=== PATIENT | male | born 1960 ===

== ENCOUNTER → 2020-11-06 09:49 | Outpatient (BNVA) | payer OTHER, SELFPAY | PROVIDERS: PCP Internal Medicine; Visit Provider Hospitalist | DX: J44.9 Chronic obstructive pulmonary disease, unspecified (principal); G47.33 Obstructive sleep apnea (adult) (pediatric); R91.8 Other nonspecific abnormal finding of lung field; Z99.89 Dependence on other enabling machines and devices | CPT/HCPCS: 99212 ==

== ENCOUNTER 2020-11-06 13:00 | Outpatient (RCR) | payer OTHER, SELFPAY | END 2020-11-06 14:55 | disposition other institution (70) | LOC: HO.PT 13:00 | PROVIDERS: Visit Provider Orthopaedic Surgery | DX: M54.42 Lumbago with sciatica, left side (principal) | CPT/HCPCS: 97110; 97112; 97140; 97163; 97535 ==

== ENCOUNTER 2020-11-07 11:55 | Outpatient (REF) | payer SELFPAY ==
[2020-11-07 12:29] LABS: Cholesterol 345 mg/dL
[2020-11-07 12:49] LABS: SARS COV2 IgG Negative (Negative)
== END 2020-11-07 11:56 | disposition home or self-care (01) ==
LOC: HO.LNC 11:55
PROVIDERS: Visit Provider Pathology Anatomic Pathology & Clinical Pathology
DX: Z13.89 Encounter for screening for other disorder (principal)
CPT/HCPCS: 36415; 82465; 86769

== ENCOUNTER 2020-11-11 14:23 | Outpatient (REF) | payer OTHER, SELFPAY ==
[2020-11-11 15:44] LABS: Rheumatoid Factor < 15.0 IU/mL (<15.0)
[2020-11-11 16:21] LABS: Erythrocyte Sedimentation Rate 22 MM/HR (0-15)
[2020-11-12 08:42] LABS: Syphilis Screen Nonreactive (Nonreactive)
[2020-11-12 09:07] LABS: Lyme Abs Screen <0.90 index
[2020-11-12 13:28] LABS: Anti Nuclear Antibody Screen NEGATIVE (NEGATIVE)
[2020-11-12 18:11] LABS: IgA 291 mg/dL (47-310); IgG 1045 mg/dL (600-1640); IgM 28 mg/dL (50-300)
== END 2020-11-11 14:24 | disposition home or self-care (01) ==
LOC: HO.LAB 14:23
PROVIDERS: PCP Internal Medicine; Visit Provider Psychiatry & Neurology Neurology
DX: G62.9 Polyneuropathy, unspecified (principal); R91.8 Other nonspecific abnormal finding of lung field; J44.9 Chronic obstructive pulmonary disease, unspecified; G47.33 Obstructive sleep apnea (adult) (pediatric)
CPT/HCPCS: 36415; 82784; 85652; 86038; 86039; 86334; 86431; 86618; 86780

== ENCOUNTER 2020-11-26 10:10 | Outpatient (REF) | payer OTHER, SELFPAY | END 2020-11-26 10:11 | disposition home or self-care (01) | LOC: HO.LAB 10:10 | PROVIDERS: Visit Provider Internal Medicine | DX: Z20.822 Contact with and (suspected) exposure to COVID-19 (principal) | CPT/HCPCS: 36415; C9803; U0003; U0005 ==

== ENCOUNTER 2021-01-01 09:32 | Outpatient (REF) | payer OTHER, SELFPAY ==
[2021-01-01 10:03] LABS: MANUAL DIFF FLAG NO
[2021-01-01 10:06] LABS: Basophils Percent Auto 0.2 % (0-2); Eosinophils Absolute Auto 0.1 X10*3/uL (0.0-0.4); Hematocrit 40.6 % (42-52); Hemoglobin 13.5 g/dl (14.0-18.0); Imm Gran Abs Auto 0.05 X10*3/uL (0.00-0.03); Imm Gran Pct Auto 0.6 % (0.0-0.4); Lymphocytes Absolute Auto 2.1 X10*3/uL (1.2-4.9); Lymphocytes Percent Auto 25.7 % (20-40); Mean Corpuscular HGB Conc 33.3 g/dl (31.0-36.0); Mean Corpuscular Hemoglobin 29.7 pg (27.0-33.0); Mean Corpuscular Volume 89.2 fL (80-98); Mean Platelet Volume 9.4 fL (9.4-12.4); Monocytes Absolute Auto 0.5 X10*3/uL (0.1-1.2); Monocytes Percent Auto 6.4 % (2-11); Neutrophils Absolute Auto 5.4 X10*3/uL (2.0-8.3); Neutrophils Percent Auto 66.1 % (45-73); Platelet Count 306 X10*3/uL (160-400); Red Blood Count 4.55 X10*6/uL (4.60-5.80); Red Cell Distribution Width 13.2 % (11.0-16.0); White Blood Count 8.1 X10*3/uL (4.8-10.8)
[2021-01-01 10:25] LABS: Alanine Aminotransferase 21 U/L (0-40); Albumin Level 4.4 g/dL (3.5-5.0); Alkaline Phosphatase 85 U/L (39-117); Anion Gap 14 (12-20); Aspartate Amino Transferase 17 U/L (5-37); Bilirubin Total 0.5 mg/dL (0.0-1.0); Blood Urea Nitrogen 16 mg/dL (9-16); Carbon Dioxide 30 mmol/L (22-29); Chloride 103 mmol/L (96-108); Estimated Glomerular Filt Rate > 60; Glucose Random 103 mg/dL (60-115); Potassium 4.5 mmol/L (3.3-5.1); Sodium 142 mmol/L (135-145); Total Protein 7.2 g/dL (6.5-8.0)
[2021-01-03 11:10] LABS: Folate 14.6 ng/mL (> or = 4.0); Vitamin B12 430 pg/mL (200-900)
== END 2021-01-01 09:33 | disposition home or self-care (01) ==
LOC: HO.LAB 09:32
PROVIDERS: PCP Internal Medicine; Visit Provider Internal Medicine
DX: Z00.01 Encounter for general adult medical examination with abnormal findings (principal); G47.33 Obstructive sleep apnea (adult) (pediatric); G60.8 Other hereditary and idiopathic neuropathies; I10 Essential (primary) hypertension; R21 Rash and other nonspecific skin eruption
CPT/HCPCS: 36415; 80053; 82607; 82746; 84443; 85025

== ENCOUNTER 2021-01-12 12:52 | Outpatient (REF) | payer OTHER, SELFPAY ==
--- NOTE | ~2021-01-12 | CT_ITS ---
EXAMINATION: CT CHEST SCREENING CLINICAL INFORMATION: Lung cancer screening COMPARISON: Previous chest CT most recent November 2019 TECHNIQUE: Multidetector volumetric CT imaging of the chest is performed without contrast using low dose technique. Additional 2D coronal and sagittal reformatted images and axial 3D maximum intensity projection (MIP) images are generated on the CT workstation. This CT examination was performed using dose optimization techniques as appropriate, variously including the following: *Automated exposure control *Adjustment of mA and/or kV according to patient size (this includes techniques or standardized protocols for targeted exams where dose is matched to indication/reason for exam; i.e. extremities or head) *Use of iterative reconstruction technique DLP: 66 mGy-cm FINDINGS: LUNGS: There is a 2 mm left upper lobe nodule axial image 92 series 5 that is stable. There is a 4 mm calcified left upper lobe nodule axial image 103 series 5 that is stable. There is a 2 mm peripheral or subpleural left lower lobe nodule adjacent to the diaphragmatic pleural surface axial image 383 series 5 that is stable. No new pulmonary nodule is seen. No endobronchial or endotracheal lesion is seen. MEDIASTINUM: The ascending thoracic aorta is upper normal in size measuring 4 cm. This is similar to previous exam. There are no enlarged hilar or mediastinal lymph nodes. The heart does not appear enlarged. There is no pericardial effusion. PLEURA: There is no pleural effusion. No pleural mass or thickening. AXILLA: No lymphadenopathy. UPPER ABDOMEN: Unremarkable OSSEOUS STRUCTURES: There are degenerative changes of the spine. CT/CT lung screening IMPRESSION: Stable small pulmonary nodules. No new pulmonary nodule seen. ASSESSMENT: Lung-RADS category 2: Benign RECOMMENDATION: Annual low-dose chest CT follow-up recommended.
== END 2021-01-12 12:53 | disposition home or self-care (01) ==
LOC: HO.CT 12:52
PROVIDERS: PCP Internal Medicine; Visit Provider Surgery
DX: Z12.2 Encounter for screening for malignant neoplasm of respiratory organs (principal); Z87.891 Personal history of nicotine dependence
CPT/HCPCS: 71271; 99212

== ENCOUNTER 2021-01-26 09:42 | Outpatient (REF) | payer OTHER, SELFPAY ==
[2021-01-26 14:32] LABS: PSA,Total (Free>4and<10) 0.89 ng/mL (0.00-4.00)
== END 2021-01-26 09:43 | disposition home or self-care (01) ==
LOC: HO.10HDL 09:42
PROVIDERS: Visit Provider Urology
DX: N40.1 Benign prostatic hyperplasia with lower urinary tract symptoms (principal); N13.8 Other obstructive and reflux uropathy
CPT/HCPCS: 36415; 84153

== ENCOUNTER 2021-02-12 07:47 | Outpatient (REF) | payer OTHER, SELFPAY | END 2021-02-12 07:48 | disposition home or self-care (01) | LOC: HO.LAB 07:47 | PROVIDERS: Visit Provider Internal Medicine | DX: Z20.822 Contact with and (suspected) exposure to COVID-19 (principal) | CPT/HCPCS: C9803; U0003; U0005 ==

== ENCOUNTER 2021-04-08 11:30 | Outpatient (REF) | payer OTHER, SELFPAY ==
[2021-04-08 14:35] LABS: PSA,Total (Free>4and<10) 0.85 ng/mL (0.00-4.00)
== END 2021-04-08 11:31 | disposition home or self-care (01) ==
LOC: HO.LAB 11:30
PROVIDERS: PCP Internal Medicine; Visit Provider Urology
DX: Z12.5 Encounter for screening for malignant neoplasm of prostate (principal); N40.1 Benign prostatic hyperplasia with lower urinary tract symptoms; N13.8 Other obstructive and reflux uropathy
CPT/HCPCS: 36415; 84153

== ENCOUNTER 2021-04-13 09:12 | Outpatient (REF) | payer OTHER, SELFPAY ==
[2021-04-13 10:36] LABS: Alanine Aminotransferase 15 U/L (0-40); Albumin Level 4.4 g/dL (3.5-5.0); Alkaline Phosphatase 76 U/L (39-117); Anion Gap 12 (12-20); Aspartate Amino Transferase 19 U/L (5-37); Bilirubin Total 0.4 mg/dL (0.0-1.0); Blood Urea Nitrogen 19 mg/dL (9-16); Calcium 9.4 mg/dL (8.4-10.2); Carbon Dioxide 29 mmol/L (22-29); Chloride 104 mmol/L (96-108); Cholesterol 283 mg/dL; Estimated Glomerular Filt Rate > 60; Glucose Random 97 mg/dL (60-115); HDL Cholesterol 58 mg/dL; LDL Cholesterol Calculated 182 mg/dl; Potassium 4.2 mmol/L (3.3-5.1); Sodium 141 mmol/L (135-145); Total Protein 7.1 g/dL (6.5-8.0); Triglycerides 219 mg/dL
== END 2021-04-13 09:13 | disposition home or self-care (01) ==
LOC: HO.LAB 09:12
PROVIDERS: PCP Internal Medicine; Visit Provider Internal Medicine
DX: E78.00 Pure hypercholesterolemia, unspecified (principal); G47.33 Obstructive sleep apnea (adult) (pediatric); I10 Essential (primary) hypertension
CPT/HCPCS: 36415; 80053; 80061

== ENCOUNTER → 2021-04-16 14:26 | Outpatient (BNVA) | payer OTHER, SELFPAY | PROVIDERS: PCP Internal Medicine; Visit Provider Urology | DX: Z13.89 Encounter for screening for other disorder (principal) | CPT/HCPCS: 99212 ==

== ENCOUNTER 2021-06-16 10:41 | Outpatient (REF) | payer OTHER, SELFPAY ==
[2021-06-19 13:06] LABS: TS Negative Control Passed; TS Panel A 7; TS Panel B 4; TS Positive Control Passed; TSpotTB BORDERLINE (SeeBelow)
== END 2021-06-16 10:42 | disposition home or self-care (01) ==
LOC: HO.LAB 10:41
PROVIDERS: PCP Internal Medicine; Visit Provider Internal Medicine
DX: Z11.1 Encounter for screening for respiratory tuberculosis (principal); E78.2 Mixed hyperlipidemia; G47.33 Obstructive sleep apnea (adult) (pediatric); I10 Essential (primary) hypertension; J44.9 Chronic obstructive pulmonary disease, unspecified
CPT/HCPCS: 36415; 86481

== ENCOUNTER → 2021-07-27 13:36 | Outpatient (BNVA) | payer OTHER, SELFPAY | PROVIDERS: PCP Internal Medicine; Visit Provider Internal Medicine Cardiovascular Disease | DX: R06.00 Dyspnea, unspecified (principal) | CPT/HCPCS: 93005; 99202 ==

== ENCOUNTER 2021-07-29 08:30 | Outpatient (REF) | payer OTHER, SELFPAY ==
[2021-07-29 08:52] LABS: MANUAL DIFF FLAG NO
[2021-07-29 09:26] LABS: Basophils Percent Auto 0.5 % (0-2); Eosinophils Absolute Auto 0.2 X10*3/uL (0.0-0.4); Eosinophils Percent Auto 2.3 % (0-4); Hematocrit 40.6 % (42-52); Hemoglobin 13.6 g/dl (14.0-18.0); Imm Gran Abs Auto 0.02 X10*3/uL (0.00-0.03); Imm Gran Pct Auto 0.3 % (0.0-0.4); Lymphocytes Absolute Auto 2.1 X10*3/uL (1.2-4.9); Lymphocytes Percent Auto 27.5 % (20-40); Mean Corpuscular HGB Conc 33.5 g/dl (31.0-36.0); Mean Corpuscular Volume 86.6 fL (80-98); Mean Platelet Volume 9.7 fL (9.4-12.4); Monocytes Absolute Auto 0.6 X10*3/uL (0.1-1.2); Monocytes Percent Auto 7.7 % (2-11); Neutrophils Absolute Auto 4.6 X10*3/uL (2.0-8.3); Neutrophils Percent Auto 61.7 % (45-73); Platelet Count 346 X10*3/uL (160-400); Red Blood Count 4.69 X10*6/uL (4.60-5.80); Red Cell Distribution Width 13.2 % (11.0-16.0); White Blood Count 7.5 X10*3/uL (4.8-10.8)
[2021-07-29 09:54] LABS: Alanine Aminotransferase 17 U/L (0-40); Albumin Level 4.5 g/dL (3.5-5.0); Alkaline Phosphatase 87 U/L (39-117); Anion Gap 15 (12-20); Aspartate Amino Transferase 16 U/L (5-37); Bilirubin Total 0.4 mg/dL (0.0-1.0); Blood Urea Nitrogen 18 mg/dL (9-16); Calcium 9.4 mg/dL (8.4-10.2); Carbon Dioxide 27 mmol/L (22-29); Chloride 101 mmol/L (96-108); Cholesterol 359 mg/dL; Estimated Glomerular Filt Rate > 60; Glucose Random 104 mg/dL (60-115); HDL Cholesterol 53 mg/dL; Potassium 4.3 mmol/L (3.3-5.1); Sodium 139 mmol/L (135-145); Total Protein 7.5 g/dL (6.5-8.0); Triglycerides 411 mg/dL
[2021-07-29 10:08] LABS: PSA,Total (Free>4and<10) 0.73 ng/mL (0.00-4.00)
== END 2021-07-29 08:31 | disposition home or self-care (01) ==
LOC: HO.LAB 08:30
PROVIDERS: Urology; PCP Internal Medicine; Visit Provider Internal Medicine
DX: E78.2 Mixed hyperlipidemia (principal); G47.33 Obstructive sleep apnea (adult) (pediatric); I10 Essential (primary) hypertension; J44.9 Chronic obstructive pulmonary disease, unspecified; N40.1 Benign prostatic hyperplasia with lower urinary tract symptoms; N13.8 Other obstructive and reflux uropathy; Z12.5 Encounter for screening for malignant neoplasm of prostate
CPT/HCPCS: 36415; 80053; 80061; 84153; 85025

== ENCOUNTER → 2021-07-30 13:56 | Outpatient (BNVA) | payer OTHER, SELFPAY | PROVIDERS: PCP Internal Medicine; Visit Provider Nurse Practitioner | DX: K21.9 Gastro-esophageal reflux disease without esophagitis (principal); R14.0 Abdominal distension (gaseous); R19.7 Diarrhea, unspecified; R10.33 Periumbilical pain | CPT/HCPCS: 99212 ==

== ENCOUNTER 2021-09-03 13:30 | Outpatient (RCR) | payer OTHER, SELFPAY | END 2021-09-04 12:00 | disposition home or self-care (01) | LOC: HO.OT 13:30 | PROVIDERS: Visit Provider Orthopaedic Surgery | DX: Z98.890 Other specified postprocedural states (principal) | CPT/HCPCS: 97033; 97035; 97110; 97140; 97165; 97760 ==

== ENCOUNTER 2021-09-22 11:36 | Emergency (ER) | payer OTHER, SELFPAY ==
--- NOTE | ~2021-09-22 | XR_ITS ---
EXAMINATION: XR KNEE, RIGHT CLINICAL INFORMATION: Pain COMPARISON: Previous x-ray most recent May 2019 TECHNIQUE: Two views of the right knee. FINDINGS: Bone alignment is normal. No fracture or dislocation is seen. There is mild arthritis at the medial femoral and patellofemoral joints. There is a small osteophyte at the quadriceps tendon insertion to the patella. There is no joint effusion. XR/XR knee RT 2V IMPRESSION: Degenerative changes.
[2021-09-22 12:04] VITALS: BP 161/95; PULSE 85; RESP 18; TEMP 37; O2SAT 97; BMI 37.2
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
[2021-09-22] MEDS: Ibuprofen 600 MG TABLET PO (12:55)
== END 2021-09-22 14:04 | disposition home or self-care (01) ==
PROVIDERS: Emergency Provider Emergency Medicine Emergency Medical Services; PCP Internal Medicine
DX: S83.91XA Sprain of unspecified site of right knee, initial encounter (principal); S16.1XXA Strain of muscle, fascia and tendon at neck level, initial encounter; W01.0XXA Fall on same level from slipping, tripping and stumbling without subsequent striking against object, initial encounter; Y93.89 Activity, other specified; Y92.031 Bathroom in apartment as the place of occurrence of the external cause; Y99.9 Unspecified external cause status
CPT/HCPCS: 73560; 99283; 99284

== ENCOUNTER → 2021-11-02 10:40 | Outpatient (BNVA) | payer OTHER, SELFPAY | PROVIDERS: PCP Internal Medicine; Visit Provider Hospitalist | DX: G47.33 Obstructive sleep apnea (adult) (pediatric) (principal); J44.9 Chronic obstructive pulmonary disease, unspecified; R91.8 Other nonspecific abnormal finding of lung field; Z99.89 Dependence on other enabling machines and devices | CPT/HCPCS: 99212 ==

== ENCOUNTER 2021-11-11 07:20 | Outpatient (REF) | payer OTHER, SELFPAY ==
[2021-11-11 09:01] LABS: Alanine Aminotransferase 23 U/L (0-40); Albumin Level 4.4 g/dL (3.5-5.0); Alkaline Phosphatase 77 U/L (39-117); Anion Gap 14 (12-20); Aspartate Amino Transferase 21 U/L (5-37); Bilirubin Total 0.6 mg/dL (0.0-1.0); Blood Urea Nitrogen 17 mg/dL (9-16); Calcium 9.6 mg/dL (8.4-10.2); Carbon Dioxide 31 mmol/L (22-29); Chloride 100 mmol/L (96-108); Cholesterol 254 mg/dL; Estimated Glomerular Filt Rate > 60; Glucose Random 101 mg/dL (60-115); HDL Cholesterol 48 mg/dL; LDL Cholesterol Calculated 144 mg/dl; Potassium 4.5 mmol/L (3.3-5.1); Sodium 140 mmol/L (135-145); Total Protein 7.6 g/dL (6.5-8.0); Triglycerides 314 mg/dL
[2021-11-11 09:14] LABS: Thyroid Stimulating Hormone 0.81 uIU/mL (0.32-4.0)
== END 2021-11-11 07:21 | disposition home or self-care (01) ==
LOC: HO.LAB 07:20
PROVIDERS: PCP Internal Medicine; Visit Provider Internal Medicine
DX: E78.2 Mixed hyperlipidemia (principal); F32.9 Major depressive disorder, single episode, unspecified; G47.33 Obstructive sleep apnea (adult) (pediatric); I10 Essential (primary) hypertension
CPT/HCPCS: 36415; 80053; 80061; 84443

== ENCOUNTER → 2021-11-17 07:56 | Outpatient (REF) | payer OTHER, SELFPAY ==
--- NOTE | 2021-11-17 08:02 | CA_ITS ---
Transthoracic Echocardiogram Patient (Last, First, Middle): Morteza Benitez, Gender: Male Date of : 1960 Age: 61 Procedure Date: 11/17/2021 Procedure Type: Transthoracic Echocardiogram Location: OP Height: 180.34 cm Weight: 125.19 kg BSA: 2.42 m2 Heart Rate: bpm BP: 142 / 84 mmHg Unindentured Apprentice: AJ Referring MD: Enmanuel Forrester MD Symptoms: R06.00 - Dyspnea, unspecified Study Quality: Fair ECG Rhythm: Sinus Conclusions: - Normal left ventricular size, thickness, systolic function, and wall motion. - Diastolic function is normal for age. - Normal right ventricular cavity size and systolic function. Findings Procedure Information Contrast agent, definity, is being given per protocol without apparent complications. Left Ventricle Normal left ventricular size, thickness, systolic function, and wall motion. The visually estimated ejection fraction is between 60-65%. Diastolic function is normal for age. Right Ventricle Normal right ventricular cavity size and systolic function. Atria Both atria are normal in size. Aortic Valve Normal aortic valve structure and function. There is no aortic valve stenosis. There is no aortic valve regurgitation. Mitral Valve Normal mitral valve structure and function. There is no mitral valve regurgitation. There is no mitral valve stenosis. Pulmonic Valve Normal pulmonic valve structure and function. There is trace pulmonic valve regurgitation. Tricuspid Valve Normal tricuspid valve structure and function. There is trace tricuspid valve regurgitation. Normal right atrial pressure. There is no evidence of pulmonary hypertension. Great Vessels All visible segments of the aorta are normal in size. The visualized portions of the pulmonary artery and branches are normal. Venous The inferior vena cava is normal in size and collapses greater than 50% with inspiration. Pericardium/Pleural There is no evidence of pericardial effusion. Prior Study Comparison No prior study available for comparison. Measurements 2D Linear Measurements IVSd: 1.05 0.6-0.9/0.6-1.0 cm LVIDd: 4.70 3.9-5.3/4.2-5.9 cm LVIDd Index: 1.94 2.4-3.2/2.2-3.1 cm/m2 LVIDs: 3.07 2.0-3.6 cm LVPWd: 1.15 0.7-1.1 cm Ao Root: 3.70 2.1-3.5 cm LA Diam: 3.00 2.7-3.8/3.0-4.0 cm LAIDs Index: 1.24 1.5-2.3 cm/m2 LV Mass: 233.67 67-162/88-224 g LV Mass Index: 96.56 43-95/49-115 g/m2 LVOT Diam: 2.20 3.0+(-)1.3 cm 2D Systolic Function EF 4C: 60.40 >55% EF 2C: 69.20 >55% EF BiP: 63.10 >55% Mitral Valve MV Pk E: 0.52 MV PK A: 0.77 MV Decel Time: 293.00 E/A: 0.70 E'Lateral: 9.46 E'Medial: 8.27 E/E' Med: 6.30 E/E' Lat: 5.50 PHT: 86.00 MVA PHT: 2.56 Decel [place]: 1.77 Aortic Valve AoV Pk Pedro: 1.45 AoV Mn Pedro: 0.96 AoV VTI: 0.24 AoV Pk Grad: 8.00 Aov Mn Grad: 4.00 GUILLAUME Cont.VTI: 3.20 LVOT LVOT Pk Pedro: 1.07 LVOT Mn Pedro: 0.78 LVOT VTI: 0.20 LVOT Pk Grad: 5.00 LVOT Mn Grad: 3.00 LVOT Diam: 2.20 LVOT Area: 3.80 Diastolic Function MV Pk E: 0.52 MV Pk A: 0.77 E/A: 0.70 E'Medial: 8.27 E/E' Med: 6.30 E' Laterial: 9.46 E/E' Lat: 5.50 Right Ventricle TAPSE (mm): 19.00 TVS' Pedro: 18.00 Tricuspid Valve TR Pk Pedro: 1.56 TR Pk Grad: 10.00 RA Press: 3.00 RVSP: 13.00 Great Vessels Aorta Ao Root-2D: 3.70 2.0-3.7 cm Ao Asc: 3.40 2.1-3.4 cm Ao Arch: 3.50 Updated in Other Vendor System with Status of Final Enmanuel Forrester MD electronically signed on 11/18/2021 8:22:54 PM with status of Final
== END ==
LOC: HO.CARD 07:56
PROVIDERS: PCP Internal Medicine; Visit Provider Internal Medicine Cardiovascular Disease
DX: R06.00 Dyspnea, unspecified (principal)
CPT/HCPCS: 93306; Q9957

== ENCOUNTER → 2021-11-23 08:44 | Outpatient (BNVA) | payer OTHER, SELFPAY | PROVIDERS: PCP Internal Medicine; Visit Provider Internal Medicine Cardiovascular Disease | DX: R06.00 Dyspnea, unspecified (principal); G47.33 Obstructive sleep apnea (adult) (pediatric); J44.9 Chronic obstructive pulmonary disease, unspecified; Z91.19 Patient's noncompliance with other medical treatment and regimen; Z99.89 Dependence on other enabling machines and devices | CPT/HCPCS: 99212 ==

== ENCOUNTER 2021-11-25 08:22 | Outpatient (REF) | payer OTHER, SELFPAY ==
--- NOTE | ~2021-11-25 | XR_ITS ---
EXAMINATION: XR LUMBOSACRAL SPINE WITH OBLIQUES CLINICAL INFORMATION: Low back pain. COMPARISON: None TECHNIQUE: AP, both oblique, and lateral views of the lumbar spine. Lateral view of the lumbosacral junction. FINDINGS: There is normal lumbar lordosis. There is loss of L5-S1, L4-L5 and L1-2 disc heights with moderate ventral spondylosis upper lumbar and mild spondylosis lower lumbar spine. No visible acute fracture, dislocation or lytic process seen. There is no pars defect or listhesis on oblique views. XR/XR lumbar spine 4V min IMPRESSION: Mild degenerative changes L5-S1, L4-L5 and L1-L2 disc levels. No pars defect or listhesis. There is moderate ventral spondylosis.
== END 2021-11-25 08:23 | disposition home or self-care (01) ==
LOC: HO.XRAY 08:22
PROVIDERS: PCP Internal Medicine; Visit Provider Student in an Organized Health Care Education/Training Program
DX: M51.16 Intervertebral disc disorders with radiculopathy, lumbar region (principal)
CPT/HCPCS: 72110

== ENCOUNTER → 2021-11-26 07:49 | Outpatient (REF) | payer OTHER, SELFPAY ==
--- NOTE | 2021-11-26 07:52 | CA_ITS ---
Acquisition Time: 2021-11-26 08:08:18 Total Exercise Time: 00:06:13 Test Indications: Dyspnea Medications: AMLODIPINE ALBUTEROL LOSARTAN/HCTZ LORATIDINE ROSUVASTATIN INHALERS SERTRALINE SINGULAIR Protocol: SHWETHA Max HR: 148 BPM 92% of Pred: 160 BPM Max BP: 138/072 mmHG Max Work Load: 7.3 METS Exercise stress test with exercise 6 min 13 sec of Shwetha protocol, with mild sob, no chest discomfort, without arrythmia, with normotensive response to exercise, without EKG changes meeting criteria for ischemia. Test reviewed with Dr Jackson. Referred By: Enmanuel Forrester Overread By: NENA LOREDO
== END ==
LOC: HO.CARD 07:49
PROVIDERS: Visit Provider Internal Medicine Cardiovascular Disease
DX: R06.00 Dyspnea, unspecified (principal)
CPT/HCPCS: 93017

== ENCOUNTER 2022-01-15 08:13 | Outpatient (REF) | payer OTHER, SELFPAY ==
--- NOTE | ~2022-01-15 | XR_ITS ---
EXAMINATION: XR CHEST CLINICAL INFORMATION: Positive TB test COMPARISON: None TECHNIQUE: 2 views of the chest were obtained. FINDINGS: No significant abnormality is noted involving the heart, lungs, mediastinum, bony thorax or soft tissues. XR/XR chest 2V IMPRESSION: Unremarkable chest examination.
== END 2022-01-15 08:14 | disposition home or self-care (01) ==
LOC: HO.XRAY 08:13
PROVIDERS: PCP Internal Medicine; Visit Provider Internal Medicine
DX: R76.11 Nonspecific reaction to tuberculin skin test without active tuberculosis (principal)
CPT/HCPCS: 71046

== ENCOUNTER 2022-02-13 07:03 | Outpatient (REF) | payer OTHER, SELFPAY ==
[2022-02-13 07:55] LABS: Alanine Aminotransferase 46 U/L (0-40); Albumin Level 4.4 g/dL (3.5-5.0); Alkaline Phosphatase 85 U/L (39-117); Anion Gap 13 (12-20); Aspartate Amino Transferase 28 U/L (5-37); Bilirubin Total 0.5 mg/dL (0.0-1.0); Blood Urea Nitrogen 25 mg/dL (9-16); Calcium 9.7 mg/dL (8.4-10.2); Carbon Dioxide 32 mmol/L (22-29); Chloride 100 mmol/L (96-108); Cholesterol 155 mg/dL; Estimated Glomerular Filt Rate > 60; Glucose Random 112 mg/dL (60-115); HDL Cholesterol 54 mg/dL; LDL Cholesterol Calculated 65 mg/dl; Potassium 4.6 mmol/L (3.3-5.1); Sodium 140 mmol/L (135-145); Total Protein 7.3 g/dL (6.5-8.0); Triglycerides 184 mg/dL
[2022-02-13 08:19] LABS: PSA,Total (Free>4and<10) 0.66 ng/mL (0.00-4.00)
== END 2022-02-13 07:04 | disposition home or self-care (01) ==
LOC: HO.LAB 07:03
PROVIDERS: Urology; PCP Internal Medicine; Visit Provider Internal Medicine
DX: Z12.5 Encounter for screening for malignant neoplasm of prostate (principal); E78.2 Mixed hyperlipidemia; N13.8 Other obstructive and reflux uropathy; N40.1 Benign prostatic hyperplasia with lower urinary tract symptoms; G47.33 Obstructive sleep apnea (adult) (pediatric); I10 Essential (primary) hypertension
CPT/HCPCS: 36415; 80053; 80061; 84153

== ENCOUNTER → 2022-03-24 12:31 | Outpatient (BNVA) | payer OTHER, SELFPAY | PROVIDERS: PCP Internal Medicine; Referring Provider Internal Medicine; Visit Provider Internal Medicine Cardiovascular Disease | DX: R06.00 Dyspnea, unspecified (principal) | CPT/HCPCS: 93005; 99212 ==

== ENCOUNTER → 2022-03-30 07:16 | Outpatient (BNVA) | payer OTHER, SELFPAY | PROVIDERS: PCP Internal Medicine; Referring Provider Internal Medicine; Visit Provider Nurse Practitioner | DX: K21.9 Gastro-esophageal reflux disease without esophagitis (principal); R14.0 Abdominal distension (gaseous); R19.7 Diarrhea, unspecified | CPT/HCPCS: 99212 ==

== ENCOUNTER → 2022-04-01 12:41 | Outpatient (BNVA) | payer OTHER, SELFPAY | PROVIDERS: PCP Internal Medicine; Visit Provider Hospitalist | DX: J44.9 Chronic obstructive pulmonary disease, unspecified (principal); G47.33 Obstructive sleep apnea (adult) (pediatric); R06.00 Dyspnea, unspecified; R91.8 Other nonspecific abnormal finding of lung field; Z99.89 Dependence on other enabling machines and devices | CPT/HCPCS: 94618; 99212 ==

== ENCOUNTER 2022-04-28 07:26 | Outpatient (REF) | payer OTHER, SELFPAY ==
[2022-04-28 09:58] LABS: Anion Gap 14 (12-20); Blood Urea Nitrogen 25 mg/dL (9-16); Calcium 9.2 mg/dL (8.4-10.2); Carbon Dioxide 26 mmol/L (22-29); Chloride 104 mmol/L (96-108); Estimated Glomerular Filt Rate > 60; Glucose Random 103 mg/dL (60-115); Potassium 4.3 mmol/L (3.3-5.1); Sodium 140 mmol/L (135-145)
== END 2022-04-28 07:27 | disposition home or self-care (01) ==
LOC: HO.LAB 07:26
PROVIDERS: PCP Internal Medicine; Visit Provider Internal Medicine Cardiovascular Disease
DX: R06.00 Dyspnea, unspecified (principal)
CPT/HCPCS: 36415; 80048

== ENCOUNTER 2022-05-10 07:05 | Outpatient (REF) | payer OTHER, SELFPAY ==
[2022-05-10 07:42] LABS: Estimated Average Glucose 114 mg/dL; Hemoglobin A1c % 5.6 %
[2022-05-10 07:56] LABS: Alanine Aminotransferase 21 U/L (0-40); Albumin Level 4.4 g/dL (3.5-5.0); Alkaline Phosphatase 84 U/L (39-117); Anion Gap 14 (12-20); Aspartate Amino Transferase 20 U/L (5-37); Bilirubin Total 0.2 mg/dL (0.0-1.0); Blood Urea Nitrogen 20 mg/dL (9-16); Calcium 8.8 mg/dL (8.4-10.2); Carbon Dioxide 25 mmol/L (22-29); Chloride 103 mmol/L (96-108); Estimated Glomerular Filt Rate > 60; Glucose Random 119 mg/dL (60-115); Sodium 138 mmol/L (135-145); Total Protein 7.3 g/dL (6.5-8.0)
== END 2022-05-10 07:06 | disposition home or self-care (01) ==
LOC: HO.LAB 07:05
PROVIDERS: PCP Internal Medicine; Visit Provider Internal Medicine
DX: Z00.01 Encounter for general adult medical examination with abnormal findings (principal); R73.01 Impaired fasting glucose; I10 Essential (primary) hypertension; F51.5 Nightmare disorder; F32.9 Major depressive disorder, single episode, unspecified; F17.211 Nicotine dependence, cigarettes, in remission
CPT/HCPCS: 36415; 80053; 83036

== ENCOUNTER → 2022-07-06 15:26 | Outpatient (BNVA) | payer OTHER, SELFPAY | PROVIDERS: PCP Internal Medicine; Visit Provider Urology | DX: N40.1 Benign prostatic hyperplasia with lower urinary tract symptoms (principal); N13.8 Other obstructive and reflux uropathy; N52.9 Male erectile dysfunction, unspecified; Z79.899 Other long term (current) drug therapy | CPT/HCPCS: 51798; 99212 ==

== ENCOUNTER → 2022-07-07 13:02 | Outpatient (BNVA) | payer OTHER, SELFPAY | PROVIDERS: PCP Internal Medicine; Referring Provider Internal Medicine; Visit Provider Internal Medicine Cardiovascular Disease | DX: R06.00 Dyspnea, unspecified (principal) | CPT/HCPCS: 99212 ==

== ENCOUNTER 2022-09-02 08:46 | Outpatient (REF) | payer OTHER, SELFPAY ==
--- NOTE | 2022-09-02 10:30 | MHC.AU.MED ---
Medical Clearance for Hearing Instrumentation Date: 09/02/22 Patient Name: Morteza Rogers Date of : 1960 Referring Provider: Delia Davila MD We have seen your patient on 09/02/22 and have determined that they are a candidate for amplification (See accompanying report). Specifically, they would benefit from: Hearing aid use in both ears There is a statute that addresses Medical Evaluation Requirements prior to fitting a patient with a hearing aid. According to [place] statute 265 CMR:6.03(1), (a) General. Except as provided in 265 CMR 6.03(1)(b), a secretary book keeper shall not sell a hearing aid unless the prospective user has presented to the secretary book keeper a written statement signed by a licensed physician that states that the patient's hearing loss has been medically evaluated and the patient may be considered a candidate for a hearing aid. The medical evaluation must have taken place within the preceding six months. Please note: Due to the [place] Statute referenced above, we cannot accept a signature other than that of a licensed physician. [employer] and [place] signatures cannot be accepted. I am in agreement with the above recommendation. There is no medical contraindication for hearing instrumentation. Physician Signature Date Physician Name (Printed)
--- NOTE | 2022-09-02 10:40 | MHC.AU.HAS ---
Hearing Aid Evaluation Date of Visit: 09/02/22 Vineyard Supervisor Used: Tamazight- In Person Historical Information: Description of Hearing: Right: Normal sloping to moderately-severe sensorineural hearing loss, Left: Severe to profound mixed hearing loss (mostly sensorineural) Summary: Patient was seen for audiological re-evaluation (see separate report for details). He has had a substantial decrease in his left ear, that has been accompanied by dizziness and an increase in tinnitus. He reports that he has not been wearing his hearing aids lately, as they interfere with use of his glasses. He has a A right-sided Oticon OPN S 2 mini RITE (obtained at our clinic on 06/06/2019) and a left-sided Oticon Nera2 Pro BTE (obtained in 2015 at [facility]). I am recommending a new pair of hearing aids due to the large change in hearing, as well as the interference from his glasses. He would benefit from an in-the-ear set of hearing aids. Hearing Aid Prescription: Based on the individual?s shared listening needs, communication environments, dexterity, desire for connectivity, and personal preferences, the following prescription for amplification has been made: Right ear: Yard Worker: Alianza Model: Evolv AI 1600 ITC-R Battery Size: Rechargeable Left ear: Yard Worker: Alianza Model: Evolv AI 1600 ITC-R Battery Size: Rechargeable Action Taken/Action Needed: Earmold Impressions Taken Prior authorization to be requested Medical Clearance to be requested from PCP/ENT Primary Diagnosis: H90.3 Bilateral Sensorineural Hearing Loss Signature: Provider: Chely Taylor, [place]
== END 2022-09-02 08:47 | disposition home or self-care (01) ==
LOC: HO.SH 08:46
PROVIDERS: Visit Provider Internal Medicine
DX: Z01.118 Encounter for examination of ears and hearing with other abnormal findings (principal); Z46.1 Encounter for fitting and adjustment of hearing aid; H90.3 Sensorineural hearing loss, bilateral
CPT/HCPCS: 92557; 92567; 92591; V5275

== ENCOUNTER 2022-11-04 12:33 | Outpatient (REF) | payer OTHER, SELFPAY ==
--- NOTE | 2022-11-05 08:45 | MHC.AU.HA2 ---
Hearing Instrument Fitting- Adult- Binaural Date of Visit: 11/04/22 Hearing Instruments Dispensed: Right Ear: Nate, Model, Color, Serial Number: Toi PARHAM 1600 [facility] R [id number] Commercial Construction Superintendent Repair Warranty: 10/18/2025 Commercial Construction Superintendent Loss and Damage Warranty: 10/18/2025 [facility] Service Plan: 11/04/2023 Battery Size: Rechargeable Type of Wax Guard: HearClear wax guards and Stephane covers Left Ear: Nate, Model, Color, Serial Number: Toi PARHAM 1600 [facility] R [id number] Commercial Construction Superintendent Repair Warranty: 10/18/2025 Commercial Construction Superintendent Loss and Damage Warranty: 10/18/2025 [facility] Service Plan: 11/04/2023 Battery Size: Rechargeable Type of Wax Guard: HearClear Blue wax guard and custom stephane covers (Lg) Accessories/Assistive Technology: Custom Ship Scaler [id number] sima thru 10/18/25 Summary of Fitting: Feedback city maintenance manager run. Verifit performed and levels adjusted to better reach targets. Patient felt that full target was too loud- lowered overall gain by 3 steps. Patient was pleased with the sound of the instruments. Volume button was deactivated, as patient wanted the hearing aids to be as hands-off as possible. The long press for power is still activated. Hearing aid care and use were discussed and practiced. He did not want them paired to his phone at this time, as he is planning on getting a new phone in the near future. Recommendations: Patient is an experienced hearing aid user. He will call if follow-up is needed or if he needs assistance pairing them to his new phone. Diagnosis Code(s): Primary Diagnosis: H90.3 Bilateral Sensorineural Hearing Loss Signature: Provider: Chely Taylor, [facility]
== END 2022-11-04 12:34 | disposition home or self-care (01) ==
LOC: HO.HAP 12:33
PROVIDERS: Visit Provider Internal Medicine
DX: Z46.1 Encounter for fitting and adjustment of hearing aid (principal); H90.3 Sensorineural hearing loss, bilateral
CPT/HCPCS: V5011; V5020; V5160; V5260

== ENCOUNTER → 2022-11-16 10:36 | Outpatient (BNVA) | payer OTHER, SELFPAY | PROVIDERS: PCP Internal Medicine; Visit Provider Hospitalist | DX: G47.33 Obstructive sleep apnea (adult) (pediatric) (principal); J44.9 Chronic obstructive pulmonary disease, unspecified; R91.8 Other nonspecific abnormal finding of lung field; R06.00 Dyspnea, unspecified; Z99.89 Dependence on other enabling machines and devices | CPT/HCPCS: 99212 ==

== ENCOUNTER → 2022-11-17 10:37 | Outpatient (BNVA) | payer OTHER, SELFPAY | PROVIDERS: PCP Internal Medicine; Referring Provider Internal Medicine; Visit Provider Nurse Practitioner | DX: K21.9 Gastro-esophageal reflux disease without esophagitis (principal); R10.33 Periumbilical pain; R14.0 Abdominal distension (gaseous); R19.7 Diarrhea, unspecified | CPT/HCPCS: 99212 ==

== ENCOUNTER → 2022-11-26 07:54 | Outpatient (BNVA) | payer OTHER, SELFPAY | PROVIDERS: PCP Internal Medicine; Referring Provider Internal Medicine; Visit Provider Physician Assistant | DX: E66.9 Obesity, unspecified (principal); Z68.36 Body mass index [BMI] 36.0-36.9, adult; G47.33 Obstructive sleep apnea (adult) (pediatric); K21.9 Gastro-esophageal reflux disease without esophagitis; J44.9 Chronic obstructive pulmonary disease, unspecified; I10 Essential (primary) hypertension; Z99.89 Dependence on other enabling machines and devices | CPT/HCPCS: 99202 ==

== ENCOUNTER 2022-12-15 08:08 | Outpatient (REF) | payer OTHER, SELFPAY ==
[2022-12-15 08:30] LABS: MANUAL DIFF FLAG NO
[2022-12-15 09:03] LABS: Basophils Percent Auto 0.4 % (0-2); Eosinophils Absolute Auto 0.2 X10*3/uL (0.0-0.4); Eosinophils Percent Auto 2.1 % (0-4); Hematocrit 43.2 % (42.0-52.0); Hemoglobin 14.3 g/dl (14.0-18.0); Imm Gran Abs Auto 0.02 X10*3/uL (0.00-0.03); Imm Gran Pct Auto 0.3 % (0.0-0.4); Lymphocytes Absolute Auto 2.4 X10*3/uL (1.2-4.9); Lymphocytes Percent Auto 33.5 % (20-40); Mean Corpuscular HGB Conc 33.1 g/dl (31.0-36.0); Mean Corpuscular Hemoglobin 29.2 pg (27.0-33.0); Mean Corpuscular Volume 88.3 fL (80.0-98.0); Mean Platelet Volume 10.2 fL (9.4-12.4); Monocytes Absolute Auto 0.6 X10*3/uL (0.1-1.2); Monocytes Percent Auto 7.8 % (2-11); Neutrophils Absolute Auto 3.9 x10*3/uL (2.0-8.3); Neutrophils Percent Auto 55.9 % (45-73); Platelet Count 259 X10*3/uL (160-400); Red Blood Count 4.89 X10*6/uL (4.60-5.80); White Blood Count 7.1 X10*3/uL (4.8-10.8)
[2022-12-15 10:38] LABS: Vitamin B12 375 pg/mL (200-900)
[2022-12-17 13:19] LABS: Calcium (PTHI) 9.3 mg/dL (8.6-10.3); PTHI 41 pg/mL (16-77)
[2022-12-20 22:19] LABS: Vitamin A 106 mcg/dL (38-98)
[2022-12-21 14:29] LABS: Vitamin B1 13 nmol/L (8-30)
== END 2022-12-15 08:09 | disposition home or self-care (01) ==
LOC: HO.LAB 08:08
PROVIDERS: PCP Internal Medicine; Visit Provider Physician Assistant
DX: E66.9 Obesity, unspecified (principal); I10 Essential (primary) hypertension
CPT/HCPCS: 36415; 82306; 82607; 82746; 83970; 84425; 84590; 85025

== ENCOUNTER → 2022-12-23 08:17 | Outpatient (BNVA) | payer OTHER, SELFPAY | PROVIDERS: PCP Internal Medicine; Visit Provider Dietitian, Registered | DX: E66.9 Obesity, unspecified (principal); Z68.36 Body mass index [BMI] 36.0-36.9, adult | CPT/HCPCS: 97802 ==

== ENCOUNTER → 2022-12-27 10:48 | Outpatient (BNVA) | payer OTHER, SELFPAY | PROVIDERS: PCP Internal Medicine; Referring Provider Internal Medicine; Visit Provider Internal Medicine Cardiovascular Disease | DX: I25.10 Atherosclerotic heart disease of native coronary artery without angina pectoris (principal); R06.00 Dyspnea, unspecified | CPT/HCPCS: 93005; 99212 ==

== ENCOUNTER → 2023-01-28 09:43 | Outpatient (BNVA) | payer OTHER, SELFPAY | PROVIDERS: PCP Internal Medicine; Visit Provider Physician Assistant | DX: E66.9 Obesity, unspecified (principal); Z68.35 Body mass index [BMI] 35.0-35.9, adult | CPT/HCPCS: 99212 ==

== ENCOUNTER 2023-02-09 07:34 | Outpatient (REF) | payer OTHER, SELFPAY ==
[2023-02-09 07:45] LABS: MANUAL DIFF FLAG NO
[2023-02-09 08:08] LABS: Basophils Percent Auto 0.5 % (0-2); Eosinophils Absolute Auto 0.3 X10*3/uL (0.0-0.4); Eosinophils Percent Auto 4.1 % (0-4); Hematocrit 45.2 % (42.0-52.0); Hemoglobin 14.8 g/dl (14.0-18.0); Imm Gran Abs Auto 0.03 X10*3/uL (0.00-0.03); Imm Gran Pct Auto 0.4 % (0.0-0.4); Lymphocytes Absolute Auto 2.7 X10*3/uL (1.2-4.9); Lymphocytes Percent Auto 36.4 % (20-40); Mean Corpuscular HGB Conc 32.7 g/dl (31.0-36.0); Mean Corpuscular Volume 88.6 fL (80.0-98.0); Mean Platelet Volume 10.2 fL (9.4-12.4); Monocytes Absolute Auto 0.8 X10*3/uL (0.1-1.2); Monocytes Percent Auto 10.4 % (2-11); Neutrophils Absolute Auto 3.5 x10*3/uL (2.0-8.3); Neutrophils Percent Auto 48.2 % (45-73); Platelet Count 260 X10*3/uL (160-400); Red Cell Distribution Width 13.2 % (11.0-16.0); White Blood Count 7.3 X10*3/uL (4.8-10.8)
[2023-02-09 08:41] LABS: Alanine Aminotransferase 27 U/L (0-40); Albumin Level 4.4 g/dL (3.5-5.0); Alkaline Phosphatase 83 U/L (39-117); Anion Gap 13 (12-20); Aspartate Amino Transferase 24 U/L (5-37); Bilirubin Total 0.5 mg/dL (0.0-1.0); Blood Urea Nitrogen 24 mg/dL (9-16); Calcium 9.5 mg/dL (8.4-10.2); Carbon Dioxide 31 mmol/L (22-29); Chloride 101 mmol/L (96-108); Cholesterol 185 mg/dL; Estimated Glomerular Filt Rate > 60; Glucose Random 103 mg/dL (60-115); HDL Cholesterol 44 mg/dL; LDL Cholesterol Calculated 112 mg/dl; Potassium 4.4 mmol/L (3.3-5.1); Sodium 141 mmol/L (135-145); Total Protein 7.1 g/dL (6.5-8.0); Triglycerides 147 mg/dL
[2023-02-09 08:50] LABS: Estimated Average Glucose 117 mg/dL; Hemoglobin A1C 152.5203 umol/L; Hemoglobin A1c % 5.7 %
== END 2023-02-09 07:35 | disposition home or self-care (01) ==
LOC: HO.LAB 07:34
PROVIDERS: PCP Internal Medicine; Visit Provider Internal Medicine
DX: Z12.5 Encounter for screening for malignant neoplasm of prostate (principal); E78.00 Pure hypercholesterolemia, unspecified; G47.33 Obstructive sleep apnea (adult) (pediatric); I10 Essential (primary) hypertension; N40.0 Benign prostatic hyperplasia without lower urinary tract symptoms; R73.01 Impaired fasting glucose
CPT/HCPCS: 36415; 80053; 80061; 83036; 84153; 85025

== ENCOUNTER → 2023-04-11 10:08 | Outpatient (BNVA) | payer OTHER, SELFPAY | PROVIDERS: PCP Internal Medicine; Referring Provider Internal Medicine; Visit Provider Internal Medicine Cardiovascular Disease | DX: I25.10 Atherosclerotic heart disease of native coronary artery without angina pectoris (principal); I10 Essential (primary) hypertension | CPT/HCPCS: 99212 ==

== ENCOUNTER → 2023-04-15 12:56 | Outpatient (BNVA) | payer OTHER, SELFPAY | PROVIDERS: PCP Internal Medicine; Visit Provider Physician Assistant | DX: E66.9 Obesity, unspecified (principal); Z68.35 Body mass index [BMI] 35.0-35.9, adult | CPT/HCPCS: 99212 ==

== ENCOUNTER → 2023-04-27 08:54 | Outpatient (BNVA) | payer OTHER, SELFPAY | PROVIDERS: PCP Internal Medicine; Visit Provider Hospitalist | DX: G47.33 Obstructive sleep apnea (adult) (pediatric) (principal); J44.9 Chronic obstructive pulmonary disease, unspecified; R91.8 Other nonspecific abnormal finding of lung field; R06.00 Dyspnea, unspecified; Z99.89 Dependence on other enabling machines and devices | CPT/HCPCS: 99212 ==

== ENCOUNTER 2023-05-12 07:47 | Outpatient (REF) | payer OTHER, SELFPAY ==
[2023-05-12 09:57] LABS: Alanine Aminotransferase 28 U/L (0-40); Albumin Level 4.3 g/dL (3.5-5.0); Alkaline Phosphatase 67 U/L (39-117); Anion Gap 13 (12-20); Aspartate Amino Transferase 21 U/L (5-37); Bilirubin Total 0.5 mg/dL (0.0-1.0); Blood Urea Nitrogen 22 mg/dL (9-16); Calcium 9.4 mg/dL (8.4-10.2); Carbon Dioxide 31 mmol/L (22-29); Chloride 101 mmol/L (96-108); Cholesterol 125 mg/dL; Estimated Glomerular Filt Rate > 60; Glucose Random 93 mg/dL (60-115); HDL Cholesterol 54 mg/dL; LDL Cholesterol Calculated 41 mg/dl; Sodium 141 mmol/L (135-145); Total Protein 7.4 g/dL (6.5-8.0); Triglycerides 151 mg/dL
== END 2023-05-12 07:48 | disposition home or self-care (01) ==
LOC: HO.LAB 07:47
PROVIDERS: PCP Internal Medicine; Visit Provider Internal Medicine
DX: Z00.00 Encounter for general adult medical examination without abnormal findings (principal); E78.00 Pure hypercholesterolemia, unspecified; F32.5 Major depressive disorder, single episode, in full remission; G47.33 Obstructive sleep apnea (adult) (pediatric)
CPT/HCPCS: 36415; 80053; 80061

== ENCOUNTER 2023-05-18 10:59 | Outpatient (AMB) | payer OTHER, SELFPAY ==
--- NOTE | 2023-05-18 11:05 | A.OFFVIS_ITS ---
Intake Vital Signs 05/18/23 11:39 Height 5 ft 11 in Weight 254 lb BMI 35.4 BP 133/73 Blood Pressure Location Lt brachial Position Sitting Pulse 69 Intake Visit Reasons: 6 month follow up Intake Note: Patient 6 month follow up for bloating. Patient cc: abdominal bloating on and off. 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 He denies abdominal pain or diarrhea he is having more upset stomach bloating and excessive past of gas.? He is going through a lot of problems lately, and he has had several surgeries on his hand and? he is told that he can not exercise of do a pool table - so this is frustrating to him. He is discouraged because even if I eat well, I do not lose weight. I have him speak to wt mgmt for possible wt loss classes. I give him the phone number. He has a new dx of CAD and my arteries are blocked. He is no longer taking the creon or the bentyl, just the famotidine now. He feels this is sufficient. He still have a lot of bloating (likely because he stopped the Creon). I recommend OTC Gas X since I know the Creon dosing schedule is difficult to take. Return office visit in 6 months (2) Periumbilical abdominal pain: ?Code(s): R10.33 - Periumbilical pain (3) Abdominal bloating: ?Code(s): R14.0 - Abdominal distension (gaseous) (4) Diarrhea: ?Code(s): R19.7 - Diarrhea, unspecified ? ? ? Medications: Refilled famotidine 40 mg? PO BEDTIME 90 tabs 2RF K21.9 - Gastro-eso phageal reflux dis ease without esoph agitis ? Discontinued rsappw-pwjbujvy-jf ylase 24,000-76,00 0 -120,000 unit (C reon) ?? administe r with meals and/o r snacks ?? Discon tinued Reason:? Blayne margojenni no longer ta alina 1 cap? PO QID 30 d ays 120 caps 6RF K58.9 - Irritable bowel syndrome wit hout diarrhea ? TODAY'S VISIT.. [place] #Carmen. Live They are treating his CAD medically, no cath. He has not been taking the medication, says it did not provide sustained relief...BUT his sx are much worse. He complains of inability to lose weight and is seeing wt mgmt - he is very bothered by his central adiposity. He also is having a lot of troubles with his dentition, his upper dentures soliz not fit well and he can't seem to get the dentist to fix it. However, he has lost some weight but not as much as he wants the BMI is still too high. In the past he did lose weight, but he was exercising a great deal. I talk him into a trial of higher dose creon 2 tab bid to simplify dosing along with simethicone 180mg bid. He will have random episodes of whole body pain and the urge to go to the [place] w/o actual BM and sweats and dizziness (? vasovagal?) but his BM's are normal and daily. ROV 3 weeks. [facility] Medical History Asthma-COPD overlap syndrome POLLO on CPAP Pulmonary nodules Surgical History History of back surgery (~2019) History of carpal tunnel surgery (~2020) History of carpal tunnel surgery History of esophagogastroduodenoscopy (EGD) History of hand surgery Hx of cataract surgery Hx of colonoscopy Hx of knee surgery Hx of shoulder surgery Family History Father Throat cancer HTN (hypertension) Paternal Grandfather Heart attack Family/Other Colon cancer Social History (Reviewed 06/08/23 @ 11:39 by RAFA [place] Alcohol intake: former Year quit: 2006 Patient Tobacco Use Status: Former Tobacco user Quit Date: 2006 Years Smoked: 25 +/- Review of Systems Const Denies fatigue, Denies fever(s), Denies night sweats, Denies poor appetite and Denies weight loss Eyes Details: glasses Reports requires corrective lenses ENT Reports Normal hearing present, Denies dental pain, Denies dysphagia, Reports dizziness, Denies hearing loss, Denies mouth pain, Denies odynophagia, Denies throat swelling, Denies tongue swelling and Reports other (Dentition adequate) Card Reports lightheadedness Resp Reports no additional complaints GI Reports abdominal pain, Denies melena, Reports bloating, Denies hematochezia, Denies constipation, Denies GI cramping, Denies dysphagia, Denies excessive flatus, Denies early satiety, Denies heartburn, Denies diarrhea, Denies nausea, Denies odynophagia, Denies vomiting and Denies hematemesis Musc Reports myalgias Skin/Breast Denies pruritus, Denies lesions, Denies rash and Denies jaundice Neuro Reports Normal hearing present, Denies Abnormal speech present and Reports dizziness Endo Denies fatigue Aller/Immun Denies throat swelling and Denies tongue swelling Physical Exam Vital Signs: Last Vital Signs Pulse 69 05/18/23 11:39 BP 133/73 05/18/23 11:39 BMI result Body Mass Index 35.4 Const General: cooperative, no acute distress, well developed and well groomed Nutritional Appearance: well nourished and obese Orientation/consciousness: oriented to person, oriented to place and oriented to time Limitations: language barrier HEENT Head: Yes normocephalic and Yes atraumatic Eyes General: appearance normal, both eyes and all related structures Pupils: Equal, round and reactive pupils present Neck Neck: Yes normal visual inspection and Yes no lymphadenopathy Thyroid: Thyroid normal Resp Effort & Inspection: normal respiratory effort and able to speak in complete sentences Auscultation: clear to auscultation bilaterally Cardio Rate: regular rate Rhythm: regular rhythm Heart sounds: Normal, physiologic split S2 sound present Peripheral pulses: radial pulses present and posterior tibial pulses present GI Inspection: No distended, No Abdominal panniculus present and Yes obesity Palpation (GI): Soft to palpation, nontender, no guarding, not rigid and No hepatosplenomegaly present Percussion: Yes normal to percussion Auscultation: normal bowel sounds Rectal Exam - Male: Yes deferred Skin General skin exam: no rashes or lesions noted, turgor normal, skin not dry, no jaundice, No spider nevi and no striae Rashes: no rashes Nails: normal Neuro General: oriented to person, oriented to place and oriented to time Cranial nerves: Yes Equal, round and reactive pupils present and Yes Normal hearing present Speech: No Abnormal speech present Extrem General: Yes normal to inspection, No clubbing, No cyanosis and No edema Psych Appearance: grossly normal and well kempt Mental Status: mental status grossly normal Speech and movement: Normal speech and movement present Affect: normal affect Attitude: cooperative Thought process: Normal thought process present and not confabulating Thought content: Normal thought content present Insight: Limited insight present (Psych) Judgement: Limited judgement present (Psych) Assessment & Plan Assessment & Plan (1) Abdominal bloating: Code(s): R14.0 - Abdominal distension (gaseous) Plan: [place] #Carmen. Live They are treating his CAD medically, no cath. He has not been taking the medication, says it did not provide sustained relief...BUT his sx are much worse. He complains of inability to lose weight and is seeing wt mgmt - he is very bothered by his central adiposity. He also is having a lot of troubles with his dentition, his upper dentures soliz not fit well and he can't seem to get the dentist to fix it. However, he has lost some weight but not as much as he wants the BMI is still too high. In the past he did lose weight, but he was exercising a great deal. I talk him into a trial of higher dose creon 2 tab bid to simplify dosing along with simethicone 180mg bid. He will have random episodes of whole body pain and the urge to go to the BR w/o actual BM and sweats and dizziness (? vasovagal?) but his BM's are normal and daily. ROV 3 weeks. (2) Periumbilical abdominal pain: Code(s): R10.33 - Periumbilical pain (3) GERD (gastroesophageal reflux disease): Code(s): K21.9 - Gastro-esophageal reflux disease without esophagitis (4) Diarrhea: Code(s): R19.7 - Diarrhea, unspecified (5) IBS (irritable bowel syndrome): Code(s): K58.9 - Irritable bowel syndrome without diarrhea Medications: New anltzi-itpgifjw-fidvbkw 36,000-114,000- 180,000 unit (Creon) 2 caps in am and 2 qpm orally 2 times a day; administer with meals and/or snacks 120 caps 3RF R14.0 - Abdominal distension (gaseous), K58.9 - Irritable bowel syndrome without diarrhea simethicone after meals 180 mg PO BID 60 caps 3RF 30 days Coding Level of Care Code Est Pt Level 3 (66096) Diagnoses Abdominal bloating R14.0 Periumbilical abdominal pain R10.33 GERD (gastroesophageal reflux disease) K21.9 Diarrhea R19.7 IBS (irritable bowel syndrome) K58.9
[2023-05-18 11:39] VITALS: BP 133/73; PULSE 69; BMI 35.4
== END 2023-05-18 12:01 | disposition home or self-care (01) ==
PROVIDERS: Visit Provider Nurse Practitioner
DX: R14.0 Abdominal distension (gaseous) (principal); R10.33 Periumbilical pain; K21.9 Gastro-esophageal reflux disease without esophagitis; R19.7 Diarrhea, unspecified; K58.9 Irritable bowel syndrome, unspecified
CPT/HCPCS: 99213

== ENCOUNTER → 2023-05-18 10:59 | Outpatient (BNVA) | payer OTHER, SELFPAY | PROVIDERS: Visit Provider Nurse Practitioner | DX: K21.9 Gastro-esophageal reflux disease without esophagitis (principal); K58.9 Irritable bowel syndrome, unspecified; R14.0 Abdominal distension (gaseous); R10.33 Periumbilical pain; R19.7 Diarrhea, unspecified | CPT/HCPCS: 99212 ==

== ENCOUNTER 2023-05-23 14:48 | Outpatient (AMB) | payer OTHER, SELFPAY ==
--- NOTE | 2023-05-23 14:52 | MHC.OFFVISWM ---
Intake VS Expanded 05/23/23 14:54 Height 5 ft 11 in Weight 247 lb 9.6 oz BMI 34.5 BP 184/83 H Blood Pressure Location Rt brachial Blood Pressure Position Sitting Pulse 76 Pulse Source Pulse Oximeter Temp 97.6 F Temperature Source Temporal Artery Scan Pulse Oximetry 98 Oxygen Delivery Method Room Air Body Fat 87.8 Body Fat Percentage 35.4 Free Fat Mass 159.8 Muscle Mass 151.8 Visceral Mass 20.0 Water Mass 108.0 BMR 2,176 Intake Visit Reasons: (OV) F/U MWL Allergies latex Adverse Reaction (Intermediate, Verified 05/23/23 14:53) Itching HPI HPI Comments History of Present Illness Details Pt started our MWL program again in November 2022 at 263.8 lbs, he had minimal weight loss until this month and now has TBWL of 16.2 lbs or 6.1%. States he has the same meal plan as before Treadmill - 3d/week less than 300 calories. Walking or biking other days. PFSH Medical History Asthma-COPD overlap syndrome POLLO on CPAP Pulmonary nodules Surgical History History of back surgery (~2019) History of carpal tunnel surgery (~2019) History of carpal tunnel surgery History of esophagogastroduodenoscopy (EGD) History of hand surgery Hx of cataract surgery Hx of colonoscopy Hx of knee surgery Hx of shoulder surgery Family History Father Throat cancer HTN (hypertension) Paternal Grandfather Heart attack Family/Other Colon cancer Social History Alcohol intake: former Year quit: 2006 Patient Tobacco Use Status: Former Tobacco user Quit Date: 2006 Years Smoked: 25 +/- Physical Exam Vital Signs: Last Vital Signs Temp 97.6 F 05/23/23 14:54 Pulse 76 05/23/23 14:54 BP 184/83 H 05/23/23 14:54 Pulse Ox 98 05/23/23 14:54 Oxygen Delivery Method Room Air 05/23/23 14:54 BMI result Body Mass Index 34.5 Assessment & Plan Assessment & Plan (1) Obesity: Code(s): E66.9 - Obesity, unspecified Plan: 63 yo man with multiple medical conditions has now lost 16.1 lbs over 5 months in our MWL program. He states he feels much better, his cholesterol has decreased and now understands what he needs to do to continue with weight loss. He declined an appt with Elizabeth at this time. He will continue his present meal plan and exercisign every day for at least 30 minutes - he understands the intensity of his exercise now has made the difference. I gave him a recipe book and he will work on losing at least 2 lbs per week for a goal of 208 lbs and BMI <30. Will have a follow up in 3 months. Patient is obese and is not considered stable at this time. I spent 20 minutes in total with patient reviewing/updating records, examining the patient and counseling the patient on weight management as detailed above. Coding Level of Care Code Est Pt Level 3 (24766) Diagnoses Obesity E66.9
[2023-05-23 14:54] VITALS: BP 184/83; PULSE 76; TEMP 36.4; O2SAT 98; BMI 34.5
== END 2023-05-23 15:20 | disposition home or self-care (01) ==
PROVIDERS: PCP Internal Medicine; Visit Provider Physician Assistant
DX: E66.9 Obesity, unspecified (principal); Z68.34 Body mass index [BMI] 34.0-34.9, adult
CPT/HCPCS: 99213

== ENCOUNTER → 2023-05-23 14:48 | Outpatient (BNVA) | payer OTHER, SELFPAY | PROVIDERS: PCP Internal Medicine; Visit Provider Physician Assistant | DX: E66.9 Obesity, unspecified (principal); Z68.34 Body mass index [BMI] 34.0-34.9, adult | CPT/HCPCS: 99212 ==

== ENCOUNTER 2023-06-08 11:23 | Outpatient (AMB) | payer OTHER, SELFPAY ==
[2023-06-08 11:32] VITALS: BP 144/69; BMI 34.6
--- NOTE | 2023-06-08 11:32 | MHC.OFFVIS ---
Intake Vital Signs 06/08/23 11:32 Height 5 ft 11 in Weight 248 lb 3.848 oz BMI 34.6 BP 144/69 H Blood Pressure Location Rt brachial Position Sitting Intake Visit Reasons: 6 week fu Intake Note: Patient presents to in office visit today in 6 weeks follow up. CC: abdominal bloating on and off. 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 Accompanied by: Self / Same As Patient Allergies latex Adverse Reaction (Intermediate, Verified 06/08/23 11:35) Itching PFSH Medical History Asthma-COPD overlap syndrome POLLO on CPAP Pulmonary nodules Surgical History History of back surgery (~2019) History of carpal tunnel surgery (~2020) History of carpal tunnel surgery History of esophagogastroduodenoscopy (EGD) History of hand surgery Hx of cataract surgery Hx of colonoscopy Hx of knee surgery Hx of shoulder surgery Family History Father Throat cancer HTN (hypertension) Paternal Grandfather Heart attack Family/Other Colon cancer Social History Alcohol intake: former Year quit: 2006 Patient Tobacco Use Status: Former Tobacco user Quit Date: 2006 Years Smoked: 25 +/- Physical Exam Vital Signs: BMI result Body Mass Index 34.6 Coding Diagnoses
--- NOTE | 2023-06-08 11:36 | A.OFFVIS_ITS ---
Intake Vital Signs 06/08/23 11:32 Height 5 ft 11 in Weight 248 lb 3.848 oz BMI 34.6 BP 144/69 H Blood Pressure Location Rt brachial Position Sitting Intake Visit Reasons: 6 week fu Intake Note: Patient presents to in office visit today in 6 weeks follow up. CC: Patient reports doing well today. Denies other GI symptoms. 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 Live They are treating his CAD medically, no cath. He has not been taking the medication, says it did not provide sustained relief...BUT his sx are much worse. He complains of inability to lose weight adn is seeing wt mgmt - he is very bothered by his central adiposity. He also is having a lot of troubles with his dentition, his upper dentures soliz not fit well and he can't seem to get the dentist to fix it. However, he has lost some weight but not as much as he wants the BMI is still too high. In the past he did lose weight, but he was exercising a great deal. I talk him into a trial of higher dose creon 2 tab bid to simplify dosing along with simethicone 180mg bid. He will have random episodes of whole body pain and the urge to go to the [place] w/o actual BM and sweats and dizziness (? vasovagal?) but his BM's are normal and daily. ROV 3 weeks.? ? Assessment & Plan (1) GERD (gastroesophageal reflux disease): ?Code(s): K21.9 - Gastro-esophageal reflux disease without esophagitis (2) Periumbilical abdominal pain: ?Code(s): R10.33 - Periumbilical pain (3) Abdominal bloating: ?Code(s): R14.0 - Abdominal distension (gaseous) (4) Diarrhea: ?Code(s): R19.7 - Diarrhea, unspecified (5) IBS (irritable bowel syndrome): ?Code(s): K58.9 - Irritable bowel syndrome without diarrhea ? ? ? Medications: New zexehq-bqdbrlkh-bb ylase 36,000-114,0 00- 180,000 unit ( Creon) ?2 caps in am and 2 qpm orally 2 ti mes a day; adminis ter with meals and /or snacks 120 cap s 3RF K58.9 - Irritable bowel syndrome wit hout diarrhea, R14 .0 - Abdominal dis tension (gaseous) ? simethicone ?? aft er meals 180 mg? PO BID 30 days 60 caps 3RF ? TODAY'S VISIT.. [place] #Itzel Live He received the higher dose of creon, and this has resolved all of his bloating and stooling problems. He continues on his famotidine with good GERD control. At this time he is completely satisfied with his GI regimen. He has lost weight with intentional diet and exercise. About 32 lbs. He still has his cardiac work up upcoming. ROV 6 mos. PFSH Medical History Asthma-COPD overlap syndrome POLLO on CPAP Pulmonary nodules Surgical History History of back surgery (~2019) History of carpal tunnel surgery (~2020) History of carpal tunnel surgery History of esophagogastroduodenoscopy (EGD) History of hand surgery Hx of cataract surgery Hx of colonoscopy Hx of knee surgery Hx of shoulder surgery Family History Father Throat cancer HTN (hypertension) Paternal Grandfather Heart attack Family/Other Colon cancer Social History Alcohol intake: former Year quit: 2006 Patient Tobacco Use Status: Former Tobacco user Quit Date: 2006 Years Smoked: 25 +/- Review of Systems Const Denies fatigue, Denies fever(s), Denies night sweats, Denies poor appetite and Reports weight loss Eyes Details: glasses Reports requires corrective lenses ENT Reports Normal hearing present, Denies dental pain, Denies dysphagia, Denies hearing loss, Denies mouth pain, Denies odynophagia, Denies throat swelling, Denies tongue swelling and Reports other (Dentition adequate) Card Reports no additional complaints Resp Reports no additional complaints GI Denies abdominal pain, Denies melena, Reports bloating, Denies hematochezia, Denies constipation, Denies GI cramping, Denies dysphagia, Denies excessive flatus, Denies early satiety, Reports heartburn, Reports diarrhea, Denies nausea, Denies odynophagia, Denies vomiting and Denies hematemesis Skin/Breast Denies pruritus, Denies lesions, Denies rash and Denies jaundice Neuro Reports Normal hearing present and Denies Abnormal speech present Endo Denies fatigue Aller/Immun Denies throat swelling and Denies tongue swelling Physical Exam Vital Signs: Last Vital Signs BP 144/69 H 06/08/23 11:32 BMI result Body Mass Index 34.6 Const General: cooperative, no acute distress, well developed and well groomed Nutritional Appearance: well nourished and obese Orientation/consciousness: oriented to person, oriented to place and oriented to time Limitations: language barrier HEENT Head: Yes normocephalic and Yes atraumatic Eyes General: appearance normal, both eyes and all related structures Pupils: Equal, round and reactive pupils present Neck Neck: Yes normal visual inspection and Yes no lymphadenopathy Thyroid: Thyroid normal Resp Effort & Inspection: normal respiratory effort and able to speak in complete sentences Auscultation: clear to auscultation bilaterally Cardio Rate: regular rate Rhythm: regular rhythm Heart sounds: Normal, physiologic split S2 sound present Peripheral pulses: radial pulses present and posterior tibial pulses present GI Inspection: No distended, No Abdominal panniculus present and Yes obesity Palpation (GI): Soft to palpation, nontender, no guarding, not rigid and No hepatosplenomegaly present Percussion: Yes normal to percussion Auscultation: normal bowel sounds Rectal Exam - Male: Yes deferred Skin General skin exam: no rashes or lesions noted, turgor normal, skin not dry, no jaundice, No spider nevi and no striae Rashes: no rashes Nails: normal Neuro General: oriented to person, oriented to place and oriented to time Cranial nerves: Yes Equal, round and reactive pupils present and Yes Normal hearing present Speech: No Abnormal speech present Extrem General: Yes normal to inspection, No clubbing, No cyanosis and No edema Psych Appearance: grossly normal and well kempt Mental Status: mental status grossly normal Speech and movement: Normal speech and movement present Affect: normal affect Attitude: cooperative Thought process: Normal thought process present and not confabulating Thought content: Normal thought content present Insight: Limited insight present (Psych) Judgement: Limited judgement present (Psych) Assessment & Plan Assessment & Plan (1) GERD (gastroesophageal reflux disease): Code(s): K21.9 - Gastro-esophageal reflux disease without esophagitis Plan: [place] #Itzel Live He received the higher dose of creon, and this has resolved all of his bloating and stooling problems. He continues on his famotidine with good GERD control. At this time he is completely satisfied with his GI regimen. He has lost weight with intentional diet and exercise. About 32 lbs. He still has his cardiac work up upcoming. ROV 6 mos. (2) Periumbilical abdominal pain: Code(s): R10.33 - Periumbilical pain (3) Diarrhea: Code(s): R19.7 - Diarrhea, unspecified (4) IBS (irritable bowel syndrome): Code(s): K58.9 - Irritable bowel syndrome without diarrhea Coding Level of Care Code Est Pt Level 3 (89209) Diagnoses GERD (gastroesophageal reflux disease) K21.9 Periumbilical abdominal pain R10.33 Diarrhea R19.7 IBS (irritable bowel syndrome) K58.9
== END 2023-06-08 12:04 | disposition home or self-care (01) ==
PROVIDERS: PCP Internal Medicine; Visit Provider Nurse Practitioner
DX: K21.9 Gastro-esophageal reflux disease without esophagitis (principal); R10.33 Periumbilical pain; R19.7 Diarrhea, unspecified; K58.9 Irritable bowel syndrome, unspecified
CPT/HCPCS: 99213

== ENCOUNTER → 2023-06-08 11:23 | Outpatient (BNVA) | payer OTHER, SELFPAY | PROVIDERS: PCP Internal Medicine; Visit Provider Nurse Practitioner | DX: K21.9 Gastro-esophageal reflux disease without esophagitis (principal); K58.9 Irritable bowel syndrome, unspecified; R10.33 Periumbilical pain; R19.7 Diarrhea, unspecified | CPT/HCPCS: 99212 ==

== ENCOUNTER 2023-06-20 07:04 | Outpatient (REF) | payer OTHER, SELFPAY ==
--- NOTE | ~2023-06-20 | XR_ITS ---
EXAMINATION: XR KNEE, RIGHT CLINICAL INFORMATION: Pain in right knee COMPARISON: None available. TECHNIQUE: Four views of the right knee. FINDINGS: No fracture. There is a small joint effusion. There is moderate narrowing of the medial joint compartment with large marginal osteophytes. Small marginal osteophytes involve the patellofemoral joint. Quadriceps enthesopathy is noted. There are vascular calcifications. There is a small calcific density along the posterolateral aspect of the joint which could represent a loose body within the joint. XR/XR knee RT 4V IMPRESSION: 1. Moderate osteoarthritis involving the medial joint compartment. 2. Possible loose body within the joint.
== END 2023-06-20 07:05 | disposition home or self-care (01) ==
LOC: HO.XRAY 07:04
PROVIDERS: PCP Internal Medicine; Visit Provider Student in an Organized Health Care Education/Training Program
DX: M25.561 Pain in right knee (principal)
CPT/HCPCS: 73564

== ENCOUNTER 2023-06-30 07:06 | Outpatient (REF) | payer OTHER, SELFPAY | END 2023-06-30 07:07 | disposition home or self-care (01) | LOC: HO.LAB 07:06 | PROVIDERS: PCP Internal Medicine; Visit Provider Urology | DX: Z12.5 Encounter for screening for malignant neoplasm of prostate (principal); N40.1 Benign prostatic hyperplasia with lower urinary tract symptoms; N13.8 Other obstructive and reflux uropathy | CPT/HCPCS: 36415; 84153 ==

== ENCOUNTER 2023-07-08 14:27 | Outpatient (AMB) | payer OTHER, SELFPAY ==
--- NOTE | 2023-07-08 14:30 | A.OFFVIS_ITS ---
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 Accompanied by: Self / Same As Patient Allergies latex Adverse Reaction (Intermediate, Verified 07/08/23 14:35) Itching Medication List - Last Reconciled 07/08/23 by Adam Esteban MD amlodipine 10 mg PO DAILY aspirin (Adult Aspirin Regimen) 81 mg PO DAILY cholecalciferol (vitamin D3) 25 mcg PO DAILY CPAP (CPAP Machine/Device) As directed ezetimibe 10 mg PO DAILY famotidine 40 mg PO BEDTIME fluticasone propionate 50 mcg/actuation sprays intranasal fluticasone propionate 110 mcg/actuation 110 mcg inhalation BID gabapentin 300 mg PO DAILY [id number] 36,000-114,000- 180,000 unit (Creon) 2 caps in am and 2 qpm orally 2 times a day; administer with meals and/or snacks lorazepam 0.5 mg PO DAILY PRN losartan-hydrochlorothiazide 100-25 mg 1 tab PO DAILY melatonin 10 mg sublingual BEDTIME melatonin 5 mg PO BEDTIME PRN 30 days metoprolol succinate ER 100 mg PO DAILY montelukast 10 mg PO DAILY prazosin 5 mg PO BEDTIME rosuvastatin 40 mg PO DAILY sertraline 100 mg PO DAILY PRN sildenafil 100 mg PO DAILY simethicone 180 mg PO BID 30 days sodium hyaluronate (viscosup) (Euflexxa) mg intra-articular Symbicort 160-4.5 mcg/actuation (budesonide-formoterol) 2 puffs PO BID NS triamcinolone acetonide 0.5% topical HPI HPI Comments History of Present Illness Details Morteza is a very pleasant male. He is a patient of . He is seen for the following urologic conditions - urinary tract symptoms - erectile dysfunction [place] translation provided by qualified medical and health services manager Good urinary parameters Maintaining stability following procedure Would like to use 5 mg tadalafil with on demand sildenafil Prescriptions provided Three month follow-up Lower urinary tract symptoms Prior treatment medication Prior procedure with laser 2018 Currently reports adequate bladder storage and emptying PSA 04/13 0.9, 02/12 0.7, 07/16 0.9 Erectile dysfunction Progressive Able to obtain but cannot maintain erection Sufficient for penetration Good response to maximum dose sildenafil on demand PFSH Medical History (Updated 07/08/23 @ 15:01 by Adam Esteban MD) Erectile dysfunction Pulmonary nodules POLLO on CPAP Asthma-COPD overlap syndrome Surgical History Hx of knee surgery Hx of shoulder surgery Hx of cataract surgery History of hand surgery History of carpal tunnel surgery History of esophagogastroduodenoscopy (EGD) Hx of colonoscopy History of carpal tunnel surgery (~2019) History of back surgery (~2019) Family History Father Throat cancer HTN (hypertension) Paternal Grandfather Heart attack Family/Other Colon cancer Social History Alcohol intake: former Year quit: 2006 Patient Tobacco Use Status: Former Tobacco user Quit Date: 2006 Years Smoked: 25 +/- Review of Systems Const Denies chills and Denies fever(s) Card Reports no additional complaints and Denies syncope Resp Denies cough GI Denies abdominal pain and Denies heartburn Reports as per HPI and Denies change in libido Neuro Denies syncope Psych Denies change in libido Endo Denies change in libido Physical Exam Const General: cooperative, healthy appearing, comfortable and no acute distress Orientation/consciousness: patient oriented x3 HEENT Face and sinus: Yes normal facial exam Mouth: moist mucous membranes Neck Neck: Yes normal visual inspection, Yes full ROM and Yes trachea midline Chest Chest palpation & inspection: normal inspection of the chest Resp Effort & Inspection: normal respiratory effort, able to speak in complete sentences and no respiratory distress GI Inspection: Yes normal to inspection Back/Spine/Pelvis Cervical Spine: normal cervical lordosis Thoracic/Lumbar Spine: thoracic and lumbar spine normal to inspection Skin General skin exam: no rashes or lesions noted Neuro General: patient oriented x3, gait normal, tone normal and moves all extremities Extrem General: Yes normal to inspection and Yes capillary refill normal Assessment & Plan Assessment & Plan (1) Erectile dysfunction: Code(s): N52.9 - Male erectile dysfunction, unspecified (2) BPH w urinary obs/LUTS: Code(s): N40.1 - Benign prostatic hyperplasia with lower urinary tract symptoms; N13.8 - Other obstructive and reflux uropathy Plan Adjust prescriptions Patient Instructions: Imaging studies, laboratory and physical exam results were discussed and reviewed in detail. No major barriers to patient understanding were identified. An opportunity to ask questions regarding the treatment plan was provided. All questions were answered. The patient expressed understanding and agreement with the above treatment plan. The patient is aware they should contact our office by phone for worsening of their current condition or the appearance of new urologic symptoms. Compliance is encouraged with any medications and followup testing that is ordered. It is a privilege to participate in the urologic care of your patient. If you have any questions or concerns regarding treatment for the above conditions, or other urologic issues, please do not hesitate to contact me. The office telephone contact is [phone]. This note is constructed using voice recognition software. While every effort has been made to ensure accuracy factory superintendent errors may have been included. Yours sincerely, Dr Adam Esteban MD, [facility] - Urology Providers of Expert, Compassionate Care for the Genitourinary System Coding Level of Care Code Est Pt Level 4 (67677) Diagnoses Erectile dysfunction N52.9 BPH w urinary obs/LUTS N40.1; N13.8
== END 2023-07-08 14:58 | disposition home or self-care (01) ==
LOC: HO.HUSH 14:27
PROVIDERS: PCP Internal Medicine; Visit Provider Urology
DX: N52.9 Male erectile dysfunction, unspecified (principal); N40.1 Benign prostatic hyperplasia with lower urinary tract symptoms; N13.8 Other obstructive and reflux uropathy
CPT/HCPCS: 99214

== ENCOUNTER → 2023-07-08 14:27 | Outpatient (BNVA) | payer OTHER, SELFPAY | PROVIDERS: PCP Internal Medicine; Visit Provider Urology | DX: N40.1 Benign prostatic hyperplasia with lower urinary tract symptoms (principal); N13.8 Other obstructive and reflux uropathy; N52.9 Male erectile dysfunction, unspecified | CPT/HCPCS: 99212 ==

== ENCOUNTER 2023-08-02 09:01 | Outpatient (AMB) | payer OTHER, SELFPAY ==
[2023-08-02 09:04] VITALS: PULSE 77; O2SAT 98; BMI 35.7
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
== END 2023-08-02 09:19 | disposition home or self-care (01) ==
PROVIDERS: PCP Internal Medicine; Visit Provider Hospitalist
DX: J44.9 Chronic obstructive pulmonary disease, unspecified (principal); G47.33 Obstructive sleep apnea (adult) (pediatric); Z99.89 Dependence on other enabling machines and devices; R91.8 Other nonspecific abnormal finding of lung field; R06.00 Dyspnea, unspecified
CPT/HCPCS: 99214

== ENCOUNTER → 2023-08-02 09:01 | Outpatient (BNVA) | payer OTHER, SELFPAY | PROVIDERS: PCP Internal Medicine; Visit Provider Hospitalist | DX: J44.9 Chronic obstructive pulmonary disease, unspecified (principal); G47.33 Obstructive sleep apnea (adult) (pediatric); R91.8 Other nonspecific abnormal finding of lung field; R06.00 Dyspnea, unspecified; Z79.899 Other long term (current) drug therapy; Z99.89 Dependence on other enabling machines and devices | CPT/HCPCS: 99212 ==

== ENCOUNTER 2023-08-15 10:01 | Outpatient (AMB) | payer OTHER, SELFPAY ==
--- NOTE | 2023-08-15 10:21 | MHC.OFFVIS ---
Intake Vital Signs 08/15/23 10:22 Height 5 ft 11 in Weight 246 lb 14.684 oz BMI 34.4 BP 120/60 Blood Pressure Location Rt brachial Position Sitting Pulse 72 Intake Visit Reasons: 4 month follow up Intake Note: 4 month follow up Pediatric Neurologist Required: Yes Pediatric Neurologist Language: Disciplinary Hearing Officer Name: Sarah Whitmore [id number] Accompanied by: Self / Same As Patient Allergies latex Adverse Reaction (Intermediate, Verified 08/15/23 10:24) Itching Medication List - Last Reconciled 08/15/23 by Enmanuel Forrester MD amlodipine 10 mg PO DAILY aspirin (Adult Aspirin Regimen) 81 mg PO DAILY CPAP (CPAP Machine/Device) As directed ezetimibe 10 mg PO DAILY fluticasone propionate 50 mcg/actuation sprays intranasal fluticasone propionate 110 mcg/actuation 110 mcg inhalation BID gabapentin 300 mg PO BEDTIME 90 days [id number]-zbmuuedr-fehlnfo 36,000-114,000- 180,000 unit (Creon) 2 caps in am and 2 qpm orally 2 times a day; administer with meals and/or snacks lorazepam 0.5 mg PO DAILY PRN losartan-hydrochlorothiazide 100-25 mg 1 tab PO DAILY melatonin 10 mg sublingual BEDTIME melatonin 5 mg PO BEDTIME PRN 90 days metoprolol succinate ER 100 mg PO DAILY prazosin 5 mg PO BEDTIME rosuvastatin 40 mg PO DAILY sertraline 100 mg PO DAILY PRN sildenafil 100 mg PO ONCE PRN 30 days simethicone 180 mg PO BID 30 days sodium hyaluronate (viscosup) (Euflexxa) mg intra-articular Symbicort 160-4.5 mcg/actuation (budesonide-formoterol) 2 puffs PO BID NS tadalafil 5 mg PO DAILY 90 days triamcinolone acetonide 0.5% topical HPI HPI Comments History of Present Illness Details 63-year-old gentleman who is here for assessment of shortness of breath. He has background history of gastroesophageal reflux disease, pulmonary nodules, obstructive sleep apnea, asthma COPD overlap syndrome and erectile dysfunction. He has been experiencing shortness of breath with exertion. He denies any chest discomfort or heaviness. He is saying he has gained weight. He also gets some orthopnea like episodes when he is not wearing CPAP. He is not very compliant with CPAP. He was referred for echocardiography which showed normal biventricular function with no diastolic dysfunction or valvular disease. He underwent stress testing where he was able to do average exercise for his age and did not develop any ischemic EKG changes. He did have shortness of breath which was the reason he stopped exercising. Given ongoing dyspnea and was referred for coronary CTA. CTA showed 50% stenosis in the diagonal artery and 50% stenosis of the mid LAD. He is endorsing a lot of shortness of breath with exertion here he has no chest pain. He is seeing Dr. Arenas from pulmonology. Last visit: Today he returns for follow-up. He is trying to exercise and lose weight. He is saying that with some weight loss and exercise his dyspnea has improved somewhat. Continues to be symptomatic though. We discussed about his coronary CTA and moderate LAD diagonal disease. Was decided that he will continue to exercise and lose weight and will follow-up with us. He is here for follow-up today. He is saying that he still gets some shortness of breath but is not limited. Overall he is feeling better than before. No chest discomfort. Taking medications regularly. He needs some injections in the knees for arthritis and is asking whether aspirin can be held for few days. I have advised him that he can hold aspirin if required. 08/15/23: He returns for follow-up. He has been doing well. He is saying he has stopped losing weight because of knee issues and arthritis. He is still exercising and does not feel limited by any significant symptoms. He still has some shortness of breath. No chest discomfort. Taking medications regularly. He is asking whether he can take today Elavil. He also has sildenafil on his medication list and it appears he has been using that as needed to. I have advised him not to use both and discuss with his urologist. Currently is not taking any medications which will interact directly with sildenafil or tadalafil. I have educated him about the risk of using nitroglycerin with sildenafil. He does not have any active scripts for nitroglycerin. [facility] Medical History (Updated 07/08/23 @ 15:01 by Adam Esteban MD) Erectile dysfunction Pulmonary nodules POLLO on CPAP Asthma-COPD overlap syndrome Surgical History Hx of knee surgery Hx of shoulder surgery Hx of cataract surgery History of hand surgery History of carpal tunnel surgery History of esophagogastroduodenoscopy (EGD) Hx of colonoscopy History of carpal tunnel surgery (~2020) History of back surgery (~2019) Family History Father Throat cancer HTN (hypertension) Paternal Grandfather Heart attack Family/Other Colon cancer Social History Alcohol intake: former Year quit: 2006 Patient Tobacco Use Status: Former Tobacco user Quit Date: 2006 Years Smoked: 25 +/- Physical Exam Vital Signs: Last Vital Signs Pulse 72 08/15/23 10:22 BP 120/60 08/15/23 10:22 BMI result Body Mass Index 34.4 GENERAL APPEARANCE: in no acute distress, pleasant. NECK: no carotid bruit, no jugular venous distention. SKIN: no suspicious lesions, warm and dry. HEART: no murmurs, regular rate and rhythm. LUNGS: clear to auscultation bilaterally. ABDOMEN: soft, nontender. EXTREMITIES: no edema. PERIPHERAL PULSES: equal. NEUROLOGIC: No gross deficits, AAO X 3 Assessment & Plan Assessment & Plan (1) HTN (hypertension), benign: Code(s): I10 - Essential (primary) hypertension (2) Coronary artery disease: Code(s): I25.10 - Atherosclerotic heart disease of nome coronary artery without angina pectoris Plan [age] year gentleman here for follow-up. Clinically stable. Blood pressure control is good. He will continue same medications currently. His coronary CTA has shown 50% lad disease as well as diagonal stenosis. We have discussed previously and have decided to medically treat him for now. He has been trying to lose weight but due to arthritis he feels quite limited in his exercise. He is saying that he gets short of breath with activities but there is no progressive dyspnea and no chest discomfort. He is not limited significantly by dyspnea currently. After discussion we have decided to continue to monitor him for now. If he developed any chest discomfort or if his breathing change then he will reach out to us. In that case we will consider diagnostic angiogram. Thank you for allowing me to participate in the care of your patient. Please feel free to contact me if you have any questions. Coding Level of Care Code Est Pt Level 4 (55707) Diagnoses HTN (hypertension), benign I10 Coronary artery disease I25.10
[2023-08-15 10:22] VITALS: BP 120/60; PULSE 72; BMI 34.4
== END 2023-08-15 10:41 | disposition home or self-care (01) ==
PROVIDERS: PCP Internal Medicine; Visit Provider Internal Medicine Cardiovascular Disease
DX: I10 Essential (primary) hypertension (principal); I25.10 Atherosclerotic heart disease of native coronary artery without angina pectoris
CPT/HCPCS: 99214

== ENCOUNTER → 2023-08-15 10:01 | Outpatient (BNVA) | payer OTHER, SELFPAY | PROVIDERS: PCP Internal Medicine; Visit Provider Internal Medicine Cardiovascular Disease | DX: I25.10 Atherosclerotic heart disease of native coronary artery without angina pectoris (principal); I10 Essential (primary) hypertension | CPT/HCPCS: 99212 ==

== ENCOUNTER 2023-08-24 09:31 | Outpatient (AMB) | payer OTHER, SELFPAY ==
--- NOTE | 2023-08-24 09:36 | MHC.OFFVISWM ---
Intake VS Expanded 08/24/23 09:52 BP 126/62 Blood Pressure Location Rt brachial Blood Pressure Position Sitting Pulse 67 Pulse Source Pulse Oximeter Temp 97.1 F Temperature Source Temporal Artery Scan Pulse Oximetry 97 Oxygen Delivery Method Room Air Height 5 ft 11 in Weight 243 lb 12.8 oz BMI 34.0 Body Fat % 33.8 Body Fat Mass 82.2 Fat Free Mass 161.4 Visceral Fat Rating 19.0 Body Water % 45.2 Body Water Mass 110.2 Muscle Mass/Score 153.4 Basal Metabolic Rate/Score 2,188 Intake Visit Reasons: (OV) F/U MWL Allergies latex Adverse Reaction (Intermediate, Verified 08/24/23 09:47) Itching HPI HPI Comments History of Present Illness Details 63 yo man restarted our MWL program in Nov 2022 at 263.8 lbs, last seen in April at 247.9 lbs when we discussed the necessity for regular fat buring exercises for successful weight loss. He has lsot 4 lbs since then for a total of 20 lbs or 7.5%. Recently seen by cardiology with stable CAD and BP and will continue to monitor him. He returns for follow up MWL today stating that he is very disprganized in his day and has not figured out how to exercise on a regular basis, states that when he goes to [place] goes to the gym daily. Has treadmill, elliptical and bicycle at home. meal plan - 1pm - yogurt or shake or nuts 3pm - lean - not fried protien and vegetables, root vegetables, 1-2 tiems per week rice. smoothie 7pm - shake or cereal or cheese PFSH Medical History (Updated 07/08/23 @ 15:01 by Adam Esteban MD) Erectile dysfunction Pulmonary nodules POLLO on CPAP Asthma-COPD overlap syndrome Surgical History Hx of knee surgery Hx of shoulder surgery Hx of cataract surgery History of hand surgery History of carpal tunnel surgery History of esophagogastroduodenoscopy (EGD) Hx of colonoscopy History of carpal tunnel surgery (~2019) History of back surgery (~2018) Family History Father Throat cancer HTN (hypertension) Paternal Grandfather Heart attack Family/Other Colon cancer Social History Alcohol intake: former Year quit: 2006 Patient Tobacco Use Status: Former Tobacco user Quit Date: 2006 Years Smoked: 25 +/- Assessment & Plan Assessment & Plan (1) Obesity: Code(s): E66.9 - Obesity, unspecified Plan: TBWL 20 lbs or 7.5% over last 8 months. I believe the answer to his exercise issues is disorganization. We discussed that if he wakes at 7am, has coffe and then exericses daily at 8am for 45 minutes to burn at lest 350 calories daily he will not have trouble losing weight and maintaining it. Meal plan - minor changes only 1pm - shake or yogurt 3:30 m lean protein and vegetable with either rice or root vegetable 7pm - another serving of vegetables and protien Next appt 4 months with me. Patient is obese and is not considered stable at this time. I spent 20 minutes in total with patient reviewing/updating records, examining the patient and counseling the patient on weight management as detailed above. Coding Level of Care Code Est Pt Level 4 (05780) Diagnoses Obesity E66.9
[2023-08-24 09:52] VITALS: BP 126/62; PULSE 67; TEMP 36.2; O2SAT 97; BMI 34.0
== END 2023-08-24 10:19 | disposition home or self-care (01) ==
PROVIDERS: PCP Internal Medicine; Visit Provider Physician Assistant
DX: E66.9 Obesity, unspecified (principal); Z68.34 Body mass index [BMI] 34.0-34.9, adult
CPT/HCPCS: 99213

== ENCOUNTER → 2023-08-24 09:31 | Outpatient (BNVA) | payer OTHER, SELFPAY | PROVIDERS: PCP Internal Medicine; Visit Provider Physician Assistant | DX: E66.9 Obesity, unspecified (principal); Z68.34 Body mass index [BMI] 34.0-34.9, adult | CPT/HCPCS: 99212 ==

== ENCOUNTER 2023-10-06 11:00 | Outpatient (AMB) | payer OTHER, SELFPAY ==
--- NOTE | 2023-10-06 11:02 | A.OFFVIS_ITS ---
Intake Intake Visit Reasons: 3m follow up Intake Note: Patient is Present for Telephone Follow Up Urology Med: Sildenafil, Tadalafil Antibiotic Allergy: None Blood Thinner: Aspirin Allergies latex Adverse Reaction (Intermediate, Verified 10/06/23 11:04) Itching HPI HPI Comments History of Present Illness Details Morteza is a very pleasant male. He is a patient of . He is seen for the following urologic conditions - urinary tract symptoms - erectile dysfunction Telemedicine Evaluation 15 min Consultation [employer] [place] Video attempted Azeri translation provided by qualified medical billing service Follow-up for from tadalafil therapy with on demand sildenafil Difficulty obtaining prescriptions Represcribed 6 month follow-up Lower urinary tract symptoms Prior treatment medication Prior procedure with laser 2018 Currently reports adequate bladder storage and emptying PSA 04/13 0.9, 02/12 0.7, 07/16 0.9 Erectile dysfunction Progressive Able to obtain but cannot maintain erection Sufficient for penetration Good response to maximum dose sildenafil on demand PFSH Medical History Erectile dysfunction Pulmonary nodules POLLO on CPAP Asthma-COPD overlap syndrome Surgical History Hx of knee surgery Hx of shoulder surgery Hx of cataract surgery History of hand surgery History of carpal tunnel surgery History of esophagogastroduodenoscopy (EGD) Hx of colonoscopy History of carpal tunnel surgery (~2019) History of back surgery (~2018) Family History Father Throat cancer HTN (hypertension) Paternal Grandfather Heart attack Family/Other Colon cancer Social History Alcohol intake: former Year quit: 2006 Patient Tobacco Use Status: Former Tobacco user Quit Date: 2006 Years Smoked: 25 +/- Review of Systems Const All systems reviewed & are unremarkable except as noted in HPI and below Reports no additional complaints Resp Reports no additional complaints GI Reports no additional complaints Reports as per HPI Musc Reports no additional complaints Physical Exam Telemedicine evaluation Appropriate responses Regular breathing rate and rhythm HEENT Head: Yes normal to inspection Ears: hearing grossly normal bilaterally Eyes General: appearance normal, both eyes and all related structures Neck Neck: Yes normal visual inspection Chest Chest palpation & inspection: normal inspection of the chest Resp Effort & Inspection: normal respiratory effort and able to speak in complete sentences Assessment & Plan Assessment & Plan (1) BPH w urinary obs/LUTS: Code(s): N40.1 - Benign prostatic hyperplasia with lower urinary tract symptoms; N13.8 - Other obstructive and reflux uropathy (2) Erectile dysfunction: Code(s): N52.9 - Male erectile dysfunction, unspecified Plan Six month follow-up Medications: Refilled tadalafil 5 mg PO DAILY 90 days 90 tabs 0RF sexual activity N52.9 - Male erectile dysfunction, unspecified Patient Instructions: Imaging studies, laboratory and physical exam results were discussed and reviewed in detail. No major barriers to patient understanding were identified. An opportunity to ask questions regarding the treatment plan was provided. All questions were answered. The patient expressed understanding and agreement with the above treatment plan. The patient is aware they should contact our office by phone for worsening of their current condition or the appearance of new urologic symptoms. Compliance is encouraged with any medications and followup testing that is ordered. It is a privilege to participate in the urologic care of your patient. If you have any questions or concerns regarding treatment for the above conditions, or other urologic issues, please do not hesitate to contact me. The office telephone contact is [phone]. This note is constructed using voice recognition software. While every effort has been made to ensure accuracy business services director errors may have been included. Yours sincerely, Dr Adam Esteban MD, [facility] - Urology Providers of Expert, Compassionate Care for the Genitourinary System Telehealth Telehealth Location of provider rendering services: practice address Location of patient: address on file Patient Identification confirmed using: Name, : Yes Telehealth method: video Patient verbally consented to treatment: Yes Patient verbally consented to billing insurance company: Yes Patient informed of any privacy concerns related to visit: Yes Coding Level of Care Code Tele Est Pt Level 3 (13441) Diagnoses BPH w urinary obs/LUTS N40.1; N13.8 Erectile dysfunction N52.9
--- OUTSIDE RECORDS SUMMARY | 2023-10-06 11:02 | XMS_ITS | Continuity of Care Document ---
Author Name Unknown Organization [facility] Nahid evangelist Address [address] [place] [address] [address] [place] [address]- Care Team Providers Care Director Of Bands Name Role Phone Delia Davila MD Primary Care Physician [phone] [place] [facility] [place]23 - 06/02/23 [facility] [address] [place], [place] [address] Allergies, Adverse Reactions, Alerts No Known Allergies Medications albuterol CFC free 90 mcg/inh inhalation aerosol 2, puffs, Inhalation, Every 6 hours, PRN, # 9 Gm, Refills 0, Maintenance, 05/05/22 15:45:00 EDT, Aerosol Start Date: 05/05/22 Status: Ordered Amlodipine See Instructions, 10mg, 0 Refills, Maintenance, 08/25/16 11:08:59 Start Date: 08/25/16 Status: Ordered dicyclomine 20 mg oral tablet TOME TALA TABLETA CUATRO VECES AL D A X30 DAYS Start Date: 05/05/22 Status: Ordered famotidine 40 mg oral tablet TOME TALA TABLETA TODOS LOS D AL ACOSTARSE Start Date: 05/05/22 Status: Ordered hydrochlorothiazide-losartan 25 mg-100 mg oral tablet TOME TALA TABLETA POR V A ORAL TODOS LOS D Start Date: 05/05/22 Status: Ordered montelukast 10 mg oral tablet TOME TALA TABLETA POR V A ORAL TODOS LOS D Start Date: 05/05/22 Status: Ordered rosuvastatin 40 mg oral tablet TOME TALA TABLETA TODOS LOS D Start Date: 05/05/22 Status: Ordered sertraline 100 mg oral tablet TOME TALA TABLETA TODOS LOS D Start Date: 05/05/22 Status: Ordered Symbicort 160mcg/4.5mcg Inhaler INHALE 2 PUFFS POR V A ORAL DOS VECES AL D A Start Date: 05/05/22 Status: Ordered Patient Care team information Care Team Personnel Name: Delia Davila MD Position: [facility] Outreach Member Role: PCP Address: Address: [address] [place] [address]- Name: Nataliia Nicole RN Position: [facility] RN Member Role: Primary Care Nurse Care Team Related Persons Name: KALEB BARRON Address: home [address] [place] [address]
--- OUTSIDE RECORDS SUMMARY | 2023-10-06 11:02 | XMS_ITS | Continuity of Care Document ---
Author Name Unknown Organization [facility] ter Address [address] [place] [address]- Care Team Providers Care Director Quality Systems Name Role Phone Delia Davila MD Primary Care Physician [phone] Encounter [facility] [place] Date(s): 05/20/22 - 06/20/[address] [address] Attending Physician: Enmanuel Forrester MD Admitting Physician: Enmanuel Forrester MD Referring Physician: Enmanuel Forrester MD Allergies, Adverse Reactions, Alerts No Known Allergies [...] 100 mg oral tablet TOME TALA TABLETA TORENETTA LOS D Start Date: 05/05/22 Status: Ordered Symbicort 160mcg/4.5mcg Inhaler INHALE 2 PUFFS POR V A ORAL DOS VECES AL D A Start Date: 05/05/22 Status: Ordered Care Team Personnel Name: Delia Davila MD Address: [address] [place] [address] [address] Delia Davila [place], [place] [address]
--- OUTSIDE RECORDS SUMMARY | 2023-10-06 11:02 | XMS_ITS | Continuity of Care Document ---
Author Name Unknown Organization [facility] ter Address [address] [place] [address]- Care Team Providers Care Food Consultant Name Role Phone Lola CLAUDIO, Delia Ovalle Primary Care Physician [phone] Encounter [facility] [place] Date(s): 05/05/22 - 05/06/[address] [address] Discharge Disposition: A-D/C Home Attending Physician: Martin Falcon MD Admitting Physician: Dayna Vernon MD Referring Physician: Not on Staff, Referring MD Allergies, Adverse Reactions, Alerts No Known [...] D A Start Date: 05/05/22 Status: Ordered Results Radiology Reports * Exam Date Time Procedure Performing Provider Status 05/05/22 10:45 AM Chest 2 Views Frontal and Lat Kelly Becerra; Rocio (Verified) Notes: (Chest 2 Views Frontal and Lat) Reason For Exam: Chest Pain;Other: RESULT: Chest 2 Views Frontal and Lat Chest 2 Views Frontal and Lat Reason: Other:; Chest Pain; Clinical Question(s): Other: COMPARISON: 02/15/2017 FINDINGS: No acute cardiopulmonary process IMPRESSION: No acute cardiopulmonary process WSN: [id number] Ordering Physician: Natan Ruiz Dictated By: Antonio Pagan MD Dictated Date/Time: 05/05/22 10:47 a Reviewed By: Antonio Pagan MD Signed By: Antonio Pagan MD Signed Date/Time: 05/05/22 10:47 am Transcribed By: MILO Transcribed Date/Time: 05/05/22 10:46 am Vital Signs Most recent to oldest [Reference Range]: 1 2 3 Oxygen Saturation [94-100 %] 100 % (05/06/22 10:10 AM) 98 % (05/06/22 8:00 AM) 98 % (05/06/22 4:40 AM) Pulse Rate [55-90 bpm] 88 bpm (05/06/22 10:10 AM) 78 bpm (05/06/22 8:00 AM) 74 bpm (05/06/22 4:40 AM) Blood Pressure [90-138/55-84 mm Hg] 150/87mm Hg *H* (05/06/22 10:10 AM) 123/69mm Hg (05/06/22 8:00 AM) 143/79mm Hg *H* (05/06/22 4:40 AM) Respiratory Rate [16-30 br/min] 18 br/min (05/06/22 10:10 AM) 18 br/min (05/06/22 8:00 AM) 21 br/min (05/06/22 4:40 AM) Temperature [96.8-100.4 DegF] 98.5 DegF (05/06/22 10:10 AM) 97.5 DegF (05/06/22 8:00 AM) 97.8 DegF (05/06/22 4:40 AM) Liters per Minute 0 L/min (05/05/22 8:56 AM) Mode of Delivery (Oxygen) Room air (05/06/22 10:10 AM) Room air (05/06/22 8:00 AM) Room air (05/06/22 4:40 AM) Blood pressure sites Arm, right (05/06/22 10:10 AM) Arm, right (05/06/22 4:40 AM) Arm, right (05/05/22 11:16 PM) Temperature Route Oral (05/06/22 10:10 AM) Oral (05/06/22 8:00 AM) Oral (05/06/22 4:40 AM)
== END 2023-10-06 11:47 | disposition home or self-care (01) ==
LOC: HO.HUSH 11:00
PROVIDERS: PCP Internal Medicine; Visit Provider Urology
DX: N40.1 Benign prostatic hyperplasia with lower urinary tract symptoms (principal); N13.8 Other obstructive and reflux uropathy; N52.9 Male erectile dysfunction, unspecified
CPT/HCPCS: 99213

== ENCOUNTER → 2023-10-06 11:00 | Outpatient (BNVA) | payer OTHER, SELFPAY | PROVIDERS: PCP Internal Medicine; Visit Provider Urology ==

== ENCOUNTER 2023-11-28 12:49 | Outpatient (AMB) | payer OTHER, SELFPAY ==
--- NOTE | 2023-11-28 12:53 | MHC.OFFVISWM ---
Intake VS Expanded 11/28/23 13:01 BP 163/79 H Blood Pressure Location Rt brachial Blood Pressure Position Sitting Pulse 75 Pulse Source Pulse Oximeter Temp 97.9 F Temperature Source Temporal Artery Scan Pulse Oximetry 95 Oxygen Delivery Method Room Air Height 5 ft 11 in Weight 241 lb 12.8 oz BMI 33.7 Body Fat % 33.5 Body Fat Mass 81.0 Fat Free Mass 160.8 Visceral Fat Rating 19.0 Body Water % 45.3 Body Water Mass 109.4 Muscle Mass/Score 152.8 Basal Metabolic Rate/Score 2,176 Intake Visit Reasons: (OV) F/U [facility] Allergies latex Adverse Reaction (Intermediate, Verified 11/28/23 13:03) Itching Medication List - Last Reconciled 11/28/23 by Jennifer Castellanos PA-C amlodipine 10 mg PO DAILY aspirin (Adult Aspirin Regimen) 81 mg PO DAILY CPAP (CPAP Machine/Device) As directed ezetimibe 10 mg PO DAILY famotidine 40 mg PO BEDTIME fluticasone propionate 50 mcg/actuation sprays intranasal fluticasone propionate 110 mcg/actuation 110 mcg inhalation BID gabapentin 300 mg PO BEDTIME 90 days dwaida-surokudi-jrpnsqy 36,000-114,000- 180,000 unit (Creon) 2 caps in am and 2 qpm orally 2 times a day; administer with meals and/or snacks lorazepam 0.5 mg PO DAILY PRN losartan-hydrochlorothiazide 100-25 mg 1 tab PO DAILY melatonin 5 mg PO BEDTIME PRN 90 days metoprolol succinate ER 100 mg PO DAILY prazosin 5 mg PO BEDTIME rosuvastatin 40 mg PO DAILY sertraline 100 mg PO DAILY PRN sildenafil 100 mg PO ONCE PRN 30 days simethicone 180 mg PO BID 30 days sodium hyaluronate (viscosup) (Euflexxa) mg intra-articular Symbicort 160-4.5 mcg/actuation (budesonide-formoterol) 2 puffs PO BID NS tadalafil 5 mg PO DAILY 90 days triamcinolone acetonide 0.5% topical HPI HPI Comments History of Present Illness Details 63 yo man has been in our [facility] on and off for a few years. Restarted Nov 2022 at 263 lbs (after having gained 15 lbs) and at his last appt he weighed 243 lbs. He has lost an additional 1.2 lbs in 4 months. Has multiple physical pain points. Meal plan breakfast - 3 eggs with cheese, Cranberry lunch - vegetables and meat dinner - root vegetables,protein no snacks Exercise now - treadmill 3d - doesn't look at calories burned, alternates with bicycle. PFSH Medical History Erectile dysfunction Pulmonary nodules POLLO on CPAP Asthma-COPD overlap syndrome Surgical History Hx of knee surgery Hx of shoulder surgery Hx of cataract surgery History of hand surgery History of carpal tunnel surgery History of esophagogastroduodenoscopy (EGD) Hx of colonoscopy History of carpal tunnel surgery (~2019) History of back surgery (~2019) Family History Father Throat cancer HTN (hypertension) Paternal Grandfather Heart attack Family/Other Colon cancer Social History Alcohol intake: former Year quit: 2006 Patient Tobacco Use Status: Former Tobacco user Quit Date: 2006 Years Smoked: 25 +/- Assessment & Plan Assessment & Plan (1) Obesity: Code(s): E66.9 - Obesity, unspecified Plan: 63 yo man with multiple medical porblems and obesity, normally BP well controlled, but he was rushing to get here and had bad news. He has BP monitor at home, will check again later today and if SBP>140 will call his PCP. Has a good meal plan and does not need changes. At every appt we talk about him creating a regular exercise routine but he never does. We discussed this again - and that he needs to alternate between bike and treadmill at home for 300 calories burned daily or any other combination fof 2,000 tian burned per week. Once again, he says he will start. RTO 6 months with me. Patient is obese and is not considered stable at this time. I spent 20 minutes in total with patient reviewing/updating records, examining the patient and counseling the patient on weight management as detailed above. Coding Level of Care Code Est Pt Level 3 (68888) Diagnoses Obesity E66.9
[2023-11-28 13:01] VITALS: BP 163/79; PULSE 75; TEMP 36.6; O2SAT 95; BMI 33.7
== END 2023-11-28 13:22 | disposition home or self-care (01) ==
PROVIDERS: PCP Internal Medicine; Visit Provider Physician Assistant
DX: E66.9 Obesity, unspecified (principal); Z68.33 Body mass index [BMI] 33.0-33.9, adult
CPT/HCPCS: 99213

== ENCOUNTER → 2023-11-28 12:49 | Outpatient (BNVA) | payer OTHER, SELFPAY | PROVIDERS: PCP Internal Medicine; Visit Provider Physician Assistant | DX: E66.9 Obesity, unspecified (principal); Z68.33 Body mass index [BMI] 33.0-33.9, adult | CPT/HCPCS: 99212 ==

== ENCOUNTER 2023-12-09 10:48 | Outpatient (AMB) | payer OTHER, SELFPAY ==
--- NOTE | 2023-12-09 10:56 | A.OFFVIS_ITS ---
Intake Vital Signs 12/09/23 11:12 Height 5 ft 11 in Weight 241 lb BMI 33.6 BP 118/75 Blood Pressure Location Lt brachial Position Sitting Pulse 94 Intake Visit Reasons: 6 month fu Intake Note: Patient presents to in office visit today in 6 months follow up of GERD. CC: Patient states that he has had a few episodes of excrutiating abdominal pain with nausea, sweating, and dizziness. Per patient he would like to have a study done to make sure everything is fine. Patient reports occasional abdominal bloating and heartburn. [employer] Server Required: Yes Accompanied by: Self / Same As Patient Allergies No Known Drug Allergies Allergy (Unknown, Verified 12/11/23 06:17) none latex Adverse Reaction (Intermediate, Verified 12/11/23 06:17) Itching HPI 6 month fu HPI Details Assessment & Plan (1) GERD (gastroesophageal reflux diseas e): Code(s): K21.9 - Gastro-esophageal reflux disease without esophagitis Plan: Georgian #Itzel Live He received the higher dose of creon, and this has resolved all of his bloating and stooling problems. He continues on his famotidine with good GERD control. At this time he is completely satisfied with his GI regimen. He has lost weight with intentional diet and exercise. About 32 lbs. He still has his cardiac work up upcoming. ROV 6 mos. (2) Periumbilical abdominal pain: Code(s): R10.33 - Periumbilical pain (3) Diarrhea: Code(s): R19.7 - Diarrhea, unspecified (4) IBS (irritable bowel syndrome): Code(s): K58.9 - Irritable bowel syndrome without diarrhea TODAY'S VISIT.. Georgian #Omid Live[ Initially he says that everything is going well with his medications. Then he says he has been having intermittent, although infrequent, episodes of severe whole abdominal pain that causes him sweating and dizziness and is relieved with defecation. This despite the fact that he moves his bowels every day without trouble. He can not really tie this to any kind of food eaten or even time of day. He says the timing is random and not related to whether he skipped bowel movements etc.. This really sounds like a vasovagal reaction possibly from gas trapping. For now we are going to get a colonoscopy since she would be due next year anyway and a small-bowel follow-through study to make sure there is nothing severely abnormal. He continues on his Creon and famotidine. Return office visit after the studies and in 6 months. [facility] Medical History Diarrhea Erectile dysfunction Pulmonary nodules POLLO on CPAP Asthma-COPD overlap syndrome Surgical History Hx of knee surgery Hx of shoulder surgery Hx of cataract surgery History of hand surgery History of carpal tunnel surgery History of esophagogastroduodenoscopy (EGD) Hx of colonoscopy History of carpal tunnel surgery (~2019) History of back surgery (~2019) Family History Father Throat cancer HTN (hypertension) Paternal Grandfather Heart attack Family/Other Colon cancer Social History Alcohol intake: former Year quit: 2006 Patient Tobacco Use Status: Former Tobacco user Quit Date: 2006 Years Smoked: 25 +/- Review of Systems Const Denies fatigue, Denies fever(s), Denies night sweats, Denies poor appetite and Denies weight loss Eyes Details: glasses Reports requires corrective lenses ENT Reports Normal hearing present, Denies dental pain, Denies dysphagia, Denies hearing loss, Denies mouth pain, Denies odynophagia, Denies throat swelling, Denies tongue swelling and Reports other (Dentition adequate) Card Reports lightheadedness Resp Reports no additional complaints GI Details: Reports abdominal pain, Denies melena, Denies bloating, Denies hematochezia, Denies constipation, Reports GI cramping, Denies dysphagia, Denies excessive flatus, Denies early satiety, Reports heartburn, Denies diarrhea, Denies nausea, Denies odynophagia, Denies vomiting and Denies hematemesis Skin/Breast Denies pruritus, Denies lesions, Denies rash and Denies jaundice Neuro Reports Normal hearing present and Denies Abnormal speech present Endo Denies fatigue Aller/Immun Denies throat swelling and Denies tongue swelling Physical Exam Vital Signs: Last Vital Signs Pulse 94 12/09/23 11:12 BP 118/75 12/09/23 11:12 BMI result Body Mass Index 33.6 Const General: cooperative, no acute distress, well developed and well groomed Nutritional Appearance: well nourished and obese Orientation/consciousness: oriented to person, oriented to place and oriented to time Limitations: language barrier HEENT Head: Yes normocephalic and Yes atraumatic Eyes General: appearance normal, both eyes and all related structures Pupils: Equal, round and reactive pupils present Neck Neck: Yes normal visual inspection and Yes no lymphadenopathy Thyroid: Thyroid normal Resp Effort & Inspection: normal respiratory effort and able to speak in complete sentences Auscultation: clear to auscultation bilaterally Cardio Rate: regular rate Rhythm: regular rhythm Heart sounds: Normal, physiologic split S2 sound present Peripheral pulses: radial pulses present and posterior tibial pulses present GI Inspection: No distended, No Abdominal panniculus present and Yes obesity Palpation (GI): Soft to palpation, nontender, no guarding, not rigid and No hepatosplenomegaly present Percussion: Yes normal to percussion Auscultation: normal bowel sounds Rectal Exam - Male: Yes deferred Skin General skin exam: no rashes or lesions noted, turgor normal, skin not dry, no jaundice, No spider nevi and no striae Rashes: no rashes Nails: normal Neuro General: oriented to person, oriented to place and oriented to time Cranial nerves: Yes Equal, round and reactive pupils present and Yes Normal hearing present Speech: No Abnormal speech present Extrem General: Yes normal to inspection, No clubbing, No cyanosis and No edema Psych Appearance: grossly normal and well kempt Mental Status: mental status grossly normal Speech and movement: Normal speech and movement present Affect: normal affect Attitude: cooperative Thought process: Normal thought process present and not confabulating Thought content: Normal thought content present Insight: Limited insight present (Psych) Judgement: Limited judgement present (Psych) Results Reviewed Results Reviewed: Laboratory Tests 12/14/23 12/14/23 08:55 12:03 WBC 7.9 Hgb 14.5 Hct 41.4 L Plt Count 289 Estimated GFR > 60 Total Bilirubin 0.6 AST 20 ALT 16 Alkaline Phosphatase 57 Assessment & Plan Assessment & Plan (1) Periumbilical abdominal pain: Code(s): R10.33 - Periumbilical pain (2) GERD (gastroesophageal reflux disease): Code(s): K21.9 - Gastro-esophageal reflux disease without esophagitis (3) Pre-op examination: Code(s): Z01.818 - Encounter for other preprocedural examination (4) IBS (irritable bowel syndrome): Code(s): K58.9 - Irritable bowel syndrome without diarrhea (5) Abdominal bloating: Code(s): R14.0 - Abdominal distension (gaseous) Plan Georgian #Omid Live[ Initially he says that everything is going well with his medications. Then he says he has been having intermittent, although infrequent, episodes of severe whole abdominal pain that causes him sweating and dizziness and is relieved with defecation. This despite the fact that he moves his bowels every day without trouble. He can not really tie this to any kind of food eaten or even time of day. He says the timing is random and not related to whether he skipped bowel movements etc.. This really sounds like a vasovagal reaction possibly from gas trapping. For now we are going to get a colonoscopy since she would be due next year anyway and a small-bowel follow-through study to make sure there is nothing severely abnormal. He continues on his Creon and famotidine. Return office visit after the studies and in 6 months. Orders: Orders Comprehensive Met. Panel 12/14/23 Z01.818 - Encounter for other preprocedural examination Complete Blood Count Auto Diff 12/14/23 Z01.818 - Encounter for other preprocedural examination Colonoscopy - GI Use Only 12/09/23 R10.33 - Periumbilical pain FL barium swallow modified 01/04/24 R10.33 - Periumbilical pain Medications: New sodium,potassium,mag sulfates 17.5-3.13-1.6 gram (Suprep Bowel Prep Kit) 480 mL orally; 354 mL 0RF Changed From qohwts-cswegahg-xivpkwi 36,000-114,000- 180,000 unit 2 caps in am and 2 qpm orally 2 times a day; administer with meals and/or snacks 120 caps 3RF R14.0 - Abdominal distension (gaseous), K58.9 - Irritable bowel syndrome without diarrhea To ewdvxa-rwjtrnuc-yfrzlnm 36,000-114,000- 180,000 unit (Creon) 2 caps in am and 2 qpm orally 2 times a day; administer with meals and/or snacks 120 caps 6RF R14.0 - Abdominal distension (gaseous), K58.9 - Irritable bowel syndrome without diarrhea Refilled simethicone after meals 180 mg PO BID 60 caps 6RF 30 days famotidine 40 mg PO BEDTIME 90 tabs 2RF K21.9 - Gastro-esophageal reflux disease without esophagitis Coding Level of Care Code Est Pt Level 4 (61883) Diagnoses Periumbilical abdominal pain R10.33 GERD (gastroesophageal reflux disease) K21.9 Pre-op examination Z01.818 IBS (irritable bowel syndrome) K58.9 Abdominal bloating R14.0
[2023-12-09 11:12] VITALS: BP 118/75; PULSE 94; BMI 33.6
== END 2023-12-09 11:32 | disposition home or self-care (01) ==
PROVIDERS: PCP Internal Medicine; Visit Provider Nurse Practitioner
DX: R10.33 Periumbilical pain (principal); K21.9 Gastro-esophageal reflux disease without esophagitis; Z01.818 Encounter for other preprocedural examination; K58.9 Irritable bowel syndrome, unspecified; R14.0 Abdominal distension (gaseous)
CPT/HCPCS: 99214

== ENCOUNTER → 2023-12-09 10:48 | Outpatient (BNVA) | payer OTHER, SELFPAY | PROVIDERS: PCP Internal Medicine; Visit Provider Nurse Practitioner | DX: Z01.818 Encounter for other preprocedural examination (principal); K21.9 Gastro-esophageal reflux disease without esophagitis; K58.9 Irritable bowel syndrome, unspecified; R10.33 Periumbilical pain; R14.0 Abdominal distension (gaseous) | CPT/HCPCS: 99212 ==

== ENCOUNTER 2023-12-11 05:59 | Observation (INO) | payer OTHER, SELFPAY ==
[2023-12-11] VITALS (12 sets, daily range): BP systolic 130–164; BP diastolic 62–88; PULSE 56–143; RESP 13–20; TEMP 36.3–37.1; O2SAT 95–99; BMI 34.1
--- NOTE | 2023-12-11 | ECG_ITS ---
Test Reason : SEIZURE Blood Pressure : / mmHG Vent. Rate : 095 BPM Atrial Rate : 095 BPM P-R Int : 146 ms QRS Dur : 082 ms QT Int : 366 ms P-R-T Axes : 057 019 026 degrees QTc Int : 459 ms Normal sinus rhythm Normal ECG When compared with ECG of 11-MAY-2015 16:23, No significant changes seen Referred By: Generic ED Physician Electronically Signed By:Enmanuel Forrester
--- NOTE | ~2023-12-11 | CT_ITS ---
CT HEAD WITHOUT IV CONTRAST CT CERVICAL SPINE WITHOUT IV CONTRAST INDICATION: Pain. Status post seizure. COMPARISON: None available. TECHNIQUE: Multidetector CT acquisitions of the head and cervical spine were obtained without IV contrast. Multiplanar reformats were acquired and utilized for image interpretation. This CT examination was performed using dose optimization techniques as appropriate, variously including the following: *Automated exposure control *Adjustment of mA and/or kV according to patient size (this includes techniques or standardized protocols for targeted exams where dose is matched to indication/reason for exam; i.e. extremities or head) *Use of iterative reconstruction technique FINDINGS: HEAD: There is no intracranial hemorrhage, hydrocephalus, extra-axial surface collection, midline shift, or other herniation pattern. Shah to white matter differentiation is diffusely maintained without evidence of an evolved acute territorial infarct. The basilar cisterns are preserved. No significant soft tissue abnormality. No acute osseous abnormality. The paranasal sinuses and the mastoid air cells are well aerated. Degenerative changes involving the TMJs bilaterally. CERVICAL SPINE: Postoperative changes following ACDF at C4-C5. There are no acute fractures and there are no acute subluxations. There is multilevel hypertrophic facet arthropathy and there is multilevel degenerative disc disease. Mild degenerative anterior subluxation of C6 on C7. Chronic well-corticated ossific fragment along the anterior margin of the inferior C6 endplate. There is no prevertebral soft tissue swelling. CT/CT cervical spine wo IV con IMPRESSION: - No acute intracranial abnormality. - No acute osseous abnormality within the cervical spine. Cervical spondylosis.
--- NOTE | ~2023-12-11 | XR_ITS ---
EXAMINATION: CR LUMBAR SPINE. CR RIGHT SHOULDER. CR THORACIC SPINE. CLINICAL INFORMATION: Back pain status post fall. Right shoulder pain. Lower back pain. Seizure. COMPARISON: Lumbar spine films dated 11/25/2021. T-spine films dated 09/24/2016. Contralateral left shoulder films dated 05/03/2016. CT scan of the chest dated 01/12/2021. TECHNIQUE: 3 views of the lumbar spine. 3 views of the thoracic spine. 3 views of the right shoulder. FINDINGS: Lumbar spine: There is a convex right lumbar scoliosis. In the sagittal plane, there is minimal grade 1 retrolisthesis of L4 on L5, similar to the previous exam. No acute fracture or abnormal paraspinal soft tissues changes are seen. There is multilevel mild degenerative disc disease with mild disc space narrowing and vertebral endplate spurring seen, similar to the previous exam. Moderate facet arthropathy at the lumbosacral junction is noted. Sacroiliac joints and included portions of the sacrum appear intact. Atherosclerotic calcifications of the abdominal aorta are seen. Right shoulder: No acute fracture or dislocation. Glenohumeral joint and acromioclavicular joints are intact. There is minimal spurring in the glenohumeral joint and nonpersonal surface spurring at the acromioclavicular joint. No soft tissue calcifications are seen. Included right ribs and right clavicle are intact. Lower cervical spine fusion hardware is partially included. Thoracic spine: There is a mild convex left thoracic curvature. No acute fracture or abnormal paraspinal soft tissue changes are noted. There is mild multilevel vertebral spurring in the mid and lower thoracic spine with prominent hypertrophic changes at the right lateral margins of the T8-T9 and T9-T10 vertebral bodies. XR/XR shoulder RT min 2V IMPRESSION: * No acute fracture of the lumbar spine, right shoulder, or thoracic spine. * Thoracolumbar scoliosis and mild multilevel degenerative disc disease and moderate facet arthropathy in the lower lumbar spine. * Minimal degenerative changes in the right glenohumeral joint and right acromioclavicular joint. * Atherosclerotic vascular calcifications of the abdominal aorta. * Lower cervical spine fusion hardware partially included.
--- NOTE | ~2023-12-11 | CT_ITS ---
CT HEAD WITHOUT IV CONTRAST CT CERVICAL SPINE WITHOUT IV CONTRAST INDICATION: Pain. Status post seizure. COMPARISON: None available. TECHNIQUE: Multidetector CT acquisitions of the head and cervical spine were obtained without IV contrast. Multiplanar reformats were acquired and utilized for image interpretation. This CT examination was performed using dose optimization techniques as appropriate, variously including the following: *Automated exposure control *Adjustment of mA and/or kV according to patient size (this includes techniques or standardized protocols for targeted exams where dose is matched to indication/reason for exam; i.e. extremities or head) *Use of iterative reconstruction technique FINDINGS: HEAD: There is no intracranial hemorrhage, hydrocephalus, extra-axial surface collection, midline shift, or other herniation pattern. Shah to white matter differentiation is diffusely maintained without evidence of an evolved acute territorial infarct. The basilar cisterns are preserved. No significant soft tissue abnormality. No acute osseous abnormality. The paranasal sinuses and the mastoid air cells are well aerated. Degenerative changes involving the TMJs bilaterally. CERVICAL SPINE: Postoperative changes following ACDF at C4-C5. There are no acute fractures and there are no acute subluxations. There is multilevel hypertrophic facet arthropathy and there is multilevel degenerative disc disease. Mild degenerative anterior subluxation of C6 on C7. Chronic well-corticated ossific fragment along the anterior margin of the inferior C6 endplate. There is no prevertebral soft tissue swelling. CT/CT head/brain wo IV con IMPRESSION: - No acute intracranial abnormality. - No acute osseous abnormality within the cervical spine. Cervical spondylosis.
--- NOTE | 2023-12-11 06:41 | ED_ITS ---
HPI - Seizure General Chief Complaint: Seizure Stated Complaint: Had a seizure in the shower Time Seen by Provider: 12/11/23 06:41 Source: patient Mode of arrival: ambulatory Limitations: no limitations History of Present Illness HPI Narrative: This is a 63-year-old male history of erectile dysfunction, IBS, hypertension, coronary artery disease, obesity, BPH, GERD, asthma and COPD overlap syndrome presenting status post fall last night around 21:00, he reports he was in the shower he felt dizzy and he fell he thinks he lost consciousness because a friend of his told him he did. According to patient His friend also claims he was shaking afterwards but at that time he was awake. He denies any loss of bladder or bowel control or tongue trauma status post fall. He is currently reporting right-sided shoulder pain, neck pain and headache. He tells me he is having some substernal chest pressure. Denies shortness of breath, fevers, chills, nausea, vomiting, vision changes, dizziness or weakness at this time. Reports eating and drinking per usual. He reports he has had seizures in the past that were related to trauma however no history of epilepsy. NIH stroke scale 0. GCS of 15. Related Data Home Medications Medication Instructions Recorded Confirmed rosuvastatin 40 mg tablet 40 mg PO DAILY 11/06/20 11/28/23 sertraline 100 mg tablet 100 mg PO DAILY PRN 07/27/21 11/28/23 ezetimibe 10 mg tablet 10 mg PO DAILY 11/02/21 11/28/23 CPAP (CPAP Machine/Device) 11/16/22 11/28/23 metoprolol succinate 100 mg 100 mg PO DAILY 11/16/22 11/28/23 tablet,extended release 24 hr lorazepam 0.5 mg tablet 0.5 mg PO DAILY PRN 11/17/22 11/28/23 amlodipine 10 mg tablet 10 mg PO DAILY 12/27/22 11/28/23 losartan 100 1 tab PO DAILY 04/11/23 11/28/23 mg-hydrochlorothiazide 25 mg tablet fluticasone propionate 110 110 mcg inhalation BID 06/08/23 11/28/23 mcg/actuation HFA aerosol inhaler prazosin 5 mg capsule 5 mg PO BEDTIME 06/08/23 11/28/23 triamcinolone acetonide 0.5 % topical 06/08/23 11/28/23 topical ointment montelukast 10 mg tablet 10 mg PO DAILY 12/09/23 Previous Rx's Medication Instructions Recorded aspirin 81 mg tablet,delayed 81 mg PO DAILY #90 tabs 12/27/22 release (Adult Aspirin Regimen) sildenafil 100 mg tablet 100 mg PO ONCE PRN sexual activity 07/12/23 30 days #30 tabs melatonin 5 mg tablet 5 mg PO BEDTIME PRN sleep 90 days 08/02/23 #90 tabs Symbicort 160 mcg-4.5 2 puff PO BID #10.2 ea 10/03/23 mcg/actuation HFA aerosol inhaler (budesonide-formoterol) tadalafil 5 mg tablet 5 mg PO DAILY sexual activity 90 10/06/23 days #90 tabs famotidine 40 mg tablet 40 mg PO BEDTIME #90 tabs 12/09/23 [id number] See Rx Instructions PO BID #120 12/09/23 36,000-114,000-180,000 unit caps capsule,delay rel (Creon) simethicone 180 mg capsule 180 mg PO BID 30 days #60 caps 12/09/23 sodium,potassium,mag sulfates 17.5 480 ml PO .COMPLEX #354 mL 12/09/23 gram-3.13 gram-1.6 gram oral soln (Suprep Bowel Prep Kit) Allergies Allergy/AdvReac Type Severity Reaction Status Date / Time No Known Drug Allergies Allergy Unknown none Verified 12/11/23 06:17 latex AdvReac Intermediate Itching Verified 12/11/23 06:17 Review of Systems 2 Review of Systems: Yes all other systems are reviewed and are negative [facility] Past Medical History Attestation statement: The following information was validated with the patient. Source: old records reviewed and nursing notes reviewed Medical History (Updated 12/11/23 @ 12:04 by [place] Marie) Diarrhea Erectile dysfunction Pulmonary nodules POLLO on CPAP Asthma-COPD overlap syndrome Surgical History Hx of knee surgery Hx of shoulder surgery Hx of cataract surgery History of hand surgery History of carpal tunnel surgery History of esophagogastroduodenoscopy (EGD) Hx of colonoscopy History of carpal tunnel surgery (~2019) History of back surgery (~2018) Family History Family History Father Throat cancer HTN (hypertension) Paternal Grandfather Heart attack Family/Other Colon cancer Social History Social History Alcohol intake: former Year quit: 2006 Patient Tobacco Use Status: Former Tobacco user Quit Date: 2006 Years Smoked: 25 +/- Smoked in Last 30 Days: No Use of substances other than those prescribed or required for medical reasons: No Advance Directives: No Advance Directives Information Provided: No Physical Exam 2 Vital Signs: Vital Signs: Last Vital Signs Temp 98.7 F 12/11/23 08:31 Pulse 92 12/11/23 14:34 Resp 13 12/11/23 08:31 BP 159/80 H 12/11/23 14:34 Pulse Ox 97 12/11/23 08:31 O2 Del Method Room Air 12/11/23 08:31 BMI result Body Mass Index 34.1 Patient noted to be tachy and hypertensive Appearance: Alert.? Oriented X3.? No acute distress.? Head: Normocephalic, atraumatic, no step-offs or deformities Eyes: Pupils equal, round and reactive to light.? ENT: Pharynx normal.? Neck: Normal inspection.? Neck supple.? CVS: Normal heart rate and rhythm.? Pulses normal.? Respiratory: No respiratory distress.? Breath sounds normal.? Abdomen: Soft and nontender.? Skin: Skin warm and dry.? Normal skin color.? Normal skin turgor.? Extremities: No lower extremity edema.? No calf ttp. 5/5 strength to bilateral upper and lower extremities Neuro: Oriented X 3.? No motor deficit.? No sensory deficit. CN 2-12 intact . Normal oboqre-sj-xjlz, eomv-ct-qjxy steady tandem gait normal coordination. Course Reevaluation(s) Reevaluation #1: CBC with no acute findings requiring intervention. Chemistry unremarkable. There is noted to be a chronically elevated BUN appears to be around patient's baseline. D-dimer 288, age adjusted D-dimer 310 making venous thromboembolism unlikely. Orthostatic vitals, UA, imaging, Troponin and EKG pending. .Age-Adjusted D-dimer for Venous Thromboembolism (VTE) from [employer] on 12/11/2023 All calculations should be rechecked by clinician prior to use RESULT SUMMARY: 310 ?g/L Age-adjusted D-dimer cutoff, DDU VTE unlikely Reported D-dimer is less than or equal to cutoff; consider alternative diagnosis INPUTS: Age ?> 63 years D-dimer level reported by lab ?> 288 ?g/L D-dimer unit type ?> 1 = DDU (unadjusted cutoff typically 230-250 or 0.23-0.25) Time: 07:24 Reevaluation #2: Orthostatic vital signs were positive and fluid resuscitation was initiated. Patient's UA likely contaminated I do not suspect acute infection. Troponin negative x2 EKG nonischemic. CT head no acute intracranial abnormality. No acute osseous abnormality within the cervical spine. X-ray of spine no acute fractures of the lumbar spine right shoulder thoracic spine. Thoracolumbar scoliosis and mild multi-level degenerative disc disease. And moderate facet arthropathy in the lower lumbar spine. Degenerative changes noted in the right shoulder. Abdominal aortic calcifications noted. Will repeat orthostatic vital signs at this time and then admit patient for syncope and orthostatic dizziness. Time: 13:24 Reevaluation #3: Repeat orthostatic vitals improved. Patient will likely require hospital admission for syncope. Time: 14:58 Medications Administered Discontinued Medications Generic Name Dose Route Start Last Admin Trade Name Freq PRN Reason Stop Dose Admin Sodium Chloride 1,000 mls @ 999 mls/hr 12/11/23 11:00 12/11/23 13:27 Ns IV 12/11/23 12:00 Infused .Q1H1M CIRA Infusion Sodium Chloride 1,000 mls @ 999 mls/hr 12/11/23 12:15 12/11/23 14:45 Ns IV 12/11/23 13:15 Infused .Q1H1M CIRA Infusion Morphine Sulfate 15 mg 12/11/23 07:25 12/11/23 08:33 Morphine Sulfate Immed Release 15 Mg Tablet PO 12/11/23 07:26 15 mg ONCE ONE Administration Medical Decision Making Medical Decision Making [facility] Narrative: 0645 63-year-old male presents with fall in shower/suspected seizure that occurred prior to arrival. Physical exam benign. NIH stroke scale 0. History and physical exam concerning for possible syncope versus orthostatic hypotension versus electrolyte abnormalities versus possible seizure. Less likely PE, ACS, dissection. No signs of acute respiratory distress at this time. Will rule out traumatic injury to head and neck. No signs of traumatic injury to chest, abdomen or pelvis. Unlikely stroke, posterior stroke or intracranial hemorrhage. Plan at this time labs, imaging, urine. Differential Diagnosis Differential Diagnoses: The differential diagnosis associated with the presentation includes History and physical exam concerning for possible syncope versus orthostatic hypotension versus electrolyte abnormalities versus possible seizure. Less likely PE, ACS, dissection. No signs of acute respiratory distress at this time. Will rule out traumatic injury to head and neck. No signs of traumatic injury to chest, abdomen or pelvis. Unlikely stroke, posterior stroke or intracranial hemorrhage. Admission/Observation Consideration of admission/observation: Escalation of care including admission/observation considered Possible Consult Healthcare Provider Management of the patient was discussed with: Hospitalist Lab Data MDM Lab Attestation statement: I reviewed the patient's lab results. 12/11/23 06:44 12/11/23 06:44 Labs: Lab Results 12/11/23 12/11/23 12/11/23 Range/Units 06:44 07:00 10:49 WBC 8.8 (4.8-10.8) X10*3/uL RBC 4.24 L (4.60-5.80) X10*6/uL Hgb 12.8 L (14.0-18.0) g/dl Hct 37.3 L (42.0-52.0) % MCV 88.0 (80.0-98.0) fL MCH 30.2 (27.0-33.0) pg MCHC 34.3 (31.0-36.0) g/dl RDW 13.3 (11.0-16.0) % Plt Count 230 (160-400) X10*3/uL MPV 9.5 (9.4-12.4) fL Immature Gran % (Auto) 0.5 H (0.0-0.4) % Neut % (Auto) 80.0 H (45-73) % Lymph % (Auto) 11.9 L (20-40) % [place] % (Auto) 7.3 (2-11) % Eos % (Auto) 0.2 (0-4) % Baso % (Auto) 0.1 (0-2) % Lymph # (Auto) 1.0 L (1.2-4.9) X10*3/uL [place] # (Auto) 0.6 (0.1-1.2) X10*3/uL Eos # (Auto) 0.0 (0.0-0.4) X10*3/uL Baso # (Auto) 0.0 (0.0-0.2) X10*3/uL Abs Immat Gran (auto) 0.04 H (0.00-0.03) X10*3/uL Absolute Neuts (auto) 7.0 (2.0-8.3) x10*3/uL Absolute Nucleated RBC 0.000 (0.0-0.012) X10*3/uL Nucleated RBC % (auto) 0.0 (0.0-0.2) /100WBC D-Dimer High Sensitivty 288 NG/ML Sodium 137 (135-145) mmol/L Potassium 3.7 (3.3-5.1) mmol/L Chloride 101 (96-108) mmol/L Carbon Dioxide 26 (22-29) mmol/L Anion Gap 14 (12-20) BUN 26 H (9-16) mg/dL Creatinine 1.15 (0.5-1.4) mg/dL Estim Creat Clear Calc 84.3 Estimated GFR > 60 Random Glucose 122 H (60-115) mg/dL Calcium 9.0 (8.4-10.2) mg/dL Total Bilirubin 0.5 (0.0-1.0) mg/dL AST 26 (5-37) U/L ALT 16 (0-40) U/L Alkaline Phosphatase 60 (39-117) U/L Troponin I High Sens 13.5 12.7 (<3.5-35.0) ng/L Total Protein 6.9 (6.5-8.0) g/dL Albumin 3.9 (3.5-5.0) g/dL Urine Color Urine Appearance Urine pH (5.0-9.0) Ur Specific [place] (1.005-1.025) Urine Protein (Neg-Trace) mg/dL Urine Glucose (UA) (Negative) mg/dL Urine Ketones (Negative) mg/dL Urine Blood (Negative) Urine Nitrite (Negative) Ur Leukocyte Esterase (Negative) Urine RBC (0-2) /HPF Urine WBC (0-5) /HPF Ur Squamous Epith Cells (0-2) /HPF Urine Bacteria (None Seen) Hyaline Casts (0-2) /LPF Influenza Type A (PCR) NEGATIVE (Negative) Influenza Type B (PCR) NEGATIVE (Negative) RSV RNA Qual (PCR) NEGATIVE (Negative) SARS-CoV-2 RNA (RT-PCR) NEGATIVE (Negative) 12/11/23 Range/Units 11:48 WBC (4.8-10.8) X10*3/uL RBC (4.60-5.80) X10*6/uL Hgb (14.0-18.0) g/dl Hct (42.0-52.0) % MCV (80.0-98.0) fL MCH (27.0-33.0) pg MCHC (31.0-36.0) g/dl RDW (11.0-16.0) % Plt Count (160-400) X10*3/uL MPV (9.4-12.4) fL Immature Gran % (Auto) (0.0-0.4) % Neut % (Auto) (45-73) % Lymph % (Auto) (20-40) % [place] % (Auto) (2-11) % Eos % (Auto) (0-4) % Baso % (Auto) (0-2) % Lymph # (Auto) (1.2-4.9) X10*3/uL [place] # (Auto) (0.1-1.2) X10*3/uL Eos # (Auto) (0.0-0.4) X10*3/uL Baso # (Auto) (0.0-0.2) X10*3/uL Abs Immat Gran (auto) (0.00-0.03) X10*3/uL Absolute Neuts (auto) (2.0-8.3) x10*3/uL Absolute Nucleated RBC (0.0-0.012) X10*3/uL Nucleated RBC % (auto) (0.0-0.2) /100WBC D-Dimer High Sensitivty NG/ML Sodium (135-145) mmol/L Potassium (3.3-5.1) mmol/L Chloride (96-108) mmol/L Carbon Dioxide (22-29) mmol/L Anion Gap (12-20) BUN (9-16) mg/dL Creatinine (0.5-1.4) mg/dL Estim Creat Clear Calc Estimated GFR Random Glucose (60-115) mg/dL Calcium (8.4-10.2) mg/dL Total Bilirubin (0.0-1.0) mg/dL AST (5-37) U/L ALT (0-40) U/L Alkaline Phosphatase (39-117) U/L Troponin I High Sens (<3.5-35.0) ng/L Total Protein (6.5-8.0) g/dL Albumin (3.5-5.0) g/dL Urine Color Yellow Urine Appearance Clear Urine pH 5.5 (5.0-9.0) Ur Specific [place] 1.015 (1.005-1.025) Urine Protein Negative (Neg-Trace) mg/dL Urine Glucose (UA) Negative (Negative) mg/dL Urine Ketones Trace (Negative) mg/dL Urine Blood Trace H (Negative) Urine Nitrite Negative (Negative) Ur Leukocyte Esterase Small (1+) H (Negative) Urine RBC 0-2 (0-2) /HPF Urine WBC 11-20 H (0-5) /HPF Ur Squamous Epith Cells 3-5 (0-2) /HPF Urine Bacteria Trace (None Seen) Hyaline Casts 3-5 (0-2) /LPF Influenza Type A (PCR) (Negative) Influenza Type B (PCR) (Negative) RSV RNA Qual (PCR) (Negative) SARS-CoV-2 RNA (RT-PCR) (Negative) Independent Interpretation I performed an independent interpretation of an: EKG (Ventricular rate of 95, ID normal, qt normal, qtc normal. No st elevations or inversions. No signs of acute ischemia ), Plain X-Ray (XR/XR thoracic spine 3V IMPRESSION: * No acute fracture of the lumbar spine, right shoulder, or thoracic spine. * Thoracolumbar scoliosis and mild multilevel degenerative disc disease and moderate facet arthropathy in the lower lumbar spine. * Minimal degenerative changes in the right glenohumera) and CT Scan (CT/CT head/brain wo IV con IMPRESSION: - No acute intracranial abnormality. - No acute osseous abnormality within the cervical spine. Cervical spondylosis.) Radiology Impression Discussion of test interpretation with radiology: I have reviewed the radiologist's reading. Critical Care Time Critical Care Time Critical Care Time: Yes Total Critical Care Time: 35 Attestation: I attest to this time spent taking care of the patient, obtaining history, physical, reviewing labs, imaging Discharge Plan Discharge Clinical Impression: Syncope, Orthostatic hypotension Patient Disposition: Admitted As Inpatient Prescriptions: No Action sildenafil 100 mg tablet 100 mg PO ONCE PRN (Reason: sexual activity) 30 Days Qty: 30 0RF Rx Instructions: as needed 60 min before activity budesonide-formoterol [Symbicort] 160-4.5 mcg/actuation HFA aerosol inhaler 2 puff PO BID Qty: 10.2 1RF rosuvastatin 40 mg tablet 40 mg PO DAILY sertraline 100 mg tablet 100 mg PO DAILY PRN fluticasone propionate 110 mcg/actuation HFA aerosol inhaler 110 mcg inhalation BID lorazepam 0.5 mg tablet 0.5 mg PO DAILY PRN amlodipine 10 mg tablet 10 mg PO DAILY aspirin [Adult Aspirin Regimen] 81 mg tablet,delayed release (DR/EC) 81 mg PO DAILY Qty: 90 4RF metoprolol succinate 100 mg tablet extended release 24 hr 100 mg PO DAILY (DME) CPAP Machine/Device Device See Rx Instructions .Route Rx Instructions: As directed ezetimibe 10 mg tablet 10 mg PO DAILY losartan-hydrochlorothiazide 100-25 mg tablet 1 tab PO DAILY melatonin 5 mg tablet 5 mg PO BEDTIME PRN (Reason: sleep) 90 Days Qty: 90 3RF tadalafil 5 mg tablet 5 mg PO DAILY 90 Days Qty: 90 0RF prazosin 5 mg capsule 5 mg PO BEDTIME triamcinolone acetonide 0.5 % ointment topical montelukast 10 mg tablet 10 mg PO DAILY famotidine 40 mg tablet 40 mg PO BEDTIME Qty: 90 2RF Creon 36,000-114,000- 180,000 unit capsule,delayed release(DR/EC) See Rx Instructions PO BID Qty: 120 6RF Rx Instructions: 2 caps in am and 2 qpm orally 2 times a day; administer with meals and/or snacks simethicone 180 mg capsule 180 mg PO BID 30 Days Qty: 60 6RF Rx Instructions: after meals sodium,potassium,mag sulfates [Suprep Bowel Prep Kit] 17.5-3.13-1.6 gram recon soln 480 ml PO .COMPLEX Qty: 354 0RF Rx Instructions: 480 mL orally;
[2023-12-11 06:48] LABS: Basophils Percent Auto 0.1 % (0-2); Eosinophils Percent Auto 0.2 % (0-4); Hematocrit 37.3 % (42.0-52.0); Hemoglobin 12.8 g/dl (14.0-18.0); Imm Gran Abs Auto 0.04 X10*3/uL (0.00-0.03); Imm Gran Pct Auto 0.5 % (0.0-0.4); Lymphocytes Percent Auto 11.9 % (20-40); MANUAL DIFF FLAG NO; Mean Corpuscular HGB Conc 34.3 g/dl (31.0-36.0); Mean Corpuscular Hemoglobin 30.2 pg (27.0-33.0); Mean Platelet Volume 9.5 fL (9.4-12.4); Monocytes Absolute Auto 0.6 X10*3/uL (0.1-1.2); Monocytes Percent Auto 7.3 % (2-11); Platelet Count 230 X10*3/uL (160-400); Red Blood Count 4.24 X10*6/uL (4.60-5.80); Red Cell Distribution Width 13.3 % (11.0-16.0); White Blood Count 8.8 X10*3/uL (4.8-10.8)
[2023-12-11 07:03] LABS: Alanine Aminotransferase 16 U/L (0-40); Albumin Level 3.9 g/dL (3.5-5.0); Alkaline Phosphatase 60 U/L (39-117); Anion Gap 14 (12-20); Aspartate Amino Transferase 26 U/L (5-37); Bilirubin Total 0.5 mg/dL (0.0-1.0); Blood Urea Nitrogen 26 mg/dL (9-16); Carbon Dioxide 26 mmol/L (22-29); Chloride 101 mmol/L (96-108); Creatinine Clr Calc Pharmacy 84.3; Estimated Glomerular Filt Rate > 60; Glucose Random 122 mg/dL (60-115); Potassium 3.7 mmol/L (3.3-5.1); Sodium 137 mmol/L (135-145); Total Protein 6.9 g/dL (6.5-8.0)
[2023-12-11 07:18] LABS: D Dimer High Sensitivity 288 NG/ML
[2023-12-11 07:29] LABS: Troponin-I High Sensitivity 13.5 ng/L (<3.5-35.0)
[2023-12-11] MEDS: Morphine Sulfate Immed Release 15 MG TABLET PO (08:33)
[2023-12-11 11:16] LABS: Troponin-I High Sensitivity 12.7 ng/L (<3.5-35.0)
[2023-12-11 11:36] LABS: Influenza A PCR NEGATIVE (Negative); Influenza B PCR NEGATIVE (Negative); Resp Syncy Virus RNA Qual PCR NEGATIVE (Negative); SARS COV2 PCR INHOUSE NEGATIVE (Negative)
[2023-12-11] MEDS: 0.9 % Sodium Chloride 1,000 ML 999 ML IV ×2 (11:46→13:27)
[2023-12-11 11:54] LABS: Appearance Urine Clear; Color Urine Yellow; Glucose Urine UA Negative (Negative); Leukocyte Esterase Urine Small (1+) (Negative); Nitrite Urine Negative (Negative); PH 5.5 (5.0-9.0); Specific Gravity - Urine 1.015 (1.005-1.025); UMIC TRIGGER UACC YES; Urine Blood Trace (Negative); Urine Ketones Trace mg/dL (Negative); Urine Protein Negative (Neg-Trace)
[2023-12-11 11:59] LABS: Bacteria Urine Trace (None Seen); RBC Urine 0-2 /HPF (0-2); UACC Culture Trigger YES
--- NOTE | 2023-12-11 15:24 | P.HPHOSP_ITS ---
History of Present Illness Date of Service: 12/11/23 Chief Complaint: LOC 63M PMH non obstructive CAD, gerd, obesity, asthma/copd, mood disorder, htn, presented with loss of consciousness. patient states he was taking warm shower, got light headed, dizzy, diaphoretic and nauseous. then does not remember passing out. was found by friend, unresponsive in bathtub, covered in vomit, did not lose control of urine or stool, no tongue biting. after about 2 minutes patient came to and was alert, had large BM. reports similar episodes about once per year. in ED sbp dropped from 160 to 140 on standing and felt dizzy. ekg unremarkable. Review of Systems 2 Review of Systems: Yes all other systems are reviewed and are negative [facility] Medical History Diarrhea Erectile dysfunction Pulmonary nodules POLLO on CPAP Asthma-COPD overlap syndrome Family History Father Throat cancer HTN (hypertension) Paternal Grandfather Heart attack Family/Other Colon cancer Surgical History Hx of knee surgery Hx of shoulder surgery Hx of cataract surgery History of hand surgery History of carpal tunnel surgery History of esophagogastroduodenoscopy (EGD) Hx of colonoscopy History of carpal tunnel surgery (~2019) History of back surgery (~2019) Social History Alcohol intake: former Year quit: 2006 Patient Tobacco Use Status: Former Tobacco user Quit Date: 2006 Years Smoked: 25 +/- Smoked in Last 30 Days: No Use of substances other than those prescribed or required for medical reasons: No Advance Directives: No Advance Directives Information Provided: No Meds Allergies Allergy/AdvReac Type Severity Reaction Status Date / Time No Known Drug Allergies Allergy Unknown none Verified 12/11/23 06:17 latex AdvReac Intermediate Itching Verified 12/11/23 06:17 Active Medications: Current Medications Enoxaparin Sodium (Enoxaparin Sodium 40 Mg/0.4 Ml Syringe) 40 mg SUBCUT Q24H CIRA Sodium Chloride (0.9 % Sodium Chloride Flush 3 Ml Syringe) 3 ml IVFLUSH QSHIFT [facility] Home Medications Medication Instructions Recorded Confirmed Last Taken Type rosuvastatin 40 mg tablet 40 mg PO DAILY 11/06/20 12/11/23 Unknown History sertraline 100 mg tablet 50 - 100 mg PO DAILY PRN Anxiety 07/27/21 12/11/23 Unknown History ezetimibe 10 mg tablet 10 mg PO DAILY 11/02/21 12/11/23 Unknown History CPAP (CPAP Machine/Device) 11/16/22 11/28/23 Unknown History metoprolol succinate 100 mg 100 mg PO DAILY 11/16/22 12/11/23 Unknown History tablet,extended release 24 hr amlodipine 10 mg tablet 10 mg PO DAILY 12/27/22 12/11/23 Unknown History losartan 100 1 tab PO DAILY 04/11/23 12/11/23 Unknown History mg-hydrochlorothiazide 25 mg tablet prazosin 5 mg capsule 5 mg PO BEDTIME 06/08/23 12/11/23 Unknown History aspirin 81 mg chewable tablet 1 tab PO DAILY 12/11/23 12/11/23 Unknown History melatonin 5 mg tablet 5 mg PO BEDTIME sleep 12/11/23 12/11/23 Unknown History Physical Exam 2 Vital Signs and Narrative: Vital Signs: Last Vital Signs Temp 98.7 F 12/11/23 08:31 Pulse 92 12/11/23 14:34 Resp 13 12/11/23 08:31 BP 159/80 H 12/11/23 14:34 Pulse Ox 97 12/11/23 08:31 O2 Del Method Room Air 12/11/23 08:31 BMI result Body Mass Index 34.1 General: AO X 3, no acute distress Resp: CTA bilateral, no accessory muscles used CVS: S1,S2,RRR GI: soft, non tender, non distended Neuro: motor grossly intact, alert Psych: appropriate affect, appropriate insight Results Labs 12/11/23 06:44 12/11/23 06:44 Labs: Laboratory Results - last 24 hr 12/11/23 12/11/23 12/11/23 06:44 07:00 10:49 MCV 88.0 MCH 30.2 MCHC 34.3 RDW 13.3 Plt Count 230 MPV 9.5 Immature Gran % (Auto) 0.5 H Neut % (Auto) 80.0 H Lymph % (Auto) 11.9 L [place] % (Auto) 7.3 Eos % (Auto) 0.2 Baso % (Auto) 0.1 Lymph # (Auto) 1.0 L [place] # (Auto) 0.6 Eos # (Auto) 0.0 Baso # (Auto) 0.0 Abs Immat Gran (auto) 0.04 H Absolute Neuts (auto) 7.0 Absolute Nucleated RBC 0.000 Nucleated RBC % (auto) 0.0 D-Dimer High Sensitivty 288 Anion Gap 14 Estim Creat Clear Calc 84.3 Estimated GFR > 60 Random Glucose 122 H Calcium 9.0 Total Bilirubin 0.5 AST 26 ALT 16 Alkaline Phosphatase 60 Troponin I High Sens 13.5 12.7 Total Protein 6.9 Albumin 3.9 Urine Color Urine Appearance Urine pH Ur Specific [place] Urine Protein Urine Glucose (UA) Urine Ketones Urine Blood Urine Nitrite Ur Leukocyte Esterase Urine RBC Urine WBC Ur Squamous Epith Cells Urine Bacteria Hyaline Casts Influenza Type A (PCR) NEGATIVE Influenza Type B (PCR) NEGATIVE RSV RNA Qual (PCR) NEGATIVE SARS-CoV-2 RNA (RT-PCR) NEGATIVE 12/11/23 11:48 MCV MCH MCHC RDW Plt Count MPV Immature Gran % (Auto) Neut % (Auto) Lymph % (Auto) [place] % (Auto) Eos % (Auto) Baso % (Auto) Lymph # (Auto) [place] # (Auto) Eos # (Auto) Baso # (Auto) Abs Immat Gran (auto) Absolute Neuts (auto) Absolute Nucleated RBC Nucleated RBC % (auto) D-Dimer High Sensitivty Anion Gap Estim Creat Clear Calc Estimated GFR Random Glucose Calcium Total Bilirubin AST ALT Alkaline Phosphatase Troponin I High Sens Total Protein Albumin Urine Color Yellow Urine Appearance Clear Urine pH 5.5 Ur Specific [place] 1.015 Urine Protein Negative Urine Glucose (UA) Negative Urine Ketones Trace Urine Blood Trace H Urine Nitrite Negative Ur Leukocyte Esterase Small (1+) H Urine RBC 0-2 Urine WBC 11-20 H Ur Squamous Epith Cells 3-5 Urine Bacteria Trace Hyaline Casts 3-5 Influenza Type A (PCR) Influenza Type B (PCR) RSV RNA Qual (PCR) SARS-CoV-2 RNA (RT-PCR) Imaging Radiologist's Impressions: Impressions Lumbar Spine X-Ray 12/11/23 07:12 IMPRESSION: * No acute fracture of the lumbar spine, right shoulder, or thoracic spine. * Thoracolumbar scoliosis and mild multilevel degenerative disc disease and moderate facet arthropathy in the lower lumbar spine. * Minimal degenerative changes in the right glenohumeral joint and right acromioclavicular joint. * Atherosclerotic vascular calcifications of the abdominal aorta. * Lower cervical spine fusion hardware partially included. Shoulder X-Ray 12/11/23 07:12 IMPRESSION: * No acute fracture of the lumbar spine, right shoulder, or thoracic spine. * Thoracolumbar scoliosis and mild multilevel degenerative disc disease and moderate facet arthropathy in the lower lumbar spine. * Minimal degenerative changes in the right glenohumeral joint and right acromioclavicular joint. * Atherosclerotic vascular calcifications of the abdominal aorta. * Lower cervical spine fusion hardware partially included. Thoracic Spine X-Ray 12/11/23 07:12 IMPRESSION: * No acute fracture of the lumbar spine, right shoulder, or thoracic spine. * Thoracolumbar scoliosis and mild multilevel degenerative disc disease and moderate facet arthropathy in the lower lumbar spine. * Minimal degenerative changes in the right glenohumeral joint and right acromioclavicular joint. * Atherosclerotic vascular calcifications of the abdominal aorta. * Lower cervical spine fusion hardware partially included. Cervical Spine CT 12/11/23 07:18 IMPRESSION: - No acute intracranial abnormality. - No acute osseous abnormality within the cervical spine. Cervical spondylosis. Head CT 12/11/23 07:18 IMPRESSION: - No acute intracranial abnormality. - No acute osseous abnormality within the cervical spine. Cervical spondylosis. Assessment and Plan (1) Syncope: Status: Acute Plan 63M PMH non obstructive CAD, gerd, obesity, asthma/copd, mood disorder, htn, presented with loss of consciousness LOC differential includes orthostatic hypotension - given fluids, monitor vasovagal syncope seizure - neuro eval cardiac arrythmia less likely - monitor on tele gerd ppi non obstructive cad asa, statin obesity wegiht loss moderate persistent asthma/copd stable htn lisinpril/hctz dvt prophylaxis - lovenox full code Quality Stroke Does the patient have a stroke diagnosis?: No VTE Prior VTE?: No VTE Risk Level:: Medical - moderate - high VTE Device Contraindication: Treatment Not Indicated VTE Drug Contraindication: N/A - Med Ordered
--- NOTE | 2023-12-11 16:47 | PHA.MEDREC ---
Pharmacy Consult ? Medication Reconciliation Pharmacy has completed the medication reconciliation. spoke with patient through an [employer] printing machinist to confirm medications. He reports the only thing that he uses for his stomach is the famotidine. He reports that he is not taking montelukast.
[2023-12-11] MEDS: 0.9 % Sodium Chloride Flush 3 ML SYRINGE IVFLUSH (17:38)
--- NOTE | 2023-12-11 17:41 | PC.NURSE ---
pt resting in bed, NAD, pt requesting dinner - informed that diiner will arrive later at approx 1830. pts requesting to get the pt food. water pitcher given, pt with no complaints. awaiting to get room assignment. pt and family aware of plan
[2023-12-11] MEDS: Prazosin HCL 5 MG CAPSULE PO (21:02)
[2023-12-11] MEDS: Famotidine 20 MG TABLET 40 MG PO (21:02)
[2023-12-11] MEDS: Melatonin 3 MG TABLET 6 MG PO (21:02)
[2023-12-12] VITALS: BP 132/67; PULSE 85; RESP 20; TEMP 36.4; O2SAT 96
[2023-12-12 04:57] VITALS: BP 160/72; PULSE 87; RESP 20; TEMP 36.4
[2023-12-12] MEDS: 0.9 % Sodium Chloride Flush 3 ML SYRINGE IVFLUSH ×2 (05:50→09:01)
[2023-12-12 06:55] LABS: Hematocrit 38.1 % (42.0-52.0); Hemoglobin 12.7 g/dl (14.0-18.0); Mean Corpuscular HGB Conc 33.3 g/dl (31.0-36.0); Mean Corpuscular Hemoglobin 29.6 pg (27.0-33.0); Mean Corpuscular Volume 88.8 fL (80.0-98.0); Mean Platelet Volume 9.8 fL (9.4-12.4); Platelet Count 237 X10*3/uL (160-400); Red Blood Count 4.29 X10*6/uL (4.60-5.80); Red Cell Distribution Width 13.3 % (11.0-16.0); White Blood Count 6.3 X10*3/uL (4.8-10.8)
[2023-12-12 07:08] LABS: Anion Gap 15 (12-20); Blood Urea Nitrogen 17 mg/dL (9-16); Calcium 8.7 mg/dL (8.4-10.2); Carbon Dioxide 26 mmol/L (22-29); Chloride 101 mmol/L (96-108); Creatinine Clr Calc Pharmacy 104.3; Estimated Glomerular Filt Rate > 60; Glucose Fasting 100 mg/dL (60-99); Magnesium 1.8 mg/dL (1.6-2.6); Potassium 3.8 mmol/L (3.3-5.1); Sodium 138 mmol/L (135-145)
[2023-12-12 07:50] VITALS: BP 140/77; BP 154/82; PULSE 80; PULSE 82; RESP 20; TEMP 36.6; O2SAT 97
[2023-12-12 07:55] VITALS: BP 156/88; PULSE 81
[2023-12-12 08:00] VITALS: BP 145/82; PULSE 104
[2023-12-12] MEDS: hydroCHLOROthiazide 25 MG TABLET PO (08:59)
[2023-12-12] MEDS: Ezetimibe 10 MG TABLET PO (08:59)
[2023-12-12] MEDS: Atorvastatin Calcium 80 MG TABLET PO (08:59)
[2023-12-12] MEDS: Aspirin 81 MG TAB.CHEW PO (09:00)
[2023-12-12] MEDS: Enoxaparin Sodium 40 MG/0.4 ML SYRINGE SUBCUT (09:00)
[2023-12-12] MEDS: Losartan Potassium 50 MG TABLET 100 MG PO (09:01)
[2023-12-12] MEDS: Metoprolol Succinate ER 100 MG TAB.ER.24H PO (09:02)
[2023-12-12 11:31] VITALS: BP 134/77; PULSE 67; RESP 20; TEMP 36.8; O2SAT 97
--- NOTE | 2023-12-12 11:45 | PM.DS ---
DS: Providers Provider Date of Service: 12/12/23 Date of admission: 12/11/23 15:20 Primary care physician: Delia Davila MD Consults: 12/11/23 15:20 Consult to Neurology Routine Consulting Provider: [facility] Reason for consultation: LOC, ?seizure DS: Diagnosis Discharge Diagnosis (1) Syncope: Status: Acute DS: Summary Hospital Course Hospital Course: from initial hpi: 63M PMH non obstructive CAD, gerd, obesity, asthma/copd, mood disorder, htn, presented with loss of consciousness. patient states he was taking warm shower, got light headed, dizzy, diaphoretic and nauseous. then does not remember passing out. was found by friend, unresponsive in bathtub, covered in vomit, did not lose control of urine or stool, no tongue biting. after about 2 minutes patient came to and was alert, had large BM. reports similar episodes about once per year. in ED sbp dropped from 160 to 140 on standing and felt dizzy. ekg unremarkable. hospital course: patient was observed for loss of conciousness, no events on tele, mildly orthostatic positive, though not particularly hypotensive. differential includes vasovagal, orthostatic hypotension, less likely seizure. can follow up outpatinet with neuro. for gerd continued on ppi. for non obstructive cad on asa, statin. for obesity weight loss recommended. for moderate persistent asthma/copd has remained stable. for htn continued on lisinopril and hctz. patient stable, will be discharged home. Time Attestation Discharge coordination time: Greater than 30 minutes Quality: Safe Use of Opioids Does Pt have an Active Cancer Diagnosis on the Problem List?: No Quality: Stroke Does the patient have a stroke diagnosis?: No Physical Exam Vital Signs: Vital Signs: Last Vital Signs Temp 98.2 F 12/12/23 11:31 Pulse 67 12/12/23 11:31 Resp 20 12/12/23 11:31 BP 134/77 12/12/23 11:31 Pulse Ox 97 12/12/23 11:31 O2 Del Method Room Air 12/12/23 11:31 BMI result Body Mass Index 34.1 General: AO X 3, no acute distress Resp: CTA bilateral, no accessory muscles used CVS: S1,S2,RRR GI: soft, non tender, non distended Neuro: motor grossly intact, alert Psych: appropriate affect, appropriate insight DS: Data Data Completed and Pending Labs on day of discharge: Laboratory Results - last 24 hr 12/11/23 12/12/23 11:48 06:05 WBC 6.3 RBC 4.29 L Hgb 12.7 L Hct 38.1 L MCV 88.8 MCH 29.6 MCHC 33.3 RDW 13.3 Plt Count 237 MPV 9.8 Absolute Nucleated RBC 0.000 Nucleated RBC % (auto) 0.0 Sodium 138 Potassium 3.8 Chloride 101 Carbon Dioxide 26 Anion Gap 15 BUN 17 H Creatinine 0.93 Estim Creat Clear Calc 104.3 Estimated GFR > 60 Fasting Glucose 100 H Calcium 8.7 Magnesium 1.8 Urine Color Yellow Urine Appearance Clear Urine pH 5.5 Ur Specific [place] 1.015 Urine Protein Negative Urine Glucose (UA) Negative Urine Ketones Trace Urine Blood Trace H Urine Nitrite Negative Ur Leukocyte Esterase Small (1+) H Urine RBC 0-2 Urine WBC 11-20 H Ur Squamous Epith Cells 3-5 Urine Bacteria Trace Hyaline Casts 3-5 Discharge Plan Discharge Anticipated Discharge Date/Time: 12/12/23 11:41 Patient Disposition: Home, Self-Care Discharge Diagnosis: syncope Referrals: Delia Davila MD [Primary Care Provider] - 1 Week Maricel Dunn MD [Physician] - 1 Week Discharge Medications: Continued budesonide-formoterol [Symbicort] 160-4.5 mcg/actuation HFA aerosol inhaler 2 puff PO BID Qty: 10.2 1RF melatonin 5 mg tablet 5 mg PO BEDTIME aspirin 81 mg tablet,chewable 1 tab PO DAILY rosuvastatin 40 mg tablet 40 mg PO DAILY sertraline 100 mg tablet 50 - 100 mg PO DAILY PRN (Reason: Anxiety) amlodipine 10 mg tablet 10 mg PO DAILY metoprolol succinate 100 mg tablet extended release 24 hr 100 mg PO DAILY (DME) CPAP Machine/Device Device See Rx Instructions .Route Rx Instructions: As directed ezetimibe 10 mg tablet 10 mg PO DAILY losartan-hydrochlorothiazide 100-25 mg tablet 1 tab PO DAILY prazosin 5 mg capsule 5 mg PO BEDTIME famotidine 40 mg tablet 40 mg PO BEDTIME Qty: 90 2RF Discharge Orders: Discharge Order (Routine); Ordered 12/12/23 Ordered By: Ray Guzman Diet: Advance to usual diet Activity on Discharge: As tolerated Stand Alone Forms: Patient Portal Discharge page Care Plan Goals: recovery Health Concerns: syncope Plan of Treatment: orthostatic precautions, follow up with neuro Assessment: see above
== END 2023-12-12 13:01 | disposition home or self-care (01) ==
LOC: HO.ED 15:01 → HO.EDOVER 15:26 → HO.IMC 20:29
PROVIDERS: Physician Assistant; Admitting Provider Internal Medicine; Emergency Provider Emergency Medicine; PCP Internal Medicine; Visit Provider Internal Medicine
DX: R42 Dizziness and giddiness (principal); I95.1 Orthostatic hypotension; R56.9 Unspecified convulsions; W18.30XA Fall on same level, unspecified, initial encounter; Y93.E1 Activity, personal bathing and showering; Y92.002 Bathroom of unspecified non-institutional (private) residence as the place of occurrence of the external cause; Y99.9 Unspecified external cause status; R61 Generalized hyperhidrosis; R11.2 Nausea with vomiting, unspecified; I25.10 Atherosclerotic heart disease of native coronary artery without angina pectoris; I10 Essential (primary) hypertension; J44.9 Chronic obstructive pulmonary disease, unspecified; M54.9 Dorsalgia, unspecified; M25.511 Pain in right shoulder; M54.50 Low back pain, unspecified; Z11.52 Encounter for screening for COVID-19; Z20.828 Contact with and (suspected) exposure to other viral communicable diseases; Z79.899 Other long term (current) drug therapy
CPT/HCPCS: 0241U; 36415; 70450; 72072; 72100; 72125; 73030; 80048; 80053; 81001; 83735; 84484; 85025; 85027; 85379; 87086; 93005; 96360; 96361; 96372; 99222; 99285; J1650

== ENCOUNTER → 2023-12-11 08:19 | Outpatient (BNV) | payer OTHER, SELFPAY | PROVIDERS: Admitting Provider Internal Medicine; Emergency Provider Emergency Medicine; PCP Internal Medicine; Visit Provider Internal Medicine Cardiovascular Disease | DX: G40.89 Other seizures (principal) | CPT/HCPCS: 93010 ==

== ENCOUNTER → 2023-12-11 15:20 | Outpatient (BNV) | payer OTHER, SELFPAY | PROVIDERS: Admitting Provider Internal Medicine; Emergency Provider Emergency Medicine; PCP Internal Medicine; Visit Provider Internal Medicine | DX: R55 Syncope and collapse (principal) | CPT/HCPCS: 99223; 99238 ==

== ENCOUNTER 2023-12-14 08:28 | Outpatient (REF) | payer OTHER, SELFPAY ==
[2023-12-14 08:56] LABS: MANUAL DIFF FLAG NO
[2023-12-14 09:16] LABS: Basophils Percent Auto 0.4 % (0-2); Eosinophils Absolute Auto 0.1 X10*3/uL (0.0-0.4); Eosinophils Percent Auto 1.3 % (0-4); Hematocrit 44.5 % (42.0-52.0); Hemoglobin 15.1 g/dl (14.0-18.0); Imm Gran Abs Auto 0.03 X10*3/uL (0.00-0.03); Imm Gran Pct Auto 0.4 % (0.0-0.4); Lymphocytes Absolute Auto 1.9 X10*3/uL (1.2-4.9); Lymphocytes Percent Auto 27.5 % (20-40); Mean Corpuscular HGB Conc 33.9 g/dl (31.0-36.0); Mean Corpuscular Volume 88.3 fL (80.0-98.0); Mean Platelet Volume 9.5 fL (9.4-12.4); Monocytes Absolute Auto 0.5 X10*3/uL (0.1-1.2); Monocytes Percent Auto 7.3 % (2-11); Neutrophils Absolute Auto 4.2 x10*3/uL (2.0-8.3); Neutrophils Percent Auto 63.1 % (45-73); Platelet Count 286 X10*3/uL (160-400); Red Blood Count 5.04 X10*6/uL (4.60-5.80); White Blood Count 6.7 X10*3/uL (4.8-10.8)
[2023-12-14 09:41] LABS: Alanine Aminotransferase 16 U/L (0-40); Albumin Level 4.3 g/dL (3.5-5.0); Alkaline Phosphatase 57 U/L (39-117); Anion Gap 13 (12-20); Aspartate Amino Transferase 20 U/L (5-37); Bilirubin Total 0.6 mg/dL (0.0-1.0); Blood Urea Nitrogen 19 mg/dL (9-16); Calcium 9.8 mg/dL (8.4-10.2); Carbon Dioxide 32 mmol/L (22-29); Chloride 100 mmol/L (96-108); Estimated Glomerular Filt Rate > 60; Glucose Random 115 mg/dL (60-115); Potassium 4.1 mmol/L (3.3-5.1); Sodium 141 mmol/L (135-145); Total Protein 7.5 g/dL (6.5-8.0)
[2023-12-14 09:46] LABS: Cholesterol 171 mg/dL (<200); HDL Cholesterol 62 mg/dL (>40); LDL Cholesterol Calculated 89 mg/dL (<100); Triglycerides 103 mg/dL (<150)
[2023-12-14 10:03] LABS: HBS Num1 0.16 mIU/mL (0-7.99); HBc Num1 0.06 S/CO (0.00-0.79); HBsAGNum1 0.27 S/CO (0.00-0.99); HIV AB/AG Nonreactive (Nonreactive); HIV Num 1 0.06 S/CO (0.00-0.99); Hepatitis B Core Antibody Nonreactive (Nonreactive); Hepatitis B Surface Antigen Negative (Negative); Syphilis Screen Nonreactive (Nonreactive); ~HepC Num1 0.05 S/CO (0.00-0.79); ~Hepatitis B Surface Antibody NONREACTIVE (Nonreactive); ~Hepatitis C Antibody Nonreactive (Nonreactive)
[2023-12-14 10:05] LABS: Ferritin 156 ng/mL (20-250)
[2023-12-14 10:15] LABS: Folate 11.8 ng/mL (> or = 4.0); Prostate Specific Antigen Scr 1.08 ng/mL (<0.05-4.0); Vitamin B12 449 pg/mL (200-900)
[2023-12-14 11:20] LABS: CT PCR NOT DETECTED (Not Detect.); NG PCR NOT DETECTED (Not Detect.)
[2023-12-17 08:19] LABS: HCV RNA PCR Qn <1.18 NOT DETECTED Log IU/mL (NOT DETECTED); HCV RNA PCR Qn <15 NOT DETECTED IU/mL (NOT DETECTED)
[2023-12-17 08:28] LABS: TS Negative Control Passed; TS Panel A 5; TS Panel B 1; TS Positive Control Passed; TSpotTB Borderline (Negative)
== END 2023-12-14 08:29 | disposition home or self-care (01) ==
LOC: HO.LAB 08:28
PROVIDERS: Absent Provider Nurse Practitioner; PCP Internal Medicine; Visit Provider Internal Medicine
DX: Z01.818 Encounter for other preprocedural examination (principal); E78.00 Pure hypercholesterolemia, unspecified; G25.81 Restless legs syndrome; I10 Essential (primary) hypertension; N40.0 Benign prostatic hyperplasia without lower urinary tract symptoms; R74.01 Elevation of levels of liver transaminase levels; Z11.3 Encounter for screening for infections with a predominantly sexual mode of transmission; Z11.1 Encounter for screening for respiratory tuberculosis
CPT/HCPCS: 0353U; 36415; 80053; 80061; 82607; 82728; 82746; 84153; 85025; 86481; 86704; 86706; 86780; 86803; 87340; 87389; 87522

== ENCOUNTER 2023-12-14 11:25 | Emergency (ER) | payer OTHER, SELFPAY ==
[2023-12-14] VITALS (8 sets, daily range): BP systolic 102–150; BP diastolic 71–88; PULSE 78–156; RESP 14–18; TEMP 37.1; O2SAT 95–100; BMI 33.2
--- NOTE | 2023-12-14 | ECG_ITS ---
Test Reason : TACHYCARDIA Blood Pressure : / mmHG Vent. Rate : 148 BPM Atrial Rate : 148 BPM P-R Int : 112 ms QRS Dur : 080 ms QT Int : 308 ms P-R-T Axes : 000 014 031 degrees QTc Int : 483 ms Sinus tachycardia Otherwise normal ECG When compared with ECG of 11-DEC-2023 08:19, Vent. rate has increased BY 53 BPM Nonspecific T wave abnormality no longer evident in Anterior leads Nonspecific T wave abnormality now evident in Lateral leads Referred By: Generic ED Physician Electronically Signed By:ELIANE GRAHAM MD
--- NOTE | ~2023-12-14 | XR_ITS ---
EXAMINATION: XR CHEST 2 VIEWS CLINICAL INFORMATION: Cough. COMPARISON: Chest radiographs dated 01/15/2022. TECHNIQUE: Frontal and lateral views of the chest were obtained. FINDINGS: The heart, great vessels, pulmonary vasculature and mediastinum are normal. The lungs show no focal infiltrate, effusion or pneumothorax. There is no acute osseous abnormality. Lower cervical orthopedic hardware is noted. XR/XR chest 2V IMPRESSION: No active cardiopulmonary disease.
--- NOTE | ~2023-12-14 | CT_ITS ---
EXAMINATION: CT ANGIOGRAM OF THE CHEST WITH AND WITHOUT CONTRAST (CT PULMONARY ANGIOGRAM FOR PE) CLINICAL INFORMATION: Reason for Exam elevated d- dimer. PE? COMPARISON: Previous chest CT December 2020 and chest x-ray from earlier the same day TECHNIQUE: Prior to contrast administration, noncontrast localization images were obtained. Subsequently, multidetector volumetric imaging was performed from the thoracic inlet to below the diaphragms following the administration of 65 mL Omnipaque 350 intravenous contrast. No contrast reaction reported Sagittal, coronal, and MIP oblique sagittal reformatted images were obtained on the CT workstation, uploaded to PACS, and reviewed. This CT examination was performed using dose optimization techniques as appropriate, variously including the following: *Automated exposure control *Adjustment of mA and/or kV according to patient size (this includes techniques or standardized protocols for targeted exams where dose is matched to indication/reason for exam; i.e. extremities or head) *Use of iterative reconstruction technique Total exam dose-length product 439 mGy-cm FINDINGS: QUALITY OF STUDY/CONTRAST BOLUS: Satisfactory. PULMONARY ARTERIES: No pulmonary emboli. THORACIC AORTA: No aneurysm. LUNG: No focal consolidation, nodules or masses. PLEURA: No pleural effusion or pneumothorax. MEDIASTINUM: Normal heart size. No pericardial effusion. No hilar or mediastinal lymphadenopathy. No evidence of septal bowing or right heart strain. CORONARY ARTERY CALCIFICATION: None visualized on this study. CHEST WALL/AXILLA: No axillary or internal mammary lymphadenopathy. OSSEOUS STRUCTURES: No acute or suspicious osseous abnormality. UPPER ABDOMEN: Unremarkable. No reflux of contrast into the hepatic veins to suggest elevated right heart pressures. CT/CT angio chest PE protocol IMPRESSION: No evidence of pulmonary embolism VTE: negative
--- NOTE | 2023-12-14 11:51 | PC.NURSE ---
pt presents to ED via EMS from [facility]. pt is Welsh speaking only, art history professor utilized. pt is alert and oriented, breathing even and unlabored, skin WNL. pt reports substernal chest pressure, 5/10, non-radiating since this past weekend . pt also reports periods of dizziness, said he had a fall this past weekend when he got dizzy and fell in the shower. pt was admitted here at [facility] and left Tuesday. pt denies SOB, cough, fevers, N/V/D. pt report normal PO intake. pt does report a fullness feeling in his stomach for multiple days.
--- NOTE | 2023-12-14 12:07 | PC.NURSE ---
pt noted to have decrease in HR from 150s to 80s NSR. pt denies any new complaints. pt remains on bedside radiation monitor. IV established in the right AC 18G.
[2023-12-14 12:08] LABS: MANUAL DIFF FLAG NO
[2023-12-14 12:10] LABS: Basophils Percent Auto 0.3 % (0-2); Eosinophils Percent Auto 0.3 % (0-4); Hematocrit 41.4 % (42.0-52.0); Hemoglobin 14.5 g/dl (14.0-18.0); Imm Gran Abs Auto 0.02 X10*3/uL (0.00-0.03); Imm Gran Pct Auto 0.3 % (0.0-0.4); Lymphocytes Absolute Auto 1.2 X10*3/uL (1.2-4.9); Mean Corpuscular Hemoglobin 30.3 pg (27.0-33.0); Mean Corpuscular Volume 86.6 fL (80.0-98.0); Mean Platelet Volume 9.6 fL (9.4-12.4); Monocytes Absolute Auto 0.6 X10*3/uL (0.1-1.2); Monocytes Percent Auto 7.6 % (2-11); Neutrophils Absolute Auto 6.1 x10*3/uL (2.0-8.3); Neutrophils Percent Auto 76.5 % (45-73); Platelet Count 289 X10*3/uL (160-400); Red Blood Count 4.78 X10*6/uL (4.60-5.80); Red Cell Distribution Width 12.8 % (11.0-16.0); White Blood Count 7.9 X10*3/uL (4.8-10.8)
[2023-12-14 12:32] LABS: Anion Gap 14 (12-20); Blood Urea Nitrogen 20 mg/dL (9-16); Calcium 9.4 mg/dL (8.4-10.2); Carbon Dioxide 29 mmol/L (22-29); Chloride 100 mmol/L (96-108); Creatinine Clr Calc Pharmacy 100.7; Estimated Glomerular Filt Rate > 60; Glucose Random 102 mg/dL (60-115); Potassium 3.9 mmol/L (3.3-5.1); Sodium 139 mmol/L (135-145)
[2023-12-14 12:39] LABS: Troponin-I High Sensitivity 8.1 ng/L (<3.5-35.0)
--- NOTE | 2023-12-14 13:25 | ED.CHESTPAIN ---
HPI - Chest Pain General Chief Complaint: Chest Pain Stated Complaint: CHEST PRESSURE,HR 155 FROM [facility] Time Seen by Provider: 12/14/23 13:25 Source: patient, family, EMS and loop tacker Mode of arrival: EMS Limitations: no limitations History of Present Illness HPI narrative: 63 year old male with pmhx significant for IBS, CAD, HTN, GERD, POLLO on CPAP, asthma, COPD, orthostatic hypotension presents to the ED via EMS from adult daycare for evaluation of chest pressure x2 days after being discharged from [facility]. Denies chest pain. Endorses pressure located substernally. This does not radiate. This has been constant since onset. Denies any exacerbating or relieving factors. Did not take any [id number] pain medication for this prior to arrival. Denies recent travel or long car rides. Denies fever, chills, palpitations, dyspnea, shortness of breath, wheezing, hemoptysis, cough, calf pain/tenderness. Additionally endorses chronic abdominal bloating that his GI doctor has been working up for a few years now. He will be getting an endoscopy within the next couple of weeks. Denies diarrhea or constipation. Is passing flatus. Denies abdominal pain or N/V. Patient was discharged from our facility 2 days ago after admission for orthostatic hypotension. nurse practitioner hospitalist utilized during visit to communicate with the patient. Related Data Home Medications Medication Instructions Recorded Confirmed rosuvastatin 40 mg tablet 40 mg PO DAILY 11/06/20 12/19/23 sertraline 100 mg tablet 50 - 100 mg PO DAILY PRN Anxiety 07/27/21 12/19/23 ezetimibe 10 mg tablet 10 mg PO DAILY 11/02/21 12/19/23 CPAP (CPAP Machine/Device) 11/16/22 11/28/23 metoprolol succinate 100 mg 100 mg PO DAILY 11/16/22 12/19/23 tablet,extended release 24 hr losartan 100 1 tab PO DAILY 04/11/23 12/19/23 mg-hydrochlorothiazide 25 mg tablet prazosin 5 mg capsule 5 mg PO BEDTIME 06/08/23 12/19/23 aspirin 81 mg chewable tablet 1 tab PO DAILY 12/11/23 12/19/23 melatonin 5 mg tablet 5 mg PO BEDTIME sleep 12/11/23 12/19/23 Previous Rx's Medication Instructions Recorded Symbicort 160 mcg-4.5 2 puff PO BID #10.2 ea 10/03/23 mcg/actuation HFA aerosol inhaler (budesonide-formoterol) famotidine 40 mg tablet 40 mg PO BEDTIME #90 tabs 12/09/23 Allergies Allergy/AdvReac Type Severity Reaction Status Date / Time No Known Drug Allergies Allergy Unknown none Verified 12/11/23 06:17 latex AdvReac Intermediate Itching Verified 12/11/23 06:17 Review of Systems Review of Systems: Constitutional: No fever, chills, fatigue, night sweats, weight changes ENT/Mouth: No ear pain, hearing loss, nasal congestion, sinus pain, rhinorrhea, sore throat Eyes: No eye pain, swelling, redness, vision changes, discharge Cardio: No chest pain, palpitations, URBINA, orthopnea, peripheral edema, + chest pressure Pulm: No SOB, cough, sputum, wheezing, dyspnea, hemoptysis GI: No nausea, vomiting, hematemesis, abdominal pain, diarrhea, constipation, hematochezia, melena : No irregular bleeding, dysuria, frequency, urgency, hesitancy, hematuria, flank pain, urinary flow changes, urinary incontinence or retention MSK: No back pain, neck pain, joint pain, myalgias Skin: No lesions, rashes Neuro: No weakness, numbness, paresthesias, LOC, dizziness, headache Psych: No anxiety/panic, depression, SI/HI, AH/VH All other systems reviewed and are negative. [facility] Past Medical History Attestation statement: The following information was validated with the patient. Source: old records reviewed and nursing notes reviewed Medical History Diarrhea Erectile dysfunction Pulmonary nodules POLLO on CPAP Asthma-COPD overlap syndrome Surgical History Hx of knee surgery Hx of shoulder surgery Hx of cataract surgery History of hand surgery History of carpal tunnel surgery History of esophagogastroduodenoscopy (EGD) Hx of colonoscopy History of carpal tunnel surgery (~2019) History of back surgery (~2019) Family History Family History Father Throat cancer HTN (hypertension) Paternal Grandfather Heart attack Family/Other Colon cancer Social History Social History Alcohol intake: former Year quit: 2006 Patient Tobacco Use Status: Former Tobacco user Quit Date: 2006 Years Smoked: 25 +/- Physical Exam Vital Signs: Vital Signs: Last Vital Signs Temp 98.7 F 12/14/23 11:49 Pulse 81 12/14/23 19:36 Resp 14 12/14/23 19:36 BP 144/82 H 12/14/23 19:36 Pulse Ox 97 12/14/23 19:36 O2 Del Method Room Air 12/14/23 19:36 BMI result Body Mass Index 33.2 hypertensive Const: General: cooperative, comfortable and no acute distress Orientation/consciousness: patient oriented x3 Limitations: no limitations Eyes: General: appearance normal, both eyes and all related structures Conjunctivae: conjunctivae normal Sclerae: sclerae normal Pupils: Equal, round and reactive pupils present Neck: Neck: Yes normal visual inspection, Yes full ROM, Yes no lymphadenopathy and Yes no JVD Chest: Chest palpation & inspection: normal inspection of the chest, normal palpation of entire chest wall and no tenderness Resp: Effort & Inspection: normal respiratory effort and able to speak in complete sentences Auscultation: clear to auscultation bilaterally Cardio: Jugular venous distension: no JVD Rate: regular rate Rhythm: regular rhythm GI: Inspection: Yes normal to inspection Palpation (GI): Soft to palpation and nontender Skin: General skin exam: no rashes or lesions noted Neuro: General: patient oriented x3 Cranial nerves: Yes Equal, round and reactive pupils present Extrem: General: Yes no calf tenderness Course Course Course Narrative: 1339-- CBC without leukocytosis. No left shift. No anemia. H&H stable. Chemistry without acute electrolyte abnormality requiring intervention. Initial troponin 8.1. Will obtain repeat for delta. EKG showing sinus tachycardia, otherwise WNL. No acute ischemic changes or ST elevations. No concern for ACS or arrhythmia. 1630--CXR unremarkable. No signs of pneumonia, effusion or pneumothorax. > Patient is stable at the end of my shift. Sign out given to my colleague, Abner OVALLE pending repeat troponin and disposition. Reevaluation(s) Reevaluation #1: Patient's 2nd troponin negative. Chest CTA negative PE for pneumonia. D-dimer was positive so patient was sent for a chest CTA. Patient presently asymptomatic. Patient and informed to follow-up with primary care provider. They were explained worrisome signs and informed to return to the ED they have them. Time: 20:40 Medications Administered Discontinued Medications Generic Name Dose Route Start Last Admin Trade Name Juvenalq PRN Reason Stop Dose Admin Sodium Chloride 1,000 mls @ 999 mls/hr 12/14/23 13:45 12/14/23 15:55 Ns IV 12/14/23 14:45 Infused .Q1H1M CIRA Infusion Iohexol 65 ml 12/14/23 18:34 12/14/23 18:35 Iohexol 350 Mg/Ml 100 Ml Infus..Btl IV 12/14/23 18:35 65 ml ONCE ONE Administration Medical Decision Making Medical Decision Making [facility] Narrative: 63 year old male with pmhx significant for IBS, CAD, HTN, GERD, POLLO on CPAP, asthma, COPD, orthostatic hypotension presents to the ED via EMS from adult daycare for evaluation of chest pressure x2 days after being discharged from [facility]. Vital signs initially notable for tachycardia, now resolved. Hypertensive to 150/76. Patient is nontoxic-appearing and in no acute distress. On exam there is no reproducible chest wall tenderness or palpable deformities. RRR. Lungs are CTA bilaterally. No signs of acute respiratory distress. No calf tenderness bilaterally. Clinical concern for arrhythmia, ACS, MSK sprain/strain, costochondritis, rib contusion, rib fracture, pleurisy, pleuritis. Lower suspicion for pneumonia, viral syndrome, PE. Plan for labs, EKG, chest x-ray and re-evaluation. Differential Diagnosis Differential Diagnoses: The differential diagnosis associated with the presentation includes as above. Admission/Observation Not indicated. Lab Data [facility] Lab Attestation statement: I reviewed the patient's lab results. as above. 12/14/23 12:03 12/14/23 12:03 Labs: Lab Results 12/14/23 12/14/23 12/14/23 Range/Units 12:03 16:30 16:49 WBC 7.9 (4.8-10.8) X10*3/uL RBC 4.78 (4.60-5.80) X10*6/uL Hgb 14.5 (14.0-18.0) g/dl Hct 41.4 L (42.0-52.0) % MCV 86.6 (80.0-98.0) fL MCH 30.3 (27.0-33.0) pg MCHC 35.0 (31.0-36.0) g/dl RDW 12.8 (11.0-16.0) % Plt Count 289 (160-400) X10*3/uL MPV 9.6 (9.4-12.4) fL Immature Gran % (Auto) 0.3 (0.0-0.4) % Neut % (Auto) 76.5 H (45-73) % Lymph % (Auto) 15.0 L (20-40) % Schuyler % (Auto) 7.6 (2-11) % Eos % (Auto) 0.3 (0-4) % Baso % (Auto) 0.3 (0-2) % Lymph # (Auto) 1.2 (1.2-4.9) X10*3/uL Schuyler # (Auto) 0.6 (0.1-1.2) X10*3/uL Eos # (Auto) 0.0 (0.0-0.4) X10*3/uL Baso # (Auto) 0.0 (0.0-0.2) X10*3/uL Abs Immat Gran (auto) 0.02 (0.00-0.03) X10*3/uL Absolute Neuts (auto) 6.1 (2.0-8.3) x10*3/uL Absolute Nucleated RBC 0.000 (0.0-0.012) X10*3/uL Nucleated RBC % (auto) 0.0 (0.0-0.2) /100WBC PT 11.1 (11.1-13.3) SEC INR 0.9 (0.9-1.1) APTT 19.4 L (26.0-36.8) SEC D-Dimer High Sensitivty 499 NG/ML Sodium 139 (135-145) mmol/L Potassium 3.9 (3.3-5.1) mmol/L Chloride 100 (96-108) mmol/L Carbon Dioxide 29 (22-29) mmol/L Anion Gap 14 (12-20) BUN 20 H (9-16) mg/dL Creatinine 0.95 (0.5-1.4) mg/dL Estim Creat Clear Calc 100.7 Estimated GFR > 60 Random Glucose 102 (60-115) mg/dL Calcium 9.4 (8.4-10.2) mg/dL Troponin I High Sens 8.1 11.4 (<3.5-35.0) ng/L Independent Interpretation I performed an independent interpretation of an: EKG and Plain X-Ray Interpretation: EKG shows sinus tachycardia at a rate of 148 beats per minute, no acute ischemic changes or ST elevations. I have personally reviewed patient's chest x-ray and agree with radiologist's interpretation. Radiology Impression Discussion of test interpretation with radiology: I have reviewed the radiologist's reading. Radiologist Impression: XR chest 2V IMPRESSION: No active cardiopulmonary disease Independent Historian Clinical information obtained from an independent historian. History obtained from or confirmed by: Spouse External Record Review External record reviewed: Inpatient record, Office record, Outpatient record, Prior outpatient labs, Prior outpatient radiology, Primary care record and Outside ED record Prescription Management I considered prescription management with: Pain Medication Chronic Conditions Patient?s care impacted by: Hypertension and Other (copd-asthma) Social Determinants Patient?s care significantly limited by Social Determinants of Health including: Other Social Determinant of Health Discharge Plan Discharge Clinical Impression: Chest pain, HTN (hypertension), benign Patient Disposition: Home, Self-Care Instructions: Chest Pain (ED) Additional Instructions: Davis an?lisis de cortez EKG y ATC de t?rax resultaron negativos para detectar signos de ataque card?aco, agrandamiento del coraz?n, neumon?a o embolia pulmonar. Recomiende un seguimiento con davis proveedor de atenci?n primaria para daniella reevaluaci?n. Regrese al servicio de urgencias de inmediato si experimenta dolor en el pecho, dificultad para respirar, debilidad, mareos, hinchaz?n de las piernas, dolor en la pantorrilla, tos con cortez, dolor en el pecho al inspirar o cualquier otro s?ntoma preocupante. Prescriptions: No Action budesonide-formoterol [Symbicort] 160-4.5 mcg/actuation HFA aerosol inhaler 2 puff PO BID Qty: 10.2 1RF melatonin 5 mg tablet 5 mg PO BEDTIME aspirin 81 mg tablet,chewable 1 tab PO DAILY rosuvastatin 40 mg tablet 40 mg PO DAILY sertraline 100 mg tablet 50 - 100 mg PO DAILY PRN (Reason: Anxiety) metoprolol succinate 100 mg tablet extended release 24 hr 100 mg PO DAILY (DME) CPAP Machine/Device Device See Rx Instructions .Route Rx Instructions: As directed ezetimibe 10 mg tablet 10 mg PO DAILY losartan-hydrochlorothiazide 100-25 mg tablet 1 tab PO DAILY prazosin 5 mg capsule 5 mg PO BEDTIME famotidine 40 mg tablet 40 mg PO BEDTIME Qty: 90 2RF Interventions: ED Discharge Assessment Last Done: 12/14/23 21:32 Discharge Date/Time: 12/14/23 21:33 Print Language: Gabonese
[2023-12-14] MEDS: 0.9 % Sodium Chloride 1,000 ML 999 ML IV (14:02)
[2023-12-14 17:00] LABS: Troponin-I High Sensitivity 11.4 ng/L (<3.5-35.0)
[2023-12-14 17:03] LABS: INTERNATIONAL NORM RATIO 0.9 (0.9-1.1); Prothrombin Time 11.1 SEC (11.1-13.3)
[2023-12-14 17:05] LABS: D Dimer High Sensitivity 499 NG/ML
[2023-12-14 17:16] LABS: Partial Thromboplastin Time 19.4 SEC (26.0-36.8)
--- NOTE | 2023-12-14 17:44 | PC.NURSE ---
pt resting in bed, at bedside, vss. pt denies any new compliants.
[2023-12-14] MEDS: iohexoL 350 MG/ML 100 ML INFUS..BTL 65 ML IV (18:35)
== END 2023-12-14 21:33 | disposition home or self-care (01) ==
PROVIDERS: Physician Assistant; Physician Assistant Medical; Emergency Provider Emergency Medicine Emergency Medical Services; PCP Internal Medicine
DX: R07.9 Chest pain, unspecified (principal); I10 Essential (primary) hypertension; R00.0 Tachycardia, unspecified; Z79.02 Long term (current) use of antithrombotics/antiplatelets; Z79.899 Other long term (current) drug therapy; Z79.82 Long term (current) use of aspirin
CPT/HCPCS: 36415; 71046; 71275; 80048; 84484; 85025; 85379; 85610; 85730; 93005; 96360; 96361; 99284; 99285; Q9967

== ENCOUNTER → 2023-12-14 11:43 | Outpatient (BNV) | payer OTHER, SELFPAY | PROVIDERS: Emergency Provider Emergency Medicine Emergency Medical Services; PCP Internal Medicine; Visit Provider Internal Medicine Cardiovascular Disease | DX: R00.0 Tachycardia, unspecified (principal) | CPT/HCPCS: 93010 ==

== ENCOUNTER 2023-12-19 10:46 | Outpatient (AMB) | payer OTHER, SELFPAY ==
[2023-12-19 10:49] VITALS: BP 150/58; PULSE 93; BMI 33.3
--- NOTE | 2023-12-19 10:49 | A.OFFVIS_ITS ---
Intake Vital Signs 12/19/23 10:49 Height 5 ft 11 in Weight 238 lb 8.642 oz BMI 33.3 BP 150/58 H Blood Pressure Location Lt brachial Position Sitting Pulse 93 Pulse Source Pulse Oximeter Intake Visit Reasons: 4 Months Intake Note: pt its here for his 4 mnht f/up pt was also in the ED 12/14/23, pt states that he its doing much better. Hand Grinder Required: Yes Accompanied by: Self / Same As Patient Allergies No Known Drug Allergies Allergy (Unknown, Verified 12/11/23 06:17) none latex Adverse Reaction (Intermediate, Verified 12/11/23 06:17) Itching Medication List - Last Reconciled 12/19/23 by Enmanuel Forrester MD amlodipine 10 mg PO DAILY aspirin 1 tab PO DAILY CPAP (CPAP Machine/Device) As directed ezetimibe 10 mg PO DAILY famotidine 40 mg PO BEDTIME losartan-hydrochlorothiazide 100-25 mg 1 tab PO DAILY melatonin 5 mg PO BEDTIME metoprolol succinate ER 100 mg PO DAILY prazosin 5 mg PO BEDTIME rosuvastatin 40 mg PO DAILY sertraline 50 - 100 mg PO DAILY PRN Symbicort 160-4.5 mcg/actuation (budesonide-formoterol) 2 puffs PO BID NS HPI HPI Comments History of Present Illness Details 63-year-old gentleman who is he re for assessment of shortness of breath. He has background history of gastroesophageal reflux disease, pulmonary nodules, obstructive sleep apnea, asthma COPD overlap syndrome and erectile dysfunction. He has been experiencing shortness of breath with exertion. He denies any chest discomfort or heaviness. He is saying he has gained weight. He also gets some orthopnea like episodes when he is not wearing CPAP. He is not very compliant with CPAP. He was referred for echocardiography which showed normal biventricular function with no diastolic dysfunction or valvular disease. He underwent stress testing where he was able to do average exercise for his age and did not develop any ischemic EKG changes. He did have shortness of breath which was the reason he stopped exercising. Given ongoing dyspnea and was referred for coronary CTA. CTA showed 50% stenosis in the diagonal artery and 50% stenosis of the mid LAD. He is endorsing a lot of shortness of breath with exertion here he has no chest pain. He is seeing Dr. Arenas from pulmonology. Last visit: Today he returns for follow-up. He is trying to exercise and lose weight. He is saying that with some weight loss and exercise his dyspnea has improved somewhat. Continues to be symptomatic though. We discussed about his coronary CTA and moderate LAD diagonal disease. Was decided that he will continue to exercise and lose weight and will follow-up with us. He is here for follow-up today. He is saying that he still gets some shortness of breath but is not limited. Overall he is feeling better than before. No chest discomfort. Taking medications regularly. He needs some injections in the knees for arthritis and is asking whether aspirin can be held for few days. I have advised him that he can hold aspirin if required. 08/15/23: He returns for follow-up. He has been doing well. He is saying he has stopped losing weight because of knee issues and arthritis. He is still exercising and does not feel limited by any significant symptoms. He still has some shortness of breath. No chest discomfort. Taking medications regularly. He is asking whether he can take today Elavil. He also has sildenafil on his medication list and it appears he has been using that as needed to. I have advised him not to use both and discuss with his urologist. Currently is not taking any medications which will interact directly with sildenafil or tadalafil. I have educated him about the risk of using nitroglycerin with sildenafil. He does not have any active scripts for nitroglycerin. 12/19/23: Returns for follow-up. Blood pressure was elevated and recheck was 140/70. He is saying that he passed out recently. He got his family member on the phone who gave the details that he was in his shower when he called for help. The family member found him in the shower and he was sitting down and afterward had vomiting and passed out. He is saying that he had similar episode before. He is saying that the water was just too hard and it was just too hot inside the bathroom in general. He had syncope previously to and from his description it appears it was vasovagal syncope. In any case he went to the emergency department where he had workup done including negative troponins as well as CT pulmonary angiogram which was normal. Blood pressure is elevated. He is saying that he takes only losartan hydrochlorothiazide combination regularly along with prazosin. He does not take amlodipine daily and takes it on some days. He does not use metoprolol succinate at all. Discussed with him in detail about compliance with medication. [facility] Medical History Diarrhea Erectile dysfunction Pulmonary nodules POLLO on CPAP Asthma-COPD overlap syndrome Surgical History Hx of knee surgery Hx of shoulder surgery Hx of cataract surgery History of hand surgery History of carpal tunnel surgery History of esophagogastroduodenoscopy (EGD) Hx of colonoscopy History of carpal tunnel surgery (~2020) History of back surgery (~2019) Family History Father Throat cancer HTN (hypertension) Paternal Grandfather Heart attack Family/Other Colon cancer Social History Alcohol intake: former Year quit: 2006 Patient Tobacco Use Status: Former Tobacco user Quit Date: 2006 Years Smoked: 25 +/- Physical Exam Vital Signs: Last Vital Signs Pulse 93 12/19/23 10:49 BP 150/58 H 12/19/23 10:49 BMI result Body Mass Index 33.3 GENERAL APPEARANCE: in no acute distress, pleasant. Anxious appearing. NECK: no carotid bruit, no jugular venous distention. SKIN: no suspicious lesions, warm and dry. HEART: no murmurs, regular rate and rhythm. LUNGS: clear to auscultation bilaterally. ABDOMEN: soft, nontender. EXTREMITIES: no edema. PERIPHERAL PULSES: equal. NEUROLOGIC: No gross deficits, AAO X 3 Assessment & Plan Assessment & Plan (1) Syncope: Code(s): R55 - Syncope and collapse (2) HTN (hypertension), benign: Code(s): I10 - Essential (primary) hypertension (3) Palpitations: Code(s): R00.2 - Palpitations Plan [age] year gentleman presenting for follow-up. He had episode of syncope and was in the emergency department. He had CT pulmonary angiogram which was negative. His biomarkers including troponins were normal 2. From his description he was in a hot shower and started feeling dizzy and saw bright lights in front of his eyes. This is how he has had previous episodes and appea rs to be vasovagal syncope. In any case I have advised him to keep himself well hydrated. He is complaining of palpitations. He is not taking his medications as prescribed. He is supposed to be on losartan hydrochlorothiazide combination, Toprol-XL, prazosin and amlodipine. He is only taking losartan hydrochlorothiazide combination and prazosin regularly. Given the fact that he has palpitations I have advised him to take Toprol-XL regularly and hold amlodipine for now. I think this where his heart rate will be well controlled as well as his blood pressure too. If blood pressure does not improve with this strategy then I will consider adding amlodipine at a lower dose. Compliance of medication discussed with the patient in detail. If palpitations continue despite regular intake of Toprol-XL then I will consider doing Holter monitor on him. Detailed discussion done with the patient using operations trainer. Thank you for allowing me to participate in the care of your patient. Please feel free to contact me if you have any questions. Coding Level of Care Code Est Pt Level 5 (71680) Diagnoses Syncope R55 HTN (hypertension), benign I10 Palpitations R00.2
== END 2023-12-19 11:33 | disposition home or self-care (01) ==
PROVIDERS: PCP Internal Medicine; Visit Provider Internal Medicine Cardiovascular Disease
DX: R55 Syncope and collapse (principal); I10 Essential (primary) hypertension; R00.2 Palpitations
CPT/HCPCS: 99214

== ENCOUNTER → 2023-12-19 10:46 | Outpatient (BNVA) | payer OTHER, SELFPAY | PROVIDERS: PCP Internal Medicine; Visit Provider Internal Medicine Cardiovascular Disease | DX: R55 Syncope and collapse (principal); R00.2 Palpitations; I10 Essential (primary) hypertension | CPT/HCPCS: 99212 ==

== ENCOUNTER 2024-01-04 10:00 | Outpatient (REF) | payer OTHER, SELFPAY ==
--- NOTE | ~2024-01-04 | FL_ITS ---
EXAMINATION: Modified Barium Swallow CLINICAL INFORMATION: Dysphagia COMPARISON: None TECHNIQUE: Modified barium swallow was performed under lateral fluoroscopy with patient in standing position. Barium mixed with solids and liquids of varying consistencies was administered by the speech pathologist. The exam was recorded in the fluoroscopy suite. FINDINGS: There is trace laryngeal penetration with thin barium. No aspiration is seen during this evaluation. Patient is status post ACDF of C4-C5 with ventral plate and interbody screws. There is bony fusion through the C4-C5 disc space. Multilevel facet degeneration is evident. FLUOROSCOPY TIME: 0.9 minutes Number of Spot Images: 1 image hold. DOSE AREA PRODUCT: 413 uGy-m2 (microgray-meter squared) FL/FL barium swallow modified IMPRESSION: 1. Trace laryngeal penetration with thin barium. No aspiration is demonstrated during this evaluation. 2. Status post ACDF of C4-C5. Refer to the full speech therapy report for further clarification This procedure was performed by Jason Horta PA-C, and supervised by Dr. Ahmadi
--- NOTE | 2024-01-04 11:41 | MHC.SL.IMP ---
Date of Plan of Treatment: 01/04/24 Onset of Symptoms/Illness: 01/04/24 Date Treatment Started: 01/04/24 Admitting Diagnosis: Dysphagia, unspecified Primary Speech & Language Diagnosis: R13.10 Dysphagia Reason for Today's Visit: 80668 Modified Barium Swallow Study Pre-evaluation Dietary Consistencies: Regular Pre-evaluation Liquid Consistency: Thin Pre-evaluation Medication Administration: Whole with Liquid Medical History: Diarrhea Erectile dysfunction Pulmonary nodules POLLO on CPAP Asthma-COPD overlap syndrome Surgical History: Hx of knee surgery Hx of shoulder surgery Hx of cataract surgery History of hand surgery History of carpal tunnel surgery History of esophagogastroduodenoscopy (EGD) Hx of colonoscopy History of carpal tunnel surgery (~2019) History of back surgery (~2019) Oral Motor Exam Facial Symmetry: Normal for Patient Symmetrical Facial Movement: Mouth Occlusion: Normal Oral-Facial Lip Pucker Description: Normal Oral-Facial Smile (Lips) Description: Normal Oral-Facial Puff Cheeks Description: Normal Oral Expression Ability: No Impairment Is patient able to manage secretions?: Yes Is patient able to produce volitional cough?: Yes Food and Liquid Trials: Oral Impairment: Lip Closure: 0=No labial escape Oral Impairment: Tongue Control During Bolus Hold: 0=Cohesive bolus between tongue to palatal seal Oral Impairment: Bolus Preparation/Mastication: 1=Slow prolonged chewing/mashing with complete re-collection Oral Impairment: Bolus Transport/Lingual Motion: 0=Brisk tongue motion Oral Impairment: Oral Residue: 1=Trace residue lining oral structures Oral Impairment:Initiation of Pharyngeal Swallow: 1=Bolus head in valleculae Pharyngeal Impairment: Soft Palate Elevation: 0=No bolus between soft palate (SP)/pharyngeal wall (PW) Pharyngeal Impairment: Laryngeal Elevation: 0=Complete superior movement of thyroid cartilage (see description) Pharyngeal Impairment: Anterior Hyoid Excursion: 0=Complete anterior movement Pharyngeal Impairment: Epiglottic Movement: 0=Complete inversion Pharyngeal Impairment: Laryngeal Vestibular Closure:: 1=Incomplete: narrow column air/contrast in laryngeal vestibule Pharyngeal Impairment: Pharyngeal Stripping Wave: 0=Present: complete Pharyngeal Impairment: Pharyngeal Contraction: Did not test Pharyngeal Impairment: Pharyngoesophageal Segment Openin=Partial distention/partial duration: partial obstruction of flow Pharyngeal Impairment: Tongue Base (TB) Retraction: 1=Trace column of contrast/air between TB and posterior PW Pharyngeal Impairment: Pharyngeal Residue: 1=Trace residue within or on pharyngeal structures Pharyngeal Impairment: Esophageal Clearance Upright Position: Did not test Impressions and Recommendations [facility] Results: Lip closure for intraoral bolus containment resulted in no labial escape. Tongue control during bolus hold maintained a cohesive bolus held between tongue to palate seal. Bolus preparation and mastication resulted in slow, prolonged chewing/mashing but with complete re-collection. Bolus transport/lingual motion was with brisk tongue motion. Oral residue was a trace, lining oral structures. Initiation of the pharyngeal swallow occurred when the bolus head was in the valleculae. Soft palate elevation resulted in no bolus between the soft palate and the pharyngeal wall. Laryngeal elevation demonstrated complete superior movement of the thyroid cartilage with complete approximation of the arytenoids to the epiglottic petiole. Anterior hyoid excursion demonstrated complete anterior movement. Epiglottic movement resulted in complete inversion. Laryngeal vestibular closure was incomplete, with a narrow column of air/contrast noted within the laryngeal vestibule at the height of the swallow. Pharyngeal stripping wave was present and complete. Pharyngeal contraction could not be determined due to logistical reasons not related to physiologic impairment. Pharyngoesophageal segment opening was completely distended for complete duration with no obstruction of bolus flow. Tongue base retraction allowed a trace column of contrast or air between the retracted tongue base and the posterior pharyngeal wall. Pharyngeal residue was a trace within or on pharyngeal structures. Esophageal clearance in the upright position could not be assessed due to logistical reasons not related to physiologic impairment. Oral Impairment Score: 2 Pharyngeal Impairment Score: 1 (absence of score, component 13) Esophageal Impairment Score: --- (absence of score, component 17) Laryngeal Penetration and Aspiration: No aspiration was observed in today's study with Cookie, Pudding-thick, Thin. SUMMARY: Pt was provided barium contrast in Thin Liquid, Puree and Regular Solid mediums. Mild flash penetration was noted with Thin Liquids, however this is within functional limits. Pt denied any feeling of dryness in his throat after the study. Cervical hardware is noted at the level of the UES, however he denies any globus sensation related to swallowing. Liquid Intake Recommendation: Thin Liquid Intake Strategies: Small Sips Unrestricted Dietary Recommendations: Regular Medication Administration: Whole with Liquid Please contact the pharmacy regarding appropriate crushable or liquid drug formulations that are available whenever modified delivery is recommended. Supervision during eating and or drinking: None Needed Recommendation for Speech Therapy: NA:Typical Evaluation Text Comment: No diet texture changes or swallowing recommendations at this time. Consider medication changes to address dryness of the throat, however aside from mild discomfort he reports no changes to his eating habits as a result. Timeline to reassess: PRN Instructor Decorating Clinician/Clinical Fellow: No Supervisory Statement: N/A Speech Language Pathologist: Yo Wadsworth M.A., CCC-ASSOCIATE PROFESSOR OF ANTHROPOLOGY
== END 2024-01-04 10:01 | disposition home or self-care (01) ==
LOC: HO.XRAY 10:00
PROVIDERS: Visit Provider Nurse Practitioner
DX: R10.33 Periumbilical pain (principal); R13.10 Dysphagia, unspecified
CPT/HCPCS: 74230; 92611

== ENCOUNTER → 2024-01-04 10:30 | Outpatient (BNV) | payer OTHER, SELFPAY | PROVIDERS: Visit Provider Physician Assistant Surgical | DX: R13.10 Dysphagia, unspecified (principal) | CPT/HCPCS: 74230 ==

== ENCOUNTER 2024-01-06 09:34 | Outpatient (AMB) | payer OTHER, SELFPAY ==
--- NOTE | 2024-01-06 09:41 | MHC.OFFVIS ---
Intake Intake Visit Reasons: Med Review(Sildenafil Side Effects) Intake Note: Patient is Present for Telephone Follow Up Urology Med: Sildenafil (Patient has concerns on medication)( Antibiotic Allergy: None Blood Thinner: Aspirin Allergies No Known Drug Allergies Allergy (Unknown, Verified 12/11/23 06:17) none latex Adverse Reaction (Intermediate, Verified 12/11/23 06:17) Itching HPI HPI Comments History of Present Illness Details Morteza is a very pleasant male. He is a patient of . He is seen for the following urologic conditions - urinary tract symptoms - erectile dysfunction Telemedicine Evaluation 15 min Consultation [place] [place] Video attempted Six-month follow-up [place] translation provided by qualified medical records manager Recent hospital admission Follow-up for from tadalafil therapy with on demand sildenafil Did not receive tadalafil Prescriptions resent Lower urinary tract symptoms Prior treatment medication Prior procedure with laser 2018 Currently reports adequate bladder storage and emptying PSA 04/13 0.9, 02/12 0.7, 07/16 0.9 Erectile dysfunction Progressive Able to obtain but cannot maintain erection Sufficient for penetration Good response to maximum dose sildenafil on demand [facility] Medical History (Updated 12/26/23 @ 11:12 by Chao Arenas MD) Lower extremity edema Diarrhea Erectile dysfunction Pulmonary nodules POLLO on CPAP Asthma-COPD overlap syndrome Surgical History Hx of knee surgery Hx of shoulder surgery Hx of cataract surgery History of hand surgery History of carpal tunnel surgery History of esophagogastroduodenoscopy (EGD) Hx of colonoscopy History of carpal tunnel surgery (~2019) History of back surgery (~2018) Family History Father Throat cancer HTN (hypertension) Paternal Grandfather Heart attack Family/Other Colon cancer Social History Alcohol intake: former Year quit: 2006 Patient Tobacco Use Status: Former Tobacco user Quit Date: 2006 Years Smoked: 25 +/- Review of Systems Const All systems reviewed & are unremarkable except as noted in HPI and below Reports no additional complaints Resp Reports no additional complaints GI Reports no additional complaints Reports as per HPI Musc Reports no additional complaints Physical Exam Telemedicine evaluation Appropriate responses Regular breathing rate and rhythm HEENT Head: Yes normal to inspection Ears: hearing grossly normal bilaterally Eyes General: appearance normal, both eyes and all related structures Neck Neck: Yes normal visual inspection Chest Chest palpation & inspection: normal inspection of the chest Resp Effort & Inspection: normal respiratory effort and able to speak in complete sentences Assessment & Plan Assessment & Plan (1) Erectile dysfunction: Code(s): N52.9 - Male erectile dysfunction, unspecified Plan Six-month follow-up Medications: New tadalafil 5 mg PO DAILY 90 days 90 tabs 1RF sexual activity N52.01 - Erectile dysfunction due to arterial insufficiency Refilled sildenafil as needed 60 min before activity 100 mg PO ONCE 30 days PRN 30 tabs 0RF sexual activity N52.9 - Male erectile dysfunction, unspecified Patient Instructions: Imaging studies, laboratory and physical exam results were discussed and reviewed in detail. No major barriers to patient understanding were identified. An opportunity to ask questions regarding the treatment plan was provided. All questions were answered. The patient expressed understanding and agreement with the above treatment plan. The patient is aware they should contact our office by phone for worsening of their current condition or the appearance of new urologic symptoms. Compliance is encouraged with any medications and followup testing that is ordered. It is a privilege to participate in the urologic care of your patient. If you have any questions or concerns regarding treatment for the above conditions, or other urologic issues, please do not hesitate to contact me. The office telephone contact is [phone]. This note is constructed using voice recognition software. While every effort has been made to ensure accuracy hot stick man errors may have been included. Yours sincerely, Dr Adam Esteban MD, [facility] - Urology Providers of Expert, Compassionate Care for the Genitourinary System Telehealth Telehealth Location of provider rendering services: practice address Location of patient: address on file Patient Identification confirmed using: Name, : Yes Telehealth method: video Patient verbally consented to treatment: Yes Patient verbally consented to billing insurance company: Yes Patient informed of any privacy concerns related to visit: Yes Coding Level of Care Code Tele Est Pt Level 3 (83901) Diagnoses Erectile dysfunction N52.9
== END 2024-01-06 10:22 | disposition home or self-care (01) ==
LOC: HO.HUSH 09:34
PROVIDERS: PCP Internal Medicine; Visit Provider Urology
DX: N52.9 Male erectile dysfunction, unspecified (principal)
CPT/HCPCS: 99213

== ENCOUNTER → 2024-01-06 09:34 | Outpatient (BNVA) | payer OTHER, SELFPAY | PROVIDERS: PCP Internal Medicine; Visit Provider Urology ==

== ENCOUNTER 2024-02-03 08:42 | Outpatient (AMB) | payer OTHER, SELFPAY ==
[2024-02-03 08:47] VITALS: BP 130/64; PULSE 65; O2SAT 97; BMI 33.9
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
== END 2024-02-03 09:06 | disposition home or self-care (01) ==
PROVIDERS: PCP Internal Medicine; Visit Provider Hospitalist
DX: J44.9 Chronic obstructive pulmonary disease, unspecified (principal); G47.33 Obstructive sleep apnea (adult) (pediatric); Z99.89 Dependence on other enabling machines and devices; R91.8 Other nonspecific abnormal finding of lung field; R06.00 Dyspnea, unspecified
CPT/HCPCS: 99214

== ENCOUNTER → 2024-02-03 08:42 | Outpatient (BNVA) | payer OTHER, SELFPAY | PROVIDERS: PCP Internal Medicine; Visit Provider Hospitalist | DX: J44.9 Chronic obstructive pulmonary disease, unspecified (principal); G47.33 Obstructive sleep apnea (adult) (pediatric); R91.8 Other nonspecific abnormal finding of lung field; R06.00 Dyspnea, unspecified; Z99.89 Dependence on other enabling machines and devices | CPT/HCPCS: 99212 ==

== ENCOUNTER 2024-04-03 07:13 | Outpatient (REF) | payer OTHER, SELFPAY ==
--- NOTE | ~2024-04-03 | XR_ITS ---
EXAMINATION: XR CHEST CLINICAL INFORMATION: Chronic obstructive pulmonary disease. COMPARISON: December 14, 2023. TECHNIQUE: 2 views of the chest were obtained. FINDINGS: Lung volumes are low. There is no gross pneumothorax. Heart size is normal. Degenerative changes in the thoracic spine. No pleural effusion. No focal consolidation to suggest pneumonia. XR/XR chest 2V IMPRESSION: No evidence of pneumonia.
== END 2024-04-03 07:14 | disposition home or self-care (01) ==
LOC: HO.XRAY 07:13
PROVIDERS: PCP Internal Medicine; Visit Provider Hospitalist
DX: J44.9 Chronic obstructive pulmonary disease, unspecified (principal); N52.9 Male erectile dysfunction, unspecified
CPT/HCPCS: 71046; 99212

== ENCOUNTER 2024-04-03 10:12 | Outpatient (AMB) | payer OTHER, SELFPAY ==
--- NOTE | 2024-04-03 10:39 | A.OFFVIS_ITS ---
Intake Visit Reasons: 6m follow up Intake Note: Patient is Present for Follow Up Med Review Urology Medication: Tadalafil, Sildenafil Antibiotic Allergies: None Blood Thinners:Aspirin Allergies No Known Drug Allergies Allergy (Unknown, Verified 12/11/23 06:17) none latex Adverse Reaction (Intermediate, Verified 12/11/23 06:17) Itching Medication List - Last Reconciled 04/03/24 by Adam Esteban MD aspirin 1 tab PO DAILY comp.stocking,thigh,long,large 20/30 cm CPAP (CPAP Machine/Device) As directed doxycycline hyclate 100 mg PO BID 10 days ezetimibe 10 mg PO DAILY famotidine 40 mg PO BEDTIME losartan-hydrochlorothiazide 100-25 mg 1 tab PO DAILY melatonin 5 mg PO BEDTIME methylprednisolone (Medrol (Murtaza)) PO PER PKG DIR 6 days metoprolol succinate ER 100 mg PO DAILY prazosin 5 mg PO BEDTIME rosuvastatin 40 mg PO DAILY sertraline 50 - 100 mg PO DAILY PRN sildenafil 100 mg PO ONCE PRN 30 days Symbicort 160-4.5 mcg/actuation (budesonide-formoterol) 2 puffs PO BID NS tadalafil 5 mg PO DAILY 90 days HPI Comments Details: Morteza is a very pleasant male. He is a patient of . He is seen for the following urologic conditions - urinary tract symptoms - erectile dysfunction Six-month follow-up Nicaraguan translation provided by qualified medical records coordinator Follow-up from tadalafil therapy with on demand sildenafil Good response to daily tadalafil therapy with on demand Six-month follow-up Lower urinary tract symptoms Prior treatment medication Prior procedure with laser 2018 Currently reports adequate bladder storage and emptying PSA 04/13 0.9, 02/12 0.7, 07/16 0.9, 12/17 1.1 Erectile dysfunction Progressive Able to obtain but cannot maintain erection Sufficient for penetration Good response to maximum dose sildenafil on demand PFSH Medical History Lower extremity edema Diarrhea Erectile dysfunction Pulmonary nodules POLLO on CPAP Asthma-COPD overlap syndrome Surgical History Hx of knee surgery Hx of shoulder surgery Hx of cataract surgery History of hand surgery History of carpal tunnel surgery History of esophagogastroduodenoscopy (EGD) Hx of colonoscopy History of carpal tunnel surgery (~2019) History of back surgery (~2019) Family History Father Throat cancer HTN (hypertension) Paternal Grandfather Heart attack Family/Other Colon cancer Social History Alcohol intake: former Year quit: 2006 Patient Tobacco Use Status: Former Tobacco user Years Smoked: 25 +/- Review of Systems Const Denies chills and Denies fever(s) Card Reports no additional complaints and Denies syncope Resp Denies cough GI Denies abdominal pain and Denies heartburn Reports as per HPI and Denies change in libido Neuro Denies syncope Psych Denies change in libido Endo Denies change in libido Physical Exam Const General: cooperative, healthy appearing, comfortable and no acute distress Orientation/consciousness: patient oriented x3 HEENT Face and sinus: Yes normal facial exam Mouth: moist mucous membranes Neck Neck: Yes normal visual inspection, Yes full ROM and Yes trachea midline Chest Chest palpation & inspection: normal inspection of the chest Resp Effort & Inspection: normal respiratory effort, able to speak in complete sentences and no respiratory distress GI Inspection: Yes normal to inspection Back/Spine/Pelvis Cervical Spine: normal cervical lordosis Thoracic/Lumbar Spine: thoracic and lumbar spine normal to inspection Skin General skin exam: no rashes or lesions noted Neuro General: patient oriented x3, gait normal, tone normal and moves all extremities Extrem General: Yes normal to inspection and Yes capillary refill normal Assessment & Plan Assessment & Plan (1) Erectile dysfunction: Code(s): N52.9 - Male erectile dysfunction, unspecified Category: Medical Plan Six-month follow-up Medications: Refilled tadalafil 5 mg PO DAILY 90 days 90 tabs 1RF sexual activity N52.01 - Erectile dysfunction due to arterial insufficiency sildenafil as needed 60 min before activity 100 mg PO ONCE 30 days PRN 30 tabs 0RF sexual activity N52.9 - Male erectile dysfunction, unspecified Patient Instructions: Imaging studies, laboratory and physical exam results were discussed and reviewed in detail. No major barriers to patient understanding were identified. An opportunity to ask questions regarding the treatment plan was provided. All questions were answered. The patient expressed understanding and agreement with the above treatment plan. The patient is aware they should contact our office by phone for worsening of their current condition or the appearance of new urologic symptoms. Compliance is encouraged with any medications and followup testing that is ordered. It is a privilege to participate in the urologic care of your patient. If you have any questions or concerns regarding treatment for the above conditions, or other urologic issues, please do not hesitate to contact me. The office telephone contact is [phone]. This note is constructed using voice recognition software. While every effort has been made to ensure accuracy public health sanitarian errors may have been included. Yours sincerely, Dr Adam Esteban MD, [facility] - Urology Providers of Expert, Compassionate Care for the Genitourinary System Coding Level of Care Code Est Pt Level 3 (78884) Diagnoses Erectile dysfunction N52.9
== END 2024-04-03 11:04 | disposition home or self-care (01) ==
PROVIDERS: PCP Internal Medicine; Visit Provider Urology
DX: N52.9 Male erectile dysfunction, unspecified (principal)
CPT/HCPCS: 99213

== ENCOUNTER 2024-04-04 11:05 | Outpatient (AMB) | payer OTHER, SELFPAY ==
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
[2024-04-04 11:53] VITALS: PULSE 73; O2SAT 98; BMI 32.8
== END 2024-04-04 12:07 | disposition home or self-care (01) ==
PROVIDERS: PCP Internal Medicine; Visit Provider Hospitalist
DX: J44.9 Chronic obstructive pulmonary disease, unspecified (principal); G47.33 Obstructive sleep apnea (adult) (pediatric); Z99.89 Dependence on other enabling machines and devices; R91.8 Other nonspecific abnormal finding of lung field; R06.00 Dyspnea, unspecified
CPT/HCPCS: 99214

== ENCOUNTER → 2024-04-04 11:05 | Outpatient (BNVA) | payer OTHER, SELFPAY | PROVIDERS: PCP Internal Medicine; Visit Provider Hospitalist | DX: J44.9 Chronic obstructive pulmonary disease, unspecified (principal); R91.8 Other nonspecific abnormal finding of lung field; R06.00 Dyspnea, unspecified; G47.33 Obstructive sleep apnea (adult) (pediatric); Z99.89 Dependence on other enabling machines and devices | CPT/HCPCS: 99212 ==

== ENCOUNTER 2024-04-18 09:06 | Outpatient (AMB) | payer OTHER, SELFPAY ==
--- NOTE | 2024-04-18 09:23 | A.OFFVIS_ITS ---
Vital Signs 04/18/24 09:24 Height 5 ft 11 in Weight 235 lb 0.204 oz BMI 32.8 BP 124/62 Blood Pressure Location Lt brachial Position Sitting Pulse 85 Pulse Source Pulse Oximeter Intake Visit Reasons: 4 mth f/up Clinical Dietetic Technician Required: Yes Clinical Dietetic Technician Name: Sara/cyracom/pitcairn islander Allergies No Known Drug Allergies Allergy (Unknown, Verified 04/04/24 11:54) none latex Adverse Reaction (Intermediate, Verified 04/04/24 11:54) Itching Medication List - Last Reconciled 04/18/24 by Enmanuel Forrester MD aspirin 1 tab PO DAILY comp.stocking,thigh,long,large 20/30 cm CPAP (CPAP Machine/Device) As directed ezetimibe 10 mg PO DAILY famotidine 40 mg PO BEDTIME ferrous sulfate (Feosol) 325 mg PO DAILY 30 days [id number]-awyaffe 36,000-114,000- 180,000 unit (Creon) 2 caps PO BID losartan-hydrochlorothiazide 100-25 mg 1 tab PO DAILY meclizine 25 mg PO BID PRN 14 days melatonin 5 mg PO BEDTIME metoprolol succinate ER 100 mg PO DAILY prazosin 5 mg PO BEDTIME rosuvastatin 40 mg PO DAILY sertraline 50 - 100 mg PO DAILY PRN sildenafil 100 mg PO ONCE PRN 30 days Symbicort 160-4.5 mcg/actuation (budesonide-formoterol) 2 puffs PO BID NS tadalafil 5 mg PO DAILY 90 days HPI Comments Details: 63-year-old gentleman who is here for assessment of shortness of b reath. He has background history of gastroesophageal reflux disease, pulmonary nodules, obstructive sleep apnea, asthma COPD overlap syndrome and erectile dysfunction. He has been experiencing shortness of breath with exertion. He denies any chest discomfort or heaviness. He is saying he has gained weight. He also gets some orthopnea like episodes when he is not wearing CPAP. He is not very compliant with CPAP. He was referred for echocardiography which showed normal biventricular function with no diastolic dysfunction or valvular disease. He underwent stress testing where he was able to do average exercise for his age and did not develop any ischemic EKG changes. He did have shortness of breath which was the reason he stopped exercising. Given ongoing dyspnea and was referred for coronary CTA. CTA showed 50% stenosis in the diagonal artery and 50% stenosis of the mid LAD. He is endorsing a lot of shortness of breath with exertion here he has no chest pain. He is seeing Dr. Arenas from pulmonology. Last visit: Today he returns for follow-up. He is trying to exercise and lose weight. He is saying that with some weight loss and exercise his dyspnea has improved somewhat. Continues to be symptomatic though. We discussed about his coronary CTA and moderate LAD diagonal disease. Was decided that he will continue to exercise and lose weight and will follow-up with us. He is here for follow-up today. He is saying that he still gets some shortness of breath but is not limited. Overall he is feeling better than before. No chest discomfort. Taking medications regularly. He needs some injections in the knees for arthritis and is asking whether aspirin can be held for few days. I have advised him that he can hold aspirin if required. 08/15/23: He returns for follow-up. He has been doing well. He is saying he has stopped losing weight because of knee issues and arthritis. He is still exercising and does not feel limited by any significant symptoms. He still has some shortness of breath. No chest discomfort. Taking medications regularly. He is asking whether he can take today Elavil. He also has sildenafil on his medication list and it appears he has been using that as needed to. I have advised him not to use both and discuss with his urologist. Currently is not taking any medications which will interact directly with sildenafil or tadal afil. I have educated him about the risk of using nitroglycerin with sildenafil. He does not have any active scripts for nitroglycerin. 12/19/23: Returns for follow-up. Blood pressure was elevated and recheck was 140/70. He is saying that he passed out recently. He got his family member on the phone who gave the details that he was in his shower when he called for help. The family member found him in the shower and he was sitting down and afterward had vomiting and passed out. He is saying that he had similar episode before. He is saying that the water was just too hard and it was just too hot inside the bathroom in general. He had syncope previously to and from his description it appears it was vasovagal syncope. In any case he went to the emergency department where he had workup done including negative troponins as well as CT pulmonary angiogram which was normal. Blood pressure is elevated. He is saying that he takes only losartan hydrochlorothiazide combination regularly along with prazosin. He does not take amlodipine daily and takes it on some days. He does not use metoprolol succinate at all. Discussed with him in detail about compliance with medication. 04/18/2024: He is here for follow-up. He has saying in the hot weather he gets more short of breath. Denying chest discomfort. Blood pressure control is good. No other complaints. [facility] Medical History (Updated 04/04/24 @ 12:07 by Chao Arenas MD) Anemia Lower extremity edema Diarrhea Erectile dysfunction Pulmonary nodules POLLO on CPAP Asthma-COPD overlap syndrome Surgical History Hx of knee surgery Hx of shoulder surgery Hx of cataract surgery History of hand surgery History of carpal tunnel surgery History of esophagogastroduodenoscopy (EGD) Hx of colonoscopy History of carpal tunnel surgery (~2019) History of back surgery (~2018) Family History Father Throat cancer HTN (hypertension) Paternal Grandfather Heart attack Family/Other Colon cancer Social History Alcohol intake: former Year quit: 2006 Patient Tobacco Use Status: Former Tobacco user Years Smoked: 25 +/- Review of Systems Const Denies chills, Denies fatigue, Denies fever(s), Denies frequent falls, Denies weakness, Denies weight gain and Denies weight loss ENT Denies dizziness Card Denies chest pain, Denies leg edema, Denies lightheadedness, Denies palpitations, Denies dyspnea and Denies dyspnea on exertion Resp Denies cough, Denies dyspnea and Denies dyspnea on exertion GI Denies hematochezia Musc Denies abnormal gait, Denies muscle weakness, Denies numbness, Denies radiating pain into limb and Denies tingling Neuro Denies abnormal gait, Denies dizziness, Denies frequent falls, Denies numbness, Denies tingling and Denies weakness Endo Denies fatigue and Denies palpitations Physical Exam Vital Signs: Last Vital Signs Pulse 85 04/18/24 09:24 BP 124/62 04/18/24 09:24 BMI result Body Mass Index 32.8 GENERAL APPEARANCE: in no acute distress, pleasant. NECK: no carotid bruit, no jugular venous distention. SKIN: no suspicious lesions, warm and dry. HEART: no murmurs, regular rate and rhythm. LUNGS: clear to auscultation bilaterally. ABDOMEN: soft, nontender. EXTREMITIES: no edema. PERIPHERAL PULSES: equal. NEUROLOGIC: No gross deficits, AAO X 3 Assessment & Plan Assessment & Plan (1) Asthma-COPD overlap syndrome: Code(s): J44.9 - Chronic obstructive pulmonary disease, unspecified Category: Medical (2) HTN (hypertension), benign: Code(s): I10 - Essential (primary) hypertension Category: Medical (3) Coronary artery disease: Code(s): I25.10 - Atherosclerotic heart disease of [place] coronary artery without angina pectoris Category: Medical Plan Pleasant 63 year gentleman who is here for follow-up. He has background history of asthma COPD overlap syndrome and dyspnea on exertion. He is saying with heat his breathing has been worse. Denying chest discomfort. He is coronary CTA previously has shown moderate coronary artery disease. Blood pressure is well controlled. Clinically not in heart failure. I have discussed with him that given the fact that his symptoms are worse with heat, these symptoms are unlikely to be due to coronary disease. In any case if his breathing does not improve or he is noticed these changes in the coming months then we can arrange a diagnostic angiogram for him. He will see us back in 3 months. If his breathing changed in between or he felt that he wants to get more information then he will call us and we will arrange a diagnostic cardiac catheterization. Thank you for allowing me to participate in the care of your patient. Please feel free to contact me if you have any questions. Coding Level of Care Code Est Pt Level 4 (24749) Diagnoses Asthma-COPD overlap syndrome J44.9 HTN (hypertension), benign I10 Coronary artery disease I25.10
[2024-04-18 09:24] VITALS: BP 124/62; PULSE 85; BMI 32.8
== END 2024-04-18 09:51 | disposition home or self-care (01) ==
PROVIDERS: PCP Internal Medicine; Visit Provider Internal Medicine Cardiovascular Disease
DX: J44.9 Chronic obstructive pulmonary disease, unspecified (principal); I10 Essential (primary) hypertension; I25.10 Atherosclerotic heart disease of native coronary artery without angina pectoris
CPT/HCPCS: 99214

== ENCOUNTER → 2024-04-18 09:06 | Outpatient (BNVA) | payer OTHER, SELFPAY | PROVIDERS: PCP Internal Medicine; Visit Provider Internal Medicine Cardiovascular Disease | DX: J44.9 Chronic obstructive pulmonary disease, unspecified (principal); I10 Essential (primary) hypertension; I25.10 Atherosclerotic heart disease of native coronary artery without angina pectoris | CPT/HCPCS: 99212 ==

== ENCOUNTER 2024-05-22 10:44 | Outpatient (AMB) | payer OTHER, SELFPAY ==
--- NOTE | 2024-05-22 10:48 | A.OFFVIS_ITS ---
VS Expanded 05/22/24 10:59 BP 115/57 L Blood Pressure Location Rt brachial Blood Pressure Position Sitting Pulse 66 Pulse Source Pulse Oximeter Temp 97.5 F Temperature Source Tympanic Pulse Oximetry 97 Oxygen Delivery Method Room Air Height 5 ft 11 in Weight 222 lb 9.6 oz BMI 31.0 Body Fat % 29.8 Body Fat Mass 66.4 Fat Free Mass 156.0 Visceral Fat Rating 17.0 Body Water % 48.3 Body Water Mass 107.4 Muscle Mass/Score 148.4 Basal Metabolic Rate/Score 2,087 Intake Visit Reasons: (OV) F/U [facility] Helminthology Teacher Required: Yes Allergies No Known Drug Allergies Allergy (Unknown, Verified 05/22/24 11:02) none latex Adverse Reaction (Intermediate, Verified 05/22/24 11:02) Itching Medication List - Last Reconciled 05/22/24 by NJ Farias albuterol sulfate 90 mcg/actuation 2 inhalations inhalation Q6H PRN 30 days aspirin 1 tab PO DAILY budesonide-formoterol 160-4.5 mcg/actuation (Symbicort) 2 puffs inhalation BID 30 days comp.stocking,thigh,long,large 20/30 cm CPAP (CPAP Machine/Device) As directed doxycycline monohydrate 100 mg PO BID 14 days ezetimibe 10 mg PO DAILY famotidine 40 mg PO BEDTIME ferrous sulfate (Feosol) 325 mg PO DAILY 30 days pfbfxo-winbvieu-nmzguyj 36,000-114,000- 180,000 unit (Creon) 2 caps PO BID losartan-hydrochlorothiazide 100-25 mg 1 tab PO DAILY meclizine 25 mg PO BID PRN 14 days melatonin 5 mg PO BEDTIME metoprolol succinate ER 100 mg PO DAILY prazosin 5 mg PO BEDTIME rosuvastatin 40 mg PO DAILY sertraline 50 - 100 mg PO DAILY PRN sildenafil 100 mg PO ONCE PRN 30 days Symbicort 160-4.5 mcg/actuation (budesonide-formoterol) 2 puffs PO BID NS tadalafil 5 mg PO DAILY 90 days HPI Comments Details: 64 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 Restarted Nov 2022 at 263 lbs (after having gained 15 lbs) and at his last appt he weighed 241.8 lbs. He has lost an additional 19.2 lbs since last OV in Nov. Has multiple physical pain points. Pt reports he has changed everything. Not frying anything, eating more salads. Feels he is getting adequate protein. Exercising more often. Meal plan breakfast - 3 eggs with cheese, Cranberry lunch - vegetables and meat dinner - root vegetables, protein no snacks Exercise now - treadmill 3d - alternates with bicycle. [facility] Medical History (Updated 04/04/24 @ 12:07 by Chao Arenas MD) Anemia Lower extremity edema Diarrhea Erectile dysfunction Pulmonary nodules POLLO on CPAP Asthma-COPD overlap syndrome Surgical History Hx of knee surgery Hx of shoulder surgery Hx of cataract surgery History of hand surgery History of carpal tunnel surgery History of esophagogastroduodenoscopy (EGD) Hx of colonoscopy History of carpal tunnel surgery (~2019) History of back surgery (~2018) Family History Father Throat cancer HTN (hypertension) Paternal Grandfather Heart attack Family/Other Colon cancer Social History Alcohol intake: former Year quit: 2006 Patient Tobacco Use Status: Former Tobacco user Years Smoked: 25 +/- Assessment & Plan Assessment & Plan (1) Obesity: Code(s): E66.9 - Obesity, unspecified Category: Medical Plan Pt doing very well with recent changes he has made, congratulated him on his weight loss efforts. Discussed that he we close to losing enough weight to no longer be considered obese. He does not desire any changes to his regimen currently. No questions today. Will follow up again in ~6 months. I spent a total of 30 minutes reviewing/updating records, examining the patient and counseling the patient on weight management as detailed above.
[2024-05-22 10:59] VITALS: BP 115/57; PULSE 66; TEMP 36.4; O2SAT 97; BMI 31.0
== END 2024-05-22 11:19 | disposition home or self-care (01) ==
PROVIDERS: PCP Internal Medicine; Visit Provider Physician Assistant Surgical
DX: E66.9 Obesity, unspecified (principal); Z68.31 Body mass index [BMI] 31.0-31.9, adult
CPT/HCPCS: 99214

== ENCOUNTER → 2024-05-22 10:44 | Outpatient (BNVA) | payer OTHER, SELFPAY | PROVIDERS: PCP Internal Medicine; Visit Provider Physician Assistant Surgical | DX: E66.9 Obesity, unspecified (principal); Z68.31 Body mass index [BMI] 31.0-31.9, adult | CPT/HCPCS: 99212 ==

== ENCOUNTER 2024-06-08 09:56 | Outpatient (AMB) | payer OTHER, SELFPAY ==
[2024-06-08 10:02] VITALS: BP 169/89; PULSE 87; BMI 31.4
--- NOTE | 2024-06-08 10:02 | MHC.OFFVIS ---
Vital Signs 06/08/24 10:02 Height 5 ft 11 in Weight 225 lb 4.999 oz BMI 31.4 BP 169/89 H Blood Pressure Location Lt brachial Position Sitting Pulse 87 Intake Visit Reasons: 6 month follow up Intake Note: Patient presents to in office visit today in 6 months follow up of Barium swallow and labs. CC: Patient states that he continues to have episodes of excruciating abdominal pain with nausea, sweating, and dizziness. Last episode of pain was last week on Tuesday. Patient reports occasional abdominal bloating and heartburn. He reports that EGD and Colonoscopy was cancelled and moved to July. 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 Accompanied by: Self / Same As Patient Allergies No Known Drug Allergies Allergy (Unknown, Verified 07/12/24 08:12) none latex Adverse Reaction (Intermediate, Verified 07/12/24 08:12) Itching HPI HPI 6 month follow up: Details: Assessment & Plan (1) Periumbilical abdominal pain: Code(s): R10.33 - Periumbilical pain (2) GERD (gastroesophageal reflux disease): Code(s): K21.9 - Gastro-esophageal reflux disease without esophagitis (3) Pre-op examination: Code(s): Z01.818 - Encounter for other preprocedural examination (4) IBS (irritable bowel syndrome): Code(s): K58.9 - Irritable bowel syndrome without diarrhea (5) Abdominal bloating: Code(s): R14.0 - Abdominal distension (gaseous) Plan [place] #[employer][ Initially he says that everything is going well with his medications. Then he says he has been having intermittent, although infrequent, episodes of severe whole abdominal pain that causes him sweating and dizziness and is relieved with defecation. This despite the fact that he moves his bowels every day without trouble. He can not really tie this to any kind of food eaten or even time of day. He says the timing is random and not related to whether he skipped bowel movements etc.. This really sounds like a vasovagal reaction possibly from gas trapping. For now we are going to get a colonoscopy since she would be due next year anyway and a small-bowel follow-through study to make sure there is nothing severely abnormal. He continues on his Creon and famotidine. Return office visit after the studies and in 6 months. Orders: Orders Comprehensive Met. Panel 12/14/23 Z01.818 - Encounter for other preprocedural examination Complete Blood Count Auto Diff 12/14/23 Z01.818 - Encounter for other preprocedural examination Colonoscopy - GI Use Only 12/09/23 R10.33 - Periumbilical pain FL barium swallow modified 01/04/24 R10.33 - Periumbilical pain Medications: New sodium,potassium,mag sulfates 17.5-3.13-1.6 gram (Suprep Bowel Prep Kit) 480 mL orally; 354 mL 0RF Changed From xhmgbk-qhzxvoxl-fipydxu 36,000-114,000- 180,000 unit 2 caps in am and 2 qpm orally 2 times a day; administer with meals and/or snacks 120 caps 3RF R14.0 - Abdominal distension (gaseous), K58.9 - Irritable bowel syndrome without diarrhea To xefhyz-ucnyusdl-fuittpp 36,000-114,000- 180,000 unit (Creon) 2 caps in am and 2 qpm orally 2 times a day; administer with meals and/or snacks 120 caps 6RF R14.0 - Abdominal distension (gaseous), K58.9 - Irritable bowel syndrome without diarrhea Refilled simethicone after meals 180 mg PO BID 60 caps 6RF 30 days famotidine 40 mg PO BEDTIME 90 tabs 2RF K21.9 - Gastro-esophageal reflux disease without esophagitis LABS: Laboratory Tests 12/14/23 12/14/23 08:55 12:03 WBC 7.9 Hgb 14.5 Hct 41.4 L Plt Count 289 Estimated GFR > 60 Ferritin 156 Total Bilirubin 0.6 AST 20 ALT 16 Alkaline Phosphatase 57 MODIFIED BARIUM SWALLOW 01/04/24 IMPRESSION: 1. Trace laryngeal penetration with thin barium. No aspiration is demonstrated during this evaluation. 2. Status post ACDF of C4-C5. Refer to the full speech therapy report for further clarification This procedure was performed by Jason Horta PA-C, and supervised by Dr. Ahmadi SPEECH THERAPY REPORT Lip closure for intraoral bolus containment resulted in no labial escape. Tongue control during bolus hold maintained a cohesive bolus held between tongue to palate seal. Bolus preparation and mastication resulted in slow, prolonged chewing/mashing but with complete re-collection. Bolus transport/lingual motion was with brisk tongue motion. Oral residue was a trace, lining oral structures. Initiation of the pharyngeal swallow occurred when the bolus head was in the valleculae. Soft palate elevation resulted in no bolus between the soft palate and the pharyngeal wall. Laryngeal elevation demonstrated complete superior movement of the thyroid cartilage with complete approximation of the arytenoids to the epiglottic petiole. Anterior hyoid excursion demonstrated complete anterior movement. Epiglottic movement resulted in complete inversion. Laryngeal vestibular closure was incomplete, with a narrow column of air/contrast noted within the laryngeal vestibule at the height of the swallow. Pharyngeal stripping wave was present and complete. Pharyngeal contraction could not be determined due to logistical reasons not related to physiologic impairment. Pharyngoesophageal segment opening was completely distended for complete duration with no obstruction of bolus flow. Tongue base retraction allowed a trace column of contrast or air between the retracted tongue base and the posterior pharyngeal wall. Pharyngeal residue was a trace within or on pharyngeal structures. Esophageal clearance in the upright position could not be assessed due to logistical reasons not related to physiologic impairment. Oral Impairment Score: 2 Pharyngeal Impairment Score: 1 (absence of score, component 13) Esophageal Impairment Score: --- (absence of score, component 17) Laryngeal Penetration and Aspiration: No aspiration was observed in today's study with Cookie, Pudding-thick, Thin. SUMMARY: Pt was provided barium contrast in Thin Liquid, Puree and Regular Solid mediums. Mild flash penetration was noted with Thin Liquids, however this is within functional limits. Pt denied any feeling of dryness in his throat after the study. Cervical hardware is noted at the level of the UES, however he denies any globus sensation related to swallowing. Liquid Intake Recommendation: Thin Liquid Intake Strategies: Small SipsUnrestricted Dietary Recommendations: Regular COLONOSCOPY 07/12/2024 BIOPSY TODAY'S VISIT.. [place] [employer] He has had the sudden pain that will make him sweat and double him over and it is unpredictable and happened twice since I last saw him. He is not wild about having medication for the pain, but I explain that this is both a test and a treatment. I also suggest he take on qhs and prn for pain. He remains quite concerned that the pain is very severe, and that it may be r/t a life threatening pathology. I suggest a trial of bentyl when the pain happens and we will get a CT. He is quite frustrated. He also has a colonoscopy upcoming, but they put it off until July. ROV 6 weeks. [facility] Medical History (Updated 07/12/24 @ 08:54 by Elizabeth Shelley, RN) HTN (hypertension) Anemia Lower extremity edema Pre-op examination Erectile dysfunction Diarrhea Pulmonary nodules POLLO on CPAP Asthma-COPD overlap syndrome Surgical History (Updated 07/12/24 @ 08:12 by Elizabeth Shelley, RN) Hx of cystoscopy Hx of knee surgery Hx of shoulder surgery Hx of cataract surgery History of hand surgery History of carpal tunnel surgery History of esophagogastroduodenoscopy (EGD) Hx of colonoscopy History of carpal tunnel surgery (~2019) History of back surgery (~2019) Family History (Reviewed 07/11/24 @ 09:32 by Deanne Leroy [facility]) Father Throat cancer HTN (hypertension) Paternal Grandfather Heart attack Family/Other Colon cancer Social History (Reviewed 07/11/24 @ 09:32 by Deanne Leroy [facility]) Alcohol intake: former Year quit: 2006 Patient Tobacco Use Status: Former Tobacco user Years Smoked: 25 +/- Review of Systems Const Denies fatigue, Denies fever(s), Denies night sweats, Denies poor appetite and Denies weight loss Eyes Details: glasses Reports requires corrective lenses ENT Reports Normal hearing present, Denies dental pain, Denies dysphagia, Denies hearing loss, Denies mouth pain, Denies odynophagia, Denies throat swelling, Denies tongue swelling and Reports other (Dentition adequate) Card Reports no additional complaints Resp Reports no additional complaints GI Details: Reports abdominal pain, Denies melena, Denies bloating, Denies hematochezia, Denies constipation, Denies GI cramping, Denies dysphagia, Denies excessive flatus, Denies early satiety, Denies heartburn, Denies diarrhea, Denies nausea, Denies odynophagia, Denies vomiting and Denies hematemesis Skin/Breast Denies pruritus, Denies lesions, Denies rash and Denies jaundice Neuro Reports Normal hearing present and Denies Abnormal speech present Endo Denies fatigue Aller/Immun Denies throat swelling and Denies tongue swelling Physical Exam Vital Signs: Last Vital Signs Pulse 87 06/08/24 10:02 BP 169/89 H 06/08/24 10:02 BMI result Body Mass Index 31.4 Const General: cooperative, no acute distress, well developed and well groomed Nutritional Appearance: well nourished and obese Orientation/consciousness: oriented to person, oriented to place and oriented to time Limitations: language barrier HEENT Head: Yes normocephalic and Yes atraumatic Eyes General: appearance normal, both eyes and all related structures Pupils: Equal, round and reactive pupils present Neck Neck: Yes normal visual inspection and Yes no lymphadenopathy Thyroid: Thyroid normal Resp Effort & Inspection: normal respiratory effort and able to speak in complete sentences Auscultation: clear to auscultation bilaterally Cardio Rate: regular rate Rhythm: regular rhythm Heart sounds: Normal, physiologic split S2 sound present Peripheral pulses: radial pulses present and posterior tibial pulses present GI Inspection: No distended, No Abdominal panniculus present and Yes obesity Palpation (GI): Soft to palpation, nontender, no guarding, not rigid and No hepatosplenomegaly present Percussion: Yes normal to percussion Auscultation: normal bowel sounds Rectal Exam - Male: Yes deferred Skin General skin exam: no rashes or lesions noted, turgor normal, skin not dry, no jaundice, No spider nevi and no striae Rashes: no rashes Nails: normal Neuro General: oriented to person, oriented to place and oriented to time Cranial nerves: Yes Equal, round and reactive pupils present and Yes Normal hearing present Speech: No Abnormal speech present Extrem General: Yes normal to inspection, No clubbing, No cyanosis and No edema Psych Appearance: grossly normal and well kempt Mental Status: mental status grossly normal Speech and movement: Normal speech and movement present Affect: normal affect Attitude: cooperative Thought process: Normal thought process present and not confabulating Thought content: Normal thought content present Insight: Limited insight present (Psych) Judgement: Limited judgement present (Psych) Results Reviewed Results Reviewed: Laboratory Tests 12/14/23 12/14/23 08:55 12:03 WBC 7.9 Hgb 14.5 Hct 41.4 L Plt Count 289 Estimated GFR > 60 Ferritin 156 Total Bilirubin 0.6 AST 20 ALT 16 Alkaline Phosphatase 57 MODIFIED BARIUM SWALLOW 01/04/24 IMPRESSION: 1. Trace laryngeal penetration with thin barium. No aspiration is demonstrated during this evaluation. 2. Status post ACDF of C4-C5. Refer to the full speech therapy report for further clarification This procedure was performed by Jason Horta PA-C, and supervised by Dr. Ahmadi SPEECH THERAPY REPORT Lip closure for intraoral bolus containment resulted in no labial escape. Tongue control during bolus hold maintained a cohesive bolus held between tongue to palate seal. Bolus preparation and mastication resulted in slow, prolonged chewing/mashing but with complete re-collection. Bolus transport/lingual motion was with brisk tongue motion. Oral residue was a trace, lining oral structures. Initiation of the pharyngeal swallow occurred when the bolus head was in the valleculae. Soft palate elevation resulted in no bolus between the soft palate and the pharyngeal wall. Laryngeal elevation demonstrated complete superior movement of the thyroid cartilage with complete approximation of the arytenoids to the epiglottic petiole. Anterior hyoid excursion demonstrated complete anterior movement. Epiglottic movement resulted in complete inversion. Laryngeal vestibular closure was incomplete, with a narrow column of air/contrast noted within the laryngeal vestibule at the height of the swallow. Pharyngeal stripping wave was present and complete. Pharyngeal contraction could not be determined due to logistical reasons not related to physiologic impairment. Pharyngoesophageal segment opening was completely distended for complete duration with no obstruction of bolus flow. Tongue base retraction allowed a trace column of contrast or air between the retracted tongue base and the posterior pharyngeal wall. Pharyngeal residue was a trace within or on pharyngeal structures. Esophageal clearance in the upright position could not be assessed due to logistical reasons not related to physiologic impairment. Oral Impairment Score: 2 Pharyngeal Impairment Score: 1 (absence of score, component 13) Esophageal Impairment Score: --- (absence of score, component 17) Laryngeal Penetration and Aspiration: No aspiration was observed in today's study with Cookie, Pudding-thick, Thin. SUMMARY: Pt was provided barium contrast in Thin Liquid, Puree and Regular Solid mediums. Mild flash penetration was noted with Thin Liquids, however this is within functional limits. Pt denied any feeling of dryness in his throat after the study. Cervical hardware is noted at the level of the UES, however he denies any globus sensation related to swallowing. Liquid Intake Recommendation: Thin Liquid Intake Strategies: Small SipsUnrestricted Dietary Recommendations: Regular Assessment & Plan Assessment & Plan (1) GERD (gastroesophageal reflux disease): Code(s): K21.9 - Gastro-esophageal reflux disease without esophagitis Category: Medical (2) IBS (irritable bowel syndrome): Code(s): K58.9 - Irritable bowel syndrome without diarrhea Category: Medical (3) Abdominal bloating: Code(s): R14.0 - Abdominal distension (gaseous) Category: Medical (4) Periumbilical abdominal pain: Code(s): R10.33 - Periumbilical pain Category: Medical (5) Dysphagia: Code(s): R13.10 - Dysphagia, unspecified Category: Medical Plan [place] [employer] He has had the sudden pain that will make him sweat and double him over and it is unpredictable and happened twice since I last saw him. He is not wild about having medication for the pain, but I explain that this is both a test and a treatment. I also suggest he take on qhs and prn for pain. He remains quite concerned that the pain is very severe, and that it may be r/t a life threatening pathology. I suggest a trial of bentyl when the pain happens and we will get a CT. He is quite frustrated. He also has a colonoscopy upcoming, but they put it off until July. ROV 6 weeks. Orders: Orders CT abdomen pelvis w IV con 06/08/24 R10.33 - Periumbilical pain Medications: New dicyclomine 20 mg PO QID PRN 120 tabs 1RF abdominal pain 30 days R10.33 - Periumbilical pain Coding Level of Care Code Est Pt Level 3 (67258) Diagnoses GERD (gastroesophageal reflux disease) K21.9 IBS (irritable bowel syndrome) K58.9 Abdominal bloating R14.0 Periumbilical abdominal pain R10.33 Dysphagia R13.10
== END 2024-06-08 12:56 | disposition home or self-care (01) ==
PROVIDERS: PCP Internal Medicine; Visit Provider Nurse Practitioner
DX: K21.9 Gastro-esophageal reflux disease without esophagitis (principal); K58.9 Irritable bowel syndrome, unspecified; R14.0 Abdominal distension (gaseous); R10.33 Periumbilical pain; R13.10 Dysphagia, unspecified
CPT/HCPCS: 99213

== ENCOUNTER → 2024-06-08 09:56 | Outpatient (BNVA) | payer OTHER, SELFPAY | PROVIDERS: PCP Internal Medicine; Visit Provider Nurse Practitioner | DX: K58.9 Irritable bowel syndrome, unspecified (principal); K21.9 Gastro-esophageal reflux disease without esophagitis; R11.0 Nausea; R42 Dizziness and giddiness; R61 Generalized hyperhidrosis; R14.0 Abdominal distension (gaseous); R10.33 Periumbilical pain; R13.10 Dysphagia, unspecified | CPT/HCPCS: 99212 ==

== ENCOUNTER 2024-06-27 09:12 | Emergency (ER) | payer OTHER, SELFPAY ==
--- NOTE | ~2024-06-27 | XR_ITS ---
EXAMINATION: XR HAND, RIGHT CLINICAL INFORMATION: 5th finger pain COMPARISON: None available. TECHNIQUE: PA, lateral, and oblique views of the right hand. FINDINGS: No fracture or malalignment. 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 Mild osteoarthritis of the 1st CMC and MCP joints. Degenerative cyst at the base of the 2nd proximal phalanx. XR/XR hand RT min 3V IMPRESSION: No fracture or malalignment. Degenerative changes as described. Electronically signed by: Bruno Spain MD 06/27/2024 11:41 AM EDT
[2024-06-27 09:20] VITALS: BP 123/67; PULSE 66; RESP 18; TEMP 36.9; O2SAT 99; BMI 32.6
[2024-06-27 09:25] VITALS: BP 120/64; PULSE 65; RESP 14; TEMP 36.7; O2SAT 100
--- NOTE | 2024-06-27 09:30 | ED_ITS ---
HPI - General Adult General Chief complaint: Extremity Problem Stated complaint: r arm inj Time Seen by Provider: 06/27/24 09:20 Source: patient and ict customer support officer Mode of arrival: ambulatory Limitations: language barrier History of Present Illness ED Provider: matty CASTELLANOS narrative: Patient is a 64-year-old [place]ian speaking male presenting to the emergency department with complaint of pain radiating from right side of neck down right arm to right 5th finger since a fall in November of this year. Patient was seen in this emergency department and evaluated after the fall. States since that time he has seen pain management and been discharged, had injections in his neck and complains of ongoing pain radiating down his arm to his finger. States he is concerned he may have broken his finger during the fall and feels he did not have imaging of this initially. Has been using ibuprofen and Tylenol with little relief. He was referred to neurosurgery and has MRI scheduled. MD complaint: right arm pain Onset (ago): month(s) Severity: severe Quality: aching Pain Consistency: constant Treatments prior to arrival: NSAID Related Data Home Medications ?Medication ?Instructions ?Recorded ?Confirmed rosuvastatin 40 mg tablet 40 mg PO DAILY 11/06/20 04/18/24 sertraline 100 mg tablet 50 - 100 mg PO DAILY PRN Anxiety 07/27/21 04/18/24 ezetimibe 10 mg tablet 10 mg PO DAILY 11/02/21 04/18/24 CPAP (CPAP Machine/Device) 11/16/22 04/03/24 metoprolol succinate 100 mg 100 mg PO DAILY 11/16/22 04/18/24 tablet,extended release 24 hr losartan 100 1 tab PO DAILY 04/11/23 04/18/24 mg-hydrochlorothiazide 25 mg tablet prazosin 5 mg capsule 5 mg PO BEDTIME 06/08/23 04/18/24 aspirin 81 mg chewable tablet 1 tab PO DAILY 12/11/23 04/18/24 melatonin 5 mg tablet 5 mg PO BEDTIME sleep 12/11/23 04/18/24 vddtiu-[id number] 2 cap PO BID 04/04/24 04/18/24 36,000-114,000-180,000 unit capsule,delay rel (Creon) Previous Rx's ?Medication ?Instructions ?Recorded Symbicort 160 mcg-4.5 2 puff PO BID #10.2 ea 10/03/23 mcg/actuation HFA aerosol inhaler (budesonide-formoterol) famotidine 40 mg tablet 40 mg PO BEDTIME #90 tabs 12/09/23 comp.stocking,thigh,long,large #2 ea 12/27/23 sildenafil 100 mg tablet 100 mg PO ONCE PRN sexual activity 04/03/24 30 days #30 tabs tadalafil 5 mg tablet 5 mg PO DAILY sexual activity 90 04/03/24 days #90 tabs ferrous sulfate 325 mg (65 mg 325 mg PO DAILY 30 days #30 tabs 04/04/24 iron) tablet (Feosol) meclizine 25 mg tablet 25 mg PO BID PRN dizziness 14 days 04/04/24 #28 tabs albuterol sulfate 90 mcg/actuation 2 inh inhalation Q6H PRN shortness 04/23/24 aerosol inhaler of breath or wheezing 30 days #18 grams budesonide-formoterol HFA 160 2 puff inhalation BID 30 days 04/23/24 mcg-4.5 mcg/actuation aerosol #10.2 grams inhaler (Symbicort) doxycycline monohydrate 100 mg 100 mg PO BID 14 days #28 tabs 04/23/24 tablet dicyclomine 20 mg tablet 20 mg PO QID PRN abdominal pain 30 06/08/24 days #120 tabs baclofen 10 mg tablet 10 mg PO TID 30 days #90 tabs 06/25/24 [id number]-blktzq-JD-thonzonm 3.3 4 drp otic (ears) TID 14 days #10 06/25/24 mg-3 mg-10 mg-0.5 mg/mL ear mL drops,susp (Cortisporin-TC) lidocaine 5 % topical patch 1 patch topical DAILY #15 ea 06/27/24 prednisone 20 mg tablet 40 mg (2 x 20 mg) PO DAILY #10 tabs 06/27/24 Allergies Allergy/AdvReac Type Severity Reaction Status Date / Time No Known Drug Allergies Allergy Unknown none Verified 06/27/24 09:21 latex AdvReac Intermediate Itching Verified 06/27/24 09:21 Review of Systems Review of Systems: As per HPI. Yes all other systems are reviewed and are negative Constitutional: Constitutional: Reports as per HPI [facility] Past Medical History Medical History (Updated 06/27/24 @ 12:31 by Benita Hubbard NP) Pre-op examination Anemia Lower extremity edema Diarrhea Erectile dysfunction Pulmonary nodules POLLO on CPAP Asthma-COPD overlap syndrome Surgical History Hx of knee surgery Hx of shoulder surgery Hx of cataract surgery History of hand surgery History of carpal tunnel surgery History of esophagogastroduodenoscopy (EGD) Hx of colonoscopy History of carpal tunnel surgery (~2019) History of back surgery (~2019) Family History Family History Father Throat cancer HTN (hypertension) Paternal Grandfather Heart attack Family/Other Colon cancer Social History Social History Alcohol intake: former Year quit: 2006 Patient Tobacco Use Status: Former Tobacco user Years Smoked: 25 +/- Advance Directives: No Advance Directives Information Provided: No Physical Exam ED Vital Signs: Vital Signs - 24 hr 06/27/24 09:20 06/27/24 09:25 Temperature 98.4 F 98.1 F Pulse Rate 66 65 Respiratory Rate 18 14 Blood Pressure 123/67 120/64 Pulse Oximetry 99 100 Oxygen Delivery Method Room Air Room Air BMI result Body Mass Index 32.6 Vital signs have been reviewed and appear to be correct. Blood pressure normal. Heart rate normal. Respiratory rate normal. Temperature normal. Oxygen saturation normal. Const General: cooperative, healthy appearing and no acute distress Orientation/consciousness: oriented to person, oriented to place, oriented to time and patient oriented x3 Limitations: no limitations [facility] Head: Yes normocephalic and Yes atraumatic Ears: external ears normal General nose exam: Normal external nose present Face and sinus: Yes face symmetric Mouth: oropharynx normal and moist mucous membranes Throat: Yes uvula midline Eyes Pupils: Equal, round and reactive pupils present Neck Neck: Yes normal visual inspection and Yes supple Resp Effort & Inspection: normal respiratory effort and able to speak in complete sentences Auscultation: clear to auscultation bilaterally Cardio Rate: regular rate Rhythm: regular rhythm Heart sounds: S1 normal heart sound present and S2 normal heart sound present GI Palpation (GI): Soft to palpation and nontender Auscultation: normoactive bowel sounds General: Yes no CVA tenderness Back/Spine/Pelvis Back: no CVA tenderness Cervical Spine: normal cervical lordosis, cervical ROM normal, No cervical muscular tenderness, No Cervical spine tenderness and No step off deformity Thoracic/Lumbar Spine: thoracic and lumbar spine normal to inspection, thoraco-lumbar ROM normal, No thoracic spinal tenderness and No lumbar spinal tenderness Skin General skin exam: elasticity normal and turgor normal Neuro General: oriented to person, oriented to place, oriented to time, patient oriented x3, moves all extremities, no focal motor deficits and CN's II-XI intact bilaterally Cranial nerves: Yes Equal, round and reactive pupils present Cognition (Neuro): normal cognition Extrem General: Yes full ROM, Yes no pedal edema and Yes no calf tenderness Right upper extremity: normal to inspection, full ROM, normal capillary refill and Extremity exam: right hand Details: normal to inspection, normal capillary refill, neuromotor exam normal, neurosensory exam normal, normal ROM of fingers and no swelling; no unusual warmth Psych Mental Status: mental status grossly normal Affect: normal affect Thought process: Normal thought process present Medical Decision Making Medical Decision Making MDM Narrative: Patient is a 64-year-old Gambian speaking male presenting to the emergency department with complaint of pain radiating from right side of neck down right arm to right 5th finger since a fall in November of this year. On exam patient is awake, A+Ox3, VS WNL, afebrile, normal neurological exam without focal deficits, physical exam findings as above. Given reported symptoms and physical exam findings, initial differential includes cervical radiculopathy, non-healed fracture of finger, muscle strain. X-ray right hand notable for no acute fracture. My interpretation is in agreement with the radiologist's interpretation. Discussed with patient that due to the chronic nature of this pain, he should continue with Tylenol and ibuprofen, will send prescriptions for a short course of prednisone to decrease inflammation and lidocaine patches. Instructed patient to follow-up with neurosurgery and keep previously scheduled MRI. Return precautions discussed. Patient verbalized understanding of and agreement with plan. Assessment, results, plan and return precautions discussed with inpatient accounts receivable specialist at bedside. Differential Diagnosis Differential Diagnoses: The differential diagnosis associated with the presentation includes As per MDM. Independent Interpretation I performed an independent interpretation of an: Plain X-Ray Interpretation: X-ray right hand notable for no acute fracture. Radiology Impression Discussion of test interpretation with radiology: I have reviewed the radiologist's reading. Radiologist Impression: XR/XR hand RT min 3V IMPRESSION: No fracture or malalignment. Degenerative changes as described. External Record Review External record reviewed: Inpatient record, Office record and Outpatient record Prescription Management I considered prescription management with: Pain Medication Discharge Plan Discharge Clinical Impression: Cervical radiculopathy Patient Disposition: Home, Self-Care Instructions: Cervical Radiculopathy (ED), Chronic Neck Pain (DC) Additional Instructions: You were evaluated in the emergency department with complaint of neck and arm pain. Your imaging did not show any evidence of a fracture or other concerning findings. Your pain is likely related to a nerve inflammation. We recommend taking 600mg ibuprofen or 650mg Tylenol. If necessary, you can alternate these medications every three hours. For example, at noon take Tylenol, then at 3:00 take ibuprofen, then at 6:00 take Tylenol, etc. You are also being prescribed a short course of steroids to decrease inflammation. You are being prescribed topical lidocaine patches which you can wear for up to 12 hours in a 24 hour period. Do not apply heat directly over the patches. Follow-up with neurosurgery and your scheduled MRI as recommended. You should follow up with your primary care provider as you may require physical therapy to improve your symptoms. Return to the emergency department if you develop worsening neck pain or stiffness, new weakness, numbness, or tingling to your arm, severe headaches, or any other concerning symptoms. Prescriptions: New prednisone 20 mg tablet 40 mg PO DAILY Qty: 10 0RF lidocaine 5 % adhesive patch,medicated 1 patch topical DAILY Qty: 15 0RF Rx Instructions: leave on most painful area for up to 12 hrs No Action budesonide-formoterol [Symbicort] 160-4.5 mcg/actuation HFA aerosol inhaler 2 puff PO BID Qty: 10.2 1RF (DME) comp.stocking,thigh,long,large Misc See Rx Instructions .Route Qty: 2 0RF Rx Instructions: 20/30 cm doxycycline monohydrate 100 mg tablet 100 mg PO BID 14 Days Qty: 28 0RF budesonide-formoterol [Symbicort] 160-4.5 mcg/actuation HFA aerosol inhaler 2 puff inhalation BID 30 Days Qty: 10.2 11RF albuterol sulfate 90 mcg/actuation HFA aerosol inhaler 2 inh inhalation Q6H PRN (Reason: shortness of breath or wheezing) 30 Days Qty: 18 12RF Cortisporin-TC 3.3-3-10-0.5 mg/mL drops,suspension 4 drp otic (ears) TID 14 Days Qty: 10 2RF baclofen 10 mg tablet 10 mg PO TID 30 Days Qty: 90 3RF melatonin 5 mg tablet 5 mg PO BEDTIME aspirin 81 mg tablet,chewable 1 tab PO DAILY rosuvastatin 40 mg tablet 40 mg PO DAILY sertraline 100 mg tablet 50 - 100 mg PO DAILY PRN (Reason: Anxiety) metoprolol succinate 100 mg tablet extended release 24 hr 100 mg PO DAILY (DME) CPAP Machine/Device Device See Rx Instructions .Route Rx Instructions: As directed ezetimibe 10 mg tablet 10 mg PO DAILY losartan-hydrochlorothiazide 100-25 mg tablet 1 tab PO DAILY dicyclomine 20 mg tablet 20 mg PO QID PRN (Reason: abdominal pain) 30 Days Qty: 120 1RF prazosin 5 mg capsule 5 mg PO BEDTIME famotidine 40 mg tablet 40 mg PO BEDTIME Qty: 90 2RF sildenafil 100 mg tablet 100 mg PO ONCE PRN (Reason: sexual activity) 30 Days Qty: 30 0RF Rx Instructions: as needed 60 min before activity tadalafil 5 mg tablet 5 mg PO DAILY 90 Days Qty: 90 1RF Creon 36,000-114,000- 180,000 unit capsule,delayed release(DR/EC) 2 cap PO BID meclizine 25 mg tablet 25 mg PO BID PRN (Reason: dizziness) 14 Days Qty: 28 0RF ferrous sulfate [Feosol] 325 mg (65 mg iron) tablet 325 mg PO DAILY 30 Days Qty: 30 0RF Print Language: Gambian
[2024-06-27 12:35] VITALS: BP 120/64; PULSE 65; RESP 14; TEMP 36.7; O2SAT 100
== END 2024-06-27 12:36 | disposition home or self-care (01) ==
PROVIDERS: Emergency Provider Emergency Medicine; PCP Internal Medicine
DX: M54.12 Radiculopathy, cervical region (principal); M54.2 Cervicalgia; M79.601 Pain in right arm; M79.644 Pain in right finger(s)
CPT/HCPCS: 73130; 99283

== ENCOUNTER 2024-07-06 09:47 | Outpatient (REF) | payer OTHER, SELFPAY ==
[2024-07-06 10:28] LABS: MANUAL DIFF FLAG NO
[2024-07-06 11:20] LABS: Iron 91 mcg/dL (45-160); Percent Iron Saturation 35 % (15-50); Total Iron Binding Capacity 263 mcg/dL (228-428); Unsaturated Iron Binding 172 ug/dL
[2024-07-06 11:23] LABS: Basophils Percent Auto 0.4 % (0-2); Eosinophils Absolute Auto 0.1 X10*3/uL (0.0-0.4); Hematocrit 36.7 % (42.0-52.0); Hemoglobin 12.8 g/dl (14.0-18.0); Imm Gran Abs Auto 0.02 X10*3/uL (0.00-0.03); Imm Gran Pct Auto 0.3 % (0.0-0.4); Lymphocytes Absolute Auto 1.5 X10*3/uL (1.2-4.9); Lymphocytes Percent Auto 21.3 % (20-40); Mean Corpuscular HGB Conc 34.9 g/dl (31.0-36.0); Mean Corpuscular Hemoglobin 30.5 pg (27.0-33.0); Mean Corpuscular Volume 87.6 fL (80.0-98.0); Mean Platelet Volume 9.5 fL (9.4-12.4); Monocytes Absolute Auto 0.6 X10*3/uL (0.1-1.2); Monocytes Percent Auto 8.7 % (2-11); Neutrophils Absolute Auto 4.7 x10*3/uL (2.0-8.3); Neutrophils Percent Auto 68.3 % (45-73); Platelet Count 264 X10*3/uL (160-400); Red Blood Count 4.19 X10*6/uL (4.60-5.80); Red Cell Distribution Width 12.4 % (11.0-16.0); White Blood Count 6.9 X10*3/uL (4.8-10.8)
[2024-07-06 11:34] LABS: Ferritin 159 ng/mL (20-250)
== END 2024-07-06 09:48 | disposition home or self-care (01) ==
LOC: HO.LAB 09:47
PROVIDERS: PCP Internal Medicine; Visit Provider Hospitalist
DX: J44.9 Chronic obstructive pulmonary disease, unspecified (principal); D64.9 Anemia, unspecified; G47.33 Obstructive sleep apnea (adult) (pediatric); R91.8 Other nonspecific abnormal finding of lung field; R06.00 Dyspnea, unspecified; Z99.89 Dependence on other enabling machines and devices; Z87.891 Personal history of nicotine dependence
CPT/HCPCS: 36415; 82728; 83540; 85025; 99212

== ENCOUNTER 2024-07-06 09:47 | Outpatient (AMB) | payer OTHER, SELFPAY ==
[2024-07-06 09:54] VITALS: BP 100/60; PULSE 63; O2SAT 97; BMI 31.4
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
== END 2024-07-06 10:11 | disposition home or self-care (01) ==
PROVIDERS: PCP Internal Medicine; Visit Provider Hospitalist
DX: J44.9 Chronic obstructive pulmonary disease, unspecified (principal); G47.33 Obstructive sleep apnea (adult) (pediatric); Z99.89 Dependence on other enabling machines and devices; R91.8 Other nonspecific abnormal finding of lung field; R06.00 Dyspnea, unspecified
CPT/HCPCS: 99214

== ENCOUNTER 2024-07-10 08:00 | Outpatient (REF) | payer OTHER, SELFPAY ==
--- NOTE | ~2024-07-10 | CT_ITS ---
EXAMINATION: CT ABDOMEN AND PELVIS WITH CONTRAST CLINICAL INFORMATION: Periumbilical pain. COMPARISON: CT abdomen pelvis without contrast 05/11/2015. TECHNIQUE: Multidetector volumetric imaging was performed from the superior aspect of the liver through the pubic symphysis with intravenous contrast. A total of 85 mL of Omnipaque was utilized for the study. Sagittal and coronal reformatted images were obtained on the technologist's workstation. This CT examination was performed using dose optimization techniques as appropriate, variously including the following: *Automated exposure control *Adjustment of mA and/or kV according to patient size (this includes techniques or standardized protocols for targeted exams where dose is matched to indication/reason for exam; i.e. extremities or head) *Use of iterative reconstruction technique DLP: 607.00 mGy-cm FINDINGS: LUNG BASES: The visualized lung bases are unremarkable. LIVER, GALLBLADDER, AND BILIARY TREE: The liver is normal in size, shape, and attenuation. No focal hepatic lesion or biliary ductal dilatation is present. The gallbladder is contracted with a slightly thickened wall but otherwise is unremarkable with no evidence of radiopaque gallstones, or obvious pericholecystic inflammatory changes. PANCREAS: Unremarkable. SPLEEN: Unremarkable. ADRENAL GLANDS: Unremarkable. KIDNEYS AND URETERS: The kidneys are normal in size, shape, and attenuation. No hydronephrosis, hydroureter, or calculi seen. No perinephric stranding. A benign left mid renal 1.0 cm Bosniak class I renal cyst is noted which requires no additional imaging or follow up. No solid renal masses are seen. BLADDER: Unremarkable. GASTROINTESTINAL TRACT: The small and large bowel are unremarkable aside from a few scattered colonic diverticula without diverticulitis. The appendix is unremarkable. ABDOMINAL WALL: No significant hernia is appreciated. There are tiny inguinal hernias seen containing only fat along with a small periumbilical hernia containing only fat. LYMPH NODES: No retroperitoneal lymphadenopathy. VASCULAR: Calcific atherosclerotic changes are present in the aorta and iliofemoral vessels. There is no evidence of an abdominal aortic aneurysm. PELVIC VISCERA: The prostate and seminal vesicles are unremarkable. OSSEOUS STRUCTURES: Unremarkable. Mild degenerative changes are seen in the spine most marked at L4-L5. CT/CT abdomen pelvis w IV con IMPRESSION: A cause for the patient's periumbilical pain has not been found. Incidental findings as described above. Fleischner guidelines were followed. Electronically signed by: Camilo Coronel MD 09/07/2024 12:55 PM [facility]
[2024-07-10] MEDS: iohexoL 350 MG/ML 100 ML INFUS..BTL IV (10:46)
[2024-07-10] MEDS: Barium Sulfate Oral (Berry) 450 ML ORAL.SUSP PO ×2 (10:49)
[2024-07-11 11:22] LABS: Creatinine POC 0.8 mg/dL (0.5-1.4); GFR POC > 60
== END 2024-07-10 08:01 | disposition home or self-care (01) ==
LOC: HO.CT 08:00
PROVIDERS: PCP Internal Medicine; Visit Provider Nurse Practitioner
DX: R10.33 Periumbilical pain (principal)
CPT/HCPCS: 74177; 82565; Q9967

== ENCOUNTER 2024-07-11 09:03 | Outpatient (REF) | payer OTHER, SELFPAY ==
[2024-07-11 11:11] LABS: Hematocrit 38.2 % (42.0-52.0); Hemoglobin 13.1 g/dl (14.0-18.0); Mean Corpuscular HGB Conc 34.3 g/dl (31.0-36.0); Mean Corpuscular Hemoglobin 30.5 pg (27.0-33.0); Mean Corpuscular Volume 88.8 fL (80.0-98.0); Mean Platelet Volume 9.6 fL (9.4-12.4); Platelet Count 273 X10*3/uL (160-400); Red Cell Distribution Width 12.6 % (11.0-16.0); White Blood Count 5.9 X10*3/uL (4.8-10.8)
[2024-07-11 11:18] LABS: INTERNATIONAL NORM RATIO 0.9 (0.9-1.1); Prothrombin Time 10.8 SEC (11.1-13.3)
[2024-07-11 11:59] LABS: Anion Gap 11 (12-20); Blood Urea Nitrogen 19 mg/dL (9-16); Calcium 9.8 mg/dL (8.4-10.2); Carbon Dioxide 30 mmol/L (22-29); Chloride 97 mmol/L (96-108); Estimated Glomerular Filt Rate > 60; Glucose Random 102 mg/dL (60-115); Potassium 4.1 mmol/L (3.3-5.1); Sodium 134 mmol/L (135-145)
== END 2024-07-11 09:04 | disposition home or self-care (01) ==
LOC: HO.LAB 09:03
PROVIDERS: PCP Internal Medicine; Visit Provider Internal Medicine Cardiovascular Disease
DX: J44.9 Chronic obstructive pulmonary disease, unspecified (principal); I25.10 Atherosclerotic heart disease of native coronary artery without angina pectoris; I10 Essential (primary) hypertension
CPT/HCPCS: 36415; 80048; 85027; 85610; 99212

== ENCOUNTER 2024-07-11 09:03 | Outpatient (AMB) | payer OTHER, SELFPAY ==
--- NOTE | 2024-07-11 09:29 | A.OFFVIS_ITS ---
Vital Signs 07/11/24 09:30 Height 5 ft 11 in Weight 227 lb 15.327 oz BMI 31.8 BP 120/64 Blood Pressure Location Lt brachial Position Sitting Pulse 60 Pulse Source Pulse Oximeter Intake Visit Reasons: 3 mnth f/up Social Worker Masters Required: Yes Social Worker Masters Language: Health Information Systems Technician Name: [id number] Accompanied by: Self / Same As Patient Allergies No Known Drug Allergies Allergy (Unknown, Verified 07/06/24 09:56) none latex Adverse Reaction (Intermediate, Verified 07/06/24 09:56) Itching Medication List - Last Reconciled 07/11/24 by Enmanuel Forrester MD albuterol sulfate 90 mcg/actuation 2 inhalations inhalation Q6H PRN 30 days aspirin 1 tab PO DAILY baclofen 20 mg PO BID 30 days baclofen 10 mg PO TID 30 days budesonide-formoterol 160-4.5 mcg/actuation (Symbicort) 2 puffs inhalation BID 30 days ciprofloxacin-hydrocortisone 0.2-1 % 3 drps otic (ears) BID 7 days comp.stocking,thigh,long,large 20/30 cm CPAP (CPAP Machine/Device) As directed dicyclomine 20 mg PO QID PRN 90 days doxycycline monohydrate 100 mg PO BID 14 days ezetimibe 10 mg PO DAILY famotidine 40 mg PO BEDTIME ferrous sulfate (Feosol) 325 mg PO DAILY 30 days lidocaine 5% 1 patch topical DAILY xheogv-drsodkov-bbposhr 36,000-114,000- 180,000 unit (Creon) 2 caps PO BID losartan-hydrochlorothiazide 100-25 mg 1 tab PO DAILY meclizine 25 mg PO BID PRN 14 days melatonin 5 mg PO BEDTIME metoprolol succinate ER 100 mg PO DAILY azxrrlab-xcgibk-RY-thonzonium 3.3-3-10-0.5 mg/mL (Cortisporin-TC) 4 drps otic (ears) TID 14 days prazosin 5 mg PO BEDTIME prednisone 40 mg (2 x 20 mg) PO DAILY rosuvastatin 40 mg PO DAILY sertraline 50 - 100 mg PO DAILY PRN sildenafil 100 mg PO ONCE PRN 30 days sodium,potassium,mag sulfates 17.5-3.13-1.6 gram (Suprep Bowel Prep Kit) 480 mL orally; Symbicort 160-4.5 mcg/actuation (budesonide-formoterol) 2 puffs PO BID NS tadalafil 5 mg PO DAILY 90 days HPI Comments Details: 64-year-old gentleman who is here for assessment of shortness of br eath. He has background history of gastroesophageal reflux disease, pulmonary nodules, obstructive sleep apnea, asthma COPD overlap syndrome and erectile dysfunction. He has been experiencing shortness of breath with exertion. He denies any chest discomfort or heaviness. He is saying he has gained weight. He also gets some orthopnea like episodes when he is not wearing CPAP. He is not very compliant with CPAP. He was referred for echocardiography which showed normal biventricular function with no diastolic dysfunction or valvular disease. He underwent stress testing where he was able to do average exercise for his age and did not develop any ischemic EKG changes. He did have shortness of breath which was the reason he stopped exercising. Given ongoing dyspnea and was referred for coronary CTA. CTA showed 50% stenosis in the diagonal artery and 50% stenosis of the mid LAD. He is endorsing a lot of shortness of breath with exertion here he has no chest pain. He is seeing Dr. Aernas from pulmonology. Last visit: Today he returns for follow-up. He is trying to exercise and lose weight. He is saying that with some weight loss and exercise his dyspnea has improved somewhat. Continues to be symptomatic though. We discussed about his coronary CTA and moderate LAD diagonal disease. Was decided that he will continue to exercise and lose weight and will follow-up with us. He is here for follow-up today. He is saying that he still gets some shortness of breath but is not limited. Overall he is feeling better than before. No chest discomfort. Taking medications regularly. He needs some injections in the knees for arthritis and is asking whether aspirin can be held for few days. I have advised him that he can hold aspirin if required. 08/15/23: He returns for follow-up. He has been doing well. He is saying he has stopped losing weight because of knee issues and arthritis. He is still exercising and does not feel limited by any significant symptoms. He still has some shortness of breath. No chest discomfort. Taking medications regularly. He is asking whether he can take today Elavil. He also has sildenafil on his medication list and it appears he has been using that as needed to. I have advised him not to use both and discuss with his urologist. Currently is not taking any medications which will interact directly with sildenafil or tadala peña. I have educated him about the risk of using nitroglycerin with sildenafil. He does not have any active scripts for nitroglycerin. 12/19/23: Returns for follow-up. Blood pressure was elevated and recheck was 140/70. He is saying that he passed out recently. He got his family member on the phone who gave the details that he was in his shower when he called for help. The family member found him in the shower and he was sitting down and afterward had vomiting and passed out. He is saying that he had similar episode before. He is saying that the water was just too hard and it was just too hot inside the bathroom in general. He had syncope previously to and from his description it appears it was vasovagal syncope. In any case he went to the emergency department where he had workup done including negative troponins as well as CT pulmonary angiogram which was normal. Blood pressure is elevated. He is saying that he takes only losartan hydrochlorothiazide combination regularly along with prazosin. He does not take amlodipine daily and takes it on some days. He does not use metoprolol succinate at all. Discussed with him in detail about compliance with medication. 04/18/2024: He is here for follow-up. He has saying in the hot weather he gets more short of breath. Denying chest discomfort. Blood pressure control is good. No other complaints. 07/11/2024: He is here for follow-up. He continues to get shortness of breath with activity. On last visit we discussed about close monitoring as the weather changes but he is saying that he is out of breath with activities. He did have abnormal coronary CTA in the past showing moderate LAD diagonal stenosis. Blood pressure is well controlled. [facility] Medical History (Updated 06/28/24 @ 00:01 by Robert Anand) Pre-op examination Anemia Lower extremity edema Diarrhea Erectile dysfunction Pulmonary nodules POLLO on CPAP Asthma-COPD overlap syndrome Surgical History Hx of knee surgery Hx of shoulder surgery Hx of cataract surgery History of hand surgery History of carpal tunnel surgery History of esophagogastroduodenoscopy (EGD) Hx of colonoscopy History of carpal tunnel surgery (~2019) History of back surgery (~2019) Family History Father Throat cancer HTN (hypertension) Paternal Grandfather Heart attack Family/Other Colon cancer Social History Alcohol intake: former Year quit: 2006 Patient Tobacco Use Status: Former Tobacco user Years Smoked: 25 +/- Review of Systems Const Denies chills, Denies fatigue, Denies fever(s), Denies frequent falls, Denies weakness, Denies weight gain and Denies weight loss ENT Denies dizziness Card Denies chest pain, Denies leg edema, Denies lightheadedness, Denies palpitations, Denies dyspnea and Denies dyspnea on exertion Resp Denies cough, Denies dyspnea and Denies dyspnea on exertion GI Denies hematochezia Musc Denies abnormal gait, Denies muscle weakness, Denies numbness, Denies radiating pain into limb and Denies tingling Neuro Denies abnormal gait, Denies dizziness, Denies frequent falls, Denies numbness, Denies tingling and Denies weakness Endo Denies fatigue and Denies palpitations Physical Exam Vital Signs: Last Vital Signs Pulse 60 07/11/24 09:30 BP 120/64 07/11/24 09:30 BMI result Body Mass Index 31.8 GENERAL APPEARANCE: in no acute distress, pleasant. NECK: no carotid bruit, no jugular venous distention. SKIN: no suspicious lesions, warm and dry. HEART: no murmurs, regular rate and rhythm. LUNGS: clear to auscultation bilaterally. ABDOMEN: soft, nontender. EXTREMITIES: no edema. PERIPHERAL PULSES: equal. NEUROLOGIC: No gross deficits, AAO X 3 Assessment & Plan Assessment & Plan (1) Asthma-COPD overlap syndrome: Code(s): J44.9 - Chronic obstructive pulmonary disease, unspecified Category: Medical (2) HTN (hypertension), benign: Code(s): I10 - Essential (primary) hypertension Category: Medical (3) Coronary artery disease: Code(s): I25.10 - Atherosclerotic heart disease of [place] coronary artery without angina pectoris Category: Medical Plan Pleasant 63 year gentleman who is here for follow-up. He has background history of asthma COPD overlap syndrome and dyspnea on exertion. He had coronary CTA previously which showed moderate coronary artery disease. Blood pressure is well controlled. Clinically not in heart failure. He continues to get shortness of breath. We have been watching him for close to a year at this point. I have advised him to do a diagnostic angiogram to have clarity about the extent of coronary artery disease. I have explained to him that if you find any significant disease will treat it to see how it affects his shortness of breath. He is agreeable. We will arrange as next available. He will do blood workup. Thank you for allowing me to participate in the care of your patient. Please feel free to contact me if you have any questions. Orders: Orders Basic Metabolic Panel Today I25.10 - Atherosclerotic heart disease of [place] coronary artery without angina pectoris Complete Blood Count no Diff Today I25.10 - Atherosclerotic heart disease of [place] coronary artery without angina pectoris Prothrombin Time INR Today I25.10 - Atherosclerotic heart disease of [place] coronary artery without angina pectoris Cardiac Cath LT Diagnostic Today I25.10 - Atherosclerotic heart disease of [place] coronary artery without angina pectoris Coding Level of Care Code Est Pt Level 4 (45696) Diagnoses Asthma-COPD overlap syndrome J44.9 HTN (hypertension), benign I10 Coronary artery disease I25.10
[2024-07-11 09:30] VITALS: BP 120/64; PULSE 60; BMI 31.8
== END 2024-07-11 09:58 | disposition home or self-care (01) ==
PROVIDERS: PCP Internal Medicine; Visit Provider Internal Medicine Cardiovascular Disease
DX: J44.9 Chronic obstructive pulmonary disease, unspecified (principal); I10 Essential (primary) hypertension; I25.10 Atherosclerotic heart disease of native coronary artery without angina pectoris
CPT/HCPCS: 99214

== ENCOUNTER 2024-07-12 07:03 | Day surgery (SDC) | payer OTHER, SELFPAY ==
--- NOTE | 2024-07-10 13:12 | P.CONAN_ITS ---
Documented by User: Janice Granda NP 07/11/24 08:49 HPI - Anesthesia Eval Consult details Narrative: 64yo M for Colonoscopy Cardiac work up for URBINA negative. Last visit with [facility] Cardiology 03/2024 describes increased exercise tolerance, but also increased URBINA with hot weather (unlikely CAD). Pending office visit 07/11/24. Follows [facility] pulmo. Last office visit 06/2024, stable besides some CPAP adjustment PMFSH Active Problems Active Problems: All Active Problems Dysphagia (Acute) Anemia (Acute) Lower extremity edema (Acute) Palpitations (Acute) Orthostatic hypotension (Acute) Syncope (Acute) Erectile dysfunction (Acute) IBS (irritable bowel syndrome) (Acute) Coronary artery disease (Acute) HTN (hypertension), benign (Acute) Obesity (Acute) Dyspnea on exertion (Acute) BPH w urinary obs/LUTS (Acute) Halitosis (Acute) Abdominal bloating (Acute) Periumbilical abdominal pain (Acute) GERD (gastroesophageal reflux disease) (Acute) Pulmonary nodules (Acute) POLLO on CPAP (Acute) Asthma-COPD overlap syndrome (Acute) Past Medical History Medical History Anemia Lower extremity edema Pre-op examination Erectile dysfunction Diarrhea Pulmonary nodules POLLO on CPAP Asthma-COPD overlap syndrome Family History Family History Father Throat cancer HTN (hypertension) Paternal Grandfather Heart attack Family/Other Colon cancer Surgical History Surgical History (Updated 07/12/24 @ 08:12 by Elizabeth Shelley RN) Hx of cystoscopy Hx of knee surgery Hx of shoulder surgery Hx of cataract surgery History of hand surgery History of carpal tunnel surgery History of esophagogastroduodenoscopy (EGD) Hx of colonoscopy History of carpal tunnel surgery (~2019) History of back surgery (~2019) Social History Social History Alcohol intake: former Year quit: 2006 Patient Tobacco Use Status: Former Tobacco user Years Smoked: 25 +/- Use of substances other than those prescribed or required for medical reasons: No Are you DNR?: No Advance Directives: No Advance Directives Information Provided: Yes Meds Allergies Allergy/AdvReac Type Severity Reaction Status Date / Time No Known Drug Allergies Allergy Unknown none Verified 07/12/24 08:12 latex AdvReac Intermediate Itching Verified 07/12/24 08:12 Home Medications ?Medication ?Instructions ?Recorded ?Confirmed ?Last Taken ?Type rosuvastatin 40 mg tablet 40 mg PO DAILY 11/06/20 07/11/24 Unknown History sertraline 100 mg tablet 50 - 100 mg PO DAILY PRN Anxiety 07/27/21 07/11/24 Unknown History ezetimibe 10 mg tablet 10 mg PO DAILY 11/02/21 07/11/24 Unknown History CPAP (CPAP Machine/Device) 11/16/22 07/11/24 Unknown History metoprolol succinate 100 mg 100 mg PO DAILY 11/16/22 07/11/24 Unknown History tablet,extended release 24 hr losartan 100 1 tab PO DAILY 04/11/23 07/11/24 Unknown History mg-hydrochlorothiazide 25 mg tablet prazosin 5 mg capsule 5 mg PO BEDTIME 06/08/23 07/11/24 Unknown History aspirin 81 mg chewable tablet 1 tab PO DAILY 12/11/23 07/11/24 Unknown History melatonin 5 mg tablet 5 mg PO BEDTIME sleep 12/11/23 07/11/24 Unknown History cysmob-goyrkqlv-tnmkgaf 2 cap PO BID 04/04/24 07/11/24 Unknown History 36,000-114,000-180,000 unit capsule,delay rel (Creon) Exam Narrative Narrative: Per cardiology 03/2024 note: echocardiography which showed normal biventricular function with no diastolic dysfunction or valvular disease. He underwent stress testing where he was able to do average exercise for his age and did not develop any ischemic EKG changes. He did have shortness of breath which was the reason he stopped exercising. Given ongoing dyspnea and was referred for coronary CTA. CTA showed 50% stenos is in the diagonal artery and 50% stenosis of the mid LAD. Assessment and Plan Assessment Anesthesia Assessment: Chart Reviewed Documented by User: Natty Gonzalez MD 07/12/24 08:44 [facility] Past Medical History Medical History Anemia Lower extremity edema Pre-op examination Erectile dysfunction Diarrhea Pulmonary nodules POLLO on CPAP Asthma-COPD overlap syndrome Family History Family History Father Throat cancer HTN (hypertension) Paternal Grandfather Heart attack Family/Other Colon cancer Family history of problems with anesthesia: No Surgical History Surgical History (Updated 07/12/24 @ 08:12 by Elizabeth Shelley RN) Hx of cystoscopy Hx of knee surgery Hx of shoulder surgery Hx of cataract surgery History of hand surgery History of carpal tunnel surgery History of esophagogastroduodenoscopy (EGD) Hx of colonoscopy History of carpal tunnel surgery (~2019) History of back surgery (~2018) History of Problems with Anesthesia: No Social History Social History Alcohol intake: former Year quit: 2006 Patient Tobacco Use Status: Former Tobacco user Years Smoked: 25 +/- Use of substances other than those prescribed or required for medical reasons: No Are you DNR?: No Advance Directives: No Advance Directives Information Provided: Yes Meds Allergies Allergy/AdvReac Type Severity Reaction Status Date / Time No Known Drug Allergies Allergy Unknown none Verified 07/12/24 08:12 latex AdvReac Intermediate Itching Verified 07/12/24 08:12 Home Medications ?Medication ?Instructions ?Recorded ?Confirmed ?Last Taken ?Type rosuvastatin 40 mg tablet 40 mg PO DAILY 11/06/20 07/11/24 Unknown History sertraline 100 mg tablet 50 - 100 mg PO DAILY PRN Anxiety 07/27/21 07/11/24 Unknown History ezetimibe 10 mg tablet 10 mg PO DAILY 11/02/21 07/11/24 Unknown History CPAP (CPAP Machine/Device) 11/16/22 07/11/24 Unknown History metoprolol succinate 100 mg 100 mg PO DAILY 11/16/22 07/11/24 Unknown History tablet,extended release 24 hr losartan 100 1 tab PO DAILY 04/11/23 07/11/24 Unknown History mg-hydrochlorothiazide 25 mg tablet prazosin 5 mg capsule 5 mg PO BEDTIME 06/08/23 07/11/24 Unknown History aspirin 81 mg chewable tablet 1 tab PO DAILY 12/11/23 07/11/24 Unknown History melatonin 5 mg tablet 5 mg PO BEDTIME sleep 12/11/23 07/11/24 Unknown History fwzusk-hmowygaq-vfyjdzu 2 cap PO BID 04/04/24 07/11/24 Unknown History 36,000-114,000-180,000 unit capsule,delay rel (Creon) Exam Airway Mallampati Class: II (caps on top) TM Dist: >3cm Neck ROM: Full Heart: rrr Lungs: cta Assessment and Plan Assessment Anesthesia Assessment: Anesthesia Plan Discussed Final Anesthetic Review Family History of Problems with Anesthesia: No History of Problems with Anesthesia: No NPO: Yes ASA Class: III Final Preanesthetic Review: No Changes in Pt Med Stat, Meds/Allgs Chart Reviewed and Consent Obtained/Reviewed Patient Risk: Low Procedure Risk: Low Anesthetic Plan Anesthetic Plan: MAC: Disposition: Standard PACU
[2024-07-12 08:16] VITALS: BMI 31.1
[2024-07-12 08:45] VITALS: BP 103/52; PULSE 58; RESP 16; TEMP 36.9; O2SAT 98
[2024-07-12] MEDS: Lactated Ringers 1,000 ML 100 ML IVCONT (08:45)
--- NOTE | 2024-07-12 08:57 | P.HPSUR_ITS ---
Pre-Procedural Eval Section A - 24 Hr Update-Section A only Date of Service: 07/12/24 Section B - Complete if H&P > 30 days Chief Complaint: Severe abd pain Details of Present Illness: Pre-op examination Anemia Lower extremity edema Diarrhea Erectile dysfunction Pulmonary nodules POLLO on CPAP Asthma-COPD overlap syndrome Surgical History Hx of knee surgery Hx of shoulder surgery Hx of cataract surgery History of hand surgery History of carpal tunnel surgery History of esophagogastroduodenoscopy (EGD) Hx of colonoscopy History of carpal tunnel surgery (~2019) History of back surgery (~2018) Allergies: Allergies Allergy/AdvReac Type Severity Reaction Status Date / Time No Known Drug Allergies Allergy Unknown none Verified 07/12/24 08:12 latex AdvReac Intermediate Itching Verified 07/12/24 08:12 Review of Systems Review of Systems Comment: Ten point ROS as above Exam Exam Comment: Gen appear: No acute distress HEENT: no icterus Chest: No overt resp distress Abd: soft, nontender, nondistended Psych: Stable affect, answering questions appropriately Neuro: A/Ox3 noted to move all extremities spontaneously Ext: no peripheral edema Plan Diagnosis/Plan: Unchanged I have reviewed the history and physical and performed a pertinent physical examination on my patient. No changes have occurred unless specified. Time Spent With Patient Time: Total time managing care of this patient today ____ minutes.
--- NOTE | 2024-07-12 08:58 | P.OPN-COLO_ITS ---
Colonoscopy Operative Note Operative Note Date of Service: 07/12/24 Narrative: Procedure: Colonoscopy Indication: Abd pain, personal hx of polyps Endoscopist: Oliva Booker MD Anesthesia Provider: Natty Garcia MD Anesthesia type: MAC Instrument: Olympus [id number]-[id number] Consent: Indication, risks vs benefits, and alternatives were discussed with the patient who gave written informed consent to proceed. An quill stripper was utilized to assist with the consent. EKG, pulse, pulse oximetry and blood pressure were monitored throughout the procedure. Please see anesthesia flowsheet. Procedure: The patient was brought to the procedure room and placed in the left lateral decubitus position. IV medications were administered by the anesthesia provider in attendance. A digital rectal exam was performed which was normal. A distal attachment cap was affixed to the tip of the colonoscope which was then inserted through the anus and advanced through the colon to the cecum at 75 cm,and terminal ileum. Appendiceal orifice and ileocecal valve were identified. Mucosa was carefully examined under high definition white light as the instrument was slowly withdrawn in a retrograde panoramic fashion. Retroflexion was performed in ascending colon and rectum. The procedure was not difficult. There were no immediate obvious complications. The quality of the prep was BBPS: 2+3+3 = adequate Withdrawal time 6 minutes. Limitations: No limitations. Findings: Mucosa: Normal to cecum and terminal ileum. Cold forceps biopsies were taken from the right and left side of the colon to rule out microscopic colitis. Protruding lesions: * Medium internal hemorrhoids without stigmata of recent bleeding. Excavated lesions: * One diverticulum seen in ascending colon Impression: 1. Normal colon mucosa (biopsy) 2. Internal hemorrhoids 3. Rare diverticula Recommendations: - follow-up path results - repeat colonoscopy for asymptomatic colorectal cancer screening in 10 years
[2024-07-12 09:24] VITALS: BP 82/45; PULSE 63; RESP 16; TEMP 36.2; O2SAT 98
[2024-07-12 09:29] VITALS: BP 91/46; PULSE 58; RESP 16; O2SAT 98
[2024-07-12 09:44] VITALS: BP 114/64; PULSE 54; RESP 18; TEMP 36.8; O2SAT 98
== END 2024-07-12 10:20 | disposition home or self-care (01) ==
PROVIDERS: PCP Internal Medicine; Visit Provider Internal Medicine
PROC: 0DJD8ZZ Inspection of Lower Intestinal Tract, Via Natural or Artificial Opening Endoscopic (ICD-10-PCS; CPT 45378; principal; 2024-07-12 09:10)
DX: K57.10 Diverticulosis of small intestine without perforation or abscess without bleeding (principal); K64.8 Other hemorrhoids; Z86.010 Personal history of colon polyps; I10 Essential (primary) hypertension; J44.9 Chronic obstructive pulmonary disease, unspecified; I25.10 Atherosclerotic heart disease of native coronary artery without angina pectoris; D64.9 Anemia, unspecified; R60.0 Localized edema; G47.33 Obstructive sleep apnea (adult) (pediatric); Z99.89 Dependence on other enabling machines and devices; Z87.891 Personal history of nicotine dependence; Z79.82 Long term (current) use of aspirin; Z79.02 Long term (current) use of antithrombotics/antiplatelets; Z79.899 Other long term (current) drug therapy
CPT/HCPCS: 45380; 88305; J2250; J2704

== ENCOUNTER → 2024-07-12 07:03 | Outpatient (BNV) | payer OTHER, SELFPAY | PROVIDERS: PCP Internal Medicine; Visit Provider Internal Medicine | DX: R10.33 Periumbilical pain (principal); Z86.010 Personal history of colon polyps; K64.8 Other hemorrhoids; K57.90 Diverticulosis of intestine, part unspecified, without perforation or abscess without bleeding | CPT/HCPCS: 45380 ==

== ENCOUNTER 2024-07-24 15:35 | Outpatient (AMB) | payer OTHER, SELFPAY ==
--- NOTE | 2024-07-24 15:45 | A.OFFVIS_ITS ---
Vital Signs 07/24/24 15:48 Height 5 ft 11 in Weight 225 lb 12.054 oz BMI 31.5 BP 153/67 H Blood Pressure Location Lt brachial Position Sitting Pulse 55 Intake Visit Reasons: s/p colonoscopy Intake Note: Patient in office today in follow up s/p colonoscopy.. CC: Patient reports doing well and denies having any GI concerns today. Turbine Attendant Required: Yes Allergies No Known Drug Allergies Allergy (Unknown, Verified 07/24/24 15:58) none latex Adverse Reaction (Intermediate, Verified 07/24/24 15:58) Itching HPI HPI s/p colonoscopy: Details: Assessment & Plan (1) GERD (gastroesophageal reflux disease): Code(s): K21.9 - Gastro-esophageal reflux disease without esophagitis Category: Medical (2) IBS (irritable bowel syndrome): Code(s): K58.9 - Irritable bowel syndrome without diarrhea Category: Medical (3) Abdominal bloating: Code(s): R14.0 - Abdominal distension (gaseous) Category: Medical (4) Periumbilical abdominal pain: Code(s): R10.33 - Periumbilical pain Category: Medical (5) Dysphagia: Code(s): R13.10 - Dysphagia, unspecified Category: Medical Plan [place] #Itzel Live He has had the sudden pain that will make him sweat and double him over and it is unpredictable and happened twice since I last saw him. He is not wild about having medication for the pain, but I explain that this is both a test and a treatment. I also suggest he take on qhs and prn for pain. He remains quite concerned that the pain is very severe, and that it may be r/t a life threatening pathology. I suggest a trial of bentyl when the pain happens and we will get a CT. He is quite frustrated. He also has a colonoscopy upcoming, but they put it off until July. ROV 6 weeks. Orders: Orders CT abdomen pelvis w IV con 06/08/24 R10.33 - Periumbilical pain Medications: New dicyclomine 20 mg PO QID PRN 120 tabs 1RF abdominal pain 30 days R10.33 - Periumbilical pain COLONOSCOPY Findings: Mucosa: Normal to cecum and terminal ileum. Cold forceps biopsies were taken from the right and left side of the colon to rule out microscopic colitis. Protruding lesions: * Medium internal hemorrhoids without stigmata of recent bleeding. Excavated lesions: * One diverticulum seen in ascending colon Impression: 1. Normal colon mucosa (biopsy) 2. Internal hemorrhoids 3. Rare diverticula Recommendations: - follow-up path results - repeat colonoscopy for asymptomatic colorectal cancer screening in 10 years BIOPSY Received: 07/12/24 Diagnosis A. Colon, right, biopsy: Colonic mucosa within normal limits. B. Colon, left, biopsy: Colonic mucosa within normal limits. CT ABDOMEN AND PELVIS NOT READ AT THE TIME OF PREPPING THIS CHART TODAY'S VISIT.. Cam[place]onian #Svitlana Live I explain that the colonoscopy is normal. He is agreeable to a 10 year follow up. The procedure was well tolerated. The results were explained and the patient is agreeable to the follow-up interval as stated. The bowel pattern has returned to normal. Education was provided to tell any 1st degree relatives a bout their findings to be sure that they are screened by age 45. Educated that they will be put on a recall list when it is time for their repeat scope but should they move out of state or away from the hospital they will need to remember along with their primary to repeat the procedure in a timely fashion to avoid any adverse complications. He is using the bentyl and he finds it helpful. He uses it 2-3 times a day and I educate him that he can use it up to qid if needed. Unfortunately the CT is not yet read. ROV 8 weeks. [facility] Medical History (Updated 07/12/24 @ 08:54 by Elizabeth Shelley RN) HTN (hypertension) Anemia Lower extremity edema Pre-op examination Erectile dysfunction Diarrhea Pulmonary nodules POLLO on CPAP Asthma-COPD overlap syndrome Surgical History (Updated 07/12/24 @ 08:12 by Elizabeth Shelley RN) Hx of cystoscopy Hx of knee surgery Hx of shoulder surgery Hx of cataract surgery History of hand surgery History of carpal tunnel surgery History of esophagogastroduodenoscopy (EGD) Hx of colonoscopy History of carpal tunnel surgery (~2019) History of back surgery (~2019) Family History Father Throat cancer HTN (hypertension) Paternal Grandfather Heart attack Family/Other Colon cancer Social History Alcohol intake: former Year quit: 2006 Patient Tobacco Use Status: Former Tobacco user Years Smoked: 25 +/- Review of Systems Const Denies fatigue, Denies fever(s), Denies night sweats, Denies poor appetite and Denies weight loss Eyes Details: Glasses Reports requires corrective lenses ENT Reports Normal hearing present, Denies dental pain, Denies dysphagia, Denies hearing loss, Denies mouth pain, Denies odynophagia, Denies throat swelling, Denies tongue swelling and Reports other (Dentition adequate) Card Reports no additional complaints Resp Reports no additional complaints GI Details: Reports abdominal pain, Denies melena, Reports bloating, Denies hematochezia, Denies constipation, Reports GI cramping, Denies dysphagia, Denies excessive flatus, Denies early satiety, Reports heartburn, Denies diarrhea, Denies nausea, Denies odynophagia, Denies vomiting and Denies hematemesis Skin/Breast Denies pruritus, Denies lesions, Denies rash and Denies jaundice Neuro Reports Normal hearing present and Denies Abnormal speech present Endo Denies fatigue Aller/Immun Denies throat swelling and Denies tongue swelling Physical Exam Vital Signs: Last Vital Signs Pulse 55 07/24/24 15:48 BP 153/67 H 07/24/24 15:48 BMI result Body Mass Index 31.5 Const General: cooperative, no acute distress, well developed and well groomed Nutritional Appearance: well nourished and obese Orientation/consciousness: oriented to person, oriented to place and oriented to time Limitations: language barrier HEENT Head: Yes normocephalic and Yes atraumatic Eyes General: appearance normal, both eyes and all related structures Pupils: Equal, round and reactive pupils present Neck Neck: Yes normal visual inspection and Yes no lymphadenopathy Thyroid: Thyroid normal Resp Effort & Inspection: normal respiratory effort and able to speak in complete sentences Auscultation: clear to auscultation bilaterally Cardio Rate: regular rate Rhythm: regular rhythm Heart sounds: Normal, physiologic split S2 sound present Peripheral pulses: radial pulses present and posterior tibial pulses present GI Inspection: No distended, No Abdominal panniculus present and Yes obesity Palpation (GI): Soft to palpation, nontender, no guarding, not rigid and No hepatosplenomegaly present Percussion: Yes normal to percussion Auscultation: normal bowel sounds Rectal Exam - Male: Yes deferred Skin General skin exam: no rashes or lesions noted, turgor normal, skin not dry, no jaundice, No spider nevi and no striae Rashes: no rashes Nails: normal Neuro General: oriented to person, oriented to place and oriented to time Cranial nerves: Yes Equal, round and reactive pupils present and Yes Normal hearing present Speech: No Abnormal speech present Extrem General: Yes normal to inspection, No clubbing, No cyanosis and No edema Psych Appearance: grossly normal and well kempt Mental Status: mental status grossly normal Speech and movement: Normal speech and movement present Affect: normal affect Attitude: cooperative Thought process: Normal thought process present and not confabulating Thought content: Normal thought content present Insight: Limited insight present (Psych) Judgement: Limited judgement present (Psych) Assessment & Plan Assessment & Plan (1) GERD (gastroesophageal reflux disease): Code(s): K21.9 - Gastro-esophageal reflux disease without esophagitis Category: Medical (2) Periumbilical abdominal pain: Code(s): R10.33 - Periumbilical pain Category: Medical (3) Abdominal bloating: Code(s): R14.0 - Abdominal distension (gaseous) Category: Medical Plan [place] #Svitlana Live I explain that the colonoscopy is normal. He is agreeable to a 10 year follow up. The procedure was well tolerated. The results were explained and the patient is agreeable to the follow-up interval as stated. The bowel pattern has returned to normal. Education was provided to tell any 1st degree relatives about their findings to be sure that they are screened by age 45. Educated that they will be put on a recall list when it is time for their repeat scope but should they move out of state or away from the hospital they will need to remember along with their primary to repeat the procedure in a timely fashion to avoid any adverse complications. He is using the bentyl and he finds it helpful. He uses it 2-3 times a day and I educate him that he can use it up to qid if needed. Unfortunately the CT is not yet read. He also continues on his Creon and famotidine. ROV [address] ABDOMEN AND PELVIS NOT READ AT TIME OF LAST VISIT Coding Level of Care Code Est Pt Level 3 (38809) Diagnoses GERD (gastroesophageal reflux disease) K21.9 Periumbilical abdominal pain R10.33 Abdominal bloating R14.0
[2024-07-24 15:48] VITALS: BP 153/67; PULSE 55; BMI 31.5
== END 2024-07-24 16:46 | disposition home or self-care (01) ==
PROVIDERS: PCP Internal Medicine; Visit Provider Nurse Practitioner
DX: K21.9 Gastro-esophageal reflux disease without esophagitis (principal); R10.33 Periumbilical pain; R14.0 Abdominal distension (gaseous)
CPT/HCPCS: 99213

== ENCOUNTER → 2024-07-24 15:35 | Outpatient (BNVA) | payer OTHER, SELFPAY | PROVIDERS: PCP Internal Medicine; Visit Provider Nurse Practitioner | DX: K21.9 Gastro-esophageal reflux disease without esophagitis (principal); K58.9 Irritable bowel syndrome, unspecified; R14.0 Abdominal distension (gaseous); R10.33 Periumbilical pain; R13.10 Dysphagia, unspecified | CPT/HCPCS: 99212 ==

== ENCOUNTER → 2024-08-02 23:59 | Outpatient (BNV) | payer OTHER, SELFPAY | PROVIDERS: PCP Internal Medicine; Visit Provider Internal Medicine Cardiovascular Disease | DX: I20.89 Other forms of angina pectoris (principal); R06.02 Shortness of breath | CPT/HCPCS: 93458; 99152 ==

== ENCOUNTER 2024-08-14 07:08 | Outpatient (REF) | payer OTHER, SELFPAY ==
[2024-08-14 08:17] LABS: Alanine Aminotransferase 19 U/L (0-40); Albumin Level 4.2 g/dL (3.5-5.0); Alkaline Phosphatase 70 U/L (39-117); Anion Gap 13 (12-20); Aspartate Amino Transferase 24 U/L (5-37); Bilirubin Total 0.4 mg/dL (0.0-1.0); Blood Urea Nitrogen 27 mg/dL (9-16); Calcium 9.8 mg/dL (8.4-10.2); Carbon Dioxide 31 mmol/L (22-29); Chloride 98 mmol/L (96-108); Cholesterol 177 mg/dL (<200); Estimated Glomerular Filt Rate > 60; Glucose Random 100 mg/dL (60-115); HDL Cholesterol 56 mg/dL (>40); LDL Cholesterol Calculated 105 mg/dL (<100); Potassium 4.5 mmol/L (3.3-5.1); Sodium 137 mmol/L (135-145); Total Protein 7.1 g/dL (6.5-8.0); Triglycerides 80 mg/dL (<150)
[2024-08-14 08:29] LABS: Thyroid Stimulating Hormone 0.44 uIU/mL (0.32-4.0)
[2024-08-14 08:31] LABS: Prostate Specific Antigen Scr 1.48 ng/mL (<0.05-4.0)
[2024-08-19 15:03] LABS: Testosterone, Free 84.5 pg/mL (35.0-155.0); Testosterone, Total 567 ng/dL (250-1100)
== END 2024-08-14 07:09 | disposition home or self-care (01) ==
LOC: HO.LAB 07:08
PROVIDERS: Urology; PCP Internal Medicine; Visit Provider Internal Medicine
DX: N52.9 Male erectile dysfunction, unspecified (principal); N40.1 Benign prostatic hyperplasia with lower urinary tract symptoms; N13.8 Other obstructive and reflux uropathy
CPT/HCPCS: 36415; 80053; 80061; 84153; 84402; 84403; 84443

== ENCOUNTER 2024-09-06 14:24 | Outpatient (REF) | payer OTHER, SELFPAY ==
--- NOTE | 2024-09-06 17:04 | MHC.AU.HA3 ---
Hearing Instrument Follow-Up- Binaural Date of Visit: 09/06/24 Right Ear: Make, Model, Color, Serial Number: Toi PARHAM 1600 ITC-R SN: [id number] Color: [place] Systems Test Engineer Repair Warranty: 10/18/2025 Systems Test Engineer Loss and Damage Warranty: 10/18/2025 [facility] Service Plan: 11/04/2023 Battery Size: Rechargeable Type of Wax Guard: HearClear Dispensed By: [facility] Date of Fittin11/04/2022 Left Ear: Make, Model, Color, Serial Number: Toi PARHAM 1600 ITC-R SN: [id number] Color: [place] Systems Test Engineer Repair Warranty: 10/18/2025 Systems Test Engineer Loss and Damage Warranty: 10/18/2025 [facility] Service Plan: 11/04/2023 Battery Size: Rechargeable Type of Wax Guard: HearClear Dispensed By: [facility] Date of Fittin11/04/2022 Follow-Up Summary: Updated hearing test - stable, right ear, slight improvement, left ear (see audio). Cleaned HAs. Replaced wax guards and microphone covers. Vacuumed microphones. Ran through dehumidifier. Listening check demonstrated HAs amplifying clearly. Reprogrammed HAs to updated test. HAs reportedly working fine, bigger concern is constant left-sided tinnitus. Bothersome, affects overall mood. HAs reportedly have no affect on perception of tinnitus. Discussed management strategies. Recommended discussing Cognitive Behavioral Therapy with PCP and consider referral to therapist given how much it affects his day-to-day life. Also opted to try masking program. Added P2 with masking noise in left ear. No noticeable affect in office but willing to try. Instructed how to change program using push button. Recommendations: Hearing instrument follow-up or maintenance as needed. Please contact our clinic with any questions or concerns. Diagnosis Code(s): Primary Diagnosis: H90.3 Bilateral Sensorineural Hearing Loss Signature: Provider: Chely Cleveland, [facility]
== END 2024-09-06 14:25 | disposition home or self-care (01) ==
LOC: HO.SH 14:24
PROVIDERS: Visit Provider Internal Medicine
DX: Z01.118 Encounter for examination of ears and hearing with other abnormal findings (principal); H90.3 Sensorineural hearing loss, bilateral
CPT/HCPCS: 92557; 92593; 99499

== ENCOUNTER 2024-09-12 12:51 | Outpatient (AMB) | payer OTHER, SELFPAY ==
--- NOTE | 2024-09-12 13:10 | A.OFFVIS_ITS ---
Intake Visit Reasons: 6M PSA/Testo(set) Intake Note: Patient is present for PSA/Testosterone Results Urology Med: Sildenafil, Tadalafil Antibiotic Allergy: None Blood Thinner: Aspirin LABS: 08/14/2024 - PSA: 1.48 - Total Testosterone: 567 - Free Testosterone: 84.5 Rehabilitation Center Manager Required: Yes Rehabilitation Center Manager Language: Concession Attendant Services: Rehabilitation Center Manager Present Accompanied by: Self / Same As Patient Allergies No Known Drug Allergies Allergy (Unknown, Verified 09/12/24 13:12) none latex Adverse Reaction (Intermediate, Verified 09/12/24 13:12) Itching Medication List - Last Reconciled 09/12/24 by Adam Esteban MD albuterol sulfate 90 mcg/actuation 2 inhalations inhalation Q6H PRN 30 days aspirin 1 tab PO DAILY baclofen 20 mg PO BID 30 days comp.stocking,thigh,long,large 20/30 cm CPAP (CPAP Machine/Device) As directed dicyclomine 20 mg PO QID PRN 90 days ezetimibe 10 mg PO DAILY famotidine 40 mg PO BEDTIME gabapentin 300 mg PO DAILY [id number] 36,000-114,000- 180,000 unit (Creon) 2 caps PO BID losartan-hydrochlorothiazide 100-25 mg 1 tab PO DAILY melatonin 5 mg PO BEDTIME 30 days metoprolol succinate ER 100 mg PO DAILY prazosin 5 mg PO BEDTIME rosuvastatin 40 mg PO DAILY sertraline 50 - 100 mg PO DAILY PRN sildenafil 100 mg PO ONCE PRN 30 days Symbicort 160-4.5 mcg/actuation (budesonide-formoterol) 2 puffs PO BID NS tadalafil 5 mg PO DAILY 90 days HPI Comments Details: Morteza is a very pleasant male. He is a patient of . He is seen for the following urologic conditions - urinary tract symptoms - erectile dysfunction Six-month follow-up Turkmen translation provided by qualified medical records technician Would like refill of on demand sildenafil Urinating well Discussed test results Six-month follow-up Lower urinary tract symptoms Prior treatment medication Prior procedure with laser 2018 Currently reports adequate bladder storage and emptying PSA 04/13 0.9, 02/12 0.7, 07/16 0.9, 12/17 1.1 Erectile dysfunction Progressive Able to obtain but cannot maintain erection Sufficient for penetration Good response to daily tadalafil with on demand 08/16 T 567 Encouraged to continue to use CPAP PFSH Medical History HTN (hypertension) Anemia Lower extremity edema Pre-op examination Erectile dysfunction Diarrhea Pulmonary nodules POLLO on CPAP Asthma-COPD overlap syndrome Surgical History Hx of cystoscopy Hx of knee surgery Hx of shoulder surgery Hx of cataract surgery History of hand surgery History of carpal tunnel surgery History of esophagogastroduodenoscopy (EGD) Hx of colonoscopy History of carpal tunnel surgery (~2019) History of back surgery (~2019) Family History Father Throat cancer HTN (hypertension) Paternal Grandfather Heart attack Family/Other Colon cancer Social History Alcohol intake: former Year quit: 2006 Patient Tobacco Use Status: Former Tobacco user Years Smoked: 25 +/- Review of Systems Const Denies chills and Denies fever(s) Card Reports no additional complaints and Denies syncope Resp Denies cough GI Denies abdominal pain and Denies heartburn Reports as per HPI and Denies change in libido Neuro Denies syncope Psych Denies change in libido Endo Denies change in libido Physical Exam Const General: cooperative, healthy appearing, comfortable and no acute distress Orientation/consciousness: patient oriented x3 HEENT Face and sinus: Yes normal facial exam Mouth: moist mucous membranes Neck Neck: Yes normal visual inspection, Yes full ROM and Yes trachea midline Chest Chest palpation & inspection: normal inspection of the chest Resp Effort & Inspection: normal respiratory effort, able to speak in complete sentences and no respiratory distress GI Inspection: Yes normal to inspection Back/Spine/Pelvis Cervical Spine: normal cervical lordosis Thoracic/Lumbar Spine: thoracic and lumbar spine normal to inspection Skin General skin exam: no rashes or lesions noted Neuro General: patient oriented x3, gait normal, tone normal and moves all extremities Extrem General: Yes normal to inspection and Yes capillary refill normal Assessment & Plan Assessment & Plan (1) BPH w urinary obs/LUTS: Code(s): N40.1 - Benign prostatic hyperplasia with lower urinary tract symptoms; N13.8 - Other obstructive and reflux uropathy Category: Medical (2) Erectile dysfunction: Code(s): N52.9 - Male erectile dysfunction, unspecified Category: Medical Plan Six-month follow-up Medications: Refilled sildenafil as needed 60 min before activity 100 mg PO ONCE PRN 30 tabs 0RF sexual activity 30 days N52.9 - Male erectile dysfunction, unspecified Patient Instructions: Imaging studies, laboratory and physical exam results were discussed and reviewed in detail. No major barriers to patient understanding were identified. An opportunity to ask questions regarding the treatment plan was provided. All questions were answered. The patient expressed understanding and agreement with the above treatment plan. The patient is aware they should contact our office by phone for worsening of their current condition or the appearance of new urologic symptoms. Compliance is encouraged with any medications and followup testing that is ordered. It is a privilege to participate in the urologic care of your patient. If you have any questions or concerns regarding treatment for the above conditions, or other urologic issues, please do not hesitate to contact me. The office telephone contact is [phone]. This note is constructed using voice recognition software. While every effort has been made to ensure accuracy competitive intelligence manager errors may have been included. Yours sincerely, Dr Adam Esteban MD, [facility] - Urology Providers of Expert, Compassionate Care for the Genitourinary System Coding Level of Care Code Est Pt Level 4 (89508) Diagnoses BPH w urinary obs/LUTS N40.1; N13.8 Erectile dysfunction N52.9
== END 2024-09-12 13:50 | disposition home or self-care (01) ==
PROVIDERS: PCP Internal Medicine; Visit Provider Urology
DX: N40.1 Benign prostatic hyperplasia with lower urinary tract symptoms (principal); N13.8 Other obstructive and reflux uropathy; N52.9 Male erectile dysfunction, unspecified
CPT/HCPCS: 99214

== ENCOUNTER → 2024-09-12 12:51 | Outpatient (BNVA) | payer OTHER, SELFPAY | PROVIDERS: PCP Internal Medicine; Visit Provider Urology | DX: N40.1 Benign prostatic hyperplasia with lower urinary tract symptoms (principal); N13.8 Other obstructive and reflux uropathy; N39.0 Urinary tract infection, site not specified; N52.9 Male erectile dysfunction, unspecified | CPT/HCPCS: 99212 ==

== ENCOUNTER 2024-10-30 09:57 | Outpatient (AMB) | payer OTHER, SELFPAY ==
--- NOTE | 2024-10-30 10:01 | A.OFFVIS_ITS ---
VS Expanded 10/30/24 10:13 BP 113/59 L Blood Pressure Location Lt brachial Blood Pressure Position Sitting Pulse 74 Pulse Source Pulse Oximeter Pulse Oximetry 98 Height 5 ft 11 in Weight 220 lb BMI 30.7 Body Fat % 30.6 Body Fat Mass 67.2 Fat Free Mass 152.6 Visceral Fat Rating 17.0 Body Water % 47.0 Body Water Mass 103.4 Muscle Mass/Score 145.0 Basal Metabolic Rate/Score 2,041 Intake Visit Reasons: (OV) F/U [facility] Employment Specialist/Program Manager Required: Yes Employment Specialist/Program Manager Name: Marylou [id number]/ [id number] Information Interpreted: clinical only Allergies latex Adverse Reaction (Intermediate, Verified 10/30/24 10:13) Itching Medication List - Last Reconciled 10/30/24 by NJ Farias albuterol sulfate 90 mcg/actuation 2 inhalations inhalation Q6H PRN 30 days aspirin 1 tab PO DAILY baclofen 10 mg PO TID comp.stocking,thigh,long,large 20/30 cm CPAP (CPAP Machine/Device) As directed dicyclomine 20 mg PO QID PRN 90 days famotidine 40 mg PO BEDTIME gabapentin 300 mg PO DAILY losartan-hydrochlorothiazide 100-25 mg 1 tab PO DAILY melatonin 5 mg PO BEDTIME 30 days metoprolol succinate ER 100 mg PO DAILY rosuvastatin 40 mg PO DAILY sertraline 50 - 100 mg PO DAILY PRN sildenafil 100 mg PO ONCE PRN 30 days Symbicort 160-4.5 mcg/actuation (budesonide-formoterol) 2 puffs PO BID NS tadalafil 5 mg PO DAILY 90 days HPI Comments Details: 64 yo man seen in followup for [facility]. Restarted Nov 2022 at 263 lbs (after having gained 15 lbs) and at his last appt he weighed 222.6lbs 6 mo ago. Has multiple physical pain points. Pt reports feeling bloated/full, this has been present for a while- was seen by GI. Had imaging, colonoscopy and endoscopy. Has follow up appt next week. Was just in [place] for over a month. Meal plan breakfast - 3 eggs with cheese, Cranberry lunch - vegetables and meat dinner - root vegetables, protein no snacks Exercise now - treadmill 3d - alternates with bicycle. does some weight training going to PT for neck/shoulder pain PFSH Medical History HTN (hypertension) Anemia Lower extremity edema Pre-op examination Erectile dysfunction Diarrhea Pulmonary nodules POLLO on CPAP Asthma-COPD overlap syndrome Surgical History Hx of cystoscopy Hx of knee surgery Hx of shoulder surgery Hx of cataract surgery History of hand surgery History of carpal tunnel surgery History of esophagogastroduodenoscopy (EGD) Hx of colonoscopy History of carpal tunnel surgery (~2019) History of back surgery (~2019) Family History Father Throat cancer HTN (hypertension) Paternal Grandfather Heart attack Family/Other Colon cancer Social History Alcohol intake: former Year quit: 2006 Patient Tobacco Use Status: Former Tobacco user Years Smoked: 25 +/- Physical Exam Vital Signs: Last Vital Signs Pulse 74 10/30/24 10:13 BP 113/59 L 10/30/24 10:13 Pulse Ox 98 10/30/24 10:13 BMI result Body Mass Index 30.7 Assessment & Plan Assessment & Plan (1) Obesity: Code(s): E66.9 - Obesity, unspecified Category: Medical Plan Pt continues to lose weight on current meal plan. Ate off plan in [place] but plans to get back to normal routine now that he has returned. Pt requests labs to be done, last done in Nov 2023 so we can repeat. He is having trouble sleeping, would like to check vitamin levels. RTC 6 months. I spent a total of 30 minutes reviewing/updating records, examining the patient and counseling the patient on weight management as detailed above. Orders: Orders Complete Blood Count Auto Diff Today E66.9 - Obesity, unspecified Lipid Panel Today E66.9 - Obesity, unspecified Comprehensive Met. Panel Today E66.9 - Obesity, unspecified Vitamin A Today E66.9 - Obesity, unspecified Insulin Today E66.9 - Obesity, unspecified Hemoglobin A1c Today E66.9 - Obesity, unspecified IRON PROFILE Today E66.9 - Obesity, unspecified Vitamin B12 and Folate Today E66.9 - Obesity, unspecified Zinc Today E66.9 - Obesity, unspecified C Reactive Protein Today E66.9 - Obesity, unspecified Vitamin B1 Today E66.9 - Obesity, unspecified TSH reflex Free T4 Today E66.9 - Obesity, unspecified Ferritin Today E66.9 - Obesity, unspecified Vitamin D 25-OH Total Today E66.9 - Obesity, unspecified
[2024-10-30 10:13] VITALS: BP 113/59; PULSE 74; O2SAT 98; BMI 30.7
== END 2024-10-30 11:08 | disposition home or self-care (01) ==
PROVIDERS: PCP Internal Medicine; Visit Provider Physician Assistant Surgical
DX: E66.811 Obesity, class 1 (principal); Z68.30 Body mass index [BMI] 30.0-30.9, adult
CPT/HCPCS: 99214; G2211

== ENCOUNTER → 2024-10-30 09:57 | Outpatient (BNVA) | payer OTHER, SELFPAY | PROVIDERS: PCP Internal Medicine; Visit Provider Physician Assistant Surgical | DX: E66.9 Obesity, unspecified (principal); Z71.3 Dietary counseling and surveillance; Z68.30 Body mass index [BMI] 30.0-30.9, adult | CPT/HCPCS: 99212 ==

== ENCOUNTER 2024-10-31 07:56 | Outpatient (REF) | payer OTHER, SELFPAY ==
[2024-10-31 08:18] LABS: MANUAL DIFF FLAG NO
[2024-10-31 08:33] LABS: Basophils Percent Auto 0.6 % (0-2); Eosinophils Absolute Auto 0.1 X10*3/uL (0.0-0.4); Eosinophils Percent Auto 2.2 % (0-4); Hemoglobin 13.6 g/dl (14.0-18.0); Imm Gran Abs Auto 0.02 X10*3/uL (0.00-0.03); Imm Gran Pct Auto 0.4 % (0.0-0.4); Lymphocytes Absolute Auto 1.6 X10*3/uL (1.2-4.9); Lymphocytes Percent Auto 30.9 % (20-40); Mean Corpuscular HGB Conc 34.9 g/dl (31.0-36.0); Mean Corpuscular Volume 88.8 fL (80.0-98.0); Mean Platelet Volume 9.7 fL (9.4-12.4); Monocytes Absolute Auto 0.4 X10*3/uL (0.1-1.2); Monocytes Percent Auto 7.9 % (2-11); Neutrophils Absolute Auto 2.9 x10*3/uL (2.0-8.3); Platelet Count 245 X10*3/uL (160-400); Red Blood Count 4.39 X10*6/uL (4.60-5.80); Red Cell Distribution Width 12.8 % (11.0-16.0); White Blood Count 5.1 X10*3/uL (4.8-10.8)
[2024-10-31 08:43] LABS: Estimated Average Glucose 108 mg/dL; Hemoglobin A1C 124.1147 umol/L; Hemoglobin A1c % 5.4 % (<6.0); Total Hemoglobin (HGBA1C) 3463.1395 umol/L
[2024-10-31 09:11] LABS: Alanine Aminotransferase 26 U/L (0-40); Albumin Level 4.3 g/dL (3.5-5.0); Alkaline Phosphatase 63 U/L (39-117); Anion Gap 13 (12-20); Aspartate Amino Transferase 29 U/L (5-37); Bilirubin Total 0.5 mg/dL (0.0-1.0); Blood Urea Nitrogen 16 mg/dL (9-16); C Reactive Protein 0.12 mg/dL (< or = 0.50); Calcium 9.4 mg/dL (8.4-10.2); Carbon Dioxide 29 mmol/L (22-29); Chloride 104 mmol/L (96-108); Cholesterol 131 mg/dL (<200); Estimated Glomerular Filt Rate > 60; Glucose Random 104 mg/dL (60-115); HDL Cholesterol 57 mg/dL (>40); Iron 99 mcg/dL (45-160); LDL Cholesterol Calculated 57 mg/dL (<100); Percent Iron Saturation 37 % (15-50); Potassium 4.2 mmol/L (3.3-5.1); Sodium 142 mmol/L (135-145); Total Iron Binding Capacity 271 mcg/dL (228-428); Total Protein 7.4 g/dL (6.5-8.0); Triglycerides 88 mg/dL (<150); Unsaturated Iron Binding 172 ug/dL
[2024-10-31 09:40] LABS: Ferritin 182 ng/mL (20-250); TSH reflex Free T4 0.55 uIU/mL (0.32-4.0)
[2024-10-31 09:42] LABS: Folate 15.3 ng/mL (> or = 4.0); Vitamin B12 444 pg/mL (200-900)
[2024-10-31 10:43] LABS: Insulin 8 uU/mL (2-29)
[2024-11-03 14:34] LABS: Zinc 92 mcg/dL (60-130)
[2024-11-06 14:38] LABS: Vitamin B1 11 nmol/L (8-30)
[2024-11-07 21:19] LABS: Vitamin A 88 mcg/dL (38-98)
== END 2024-10-31 07:57 | disposition home or self-care (01) ==
LOC: HO.LAB 07:56
PROVIDERS: PCP Internal Medicine; Visit Provider Physician Assistant Surgical
DX: E66.9 Obesity, unspecified (principal)
CPT/HCPCS: 36415; 80053; 80061; 82306; 82607; 82728; 82746; 83036; 83525; 83540; 84425; 84443; 84590; 84630; 85025; 86140

== ENCOUNTER 2024-11-27 12:36 | Outpatient (RCR) | payer OTHER, SELFPAY ==
--- NOTE | 2024-10-29 16:33 | MHC.PT.EP ---
[facility] [place] Office [place] [facility] [place] [facility] [address] Hillary Osborn [address] [phone] F: [phone] F: [phone] F: [phone] F: [phone] Physical Therapy Plan of Care Date of Evaluation: 10/29/24 Date of Surgery: Diagnosis: DJD cervical spine. Assessment: Pt is a 64 y/o male referred to PT for eval and treat of reports in November of 2022 he fell in his bathroom and injured his neck, R shoulder and R knee and persists with R shoulder and neck pain which is resulting in decreased tolerance for reaching high shelves, driving his car, performing heavier HH chores, lifting objects of weight, as well as disturbed sleep secondary to decreased cervical ROM and strength, decreased R shoulder ROM and strength, traumatic fall, previous cervical surgery, TTP of R shoulder structures, and pain. Pt is deemed an appropriate candidate to receive skilled PT services to address their physical impairments in order to improve their functional ability. Frequency and Duration: The patient will be seen 2 x/ wk x 4 wks. Short Term Goals: initiate home program. Baseline pain improved to at most 4/10; initial: 7/10. Maternal Child Nurse Goals: I with home program. symmetrical functional shoulder IR ROM achieved: initial: R to L1 painful end; L to T6. Pt will demonstrate full (cervical fusion considered) cervical rotation with painless end ranges. Pt will be able to drive his car w/o limiting cervical pain. Pt will report at most 1/4 disturbed sleep d/t neck pain; initial 1/2 - 3/4 disturbed. Treatment Plan: Modalities to reduce pain, spasms and effusion. Manual therapy to restore motion and function. Therapeutic exercise to improve strength and flexibility. Neuromuscular re-education for posture and balance. Therapeutic activities to return to functional activities of daily living. Electronically signed by: Last Please sign and return to therapist. Thank you for your referral.
== END 2024-11-27 17:50 | disposition home or self-care (01) ==
LOC: HO.PT 12:36
PROVIDERS: PCP Internal Medicine; Visit Provider Internal Medicine
DX: M50.30 Other cervical disc degeneration, unspecified cervical region (principal)
CPT/HCPCS: 97014; 97110; 97161

== ENCOUNTER 2025-01-11 12:52 | Outpatient (AMB) | payer OTHER, SELFPAY ==
[2025-01-11 13:04] VITALS: BP 132/68; PULSE 72; O2SAT 97; BMI 32.3
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
== END 2025-01-11 13:47 | disposition home or self-care (01) ==
LOC: HO.HPS 12:52
PROVIDERS: PCP Internal Medicine; Visit Provider Hospitalist
DX: J44.9 Chronic obstructive pulmonary disease, unspecified (principal); G47.33 Obstructive sleep apnea (adult) (pediatric); Z99.89 Dependence on other enabling machines and devices; R91.8 Other nonspecific abnormal finding of lung field; R06.00 Dyspnea, unspecified
CPT/HCPCS: 99214; G2211

== ENCOUNTER → 2025-01-11 12:52 | Outpatient (BNVA) | payer OTHER, SELFPAY | PROVIDERS: PCP Internal Medicine; Visit Provider Hospitalist | DX: J44.9 Chronic obstructive pulmonary disease, unspecified (principal); R91.8 Other nonspecific abnormal finding of lung field; R06.00 Dyspnea, unspecified; G47.33 Obstructive sleep apnea (adult) (pediatric); Z99.89 Dependence on other enabling machines and devices | CPT/HCPCS: 99212 ==

== ENCOUNTER 2025-02-19 09:23 | Outpatient (AMB) | payer OTHER, SELFPAY ==
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
[2025-02-19 09:30] VITALS: BP 149/84; PULSE 80; O2SAT 98; BMI 31.8
--- OUTSIDE RECORDS SUMMARY | 2025-02-19 10:15 | XMS_ITS | Clinical Summary ---
Author Organization [employer] [facility] ity Address [address] [place] [address] Care Team Providers Care Plant And Instrument Engineer Name Role Phone Delia Davila MD Primary Care Provider [phone] Encounters Date Type Department Care Team Description 02/14/2025 [facility]ostic [address] [place] [address] Martin Hardy MD Seizure disorder ([facility] V24, [facility] V28) 02/13/2025 [facility] [address] [place] [phone] Martin Hardy MD Seizure disorder ([facility] V24, [facility] V28) 02/12/2025 [facility] [address] [place] [phone] Martin Hardy MD Seizure disorder ([facility] V24, [facility] V28) from Last 3 Months Surgical History Surgery Date Site/Laterality Comments SHOULDER SURGERY PROCEDURE: HISTORICAL SHOULDER SURGERY NECK SURGERY PROCEDURE: HISTORICAL NECK SURGERY Medical History Medical History Date Comments Essential hypertension DX:Essent ial hypertension Hyperlipidemia DX:Hyperlipidemi a COPD (chronic obstructive pu lmonary disease) ([facility] V24, [facility] V28) 06/30/2023 DX:COPD (chronic o bstructive pulmonary disease) ([facility]) Depression 06/30/2023 DX:Depression Social History Tobacco Use Types Packs/Day Years Used Date Smoking Tobacco: Former Smokeless Tobacco: Never Alcohol Use Standard Drinks/Week Comments Not Currently 0 (1 standard drink = 0.6 oz pur e alcohol) Sex and Gender Information Value Date Recorded Sex Assigned at Not on file Legal Sex Male 5:01 AM EST Gender Identity Not on file Sexual Orientation Not on file Obstetrics History Last Filed Vital Signs Vital Sign Reading Time Taken Comments Blood Pressure 148/84 04/22/2022 1:15 PM EDT Sit ting R Arm Pulse 81 04/22/2022 1:15 PM EDT Temperature - - Respiratory Rate - - Oxygen Saturation - - Inhaled Oxygen Concentration - - Weight 111 kg (245 lb) 02/14/2024 9:41 AM EDT Height 180.3 cm (5' 11 ) 02/14/2024 9:41 AM EDT Body Mass Index 34.17 02/14/2024 9:41 AM EDT Plan of Treatment Upcoming Encounters Date Type Department Care Team (Late st Contact Info) Description 05/14/2025 10:00 AM EDT Appointment [facility] Neurodiagnostic [address] [place] [phone] 05/15/2025 11:00 AM EDT Appointment [facility] Neurodiagnostic [address] [place] [phone] 05/16/2025 11:00 AM EDT Appointment [facility] Neurodiagnostic [address] [place] [phone] Health Maintenance Due Date Last Done Comments DTaP,Tdap,and Td Vaccines (1 - Tdap) 1980 Pneumococcal Vaccine: 50+ Ye ars (1 of 2 - PCV) 1980 Pneumococcal Vaccine: Pediat rics (0 to 5 Years) and At-Risk Patients (6 to 64 Years) (1 of 2 - PCV) 1980 Zoster Vaccines (1 of 2) 2011 RSV Immunization Adult Patie nts (1 - Risk 60-74 years 1-dose series) 2021 Cholesterol Screening (Lipid Panel) 10/02/2022 Colorectal Cancer Screening: Colonoscopy 10/02/2022 Depression Screening 10/02/2022 HIV Screening 10/02/2022 Hepatitis C Screening 10/02/2022 Social Influencers of Health Screening 10/02/2022 Hypertension/CHF/CAD Annual BMP Blood Test 12/07/2023 COVID-19 Vaccine (2023-2 5 season) 2024 Influenza Vaccine (Season Ended) 2025 HIB Vaccines Aged Out No longer eligi ble based on patient's age to complete this topic HPV Vaccines Aged Out No longer eligi ble based on patient's age to complete this topic Hepatitis A Vaccines Aged Out No long er eligible based on patient's age to complete this topic Hepatitis B Vaccines Aged Out No long er eligible based on patient's age to complete this topic IPV Vaccines Aged Out No longer eligi ble based on patient's age to complete this topic MMR Vaccines Aged Out No longer eligi ble based on patient's age to complete this topic Meningococcal ACWY Vaccine Aged Out N o longer eligible based on patient's age to complete this topic Meningococcal B Vaccine Aged Out No l onger eligible based on patient's age to complete this topic RSV Immunization Patients Un bianca 20 months Aged Out No longer eligible b ased on patient's age to complete this topic Varicella Vaccines Aged Out No longer eligible based on patient's age to complete this topic Insurance [address] [place] [address] [facility] [place] [address] Care Teams Plant And Instrument Engineer Relationship Specialty Start Date End Date Delia Davila MD [address] [facility] [address] [place], [place] PCP - General Internal Medicine 04/03/21
--- OUTSIDE RECORDS SUMMARY | 2025-02-19 10:15 | XMS_ITS | Encounter Summary ---
Author Organization [facility] Address [address] [place] [address] Care Team Providers Care Coarse Wire Drawer Name Role Phone Delia Davila MD Primary Care Provider [phone] Encounter Details Date Type Department Care Team (Late st Contact Info) Description 02/12/2025 Lab [facility] Neurodiagnostic [address] [place] [phone] Martin Hardy MD [address] [place] [address] [place] [address] Seizure disorder (CMS/HCC V24, CMS/HCC V28) Social History Tobacco Use Types Packs/Day Years Used Date Smoking Tobacco: Former Smokeless Tobacco: Never Alcohol Use Standard Drinks/Week Comments Not Currently 0 (1 standard drink = 0.6 oz pur e alcohol) Sex and Gender Information Value Date Recorded Sex Assigned at Not on file Legal Sex Male 5:01 AM EST Gender Identity Not on file Sexual Orientation Not on file documented as of this encounter Plan of Treatment Upcoming Encounters Date Type Department Care Team (Late st Contact Info) Description 05/14/2025 10:00 AM EDT Appointment [facility] Neurodiagnostic [address] [place] [address] 05/15/2025 11:00 AM EDT Appointment [facility] Neurodiagnostic [address] [place] [address] 05/16/2025 11:00 AM EDT Appointment [facility] Neurodiagnostic [address] [place] [address] documented as of this encounter Visit Diagnoses Diagnosis Seizure disorder (CMS/[facility] V24, [facility] V28) Unspecified epilepsy without mention of intractable epilepsy documented in this encounter Orders Neurology Count Last Ordered Date First Orde red Date CONTINUOUS EEG 1 02/12/2025 documented in this encounter Care Teams Coarse Wire Drawer Relationship Specialty Start Date End Date Delia Davila MD [address] PCP - General Internal Medicine 04/03/21 documented as of this encounter
--- OUTSIDE RECORDS SUMMARY | 2025-02-19 10:15 | XMS_ITS | Encounter Summary ---
Author Organization [facility] Address [address] [place] [address] Care Team Providers Care Wardrobe Mistress Name Role Phone Delia Davila MD Primary Care Provider [phone] Encounter Details Date Type Department Care Team (Late st Contact Info) Description 02/14/2025 Lab [facility] Neurodiagnostic [address] [place] [phone] Martin Hardy MD [address] [place] [address] [place] [address] Seizure disorder (CMS/HCC V24, CMS/HCC V28) Social [...] Info) Description 05/14/2025 10:00 AM EDT Appointment [facility] Neurodiagnostic [address] [place] [address] 05/15/2025 11:00 AM EDT Appointment [facility] Neurodiagnostic [address] [place] [address] 05/16/2025 11:00 AM EDT Appointment [facility] Neurodiagnostic [address] [place] [address] documented as of this encounter Visit Diagnoses Diagnosis Seizure disorder (CMS/[facility] V24, CMS/[facility] V28) Unspecified epilepsy without mention of intractable epilepsy documented in this encounter Orders Neurology Count Last Ordered Date First Orde red Date CONTINUOUS EEG 1 02/14/2025 documented in this encounter Care Teams Wardrobe Mistress Relationship Specialty Start Date End Date Delia Davila MD [address] PCP - General Internal Medicine 04/03/21 documented as of this encounter
--- OUTSIDE RECORDS SUMMARY | 2025-02-19 10:15 | XMS_ITS | Encounter Summary ---
Author Organization [facility] Address [address] [place] [address] Care Team Providers Care Etiquette Coach Name Role Phone Delia Davila MD Primary Care Provider [phone] Encounter Details Date Type Department Care Team (Late st Contact Info) Description 02/13/[address] [facility] Neurodiagnostic [address] [place] [phone] Martin Hardy MD [address] [place] [address] [place] [address] Seizure disorder (CMS/HCC V24, CMS/HCC V28) Social [...] Info) Description 05/14/2025 10:[address] [facility] Neurodiagnostic [address] [place] [address] 05/15/2025 11:[address] [facility] Neurodiagnostic [address] [place] [phone] 05/16/2025 11:[address] [facility] Neurodiagnostic [address] [place] [address] documented as of this encounter Visit Diagnoses Diagnosis Seizure disorder (CMS[facility] V24, CMS/[facility] V28) Unspecified epilepsy without mention of intractable epilepsy documented in this encounter Orders Neurology Count Last Ordered Date First Orde red Date CONTINUOUS EEG 1 02/12/2025 documented in this encounter Care Teams Etiquette Coach Relationship Specialty Start Date End Date Delia Davila MD [address] PCP - General Internal Medicine 04/03/21 documented as of this encounter
== END 2025-02-19 10:07 | disposition home or self-care (01) ==
LOC: HO.PMC 09:23
PROVIDERS: PCP Internal Medicine; Visit Provider Nurse Practitioner Family
DX: M47.812 Spondylosis without myelopathy or radiculopathy, cervical region (principal); M96.1 Postlaminectomy syndrome, not elsewhere classified; M54.2 Cervicalgia; M50.30 Other cervical disc degeneration, unspecified cervical region
CPT/HCPCS: 99204

== ENCOUNTER → 2025-02-19 09:23 | Outpatient (BNVA) | payer OTHER, SELFPAY | PROVIDERS: PCP Internal Medicine; Visit Provider Nurse Practitioner Family | DX: M47.812 Spondylosis without myelopathy or radiculopathy, cervical region (principal); M50.30 Other cervical disc degeneration, unspecified cervical region; G89.29 Other chronic pain; M96.1 Postlaminectomy syndrome, not elsewhere classified | CPT/HCPCS: 99202 ==

== ENCOUNTER 2025-03-12 09:35 | Outpatient (AMB) | payer OTHER, SELFPAY ==
--- NOTE | 2025-03-12 09:35 | A.OFFVIS_ITS ---
Intake Visit Reasons: 6m follow up Intake Note: Pt presents as a telehealth visit today for a 6 month follow up. Overhead Distribution Engineer Required: Yes Overhead Distribution Engineer Language: Haitian Allergies alprazolam (From Xanax) Allergy (Unknown, Verified 03/12/25 09:36) Hives latex Adverse Reaction (Intermediate, Verified 03/12/25 09:36) Itching HPI Comments Details: Morteza is a very pleasant male. He is a patient of . He is seen for the following urologic conditions - urinary tract symptoms - erectile dysfunction Six-month follow-up Telemedicine Evaluation 15 min Consultation [employer] [place] Video Haitian translation provided by qualified medical data analyst Would like refill of on demand sildenafil Urinating well Six-month follow-up Lower urinary tract symptoms Prior treatment medication Prior procedure with laser 2018 Currently reports adequate bladder storage and emptying PSA 04/13 0.9, 02/12 0.7, 07/16 0.9, 12/17 1.1 Erectile dysfunction Progressive Able to obtain but cannot maintain erection Sufficient for penetration Good response to daily tadalafil with on demand 08/16 T 567 Encouraged to continue to use CPAP PFSH Medical History HTN (hypertension) Anemia Lower extremity edema Pre-op examination Erectile dysfunction Diarrhea Pulmonary nodules POLLO on CPAP Asthma-COPD overlap syndrome Surgical History History of fusion of cervical spine Hx of cystoscopy Hx of knee surgery Hx of shoulder surgery Hx of cataract surgery History of hand surgery History of carpal tunnel surgery History of esophagogastroduodenoscopy (EGD) Hx of colonoscopy History of carpal tunnel surgery (~2019) History of back surgery (~2018) Family History Father Throat cancer HTN (hypertension) Paternal Grandfather Heart attack Family/Other Colon cancer Social History Alcohol intake: former Year quit: 2006 Patient Tobacco Use Status: Former Tobacco user Years Smoked: 25 +/- Review of Systems Const All systems reviewed & are unremarkable except as noted in HPI and below Reports no additional complaints Resp Reports no additional complaints GI Reports no additional complaints Reports as per HPI Musc Reports no additional complaints Physical Exam Telemedicine evaluation Appropriate responses Regular breathing rate and rhythm HEENT Head: Yes normal to inspection Ears: hearing grossly normal bilaterally Eyes General: appearance normal, both eyes and all related structures Neck Neck: Yes normal visual inspection Chest Chest palpation & inspection: normal inspection of the chest Resp Effort & Inspection: normal respiratory effort and able to speak in complete sentences Telehealth Telehealth Telehealth Platform: [employer] Location of provider rendering services: practice address Location of patient: address on file Patient Identification confirmed using: Name, : Yes Telehealth method: voice only Patient verbally consented to treatment: Yes Patient verbally consented to billing insurance company: Yes Patient informed of any privacy concerns related to visit: Yes Minutes spent on Phone/Video with Pt.: 15 Assessment & Plan Assessment & Plan (1) BPH w urinary obs/LUTS: Code(s): N40.1 - Benign prostatic hyperplasia with lower urinary tract symptoms; N13.8 - Other obstructive and reflux uropathy Category: Medical (2) Erectile dysfunction: Code(s): N52.9 - Male erectile dysfunction, unspecified Category: Medical Plan Six-month follow-up Patient Instructions: This note is constructed using voice recognition software. While every effort has been made to ensure accuracy lead case manager errors may have been included. Imaging studies, laboratory and physical exam results were discussed and reviewed in detail. No major barriers to patient understanding were identified. An opportunity to ask questions regarding the treatment plan was provided. All questions were answered. The patient expressed understanding and agreement with the above treatment plan. The patient is aware they should contact our office by phone for worsening of their current condition or the appearance of new urologic symptoms. Compliance is encouraged with any medications and followup testing that is ordered. It is a privilege to participate in the urologic care of your patient. If you have any questions or concerns regarding treatment for the above conditions, or other urologic issues, please do not hesitate to contact me. The office telephone contact is [phone]. Sincerely, Dr Adam Esteban MD, [facility] - Urology Compassionate Specialist Care for the Genitourinary System Coding Level of Care Code Tele Est Pt Level 3 (83246) Diagnoses BPH w urinary obs/LUTS N40.1; N13.8 Erectile dysfunction N52.9
--- OUTSIDE RECORDS SUMMARY | 2025-03-12 10:32 | XMS_ITS | Clinical Summary ---
Author Organization [facility] ity Address [address] [place] [address] Care Team Providers Care Detective Precinct Name Role Phone Delia Davila MD Primary Care Provider [phone] Encounters Date Type Department Care Team Description 02/14/2025 [facility] Neurodiagnostic [address] [place] [address] Martin Hardy MD Seizure disorder ([facility] V24, [facility] V28) 02/13/2025 [facility] Neurodiagnostic [address] [place] [phone] Martin Hardy MD Seizure disorder ([facility] V24, [facility] V28) 02/12/2025 [facility] Neurodiagnostic [address] [place] [phone] Martin Hardy MD Seizure disorder ([facility] V24, [facility] V28) from Last 3 Months Surgical History Surgery Date Site/Laterality Comments SHOULDER SURGERY PROCEDURE: HISTORICAL SHOULDER SURGERY NECK SURGERY PROCEDURE: HISTORICAL NECK SURGERY Medical History Medical History Date Comments Essential hypertension DX:Essent ial hypertension Hyperlipidemia DX:Hyperlipidemi a COPD (chronic obstructive pu lmonary disease) ([facility] V24, [facility] V28) 06/30/2023 DX:COPD (chronic o bstructive pulmonary disease) ([facility]) Depression 06/30/2023 DX:Depression Social History Tobacco Use [...] Info) Description 05/14/2025 10:00 AM EDT Appointment [facility] Neurodiagnostic [address] [place] [phone] 05/15/2025 11:00 AM EDT Appointment [facility] Neurodiagnostic [address] [place] [phone] 05/16/2025 11:00 AM EDT Appointment [facility] Neurodiagnostic [address] [place] [phone] Health Maintenance Due Date Last Done Comments [...] to complete this topic Insurance [address] [place] [address] [facility] Care Teams Detective Precinct Relationship Specialty Start Date End Date eDlia Davila MD 12[address] [facility] [address] [place], [place] PCP - General Internal Medicine 04/03/21
== END 2025-03-12 16:00 | disposition home or self-care (01) ==
LOC: HO.HUSH 09:35
PROVIDERS: PCP Internal Medicine; Visit Provider Urology
DX: N40.1 Benign prostatic hyperplasia with lower urinary tract symptoms (principal); N13.8 Other obstructive and reflux uropathy; N52.9 Male erectile dysfunction, unspecified
CPT/HCPCS: 99213

== ENCOUNTER → 2025-03-12 09:35 | Outpatient (BNVA) | payer OTHER, SELFPAY | PROVIDERS: PCP Internal Medicine; Visit Provider Urology ==

== ENCOUNTER 2025-04-30 09:17 | Outpatient (AMB) | payer OTHER, SELFPAY ==
--- NOTE | 2025-04-30 09:31 | MHC.NURWM ---
Intake Intake Visit Reasons: (OV) F/U [facility] Allergies alprazolam (From Xanax) Allergy (Unknown, Verified 03/12/25 09:36) Hives latex Adverse Reaction (Intermediate, Verified 03/12/25 09:36) Itching Coding
--- NOTE | 2025-04-30 09:35 | A.OFFVIS_ITS ---
VS Expanded 04/30/25 09:41 BP 133/76 Blood Pressure Location Rt brachial Blood Pressure Position Sitting Pulse 77 Pulse Source Pulse Oximeter Temp 96.4 F L Temperature Source Temporal Artery Scan Pulse Oximetry 97 Oxygen Delivery Method Room Air Height 5 ft 11 in Weight 221 lb BMI 30.8 Body Fat % 29.9 Body Fat Mass 66.2 Fat Free Mass 154.8 Visceral Fat Rating 17.0 Body Water % 47.8 Body Water Mass 105.6 Muscle Mass/Score 147.0 Basal Metabolic Rate/Score 2,069 Intake Visit Reasons: (OV) F/U [facility] [employer] Required: Yes [employer] Name: Ursula Garcia [id number] Allergies alprazolam (From Xanax) Allergy (Unknown, Verified 04/30/25 09:34) Hives latex Adverse Reaction (Intermediate, Verified 04/30/25 09:34) Itching Medication List - Last Reconciled 04/30/25 by [place] Farias albuterol sulfate 90 mcg/actuation 2 inhalations inhalation Q6H PRN 30 days albuterol sulfate 2.5 mg (3 mL) inhalation Q6H PRN 30 days aspirin 1 tab PO DAILY baclofen 10 mg PO TID comp.stocking,thigh,long,large 20/30 cm CPAP (CPAP Machine/Device) As directed diclofenac sodium 1% (Arthritis Pain (diclofenac)) 4 grams topical QID dicyclomine 20 mg PO QID PRN 90 days famotidine 40 mg PO BEDTIME gabapentin (Neurontin) 600 mg (2 x 300 mg) PO BEDTIME 30 days gabapentin 300 mg PO DAILY losartan-hydrochlorothiazide 100-25 mg 1 tab PO DAILY melatonin 10 mg PO BEDTIME PRN 30 days metoprolol succinate ER 100 mg PO DAILY rosuvastatin 40 mg PO DAILY sertraline 50 - 100 mg PO DAILY PRN sildenafil 100 mg PO ONCE PRN 30 days Symbicort 160-4.5 mcg/actuation (budesonide-formoterol) 2 puffs PO BID NS tadalafil 5 mg PO DAILY 90 days trazodone 100 mg (2 x 50 mg) PO BEDTIME 30 days HPI Comments Details: 64 yo man seen in followup for [facility]. Restarted Nov 2022 at 263 lbs (after having gained 15 lbs) and at his last appt he weighed 220lbs 6 mo ago. Has multiple physical pain points. Pt reports feeling bloated/full, this has been present for a while- was seen by GI. Had imaging, colonoscopy and endoscopy. Had follow up appts scheduled but reports every time he went to an appointment they were never there. Had labs done at last visit in Oct- vitamin levels WNL. Meal plan breakfast - 3 eggs with cheese, Cranberry lunch - vegetables and meat dinner - root vegetables, protein no snacks he is willing to use protein bars/shakes Exercise now - treadmill 3d - alternates with bicycle. does some weight training going to PT for neck/shoulder pain PFSH Medical History HTN (hypertension) Anemia Lower extremity edema Pre-op examination Erectile dysfunction Diarrhea Pulmonary nodules POLLO on CPAP Asthma-COPD overlap syndrome Surgical History History of fusion of cervical spine Hx of cystoscopy Hx of knee surgery Hx of shoulder surgery Hx of cataract surgery History of hand surgery History of carpal tunnel surgery History of esophagogastroduodenoscopy (EGD) Hx of colonoscopy History of carpal tunnel surgery (~2020) History of back surgery (~2019) Family History Father Throat cancer HTN (hypertension) Paternal Grandfather Heart attack Family/Other Colon cancer Social History Alcohol intake: former Year quit: 2006 Patient Tobacco Use Status: Former Tobacco user Years Smoked: 25 +/- Assessment & Plan Assessment & Plan (1) Obesity: Code(s): E66.9 - Obesity, unspecified Category: Medical Plan New meal plan: breakfast- Pure protein shake 1 scoop in 8oz [facility] lunch- 3oz meat or 3 eggs, 3oz fruit or veg dinner- 3oz meat, 3oz veg or salad snack- PP bar Pt likely low on protein intake previously. Avoid nuts, bananas- he asked about incorporating those things. He is having a neck MRI soon and considering a block, but hopefully can still exercise with lower body. RTC 6mo.
[2025-04-30 09:41] VITALS: BP 133/76; PULSE 77; TEMP 35.8; O2SAT 97; BMI 30.8
--- OUTSIDE RECORDS SUMMARY | 2025-04-30 09:41 | XMS_ITS | Clinical Summary ---
Author Organization [employer] [facility] ity Address [address] [place] [address] Care Team Providers Care Greenhouse Grower Name Role Phone Delia Davila MD Primary Care Provider [phone] Encounters Date Type Department Care Team Description 02/14/2025 [facility]diagn[facility] [address] [place] [phone] Martin Hardy MD Seizure disorder ([facility] V24, [facility] V28) 02/13/2025 [facility] [address] [place] [phone] Martin Hardy MD Seizure disorder ([facility] V24, [facility] V28) 02/12/2025 [facility] [address] [place] [phone] Martin Hardy MD Seizure disorder ([facility] V24, [facility] V28) from Last 3 Months Surgical History Surgery Date Site/Laterality Comments SHOULDER SURGERY PROCEDURE: HISTORICAL SHOULDER SURGERY NECK SURGERY PROCEDURE: HISTORICAL NECK SURGERY Medical History Medical History Date Comments Essential hypertension DX:Essent ial hypertension Hyperlipidemia DX:Hyperlipidemi a COPD (chronic obstructive pu lmonary disease) ([facility] V24, [facility] V28) 06/30/2023 DX:COPD (chronic o bstructive pulmonary disease) ([facility]) Depression 06/30/2023 DX:Depression Social History Tobacco Use [...] Info) Description 05/14/2025 10:00 AM EDT Appointment [facility] Neurodiagnostic [address] [place] [phone] 05/15/2025 11:00 AM EDT Appointment [facility] Neuro[facility] [address] [place] [phone] 05/16/2025 11:00 AM EDT Appointment [facility] Neuro[facility] [address] [place] [phone] Health Maintenance Due Date Last Done Comments DTaP,Tdap,and Td Vaccines (1 - Tdap) 1980 Pneumococcal Vaccine: 50+ Ye ars (1 of 2 - PCV) 1980 Zoster Vaccines (1 of 2) 2011 RSV Immunization Adult Patie nts (1 - Risk 60-74 years 1-dose series) 2021 Cholesterol Screening (Lipid Panel) 10/02/2022 Colorectal Cancer Screening: Colonoscopy 10/02/2022 Depression Screening 10/02/2022 HIV Screening 10/02/2022 Hepatitis C Screening 10/02/2022 Social Influencers of Health Screening 10/02/2022 Hypertension/CHF/CAD Annual BMP Blood Test 12/07/2023 COVID-19 Vaccine (1 - 2023-2 5 season) 2024 Influenza Vaccine (#1) 2025 HIB Vaccines Aged Out No longer [...] patient's age to complete this topic Insurance [facility] Care Teams Greenhouse Grower Relationship Specialty Start Date End Date Delia Davila MD [address] [facility] [address] [place], [place] PCP - General Internal Medicine 04/03/21
== END 2025-04-30 10:12 | disposition home or self-care (01) ==
LOC: HO.HBS 09:17
PROVIDERS: PCP Internal Medicine; Visit Provider Physician Assistant Surgical
DX: E66.9 Obesity, unspecified (principal); Z68.30 Body mass index [BMI] 30.0-30.9, adult
CPT/HCPCS: 99214; G2211

== ENCOUNTER → 2025-04-30 09:17 | Outpatient (BNVA) | payer OTHER, SELFPAY | PROVIDERS: PCP Internal Medicine; Visit Provider Physician Assistant Surgical | DX: Z71.3 Dietary counseling and surveillance (principal); E66.9 Obesity, unspecified | CPT/HCPCS: 99212 ==

== ENCOUNTER 2025-05-09 06:17 | Outpatient (REF) | payer OTHER, SELFPAY ==
--- NOTE | ~2025-05-09 | FL_ITS ---
EXAMINATION: XR FLUOROSCOPY WITH IMAGES CLINICAL INFORMATION: Spondylosis without myelopathy or radiculopathy, cervical region. COMPARISON: None available. TECHNIQUE: Fluoroscopy provided to: Dr. Wayne Fluoroscopy time: 0.2 minutes DAP: 0.0291 mGycm2 Images: 3 FINDINGS: 3 fluoroscopic spot images of the cervical spine during pain management injection therapy. Please refer to the full procedural report for details. FL/FL guidance in treatment room IMPRESSION: Fluoroscopic guidance. Electronically signed by: Kingsley Ahmadi MD 05/09/2025 02:48 PM EDT
--- OUTSIDE RECORDS SUMMARY | 2025-05-09 06:20 | XMS_ITS | Clinical Summary ---
Author Organization [facility] ity Address [address] [place] [address] Care Team Providers Care Campus Interviews Intern Name Role Phone Delia Davila MD Primary Care Provider [phone] Encounters Date Type Department Care Team Description 02/14/2025 [facility] Neurodiagnostic [address] [place] [phone] Martin Hardy MD Seizure disorder ([facility] V24, [facility] V28) 02/13/2025 [facility] Neurodiagnostic [address] [place] [phone] Martin Hardy MD Seizure disorder ([facility] V24, [facility] V28) 02/12/2025 [facility] Neurodiagnostic [address] [place] [phone] Martin Hardy MD Seizure disorder ([facility] V24, [facility] V28) from Last 3 Months Surgical History Surgery Date Site/Laterality Comments SHOULDER SURGERY PROCEDURE: HISTORICAL SHOULDER SURGERY NECK SURGERY PROCEDURE: HISTORICAL NECK SURGERY Medical History Medical History Date Comments Essential hypertension DX:Essent ial hypertension Hyperlipidemia DX:Hyperlipidemi a COPD (chronic obstructive pu lmonary disease) ([facility] V24, [facility] V28) 06/30/2023 DX:COPD (chronic o bstructive pulmonary disease) ([facility]) Depression 06/30/2023 DX:Depression Social History [...] Info) Description 05/14/2025 10:00 AM EDT Appointment [facility] Neurodiagnostic [address] [place] [phone] 05/15/2025 11:00 AM EDT Appointment [facility] Neurodiagnostic [address] [place] [phone] 05/16/2025 11:00 AM EDT Appointment [facility] Neurodiagnostic [address] [place] [phone] Health Maintenance Due Date Last Done Comments [...] patient's age to complete this topic Insurance [facility] [employer] Care Teams Campus Interviews Intern Relationship Specialty Start Date End Date Delia Davila MD [address] [facility] [address] [place], [place] PCP - General Internal Medicine 04/03/21
== END 2025-05-09 06:18 | disposition home or self-care (01) ==
LOC: CF 06:17
PROVIDERS: Visit Provider Internal Medicine
DX: M47.812 Spondylosis without myelopathy or radiculopathy, cervical region (principal)
CPT/HCPCS: 64490; 64491; J2003; J2795; Q9967

== ENCOUNTER 2025-05-09 12:06 | Outpatient (AMB) | payer OTHER, SELFPAY ==
--- NOTE | 2025-05-09 12:10 | MHC.OFFVIS ---
Vital Signs 05/09/25 12:14 05/09/25 12:46 Height 5 ft 11 in 5 ft 11 in Weight 221 lb 221 lb BMI 30.8 30.8 BP 129/75 117/65 Blood Pressure Location Lt brachial Lt brachial Position Sitting Sitting Respiration 16 16 Pulse 66 80 Pulse Source Pulse Oximeter Pulse Oximeter Pulse Oximetry (%) 98 97 Oxygen Delivery Method Room Air Room Air Intake Visit Reasons: BILATERAL DX C5, C6, C7 MBB/ATIVAN REQ Allergies alprazolam (From Xanax) Allergy (Unknown, Verified 04/30/25 09:34) Hives latex Adverse Reaction (Intermediate, Verified 04/30/25 09:34) Itching HPI HPI BILATERAL DX C5, C6, C7 MBB/ATIVAN REQ: Details: Patient presents for scheduled procedure. Denies any recent cough, cold, infection, fever or other significant changes in medical history since last office visit. [facility] Medical History HTN (hypertension) Anemia Lower extremity edema Pre-op examination Erectile dysfunction Diarrhea Pulmonary nodules POLLO on CPAP Asthma-COPD overlap syndrome Surgical History History of fusion of cervical spine Hx of cystoscopy Hx of knee surgery Hx of shoulder surgery Hx of cataract surgery History of hand surgery History of carpal tunnel surgery History of esophagogastroduodenoscopy (EGD) Hx of colonoscopy History of carpal tunnel surgery (~2019) History of back surgery (~2019) Family History Father Throat cancer HTN (hypertension) Paternal Grandfather Heart attack Family/Other Colon cancer Social History Alcohol intake: former Year quit: 2006 Patient Tobacco Use Status: Former Tobacco user Years Smoked: 25 +/- Physical Exam Vital Signs: Last Vital Signs Pulse 80 05/09/25 12:46 Resp 16 05/09/25 12:46 BP 117/65 05/09/25 12:46 Pulse Ox 97 05/09/25 12:46 Oxygen Delivery Method Room Air 05/09/25 12:46 BMI result Body Mass Index 30.8 Office Procedures Cervical/Thoracic Facet Inj Details: Diagnostic Cervical Medial Branch Block, Bilateral C4, C5, C6 medial branches After obtaining written consent, pre-procedure blood pressure and pulse were recorded and are in the nursing record for review. The patient was placed in a lateral position. The respective cervical area was prepped with chloraprep and draped in sterile fashion. The skin over the target medial branch nerves was anesthetized with 0.5% lidocaine. A 25 gauge 1.5 inch needle was inserted into the target medial branch nerve under fluoroscopic guidance. No paresthesias were elicited with needle placement and aspiration was negative for blood and CSF. Next, 0.2cc of omnipaque 180 was injected to verify positioning. Next 0.5 ml 0.5% ropivicaine was injected (0.5 cc total per level). The identical procedure was performed at the remaining levels. The skin was cleansed and a sterile bandage was applied. Following the procedure the patient's vital signs were stable. The patient tolerated the procedure well and no complications were encountered. Following the procedure the patient's vital signs were stable. The patient was discharged home in good condition with post-procedural instructions. Time Out: Immediately prior to the procedure, the following was verbally confirmed that there is a signed consent form and that the correct patient, planned procedure, site and side are consistent with documentation and that necessary equipment and/or blood products are available prior to the start of the case. Complications: none EBL: <5 cc 84828 - with Fluoroscopy 67389 - second level, with Fluoroscopy (Bilateral) Procedure code (CPT) selection complete Assessment & Plan Assessment & Plan (1) Cervical spondylosis: Code(s): M47.812 - Spondylosis without myelopathy or radiculopathy, cervical region Category: Medical Plan Patient is status post bilateral C4, C5, C6 medial branch blocks. Patient tolerated procedure well and was discharged home in stable condition with discharge instructions. All questions were answered. We will follow-up via telephone or in clinic to assess response to therapy. A follow-up appointment was made during today's visit. Orders: Orders FL guidance in treatment room Today Angela Sow APRN, [employer] M47.812 - Spondylosis without myelopathy or radiculopathy, cervical region AMB Facet Injection-Cervical/Thoracic Today Rashad Wayne MD M47.812 - Spondylosis without myelopathy or radiculopathy, cervical region Coding Level of Care Code Procedure Only Diagnoses Cervical spondylosis M47.812 CPT Codes Facet Injection Cervical/Thoracic - CPT: 59348 - with Fluoroscopy ([id number]) Facet Injection Cervical/Thoracic - CPT: 68223 - second level, with Fluoroscopy ([id number])
[2025-05-09 12:14] VITALS: BP 129/75; PULSE 66; RESP 16; O2SAT 98; BMI 30.8
[2025-05-09 12:46] VITALS: BP 117/65; PULSE 80; RESP 16; O2SAT 97; BMI 30.8
== END 2025-05-09 12:47 | disposition home or self-care (01) ==
LOC: HO.PMCPRC 12:06
PROVIDERS: PCP Internal Medicine; Visit Provider Internal Medicine
DX: M47.812 Spondylosis without myelopathy or radiculopathy, cervical region (principal)
CPT/HCPCS: 64490; 64491

== ENCOUNTER 2025-05-13 10:29 | Outpatient (AMB) | payer OTHER, SELFPAY ==
--- NOTE | 2025-05-13 10:30 | MHC.OFFVIS ---
Vital Signs 05/13/25 10:34 Height 5 ft 11 in Weight 223 lb 6 oz BMI 31.2 BP 133/69 Blood Pressure Location Rt brachial Position Sitting Pulse 85 Pulse Source Pulse Oximeter Pulse Oximetry (%) 97 Oxygen Delivery Method Room Air Intake Visit Reasons: BILATERAL DIAGNOSTIC C5, C6, C7 MBB Intake Note: 05/02 Immigration Services Officer Required: Yes Immigration Services Officer Language: Shank Boner Services: Immigration Services Officer Present Immigration Services Officer Name: Isaias #[id number] Information Interpreted: non-clinical & clinical Accompanied by: Self / Same As Patient Allergies alprazolam (From Xanax) Allergy (Unknown, Verified 05/13/25 10:36) Hives latex Adverse Reaction (Intermediate, Verified 05/13/25 10:36) Itching HPI Comments Details: The patient is a 65-year-old male presenting for follow up for chronic neck pain. He underwent bilateral diagnostic C4-C5-C6 injections on 05/09/25, which provided 100% pain relief for 24 hours, indicating a positive response to the procedure. The patient has a history of seizures, which has previously resulted in a skull fracture. He is interested in repeat diagnostic cervical medial branch block injections in order to establish reproducible response to the treatment for potential RFA procedure. Denies any recent cough, cold, infection, fever or any other significant changes in medical history since last office visit. He also reports intermittent right shoulder pain with overhead reaches and pulling activities. Patient reports shoulder pain is minimal and axial neck pain reaches moderate to severe levels. Past Procedures: 05/09/25: Diagnostic bilateral C4, C5, C6 medial branch blocks-100% pain relief for 24 hours PRIOR: The patient is a 64-year old Czech speaking male presenting with an evaluation of chronic neck pain, whose onset was noted after cervical spine surgery in 2019. Reporting progressive worsening, the episodic intensity of his pain distinctly escalated about four months prior after a syncope-related fall. Historical medical interventions include a C4-C5 anterior cervical discectomy fusion, shoulder surgery for left rotator cuff pathology, and continuous care for consequential traumatic brain injury sequelae. Disc degeneration accentuates his discomfort, corroborated by imaging depicting significant cervical spondylosis. His comprehensive pain narrative includes left neck tenderness, which radiates to his arm, often accompanied by sensory disturbances?numbness and tingling?extending to his fingertips. Previous attempts at intervention via [facility] 2 years ago were curtailed by transportation challenges, leaving the patient's current functional pursuits severely hindered by unrelenting pain. - Onset: Chronic, constant tense pain primarily on the left side of the neck, persistent for past 4 months - Quality: Pain on turning head, worse on the right, tense, sometimes severe especially post fall - Location: Neck - Radiation: Arms with numbness and tingling in fingers - Aggravating factors: Turning head to the right, exacerbated post-syncope and fall 4 months ago - Alleviating factors: None reported - Interference: Limited range of motion - Affect: Chronic pain impacting daily living, marked discomfort and decreased quality of life. - Analgesia: Utilizes gabapentin and baclofen. No current use of NSAIDs or acetaminophen. Currently using lidocaine patches; minimal effect; diclofenac gel prescribed - Adverse Effects: None reported from gabapentin or baclofen. - Activities of Daily Living: Functional limitations due to pain impact daily activities; unable to drive to previous pain management center. - Aberrant Drug Related Behaviors: Past substance use disorder in remission for 18 years. Oswestry Neck Pain Disability Score=30 REPLACED BY [facility] Medical History HTN (hypertension) Anemia Lower extremity edema Pre-op examination Erectile dysfunction Diarrhea Pulmonary nodules POLLO on CPAP Asthma-COPD overlap syndrome Surgical History History of fusion of cervical spine Hx of cystoscopy Hx of knee surgery Hx of shoulder surgery Hx of cataract surgery History of hand surgery History of carpal tunnel surgery History of esophagogastroduodenoscopy (EGD) Hx of colonoscopy History of carpal tunnel surgery (~2019) History of back surgery (~2019) Family History Father Throat cancer HTN (hypertension) Paternal Grandfather Heart attack Family/Other Colon cancer Social History Alcohol intake: former Year quit: 2006 Patient Tobacco Use Status: Former Tobacco user Years Smoked: 25 +/- Review of Systems Const Details: - Neurological: Reports history of seizures, denies current seizure activity - Musculoskeletal: Reports previous neck fusion surgery All systems reviewed & are unremarkable except as noted in HPI and below Physical Exam General: Appears afebrile. Alert and oriented. Mood and affect appropriate. Follows and participates in conversation appropriately. Respiratory effort is unlabored. No cough. Able to transition from sit to stand unassisted. Ambulates with bilaterally normal heel strike and toe off. Neck Other: Patient with decreased cervical ROM in all planes/especially with right lateral rotation. Reports increased pain with cervical extension and flexion. Spurling compression test is negative. Elvey's tension test is negative bilaterally. Lhermitte's test was negative. DTR intact, +1 and symmetrical. Patient demonstrated 5/5 motor strength of bilateral upper extremities. 2 + radial pulses. Significant tightness throughout right upper trapezius as well as TTP throughout bilateral upper trapezius muscles. Neck: Yes normal visual inspection, Yes no lymphadenopathy, Yes supple, No anterior neck swelling, Yes no JVD, No prominent supraclavicular fat pad and Yes prominent dorsocervical fat pad Back/Spine/Pelvis Cervical Spine: loss of normal cervical lordosis, cervical muscular tenderness, pain with cervical ROM, Cervical spine scars present, No Cervical spine tenderness and No step off deformity Thoracic/Lumbar Spine: thoracic and lumbar spine normal to inspection, pain with thoraco-lumbar ROM, paraspinal muscle tenderness, thoraco-lumbar ROM limited, No thoracic spinal tenderness and No lumbar spinal tenderness Extrem Right upper extremity: shoulder/upper arm (Limited ROM due to pain.) Details: normal to inspection, tenderness Location: of the A-C joint and over the subacromial bursa and crepitus; no swelling Results Reviewed Results Reviewed: CT HEAD WITHOUT IV CONTRAST CT CERVICAL SPINE WITHOUT IV CONTRAST 12/11/23 INDICATION: Pain. Status post seizure. FINDINGS: HEAD: There is no intracranial hemorrhage, hydrocephalus, extra-axial surface collection, midline shift, or other herniation pattern. Shah to white matter differentiation is diffusely maintained without evidence of an evolved acute territorial infarct. The basilar cisterns are preserved. No significant soft tissue abnormality. No acute osseous abnormality. The paranasal sinuses and the mastoid air cells are well aerated. Degenerative changes involving the TMJs bilaterally. CERVICAL SPINE: Postoperative changes following ACDF at C4-C5. There are no acute fractures and there are no acute subluxations. There is multilevel hypertrophic facet arthropathy and there is multilevel degenerative disc disease. Mild degenerative anterior subluxation of C6 on C7. Chronic well-corticated ossific fragment along the anterior margin of the inferior C6 endplate. There is no prevertebral soft tissue swelling. IMPRESSION: - No acute intracranial abnormality. - No acute osseous abnormality within the cervical spine. Cervical spondylosis. CR LUMBAR SPINE. CR RIGHT SHOULDER. CR THORACIC SPINE. 12/11/23 CLINICAL INFORMATION: Back pain status post fall. Right shoulder pain. Lower back pain. Seizure. COMPARISON: Lumbar spine films dated 11/25/2021. T-spine films dated 09/24/2016. Contralateral left shoulder films dated 05/03/2016. CT scan of the chest dated 01/12/2021. FINDINGS: Lumbar spine: There is a convex right lumbar scoliosis. In the sagittal plane, there is minimal grade 1 retrolisthesis of L4 on L5, similar to the previous exam. No acute fracture or abnormal paraspinal soft tissues changes are seen. There is multilevel mild degenerative disc disease with mild disc space narrowing and vertebral endplate spurring seen, similar to the previous exam. Moderate facet arthropathy at the lumbosacral junction is noted. Sacroiliac joints and included portions of the sacrum appear intact. Atherosclerotic calcifications of the abdominal aorta are seen. Right shoulder: No acute fracture or dislocation. Glenohumeral joint and acromioclavicular joints are intact. There is minimal spurring in the glenohumeral joint and nonpersonal surface spurring at the acromioclavicular joint. No soft tissue calcifications are seen. Included right ribs and right clavicle are intact. Lower cervical spine fusion hardware is partially included. Thoracic spine: There is a mild convex left thoracic curvature. No acute fracture or abnormal paraspinal soft tissue changes are noted. There is mild multilevel vertebral spurring in the mid and lower thoracic spine with prominent hypertrophic changes at the right lateral margins of the T8-T9 and T9-T10 vertebral bodies. IMPRESSION: * No acute fracture of the lumbar spine, right shoulder, or thoracic spine. * Thoracolumbar scoliosis and mild multilevel degenerative disc disease and moderate facet arthropathy in the lower lumbar spine. * Minimal degenerative changes in the right glenohumeral joint and right acromioclavicular joint. * Atherosclerotic vascular calcifications of the abdominal aorta. * Lower cervical spine fusion hardware partially included. Assessment & Plan Assessment & Plan (1) Cervical spondylosis: Code(s): M47.812 - Spondylosis without myelopathy or radiculopathy, cervical region Category: Medical (2) Cervical post-laminectomy syndrome: Code(s): M96.1 - Postlaminectomy syndrome, not elsewhere classified Category: Medical (3) Cervicalgia: Code(s): M54.2 - Cervicalgia Category: Medical (4) Degenerative disc disease, cervical: Code(s): M50.30 - Other cervical disc degeneration, unspecified cervical region Category: Medical Plan Schedule for repeat bilateral diagnostic C4-C5-C6 MBB with local and fluoroscopy guidance for potential RFA procedure. Expectations, risks and benefits were reviewed. Patient has history of seizures and is not interested in implantable temporary or permanent devices. Continue diclofenac gel, lidocaine patches, gabapentin and baclofen for medical pain management. All questions and concerns have been answered and patient agreed with the plan. Follow up after injections and sooner as needed. Patient was informed and verbally consented to the use of an ambient scribe for clinic note documentation during this visit. Medications: Refilled diclofenac sodium 1% (Arthritis Pain (diclofenac)) apply to single knee, ankle, foot; for foot includes sole/toes/top of foot 4 grams topical QID 100 grams 1RF pain M47.812 - Spondylosis without myelopathy or radiculopathy, cervical region, M54.2 - Cervicalgia, M96.1 - Postlaminectomy syndrome, not elsewhere classified Coding Level of Care Code Est Pt Level 3 (53777) Complex EM visit Add On G2211 Diagnoses Cervical spondylosis M47.812 Cervical post-laminectomy syndrome M96.1 Cervicalgia M54.2 Degenerative disc disease, cervical M50.30
[2025-05-13 10:34] VITALS: BP 133/69; PULSE 85; O2SAT 97; BMI 31.2
--- OUTSIDE RECORDS SUMMARY | 2025-05-13 11:28 | XMS_ITS | Clinical Summary ---
Author Organization [facility] ity Address [address] [place] [address] Care Team Providers Care Veterans Contact Representative Name Role Phone Delia Davila MD Primary Care Provider [phone] Encounters Date Type Department Care Team Description 02/14/2025 [facility] Neurodiagnostic [address] [place] [phone] Martin Hardy MD Seizure disorder ([facility] V24, [facility] V28) 02/13/2025 [facility] Neurodiagnostic [address] [place] [phone] Martin Hardy MD Seizure disorder ([facility] V24, [facility] V28) 02/12/2025 [facility] Neurodiagnostic [address] [place] [phone] Martin Hardy MD Seizure disorder ([facility] V24, [facility] V28) from Last 3 Months Surgical History Surgery Date Site/Laterality Comments SHOULDER SURGERY PROCEDURE: HISTORICAL SHOULDER SURGERY NECK SURGERY PROCEDURE: HISTORICAL NECK SURGERY Medical History Medical History Date Comments Essential hypertension DX:Essent ial hypertension Hyperlipidemia DX:Hyperlipidemi a COPD (chronic obstructive pu lmonary disease) ([facility] V24, [facility] V28) 06/30/2023 DX:COPD (chronic o bstructive pulmonary disease) ([facility]) Depression 06/30/2023 DX:Depression Social History Tobacco [...] Info) Description 05/14/2025 10:00 AM EDT Appointment [facility] Neurodiagnostic [address] [place] [phone] 05/15/2025 11:00 AM EDT Appointment [facility] Neurodiagnostic [address] [place] [phone] 05/16/2025 11:00 AM EDT Appointment [facility] Neurodiagnostic [address] [place] [phone] Health Maintenance Due Date Last Done Comments DTaP,Tdap,and Td Vaccines (1 - Tdap) 1980 Pneumococcal Vaccine: 50+ Ye ars (1 of 2 - PCV) 1980 Zoster Vaccines (1 of 2) 2011 RSV Immunization Adult Patie nts (1 - Risk 60-74 years 1-dose series) 2021 Cholesterol Screening (Lipid Panel) 10/02/2022 Colorectal Cancer Screening: Colonoscopy 10/02/2022 HIV Screening 10/02/2022 Hepatitis C Screening 10/02/2022 Social Influencers of Health Screening 10/02/2022 Hypertension/CHF/CAD Annual BMP Blood Test 12/07/2023 COVID-19 Vaccine (1 - 2023-2 5 season) 2024 Depression Screening 10/24/2024 Influenza Vaccine (#1) 2025 HIB Vaccines Aged [...] patient's age to complete this topic Insurance [facility] [employer] Care Teams Veterans Contact Representative Relationship Specialty Start Date End Date Delia Davila MD [address] [facility] [address] [place], [place] PCP - General Internal Medicine 04/03/21
== END 2025-05-13 10:47 | disposition home or self-care (01) ==
PROVIDERS: PCP Internal Medicine; Visit Provider Nurse Practitioner Family
DX: M47.812 Spondylosis without myelopathy or radiculopathy, cervical region (principal); M96.1 Postlaminectomy syndrome, not elsewhere classified; M50.30 Other cervical disc degeneration, unspecified cervical region
CPT/HCPCS: 99213; G2211

== ENCOUNTER → 2025-05-13 10:29 | Outpatient (BNVA) | payer OTHER, SELFPAY | PROVIDERS: PCP Internal Medicine; Visit Provider Nurse Practitioner Family | DX: M47.812 Spondylosis without myelopathy or radiculopathy, cervical region (principal); M96.1 Postlaminectomy syndrome, not elsewhere classified; M50.30 Other cervical disc degeneration, unspecified cervical region | CPT/HCPCS: 99212 ==

== ENCOUNTER → 2025-05-14 23:59 | Outpatient (BNV) | payer OTHER, SELFPAY | PROVIDERS: PCP Internal Medicine; Visit Provider Psychiatry & Neurology Neurology | DX: G40.909 Epilepsy, unspecified, not intractable, without status epilepticus (principal) | CPT/HCPCS: 95721 ==

== ENCOUNTER 2025-05-23 11:55 | Outpatient (AMB) | payer OTHER, SELFPAY ==
--- NOTE | 2025-05-23 12:00 | A.OFFVIS_ITS ---
Intake Visit Reasons: After 48 HR Allergies alprazolam (From Xanax) Allergy (Unknown, Verified 05/13/25 10:36) Hives latex Adverse Reaction (Intermediate, Verified 05/13/25 10:36) Itching HPI Comments Details: 65 yo man with painful neuropathy, migraine, and possible seizure disorder but EEG was ok. In Nov, he felt dizzy while in shower and passed out. He came to [facility] and his work up was negative.He was having frequent pulsating pain to back of head on left side. Last Tuesday, he had an?episode where he got very dizzy and felt like the room was spinning after shutting off the lights.?He had a bad pain to his forehead. He was sweaty and nauseous. He felt like he was going to fall or pass out. He had to hold on to his dresser. It lasted about 15 minutes. Another EEG in 2024 was normal. He had passed out 3 more times since we last met in January. He was weaty and vomiting with it. He had the ambulatory EEG at [facility] a few days ago. [facility] Medical History (Updated 05/23/25 @ 12:03 by Martin Hardy MD) Anxiety disorder Seizure disorder Vivid dream Arthritis Peripheral neuropathy Carpal tunnel syndrome Insomnia Migraine Cervicalgia Headache Depression Stress HTN (hypertension) Anemia Lower extremity edema Pre-op examination Erectile dysfunction Diarrhea Pulmonary nodules POLLO on CPAP Asthma-COPD overlap syndrome Surgical History History of fusion of cervical spine Hx of cystoscopy Hx of knee surgery Hx of shoulder surgery Hx of cataract surgery History of hand surgery History of carpal tunnel surgery History of esophagogastroduodenoscopy (EGD) Hx of colonoscopy History of carpal tunnel surgery (~2019) History of back surgery (~2019) Family History Father Throat cancer HTN (hypertension) Paternal Grandfather Heart attack Family/Other Colon cancer Social History Alcohol intake: former Year quit: 2006 Patient Tobacco Use Status: Former Tobacco user Years Smoked: 25 +/- Review of Systems Const Details: Constitutional:?No fever, chills, fatigue, weight loss, or night sweats. HEENT:?No headache, vision changes, hearing loss, nasal congestion, sore throat. Neurological:?Dizziness and LOC Psychiatric:?No anxiety, depression, mood swings, sleep disturbance, or halluci nations. Endocrine:?No heat/cold intolerance, polydipsia, polyuria, or hair/skin changes. Hematologic/Lymphatic:?No easy bruising, bleeding, or lymphadenopathy. Integumentary (Skin):?No rash, lesions, itching, or color changes. ? Physical Exam Neuro Other: Mental Status: Alert and oriented to person, place, and time. Normal attention. Normal spontaneous speech, fluency, and comprehension. No obvious issues with mood and memory. Affect is appropriate. Cranial Nerves: CN II: Visual del castillo full to confrontation, visual acuity intact. CN III, IV, : Pupils equal, round, reactive to light and accommodation. Extraocular movements are normal. CN V: Facial sensation is normal. CN VII: Facial movements symmetrical. CN VIII: Hearing intact to bedside conversation is normal. CN IX, X: Palate elevates symmetrically. CN XI: Shoulder shrug and head turn symmetrical. CN XII: Tongue midline without atrophy or fasciculations. Extrapyramidal: Full facial expressions and blinking. No rigidity. Movements are appropriate with no tremor or abnormality. Speech: Normal; no dysarthria or tremor. Assessment & Plan Assessment & Plan (1) Seizure disorder: Comment: CT brain WO at [facility] in Nov 2023: Mild diff atrophy Routine EEG at off in Dec 2023: WNL EMG/NCS LEs in Oct 2020: mod to severe axonal PN NCV/EMG UE 01/01/19 Mild to moderate bilateral median neuropathy across the Carpal tunnel. CT brain WO at [facility] in March 2015: [place] Routine EEG in office in March 2015: WNL Amb EEG at [facility] in 2015: WNL with no events reported Code(s): G40.909 - Epilepsy, unspecified, not intractable, without status epilepticus Category: Medical (2) Migraine: Code(s): G43.909 - Migraine, unspecified, not intractable, without status migrainosus Category: Medical Qualifiers: Migraine type: migraine (< 15 days per month) without aura Status migrainosus presence: without status migrainosus Intractability: not intractable Qualified Code(s): G43.009 - Migraine without aura, not intractable, without status migrainosus (3) Anxiety: Code(s): F41.9 - Anxiety disorder, unspecified Category: Medical Plan Impression: a: Possible seizure disorder causing dizziness and LOC episodes b: Migraine, not that severe at this time Rec: Will wait to review 48 hr EEG done a few days ago before making any further recommendations. Coding Level of Care Code Est Pt Level 4 (92214) Diagnoses Seizure disorder G40.909 Migraine without aura and without status migrainosus, not intractable G43.009 Migraine type: migraine (< 15 days per month) without aura Status migrainosus presence: without status migrainosus Intractability: not intractable Anxiety F41.9
--- OUTSIDE RECORDS SUMMARY | 2025-05-23 12:30 | XMS_ITS | Clinical Summary ---
Author Organization [facility] Address [address] [place] [address] Phone Care Team Providers Care Automotive Title Clerk Name Role Phone Delia Davila MD Primary Care Provider [phone] Encounters Date Type Department Care Team Description 05/16/2025 11:00 AM EDT - 05/16/2025 11:59 PM EDT Hospital Encounter [facility] Neurodiagnostic [address] [place] [phone] Discharge Disposition: Home or Self Care 05/15/2025 11:00 AM EDT - 05/15/2025 11:59 PM EDT Hospital Encounter [facility] Neurodiagnostic [address] [place] [phone] Discharge Disposition: Home or Self Care 05/14/2025 9:18 AM EDT - 05/14/2025 11:59 PM EDT Hospital Encounter [facility] Neurodiagnostic [address] [place] [phone] Discharge Disposition: Home or Self Care from Last 3 Months Surgical History Surgery Date Site/Laterality Comments SHOULDER SURGERY PROCEDURE: HISTORICAL SHOULDER SURGERY NECK SURGERY PROCEDURE: HISTORICAL NECK SURGERY Medical History Medical History Date Comments Essential hypertension DX:Essent ial hypertension Hyperlipidemia DX:Hyperlipidemi a COPD (chronic obstructive pu lmonary disease) ([facility] V24, [facility]/HCC V28) 06/30/2023 DX:COPD (chronic o bstructive pulmonary disease) ([facility]) Depression 06/30/2023 DX:Depression Social History Tobacco [...] Care Team (Late st Contact Info) Description 05/27/2025 11:30 AM EDT Office Visit [facility] [place] [address] [phone] Donna Barraza MD [address] [phone] Health Maintenance Due Date Last Done Comments RSV Immunization Adult Patients (1 - Risk 60-74 years 1-dose series) 2021 Zoster Vaccines (2 of 2) 07/03/2022 05/08/2022 Cholesterol Screening (Lipid Panel) 10/02/2022 Colorectal Cancer Screening: Colonoscopy 10/02/2022 HIV Screening 10/02/2022 Hepatitis C Screening 10/02/2022 Social Influencers of Health Screening 10/02/2022 Hypertension/CHF/CAD Annual BMP Blood Test 12/07/2023 COVID-19 Vaccine (2 - season) 2024 07/30/2023 Depression Screening 10/24/2024 Influenza Vaccine (#1) 2025 4, 07/20/2023, 08/19/2022, Additional history exists DTaP,Tdap,and Td Vaccines (2 - Td or Tdap) 02/18/2032 02/17/2022 Pneumococcal Vaccine: 50+ Years Completed 07/10/2024 HIB Vaccines Aged Out No longer eligi [...] to complete this topic RSV Immunization Patients Under 20 months Aged Out No longer eligible based on patient's age to complete this topic Varicella Vaccines Aged Out No longer eligible based on patient's age to complete this topic Insurance [address] [place] [address] [facility] PL[facility] Care Teams Automotive Title Clerk Relationship Specialty Start Date End Date Delia Davila MD [facility] [address] [place], [place] PCP - General Internal Medicine 04/03/21
== END 2025-05-23 12:14 | disposition home or self-care (01) ==
LOC: HO.HSM 11:55
PROVIDERS: PCP Internal Medicine; Visit Provider Psychiatry & Neurology Neurology
DX: G40.909 Epilepsy, unspecified, not intractable, without status epilepticus (principal); G43.009 Migraine without aura, not intractable, without status migrainosus; F41.9 Anxiety disorder, unspecified
CPT/HCPCS: 99214

== ENCOUNTER → 2025-05-23 11:55 | Outpatient (BNVA) | payer OTHER, SELFPAY | PROVIDERS: PCP Internal Medicine; Visit Provider Psychiatry & Neurology Neurology | DX: G40.909 Epilepsy, unspecified, not intractable, without status epilepticus (principal); G43.009 Migraine without aura, not intractable, without status migrainosus; F41.9 Anxiety disorder, unspecified | CPT/HCPCS: 99212 ==

== ENCOUNTER 2025-06-06 13:05 | Outpatient (AMB) | payer OTHER, SELFPAY ==
--- NOTE | 2025-06-06 13:23 | MHC.OFFVIS ---
Intake Visit Reasons: 2 WEEKS EEG RESULTS Allergies alprazolam (From Xanax) Allergy (Unknown, Verified 05/13/25 10:36) Hives latex Adverse Reaction (Intermediate, Verified 05/13/25 10:36) Itching HPI Comments Details: 65 yo man with painful neuropathy, migraine, and possible seizure disorder but EEG was ok. In Nov, he felt dizzy while in shower and passed out. He came to [facility] and his work up was negative.He was having frequent pulsating pain to back of head on left side. Last Tuesday, he had an?episode where he got very dizzy and felt like the room was spinning after shutting off the lights.?He had a bad pain to his forehead. He was sweaty and nauseous. He felt like he was going to fall or pass out. He had to hold on to his dresser. It lasted about 15 minutes. EEGs have not revealed any epileptic discharge though no symptoms were present while having EEG. He is presenting with recurrent episodes of dizziness and an unconfirmed seizure disorder. These episodes occur roughly once a year, with the most recent in February, featuring dizziness, visual disturbances, sweating, and coughing followed by loss of consciousness and sometimes emesis. The episodes are typically preceded by headache, suggesting a seizure-like phenomenon, although EEG results were negative, conducted in the absence of symptoms. Instructions were provided for managing symptoms using medication, with a prescription sent to the pharmacy for acute management when symptoms emerge. [facility] Medical History (Updated 06/06/25 @ 13:30 by Martin Hardy MD) Forgetfulness Post traumatic seizure disorder Anxiety disorder Seizure disorder Vivid dream Arthritis Peripheral neuropathy Carpal tunnel syndrome Insomnia Migraine Cervicalgia Headache Depression Stress HTN (hypertension) Anemia Lower extremity edema Pre-op examination Erectile dysfunction Diarrhea Pulmonary nodules POLLO on CPAP Asthma-COPD overlap syndrome Surgical History History of fusion of cervical spine Hx of cystoscopy Hx of knee surgery Hx of shoulder surgery Hx of cataract surgery History of hand surgery History of carpal tunnel surgery History of esophagogastroduodenoscopy (EGD) Hx of colonoscopy History of carpal tunnel surgery (~2019) History of back surgery (~2018) Family History Father Throat cancer HTN (hypertension) Paternal Grandfather Heart attack Family/Other Colon cancer Social History Alcohol intake: former Year quit: 2006 Patient Tobacco Use Status: Former Tobacco user Years Smoked: 25 +/- Review of Systems Const Details: - Neurological: Reports episodic dizziness, loss of consciousness, and migraines. - Ear: Denies ear-related symptoms during dizzy episodes. - Gastrointestinal: Reports vomiting following loss of consciousness. - General: Reports occasional headaches preceding dizzy episodes. Physical Exam Neuro Other: Mental Status: Alert and oriented to person, place, and time. Normal attention. Normal spontaneous speech, fluency, and comprehension. No obvious issues with mood and memory. Affect is appropriate. Cranial Nerves: CN II: Visual del castillo full to confrontation, visual acuity intact. CN III, IV, : Pupils equal, round, reactive to light and accommodation. Extraocular movements are normal. CN V: Facial sensation is normal. CN VII: Facial movements symmetrical. CN VIII: Hearing intact to bedside conversation is normal. CN IX, X: Palate elevates symmetrically. CN XI: Shoulder shrug and head turn symmetrical. CN XII: Tongue midline without atrophy or fasciculations. Extrapyramidal: Full facial expressions and blinking. No rigidity. Movements are appropriate with no tremor or abnormality. Speech: Normal; no dysarthria or tremor. Assessment & Plan Assessment & Plan (1) Migraine: Code(s): G43.909 - Migraine, unspecified, not intractable, without status migrainosus Category: Medical Qualifiers: Migraine type: migraine (< 15 days per month) without aura Status migrainosus presence: without status migrainosus Intractability: not intractable Qualified Code(s): G43.009 - Migraine without aura, not intractable, without status migrainosus Plan: 48 hr EEG at [facility] in May 2025: WNL with no events reported CT brain WO at [facility] in Nov 2023: Mild diff atrophy Routine EEG at off in Dec 2023: WNL EMG/NCS LEs in Oct 2020: mod to severe axonal PN NCV/EMG UE 01/01/19 Mild to moderate bilateral median neuropathy across the Carpal tunnel. CT brain WO at [facility] in March 2015: [place] Routine EEG in office in March 2015: WNL Amb EEG at [facility] in 2015: WNL with no events reported Plan Impression: a: Migraine b: Anxiety c: Episodes of feeling dizzy and passing out but multiple EEGs have been negative for seizure disorder. Rec: a: Treatment of anxiety b: Reassuarnce and education c: PRN Sumatriptan for migraine Medications: New sumatriptan succinate 50 mg orally One a day as needed PRN; do not exceed 4 doses per 24 hrs 10 tabs 1RF migraine headache Coding Level of Care Code Est Pt Level 4 (25735) Diagnoses Migraine without aura and without status migrainosus, not intractable G43.009 Migraine type: migraine (< 15 days per month) without aura Status migrainosus presence: without status migrainosus Intractability: not intractable
--- OUTSIDE RECORDS SUMMARY | 2025-06-06 13:56 | XMS_ITS | Clinical Summary ---
Author Organization [facility] Address [address] [place] [address] Phone Care Team Providers Care Fold Skiver Name Role Phone Delia Davila MD Primary Care Provider [phone] Encounters Date Type Department Care Team Description 05/16/2025 11:00 AM EDT - 05/16/2025 11:59 PM EDT Hospital Encounter [facility] Neurodiagnostic [address] [place] [phone] Discharge Disposition: Home or Self Care 05/15/2025 11:00 AM EDT - 05/15/2025 11:59 PM EDT Hospital Encounter [facility] Neurodiagnostic [address] [place] [phone] Discharge Disposition: Home or Self Care 05/14/2025 9:18 AM EDT - 05/14/2025 11:59 PM EDT Hospital Encounter [facility] Neurodiagnostic [address] [place] [phone] Discharge Disposition: Home or Self Care from Last 3 Months Surgical History Surgery Date Site/Laterality Comments SHOULDER SURGERY PROCEDURE: HISTORICAL SHOULDER SURGERY NECK SURGERY PROCEDURE: HISTORICAL NECK SURGERY Medical History Medical History Date Comments Essential hypertension DX:Essent ial hypertension Hyperlipidemia DX:Hyperlipidemi a COPD (chronic obstructive pu lmonary disease) ([facility]/HCC V24, [facility]/HCC V28) 06/30/2023 DX:COPD (chronic o bstructive pulmonary disease) ([facility]) Depression 06/30/2023 DX:Depression Social History [...] Care Team (Late st Contact Info) Description 07/12/2025 10:30 AM EDT Office Visit Orth[facility] Surgery - [place] [address] [phone] Donna Barraza MD [address] [phone] Health Maintenance Due Date Last [...] on patient's age to complete this topic Procedures Procedure Name Priority Date/Time Associated Diagnosis Comments CONTINUOUS EEG Routine 05/16/2025 3:06 PM EDT Seizure disorder ([facility] V24, [facility] V28) CONTINUOUS EEG Routine 05/15/2025 11:44 AM EDT Seizure disorder ([facility] V24, [facility] V28) CONTINUOUS EEG Routine 05/14/2025 12:01 PM EDT Seizure disorder ([facility] V24, [facility] V28) from Last 3 Months Results * Continuous EEG (05/16/2025 3:06 PM EDT) Narrative Martin Hardy MD - 05/27/2025 11:16 AM EDT Table formatting from the original result was not included. Images from the original result were not included. Neurodiagnostic Lab [address] [place] [id number] Ambulatory Electroencephalogram Report Date of service: 05/16/25 Patient Name: Morteza Rogers Date of : 1960 Age: 65 y.o. Gender: male Procedure Order: Continuous EEG Ordering Provider: Martin Hardy MD Reason for Exam: Order Questions Answers Type of monitoring Unmonitored With video? No Diagnosis listed on Order: Seizure disorder ([facility] V24, [facility] V28) This is a recurrent day study. Please see report with final results. Martin Hardy MD NEUROLOGY ORDERABLES Final Result * Continuous EEG (05/15/2025 11:44 AM EDT) Martin Alcala MD - 05/27/2025 11:15 AM EDT This is a 16 channel 48-hour ambulatory EEG with an EKG lead. Patient kept a diary of each day and did not report any significant events. Background EEG rhythm is symmetric alpha posteriorly lower amplitude faster anteriorly. Patient transition to different stages of sleep during both days. No significant asymmetry paroxysmal tendency or focal activity was noted during this EEG. Cardiac lead did not reveal any significant abnormality. Impression: Unremarkable 48-hour ambulatory EEG with patient not reporting any significant events us Martin Hardy MD NEUROLOGY ORDERABLES Final Result * Continuous EEG (05/14/2025 12:01 PM EDT) Martin Alcala MD - 05/27/2025 11:17 AM EDT Table formatting from the original result was not included. Images from the original result were not included. [facility] [address] [place] [id number] Ambulatory Electroencephalogram Report Date of service: 05/14/25 Patient Name: Morteza Rogers Date of : 1960 Age: 65 y.o. Gender: male Procedure Order: Continuous EEG Ordering Provider: Martin Hardy MD Reason for Exam: Order Questions Answers Type of monitoring Unmonitored With video? No Diagnosis listed on Order: Seizure disorder ([facility] V24, [facility] V28) Procedure Performed: 48-hour ambulatory EEG EEG Technical Description: This study was performed using the 10-20 [employer] Electrode System placement and single channel EKG electrode on Trex recorder. Settings included: low frequency filter of 1 Hz, high frequency filter of 70 Hz, sensitivity of 7 uV/mm, a display speed of 30 mm/sec, with a 60 Hz notched filter applied as appropriate. Modifications in these parameters were made as necessary for further waveform resolution. Video Recording: No Description: This is a 16 channel 48-hour ambulatory EEG. Patient reported diary of each day but no symptoms were reported. HDF EEG was separately reviewed and included wakefulness and sleep. Background EEG rhythm during wakefulness was symmetric alpha posteriorly lower amplitude faster anteriorly. Patient transition into sleep during both days. No significant abnormality such as paroxysmal activity asymmetry sharp waves or spikes were noted. Cardiac lead did not reveal any significant abnormality. Impression: Unremarkable 48-hour ambulatory EEG with patient not reporting any symptoms. Martin Hardy MD NEUROLOGY ORDERABLES Final Result from Last 3 Months Insurance [facility] PLAN Care Teams Fold Skiver Relationship Specialty Start Date End Date Delia Davila MD [address] [place], [place] PCP - General Internal Medicine 04/03/21
--- OUTSIDE RECORDS SUMMARY | 2025-06-06 13:56 | XMS_ITS | Clinical Summary ---
Author Organization [facility] Address [address] [facility] 7t [place] [address] Care Team Providers Care Campus Ambassador Name Role Phone Unavailable Primary Care Provider Unavailabl e Social History Tobacco Use Types Packs/Day Years Used Date Smoking Tobacco: Never Assessed Sex and Gender Information Value Date Recorded Sex Assigned at Not on file Legal Sex Male 10:44 AM EDT Gender Identity Not on file Sexual Orientation Not on file Plan of Treatment Upcoming Encounters Date Type Department Care Team ([facility] st Contact Info) Description 06/06/2025 3:30 PM EDT Immunization [facility] MEDICINE [address] [place] [address] Health Maintenance Due Date Last Done Comments CT Colonography 1961 Colonoscopy 1961 Colorectal Cancer Screening 1961 Depression Screening 1961 FIT DNA/Cologuard 1961 FIT 1961 FOBT 1961 HIV Screening 1961 Lipid Panel 1961 SDOH Screening 1961 Sigmoidoscopy 1961 Disability Screening 1961 Alcohol/Substance Use Screening 1973 Tobacco Screening 1973 Hepatitis C Screening 1979 DTaP/Tdap/Td Vaccines (1 - Tdap) 1980 Pneumococcal Vaccine: 50+ Ye ars (1 of 1 - PCV) 2011 Zoster Vaccines (1 of 2) 2011 COVID-19 Vaccine ( - 2023-2 5 season) 2024 Influenza Vaccine (#1) 2025 RSV Patients and Pa tients Aged 60 years or older (1 - 1-dose 75+ series) 2036 HIB Vaccines Aged Out No longer eligi [...] patient's age to complete this topic Meningococcal Vaccine Aged Out No shamir yrn eligible based on patient's age to complete this topic RSV under 20 months Aged Out No longe r eligible based on patient's age to complete this topic Rotavirus Vaccines Aged Out No longer eligible based on patient's age to complete this topic
== END 2025-06-06 13:38 | disposition home or self-care (01) ==
LOC: HO.HSM 13:05
PROVIDERS: PCP Internal Medicine; Visit Provider Psychiatry & Neurology Neurology
DX: G43.009 Migraine without aura, not intractable, without status migrainosus (principal)
CPT/HCPCS: 99214

== ENCOUNTER → 2025-06-06 13:05 | Outpatient (BNVA) | payer OTHER, SELFPAY | PROVIDERS: PCP Internal Medicine; Visit Provider Psychiatry & Neurology Neurology | DX: Z71.2 Person consulting for explanation of examination or test findings (principal); G43.009 Migraine without aura, not intractable, without status migrainosus | CPT/HCPCS: 99212 ==

== ENCOUNTER 2025-07-11 06:16 | Outpatient (REF) | payer OTHER, SELFPAY ==
--- NOTE | ~2025-07-11 | FL_ITS ---
EXAMINATION: FL GUIDANCE ONLY HISTORY: M54.2 - Cervicalgia COMPARISON: Correlation is made with a CT of the cervical spine dated 12/11/2023. TECHNIQUE: Fluoroscopy time: 0.3 minutes. Cumulative Dose: 2.79 mGy. DAP: 0.0266 mGym2 Images: 4. FINDINGS: Fluoroscopic spot films of the cervical spine demonstrate needles and contrast material in the neck at 3 levels bilaterally. FL/FL guidance in treatment room IMPRESSION: Fluoroscopy during procedure. Please see procedure report for additional information. Electronically signed by: Tony Suero MD 07/11/2025 03:16 PM EDT
--- OUTSIDE RECORDS SUMMARY | 2025-07-11 06:19 | XMS_ITS | Clinical Summary ---
Author Organization [employer] Address [address] [facility] 7[address] [place] [address] Care Team Providers Care Weight Guesser Name Role Phone Unavailable Primary Care Provider Unavailabl e Encounters Date Type Department Care Team Description 06/06/2025 Travel from Last 3 Months Social History Tobacco Use Types Packs/Day Years Used Date Smoking Tobacco: Never Assessed Comments Unknown Sex and Gender Information Value Date Recorded Sex Assigned at Unknown 06/06/2025 3:36 PM EDT Legal Sex Male 10:44 AM EDT Gender Identity Choose not to disclose 3:37 PM EDT Sexual Orientation Don't know 06/06/2025 3: 37 PM EDT Plan of Treatment Upcoming Encounters Date Type Department Care Team (Late st Contact Info) Description 08/08/2025 10:30 AM EDT Immunization [facility] MEDICINE [address] [place] [address] Health Maintenance Due Date Last Done Comments [...] COVID-19 Vaccine ( - 2023-2 5 season) 2025 Influenza Vaccine (#1) 2025 RSV Patients and [...]
--- OUTSIDE RECORDS SUMMARY | 2025-07-11 06:19 | XMS_ITS | Clinical Summary ---
Author Organization [facility] Address [address] [place] [address] Phone Care Team Providers Care Bus Washer Name Role Phone Delia Davila MD Primary Care Provider Encounters Date Type Department Care Team Description 05/16/2025 11:00 AM EDT - 05/16/2025 11:59 PM EDT Hospital Encounter [facility] [address] [place] [phone] Discharge Disposition: Home or Self Care 05/15/2025 11:00 AM EDT - 05/15/2025 11:59 PM EDT Hospital Encounter [facility] [address] [place] [phone] Discharge Disposition: Home or Self Care 05/14/2025 9:18 AM EDT - 05/14/2025 11:59 PM EDT Hospital Encounter [facility] [address] [place] [phone] Discharge Disposition: Home or Self Care from Last 3 Months Surgical History Surgery Date Site/Laterality Comments SHOULDER SURGERY PROCEDURE: HISTORICAL SHOULDER SURGERY NECK SURGERY PROCEDURE: HISTORICAL NECK SURGERY Medical History Medical History Date Comments Essential hypertension DX:Essent ial hypertension Hyperlipidemia DX:Hyperlipidemi a COPD (chronic obstructive pu lmonary disease) ([facility]/HCC V24, [facility]/HCC V28) 06/30/2023 DX:COPD (chronic o bstructive pulmonary disease) ([facility]) Depression 06/30/2023 DX:Depression Social History [...] AM EDT Office Visit Orthopedic Surgery - [place] [address] [facility] [address] [place] [address] Donna Barraza MD [address] [place] [phone] Health Maintenance Due Date Last Done Comments RSV Immunization Adult Patients (1 - Risk 60-74 years 1-dose series) 2021 Zoster Vaccines (2 of 2) 07/03/2022 05/08/2022 Cholesterol Screening (Lipid Panel) 10/02/2022 Colorectal Cancer Screening: Colonoscopy 10/02/2022 HIV Screening 10/02/2022 Hepatitis C Screening 10/02/2022 Social Influencers of Health Screening 10/02/2022 Hypertension/CHF/CAD Annual BMP Blood Test 12/07/2023 Depression Screening 10/24/2024 COVID-19 Vaccine (2 - season) 2025 07/30/2023 Influenza Vaccine (#1) 2025 4, 07/20/2023, 08/19/2022, [...] Routine 05/16/2025 3:06 PM EDT Seizure disorder ([facility] V24, [facility] V28) CONTINUOUS EEG Routine 05/15/2025 11:44 AM EDT Seizure disorder ([facility] V24, [facility] V28) CONTINUOUS EEG Routine 05/14/2025 12:01 PM EDT Seizure disorder ([facility] V24, [facility] V28) from Last 3 Months Results * Continuous EEG (05/16/2025 3:06 PM EDT) Narrative Martin Hardy MD - 05/27/2025 11:16 AM EDT Table formatting from the original result was not included. Images from the original result were not included. Neuro[facility] [address] [place] [id number] Ambulatory Electroencephalogram Report Date of service: 05/16/25 Patient Name: Morteza Rogers Date of : 1960 Age: 65 y.o. Gender: male Procedure Order: Continuous EEG Ordering Provider: Martin Hardy MD Reason for Exam: Order Questions Answers Type of monitoring Unmonitored With video? No Diagnosis listed on Order: Seizure disorder ([facility] V24, [facility] V28) This is a recurrent [...] original result were not included. [facility] [address] [place] [id number] Ambulatory Electroencephalogram Report Date of service: 05/14/25 Patient Name: Morteza Rogers Date of : 1960 Age: 65 y.o. Gender: male Procedure Order: Continuous EEG Ordering Provider: Martin Hardy MD Reason for Exam: Order Questions Answers Type of monitoring Unmonitored With video? No Diagnosis listed on Order: Seizure disorder ([facility] V24, [facility] V28) Procedure Performed: 48-hour ambulatory [...] Final Result from Last 3 Months Insurance [facility] Care Teams Bus Washer Relationship Specialty Start Date End Date Delia Davila MD [address] [facility] [address] [place], [place] PCP - General Internal Medicine 04/03/21
== END 2025-07-11 06:17 | disposition home or self-care (01) ==
LOC: CF 06:16
PROVIDERS: Visit Provider Internal Medicine
DX: M54.2 Cervicalgia (principal); M96.1 Postlaminectomy syndrome, not elsewhere classified; M47.812 Spondylosis without myelopathy or radiculopathy, cervical region
CPT/HCPCS: 64490; 64491; J2795; Q9967

== ENCOUNTER 2025-07-11 09:03 | Outpatient (AMB) | payer OTHER, SELFPAY ==
[2025-07-11 09:14] VITALS: BP 127/63; PULSE 69; RESP 16; O2SAT 97; BMI 31.1
--- NOTE | 2025-07-11 09:14 | A.OFFVIS_ITS ---
Vital Signs 07/11/25 09:14 07/11/25 10:12 Height 5 ft 11 in Weight 223 lb BMI 31.1 BP 127/63 149/83 H Blood Pressure Location Lt radial Lt radial Position Sitting Sitting Respiration 16 16 Pulse 69 65 Pulse Source Pulse Oximeter Pulse Oximeter Pulse Oximetry (%) 97 98 Oxygen Delivery Method Room Air Room Air Intake Visit Reasons: Repeat Austen Dx C4-C5-C6 MBB Allergies alprazolam (From Xanax) Allergy (Unknown, Verified 07/15/25 09:38) Hives latex Adverse Reaction (Intermediate, Verified 07/15/25 09:38) Itching HPI HPI Repeat [place]en Dx C4-C5-C6 MBB: Details: Patient presents for scheduled procedure. Denies any recent cough, cold, infection, fever or other significant changes in medical history since last office visit. [facility] Medical History Forgetfulness Post traumatic seizure disorder Anxiety disorder Seizure disorder Vivid dream Arthritis Peripheral neuropathy Carpal tunnel syndrome Insomnia Migraine Cervicalgia Headache Depression Stress HTN (hypertension) Anemia Lower extremity edema Pre-op examination Erectile dysfunction Diarrhea Pulmonary nodules POLLO on CPAP Asthma-COPD overlap syndrome Surgical History History of fusion of cervical spine Hx of cystoscopy Hx of knee surgery Hx of shoulder surgery Hx of cataract surgery History of hand surgery History of carpal tunnel surgery History of esophagogastroduodenoscopy (EGD) Hx of colonoscopy History of carpal tunnel surgery (~2019) History of back surgery (~2019) Family History Father Throat cancer HTN (hypertension) Paternal Grandfather Heart attack Family/Other Colon cancer Social History Alcohol intake: former Year quit: 2006 Patient Tobacco Use Status: Former Tobacco user Years Smoked: 25 +/- Physical Exam Vital Signs: Last Vital Signs Pulse 65 07/11/25 10:12 Resp 16 07/11/25 10:12 BP 149/83 H 07/11/25 10:12 Pulse Ox 98 07/11/25 10:12 Oxygen Delivery Method Room Air 07/11/25 10:12 BMI result Body Mass Index 31.1 Office Procedures Cervical/Thoracic Facet Inj Details: Diagnostic Cervical Medial Branch Block, Bilateral C4, C5, C6 medial branches After obtaining written consent, pre-procedure blood pressure and pulse were recorded and are in the nursing record for review. The patient was placed in a lateral position. The respective cervical area was prepped with chloraprep and draped in sterile fashion. The skin over the target medial branch nerves was anesthetized with 0.5% lidocaine. A 25 gauge 1.5 inch needle was inserted into the target medial branch nerve under fluoroscopic guidance. No paresthesias were elicited with needle placement and aspiration was negative for blood and CSF. Next, 0.2cc of omnipaque 180 was injected to verify positioning. Next 0.5 ml 0.5% ropivicaine was injected (0.5 cc total per level). The identical procedure was performed at the remaining levels. The skin was cleansed and a sterile bandage was applied. Following the procedure the patient's vital signs were stable. The patient tolerated the procedure well and no complications were encountered. Following the procedure the patient's vital signs were stable. The patient was discharged home in good condition with post-procedural instructions. Time Out: Immediately prior to the procedure, the following was verbally confirmed that there is a signed consent form and that the correct patient, planned procedure, site and side are consistent with documentation and that necessary equipment and/or blood products are available prior to the start of the case. Complications: none EBL: <5 cc 35255 - with Fluoroscopy 18850 - second level, with Fluoroscopy (bilateral) Procedure code (CPT) selection complete Assessment & Plan Assessment & Plan (1) Cervical post-laminectomy syndrome: Code(s): M96.1 - Postlaminectomy syndrome, not elsewhere classified Category: Medical (2) Cervical spondylosis: Code(s): M47.812 - Spondylosis without myelopathy or radiculopathy, cervical region Category: Medical Plan Patient is status post bilateral C4, C5, C6 medial branch blocks. Patient tolerated procedure well and was discharged home in stable condition with discharge instructions. All questions were answered. We will follow-up via telephone or in clinic to assess response to therapy. A follow-up appointment was made during today's visit. Orders: Orders FL guidance in treatment room 07/11/25 M54.2 - Cervicalgia Coding Level of Care Code Procedure Only Diagnoses Cervical post-laminectomy syndrome M96.1 Cervical spondylosis M47.812 CPT Codes Facet Injection Cervical/Thoracic - CPT: 63738 - with Fluoroscopy ([id number]) Facet Injection Cervical/Thoracic - CPT: 08638 - second level, with Fluoroscopy ([id number])
[2025-07-11 10:12] VITALS: BP 149/83; PULSE 65; RESP 16; O2SAT 98
== END 2025-07-11 10:13 | disposition home or self-care (01) ==
LOC: HO.PMCPRC 09:03
PROVIDERS: PCP Internal Medicine; Visit Provider Internal Medicine
DX: M96.1 Postlaminectomy syndrome, not elsewhere classified (principal); M47.812 Spondylosis without myelopathy or radiculopathy, cervical region
CPT/HCPCS: 64490; 64491

== ENCOUNTER 2025-07-15 09:30 | Outpatient (AMB) | payer OTHER, SELFPAY ==
--- OUTSIDE RECORDS SUMMARY | 2025-07-12 10:30 | XMS_ITS | Encounter Summary ---
Author Organization [facility] Address [address] [place] [phone] Care Team Providers Care Mallet Cutter Name Role Phone Delia Davila MD Primary Care Provider [phone] Reason for Referral * Imaging (Routine) - Pending Review Specialty Diagnoses / Procedures Referred By Tonny briseno Referred To Contact Radiology Diagnoses Left wrist pain Procedures CT Upper Extremity wo Contrast Left Donna Barraza MD [address] [place] [address] Phone: tel: fax: [facility] [address] [place] [address] Phone: tel: Referral ID Status Reason Start Date Expiration Date V isits Requested Visits Authorized [id number] Pending Review 07/12/2025 07/12/2026 1 1 Reason for Visit * Reason Comments Follow-up pain Encounter Details Date Type Department Care Team (Late st Contact Info) Description 07/12/2025 10:30 AM EDT Office Visit Orthopedic Surgery - [place] [address] [facility] [address] [place] [address] Donna Barraza MD [address] [place] [address] Left wrist pain (Primary Dx) [...] Barraza MD - 07/12/2025 10:30 AM EDT [facility] Hand & Wrist Surgery Date: 07/12/25 CHIEF COMPLAINT/REASON FOR VISIT: Left thumb pain 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 He was [...] history of COPD (chronic obstructive pulmonary disease) ([facility] V24, [facility] V28) (06/30/2023), Depression (06/30/2023), Essential hypertension, and Hyperlipidemia. He has no past medical history of Anxiety state, Asthma, Diabetes mellitus type 2, controlled, withcomplications ([facility] V24, [facility] V28), or Esophageal reflux. has a past [...] mouth 1 (one) time each day in [facility]. sildenafiL (VIAGRA) 100 mg tablet TAKE [...] AM EDT Office Visit Orthopedic Surgery - [address] [place] [address] Donna Barraza MD [address] [place] [phone] Scheduled Orders Name Type Priority Associated [...] 01/11/2025 added in this encounter Care Teams Mallet Cutter Relationship Specialty Start Date End Date Delia Davila MD [address] [facility] [address] [place], [place] PCP - General Internal Medicine 04/03/21 documented as of this encounter
--- NOTE | 2025-07-15 09:32 | A.OFFVIS_ITS ---
Vital Signs 07/15/25 09:37 Height 5 ft 11 in Weight 220 lb BMI 30.7 BP 166/88 H Blood Pressure Location Rt brachial Position Sitting Pulse 95 Pulse Source Pulse Oximeter Pulse Oximetry (%) 100 Oxygen Delivery Method Room Air Intake Visit Reasons: S/P [place] Dx C4-C5-C6 MBB Intake Note: Pain today 12/31 Linen Controller Required: Yes Linen Controller Language: Director Life Sciences Services: Linen Controller Present Linen Controller Name: [id number] Accompanied by: Self / Same As Patient Allergies alprazolam (From Xanax) Allergy (Unknown, Verified 07/15/25 09:38) Hives latex Adverse Reaction (Intermediate, Verified 07/15/25 09:38) Itching HPI Comments Details: The patient is a 65-year-old male presenting for follow up for chronic neck pain. He underwent repeat bilateral diagnostic C4-C5-C6 injections on 07/11/25, which provided 100% pain relief for 24 hours, indicating a positive response to the procedure. The patient has a history of seizures, which has previously resulted in a skull fracture and is not interested in Sprint PNS trial. Patient is interested to proceed with bilateral cervical medial branch RFA procedure for a longer term pain relief. Denies any recent cough, cold, infection, fever or any other significant changes in medical history since last office visit. Past Procedures: 07/11/25: Diagnostic bilateral C4, C5, C6 medial branch blocks-100% pain relief for 24 hours, ongoing 70% pain relief 05/09/25: Diagnostic bilateral C4, C5, C6 medial branch blocks-100% pain relief for 24 hours PRIOR: The patient is a 64-year old Burmese speaking male presenting with an evaluation of chronic neck pain, whose onset was noted after cervical spine surgery in 2019. Reporting progressive worsening, the episodic intensity of his pain distinctly escalated about four months prior after a syncope-related fall. Historical medical interventions include a C4-C5 anterior cervical discectomy fusion, shoulder surgery for left rotator cuff pathology, and continuous care for consequential traumatic brain injury sequelae. Disc degeneration accentuates his discomfort, corroborated by imaging depicting significant cervical spondylosis. His comprehensive pain narrative includes left neck tenderness, which radiates to his arm, often accompanied by sensory disturbances?numbness and tingling?extending to his fingertips. Previous attempts at intervention via [facility] 2 years ago were curtailed by transportation challenges, leaving the patient's current functional pursuits severely hindered by unrelenting pain. - Onset: Chronic, constant tense pain primarily on the left side of the neck, persistent for past 4 months - Quality: Pain on turning head, worse on the right, tense, sometimes severe especially post fall - Location: Neck - Radiation: Arms with numbness and tingling in fingers - Aggravating factors: Turning head to the right, exacerbated post-syncope and fall 4 months ago - Alleviating factors: None reported - Interference: Limited range of motion - Affect: Chronic pain impacting daily living, marked discomfort and decreased quality of life. - Analgesia: Utilizes gabapentin and baclofen. No current use of NSAIDs or acetaminophen. Currently using lidocaine patches; minimal effect; diclofenac gel prescribed - Adverse Effects: None reported from gabapentin or baclofen. - Activities of Daily Living: Functional limitations due to pain impact daily activities; unable to drive to previous pain management center. - Aberrant Drug Related Behaviors: Past substance use disorder in remission for 18 years. Oswestry Neck Pain Disability Score=30 [facility] Medical History Forgetfulness Post traumatic seizure disorder Anxiety disorder Seizure disorder Vivid dream Arthritis Peripheral neuropathy Carpal tunnel syndrome Insomnia Migraine Cervicalgia Headache Depression Stress HTN (hypertension) Anemia Lower extremity edema Pre-op examination Erectile dysfunction Diarrhea Pulmonary nodules POLLO on CPAP Asthma-COPD overlap syndrome Surgical History History of fusion of cervical spine Hx of cystoscopy Hx of knee surgery Hx of shoulder surgery Hx of cataract surgery History of hand surgery History of carpal tunnel surgery History of esophagogastroduodenoscopy (EGD) Hx of colonoscopy History of carpal tunnel surgery (~2019) History of back surgery (~2019) Family History Father Throat cancer HTN (hypertension) Paternal Grandfather Heart attack Family/Other Colon cancer Social History Alcohol intake: former Year quit: 2006 Patient Tobacco Use Status: Former Tobacco user Years Smoked: 25 +/- Review of Systems Const All systems reviewed & are unremarkable except as noted in HPI and below Physical Exam General: Appears afebrile. Alert and oriented. Mood and affect appropriate. Follows and participates in conversation appropriately. Respiratory effort is unlabored. No cough. Able to transition from sit to stand unassisted. Ambulates with bilaterally normal heel strike and toe off. Neck Other: Patient with decreased cervical ROM in all planes/especially with lateral rotations. Reports mild pain with cervical extension and no pain with flexion. Spurling compression test is negative. Elvey's tension test is negative bilaterally. Lhermitte's test was negative. DTR intact, +1 and symmetrical. Patient demonstrated 5/5 motor strength of bilateral upper extremities. 2 + radial pulses. Mild tightness throughout left upper trapezius as well as TTP throughout bilateral upper trapezius muscles. Neck: Yes normal visual inspection, Yes no lymphadenopathy, Yes supple, No anterior neck swelling, Yes no JVD, No prominent supraclavicular fat pad and Yes prominent dorsocervical fat pad Back/Spine/Pelvis Cervical Spine: loss of normal cervical lordosis, cervical muscular tenderness, pain with cervical ROM (lateral rotations and facet loading), Cervical spine scars present, No Cervical spine tenderness and No step off deformity Thoracic/Lumbar Spine: thoracic and lumbar spine normal to inspection, paraspinal muscle tenderness, thoraco-lumbar ROM limited, No thoracic spinal tenderness and No lumbar spinal tenderness Results Reviewed Results Reviewed: CT HEAD WITHOUT IV CONTRAST CT CERVICAL SPINE WITHOUT IV CONTRAST 12/11/23 INDICATION: Pain. Status post seizure. FINDINGS: HEAD: There is no intracranial hemorrhage, hydrocephalus, extra-axial surface collection, midline shift, or other herniation pattern. Shah to white matter differentiation is diffusely maintained without evidence of an evolved acute territorial infarct. The basilar cisterns are preserved. No significant soft tissue abnormality. No acute osseous abnormality. The paranasal sinuses and the mastoid air cells are well aerated. Degenerative changes involving the TMJs bilaterally. CERVICAL SPINE: Postoperative changes following ACDF at C4-C5. There are no acute fractures and there are no acute subluxations. There is multilevel hypertrophic facet arthropathy and there is multilevel degenerative disc disease. Mild degenerative anterior subluxation of C6 on C7. Chronic well-corticated ossific fragment along the anterior margin of the inferior C6 endplate. There is no prevertebral soft tissue swelling. IMPRESSION: - No acute intracranial abnormality. - No acute osseous abnormality within the cervical spine. Cervical spondylosis. CR LUMBAR SPINE. CR RIGHT SHOULDER. CR THORACIC SPINE. 12/11/23 CLINICAL INFORMATION: Back pain status post fall. Right shoulder pain. Lower back pain. Seizure. COMPARISON: Lumbar spine films dated 11/25/2021. T-spine films dated 09/24/2016. Contralateral left shoulder films dated 05/03/2016. CT scan of the chest dated 01/12/2021. FINDINGS: Lumbar spine: There is a convex right lumbar scoliosis. In the sagittal plane, there is minimal grade 1 retrolisthesis of L4 on L5, similar to the previous exam. No acute fracture or abnormal paraspinal soft tissues changes are seen. There is multilevel mild degenerative disc disease with mild disc space narrowing and vertebral endplate spurring seen, similar to the previous exam. Moderate facet arthropathy at the lumbosacral junction is noted. Sacroiliac joints and included portions of the sacrum appear intact. Atherosclerotic calcifications of the abdominal aorta are seen. Right shoulder: No acute fracture or dislocation. Glenohumeral joint and acromioclavicular joints are intact. There is minimal spurring in the glenohumeral joint and nonpersonal surface spurring at the acromioclavicular joint. No soft tissue calcifications are seen. Included right ribs and right clavicle are intact. Lower cervical spine fusion hardware is partially included. Thoracic spine: There is a mild convex left thoracic curvature. No acute fracture or abnormal paraspinal soft tissue changes are noted. There is mild multilevel vertebral spurring in the mid and lower thoracic spine with prominent hypertrophic changes at the right lateral margins of the T8-T9 and T9-T10 vertebral bodies. IMPRESSION: * No acute fracture of the lumbar spine, right shoulder, or thoracic spine. * Thoracolumbar scoliosis and mild multilevel degenerative disc disease and moderate facet arthropathy in the lower lumbar spine. * Minimal degenerative changes in the right glenohumeral joint and right acromioclavicular joint. * Atherosclerotic vascular calcifications of the abdominal aorta. * Lower cervical spine fusion hardware partially included. Assessment & Plan Assessment & Plan (1) Cervical spondylosis: Code(s): M47.812 - Spondylosis without myelopathy or radiculopathy, cervical region Category: Medical (2) Cervicalgia: Code(s): M54.2 - Cervicalgia Category: Medical (3) Degenerative disc disease, cervical: Code(s): M50.30 - Other cervical disc degeneration, unspecified cervical region Category: Medical (4) Cervical post-laminectomy syndrome: Code(s): M96.1 - Postlaminectomy syndrome, not elsewhere classified Category: Medical Plan The plan involves proceeding with radiofrequency ablation given good pain relief with 2 sets of diagnostic cervical medial branch blocks, starting with the left side of the neck, pending insurance approval. Schedule for bilateral C4-C5-C6 medial branch RFA with oral and local analgesia and fluoroscopy guidance for longer term pain management of predominantely axial cervical pain. Expectations, risks and benefits were reviewed. Patient has history of seizures and is not interested in implantable temporary or permanent devices. Continue diclofenac gel, lidocaine patches, gabapentin and baclofen for medical pain management. Avoid strenuous activities, particularly heavy weightlifting, to prevent exacerbation of symptoms. All questions and concerns have been answered and patient agreed with the plan. Follow up after cervical medial branch RFA and sooner as needed. Patient was informed and verbally consented to the use of an ambient scribe for clinic note documentation during this visit. Coding Level of Care Code Est Pt Level 3 (44500) Complex EM visit Add On G2211 Diagnoses Cervical spondylosis M47.812 Cervicalgia M54.2 Degenerative disc disease, cervical M50.30 Cervical post-laminectomy syndrome M96.1
[2025-07-15 09:37] VITALS: BP 166/88; PULSE 95; O2SAT 100; BMI 30.7
--- OUTSIDE RECORDS SUMMARY | 2025-07-15 11:11 | XMS_ITS | Clinical Summary ---
Author Organization [employer] Address [address] [place] [address] Care Team Providers Care Component Design Engineer Name Role Phone Unavailable Primary Care Provider [...] Info) Description 08/08/2025 10:30 AM EDT Immunization [facility] [address] [place] [address] Health Maintenance Due Date Last Done Comments [...]
--- OUTSIDE RECORDS SUMMARY | 2025-07-15 11:11 | XMS_ITS | Clinical Summary ---
Author Organization [facility] Address [address] [place] [address] Phone Care Team Providers Care Central Office Inspector Name Role Phone Delia Davila MD Primary Care Provider [phone] Allergies Active Allergy Reactions Criticality Noted Date Comments Latex 07/12/2025 Medications albuterol 2.5 mg /3 mL (0.083 %) nebulizer solution INHALE 1 VIAL VIA NEBULZER EVERY 6 HOURS NEEDED FOR SHORTNESS OF BREATH OR WHEEZING FOR 30 DAYS 5 Active traZODone (DESYREL) 150 mg tablet Take 2 tablets (300 mg total) by mouth. at bedtime 5 Active SUMAtriptan (IMITREX) 50 mg tablet 5 Active sildenafiL (VIAGRA) 100 mg tablet TAKE 1 TABLET BY MOUTH ONCE NEEDED FOR SEXUAL ACTIVITY. TAKE NEEDED 60 MINUTES BEFORE ACTIVITY. 5 Active rosuvastatin (CRESTOR) 40 mg tablet TOME 1 TABLETA POR V A ORAL TODOS LOS D Active prazosin (MINIPRESS) 2 mg capsule Take 1 capsule (2 mg total) by mouth 1 (one) time each day in the evening. 5 Active metoprolol succinate (TOPROL-XL) 100 mg 24 hr tablet 5 Active losartan-hydroC HLOROthiazide (HYZAAR) 100-25 mg per tablet TOME 1 TABLETA POR V A ORAL TODOS LOS D Active Encounters Date Type Department Care Team Description 07/12/2025 10:30 AM EDT Office Visit Orthopedic Surgery [facility] [address] [place] [address] Donna Barraza MD Left wrist pain (Primary Dx) 05/16/2025 11:00 AM EDT - 05/16/2025 11:59 PM EDT Hospital Encounter [facility] [address] [place] [address] Discharge Disposition: Home or Self Care 05/15/2025 11:00 AM EDT - 05/15/2025 11:59 PM EDT Hospital Encounter [facility] [address] [place] [phone] Discharge Disposition: Home or Self Care 05/14/2025 9:18 AM EDT - 05/14/2025 11:59 PM EDT Hospital Encounter [facility] [address] [place] [phone] Discharge Disposition: Home or Self Care from Last 3 Months Surgical History Surgery Date Site/Laterality Comments SHOULDER SURGERY Left PROCEDURE: HISTORICAL SHOULDER SURGERY NECK SURGERY PROCEDURE: HISTORICAL NECK SURGERY CARPAL TUNNEL RELEASE Left x2 TRIGGER FINGER RELEASE Left Medical History Medical History Date Comments Essential hypertension DX:Essent ial hypertension Hyperlipidemia DX:Hyperlipidemi a COPD (chronic obstructive pu lmonary disease) ([facility] V24, [facility] V28) 06/30/2023 DX:COPD (chronic o bstructive pulmonary disease) ([facility]) Depression 06/30/2023 DX:Depression Social History [...] Mass Index 30.68 07/12/2025 10:25 AM EDT Plan of Treatment Upcoming Encounters Date Type Department Care Team (Late st Contact Info) Description 07/30/2025 11:00 AM EDT Office Visit Orthopedic Surgery - [place] [address] [place] [address] Donna Barraza MD [facility] [address] Health Maintenance Due Date Last Done [...] Procedure Name Priority Date/Time Associated Diagnosis Comments XR WRIST 3+ VIEWS LEFT Routine 07/12/2025 10:42 AM EDT Left wrist pain CONTINUOUS EEG Routine 05/16/2025 3:06 PM EDT Seizure disorder ([facility] V24, CMS/[facility] V28) CONTINUOUS EEG Routine 05/15/2025 11:44 AM EDT Seizure disorder (CMS/HCC V24, CMS/HCC V28) CONTINUOUS EEG Routine 05/14/2025 12:01 PM EDT Seizure disorder (CMS/HCC V24, CMS/[facility] V28) from Last 3 Months Results * XR Wrist 3+ Views Left [...] No backing out of the hardware noted. us Donna Barraza MD IMG XR PROCEDURES Final Resul t * Continuous EEG (05/16/2025 3:06 PM EDT) Narrative Martin Hardy MD - 05/27/2025 11:16 AM EDT Table formatting from the original result was not included. Images from the original result were not included. [facility] [address] [place] [id number] Ambulatory Electroencephalogram Report Date of service: 05/16/25 Patient Name: Morteza Rogers Date of : 1960 Age: 65 y.o. Gender: male Procedure Order: Continuous EEG Ordering Provider: Martin Hardy MD Reason for Exam: Order Questions Answers Type of monitoring Unmonitored With video? No Diagnosis listed on Order: Seizure disorder ([facility] V24, [facility] V28) This is a recurrent day study. Please see report with final results. Martin Hardy MD NEUROLOGY ORDERABLES Final Result * Continuous EEG (05/15/2025 11:44 AM EDT) Narrative Martin Hardy MD - 05/27/2025 11:15 AM EDT This [...] * Continuous EEG (05/14/2025 12:01 PM EDT) Narrative Martin Hardy MD - 05/27/2025 11:17 AM EDT Table formatting from the original result was not included. Images from the original result were not included. [facility] [address] [place] [address] Ambulatory Electroencephalogram Report Date of service: 05/14/25 Patient Name: Morteza Rogers Date of : 1960 Age: 65 y.o. Gender: male Procedure Order: Continuous EEG Ordering Provider: Martin Hardy MD Reason for Exam: Order Questions Answers Type of monitoring Unmonitored With video? No Diagnosis listed on Order: Seizure disorder (CMS/[facility] V24, CMS/[facility] V28) Procedure Performed: 48-hour ambulatory [...] Final Result from Last 3 Months Insurance [address] [place] [address] [facility] [place] [address] Care Teams Central Office Inspector Relationship Specialty Start Date End Date Delia Davila MD [facility] [address] [place], [place] PCP - General Internal Medicine 04/03/21
== END 2025-07-15 09:44 | disposition home or self-care (01) ==
LOC: HO.PMC 09:30
PROVIDERS: PCP Internal Medicine; Visit Provider Nurse Practitioner Family
DX: M47.812 Spondylosis without myelopathy or radiculopathy, cervical region (principal); M50.30 Other cervical disc degeneration, unspecified cervical region; M96.1 Postlaminectomy syndrome, not elsewhere classified
CPT/HCPCS: 99213

== ENCOUNTER → 2025-07-15 09:30 | Outpatient (BNVA) | payer OTHER, SELFPAY | PROVIDERS: PCP Internal Medicine; Visit Provider Nurse Practitioner Family | DX: M47.812 Spondylosis without myelopathy or radiculopathy, cervical region (principal); M54.2 Cervicalgia; M96.1 Postlaminectomy syndrome, not elsewhere classified | CPT/HCPCS: 99212 ==

== ENCOUNTER 2025-07-17 10:38 | Outpatient (AMB) | payer OTHER, SELFPAY ==
--- OUTSIDE RECORDS SUMMARY | 2025-07-12 10:30 | XMS_ITS | Encounter Summary ---
Author Organization [facility] Address [address] [place] [phone] Care Team Providers Care Teamcenter Solution Architect Name Role Phone Delia Davila MD Primary Care Provider [phone] Reason for Referral * Imaging (Routine) - Pending Review Specialty Diagnoses / Procedures Referred By Tonny briseno Referred To Contact Radiology Diagnoses Left wrist pain Procedures CT Upper Extremity wo Contrast Left Donna Barraza MD [address] [place] [address] Phone: tel: fax: [facility] [address] [place] [address] Phone: tel: Referral ID Status Reason Start Date Expiration Date V isits Requested Visits Authorized [id number] Pending Review 07/12/2025 07/12/2026 1 1 Reason for Visit * Reason Comments Follow-up pain Encounter Details Date Type Department Care Team (Late st Contact Info) Description 07/12/2025 10:30 AM EDT Office Visit Orthopedic Surgery - [place] [address] [facility] [address] [place] [address] Donna Barraza MD [address] [place] [address] Left wrist pain (Primary Dx) Social History Tobacco Use Types Packs/Day Years [...] on file documented as of this encounter Last Filed Vital Signs Vital Sign Reading Time Taken Comments Blood Pressure - - Pulse - - Temperature - - Respiratory Rate - - Oxygen Saturation - - Inhaled Oxygen Concentration - - Weight 99.8 kg (220 lb) 07/12/2025 10:25 AM EDT Height 180.3 cm (5' 11 ) 07/12/2025 10:25 AM EDT Body Mass Index 30.68 07/12/2025 10:25 AM EDT documented in this encounter Progress Notes * Donna Barraza MD - 07/12/2025 10:30 AM EDT [facility] Hand [facility] Wrist Surgery Date: 07/12/25 CHIEF COMPLAINT/REASON FOR VISIT: Left 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 He was last seen in January 2024. He has previously undergone a left STT fusion. Patient states that about 2 to 3 months agohe noticed some persistent pain at the base of the thumb. It is achy and sore and occasionally getsswollen. There is no numbness no tingling. Patient has had a prior carpal tunnel release. SUBJECTIVE: patient returns after long absence. He was last seen in January 2024. He has previously undergone a left STT fusion. Patient states that about 2 to 3 months ago he noticed some persistent pain at the base of the thumb. It is achy and sore and occasionally gets swollen. There is no numbness no tingling. Patient has had a prior carpal tunnel release. OBJECTIVE: Visit Vitals Ht 1.803 m (71 ) Wt 99.8 kg (220 lb) BMI 30.68 kg/m?? Smoking Status Former BSA 2.2 m?? Patient has evidence of the old dorsal scars from his prior surgery. He is able to flex and extend his wrist seemingly without any discomfort going about 60 degrees of flexion and extension and he can circumduct the wrist. He is able to circumduct the thumb. He is neurologically intact. Over the dorsal the wrist he has some mild discomfort over the STT area. Volarly he is tender right at the scaphoid tubercle and slightly distal to it at the base of the thenar muscle. Feels a little firm. When I manipulate the thumb metacarpal down the basal joint that does not seem to elicit any discomfort. XR Wrist 3+ Views Left AP, lateral, oblique of the left wrist was obtained on 07/12/2025. There are prior images. Patient has evidence of 3 screws at the STT joint. 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 There is also some osteophytes on the radial styloid and the radial margin of the scaphoid. These trapeziometacarpal joint is still intact. No evidence of fractures. No backing out of the hardware noted. ASSESSMENT: 1. 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 It sounds like its generally been stable up until recently and something changed. None of the hardware appears broken or loose or backed out. However, I would get a CAT scan to better delineate the nonunion. This was explained to the patient. CAT scan was ordered. 2-week follow-up to review studies. PLAN: CT scan left wrist 2-week follow-up Donna Barraza MD has a past medical history of COPD (chronic obstructive pulmonary disease) ([facility] V24, [facility] V28) (06/30/2023), Depression (06/30/2023), Essential hypertension, and Hyperlipidemia. He has no past medical history of Anxiety state, Asthma, Diabetes mellitus type 2, controlled, withcomplications ([facility] V24, [facility] V28), or Esophageal reflux. has a past surgical history that includes Shoulder surgery (Left); Neck surgery; Carpal tunnel release (Left); and Trigger finger release (Left). Home Medications albuterol 2.5 mg /3 mL (0.083 %) nebulizer solution INHALE 1 VIAL VIA NEBULZER EVERY 6 HOURS NEEDED FOR SHORTNESS OF BREATH OR WHEEZING FOR 30 DAYS metoprolol succinate (TOPROL-XL) 100 mg 24 hr tablet prazosin (MINIPRESS) 2 mg capsule Take 1 capsule (2 mg total) by mouth 1 (one) time each day in [facility]. sildenafiL (VIAGRA) 100 mg tablet TAKE 1 TABLET BY MOUTH ONCE NEEDED FOR SEXUAL ACTIVITY. TAKE NEEDED 60 MINUTES BEFORE ACTIVITY. SUMAtriptan (IMITREX) 50 mg tablet traZODone (DESYREL) 150 mg tablet Take 2 tablets (300 mg total) by mouth. at bedtime losartan-hydroCHLOROthiazide (HYZAAR) 100-25 mg per tablet TOME 1 TABLETA POR V A ORAL TODOS LOS D rosuvastatin (CRESTOR) 40 mg tablet TOME 1 TABLETA POR V A ORAL TODOS LOS D reports that he has quit smoking. He has never used smokeless tobacco. He reports that he does not currently use alcohol. He reports that he does not use drugs. documented in this encounter Plan of Treatment Upcoming Encounters Date Type Department Care Team (Late st Contact Info) Description 07/30/2025 11:00 AM EDT Office Visit Orthopedic Surgery - [address] [place] [address] Donna Barraza MD [address] [place] [phone] Scheduled Orders Name Type Priority Associated Diagnoses Orde r Schedule CT Upper Extremity wo Contrast Left Imaging Routine Left wrist pain Expected: 07/12/2025, Expires: 07/12/2026 documented as of this encounter Results * XR Wrist 3+ Views Left (07/12/2025 10:42 AM EDT) Anatomical Region Laterality Modality Upper Extremities, Wrist Left Compute d Radiography Narrative 07/12/2025 10:57 AM EDT AP, lateral, oblique of the left wrist was obtained on 07/12/2025. There are prior images. Patient has evidence of 3 screws at the STT joint. 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 There is also some osteophytes on the radial styloid and the radial margin of the scaphoid. These trapeziometacarpal joint is still intact. No evidence of fractures. No backing out of the hardware noted. Donna Barraza MD IMG XR PROCEDURES Final Resul t documented in this encounter Visit Diagnoses Diagnosis Left wrist pain- Primary Pain in joint, forearm documented in this encounter Historical Medications * This list may reflect changes made after this encounter. losartan-hydroCH LOROthiazide (HYZAAR) 100-25 mg per tablet TOME 1 TABLETA POR V A ORAL TODOS LOS D metoprolol succinate (TOPROL-XL) 100 mg 24 hr tablet 07/09/2025 prazosin (MINIPRESS) 2 mg capsule Take 1 capsule (2 mg total) by mouth 1 (one) time each day in the evening. 07/09/2025 rosuvastatin (CRESTOR) 40 mg tablet TOME 1 TABLETA POR V A ORAL TODOS LOS D sildenafiL (VIAGRA) 100 mg tablet TAKE 1 TABLET BY MOUTH ONCE NEEDED FOR SEXUAL ACTIVITY. TAKE NEEDED 60 MINUTES BEFORE ACTIVITY. 05/31/2025 SUMAtriptan (IMITREX) 50 mg tablet 07/09/2025 traZODone (DESYREL) 150 mg tablet Take 2 tablets (300 mg total) by mouth. at bedtime 07/09/2025 albuterol 2.5 mg /3 mL (0.083 %) nebulizer solution INHALE 1 VIAL VIA NEBULZER EVERY 6 HOURS NEEDED FOR SHORTNESS OF BREATH OR WHEEZING FOR 30 DAYS 01/11/2025 added in this encounter Care Teams Teamcenter Solution Architect Relationship Specialty Start Date End Date Delia Davila MD [address] [facility] [address] [place], [place] PCP - General Internal Medicine 04/03/21 documented as of this encounter
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
[2025-07-17 10:42] VITALS: BP 104/56; PULSE 82; O2SAT 97; BMI 30.6
--- OUTSIDE RECORDS SUMMARY | 2025-07-17 13:15 | XMS_ITS | Clinical Summary ---
Author Organization [employer] Address [address] [facility] [address] [place] [address] Care Team Providers Care Red Mud Thickener Operator Name Role Phone Unavailable Primary Care Provider [...] Info) Description 08/08/2025 10:30 AM EDT Immunization [facility] [address] [place] [address] Health Maintenance Due Date Last Done Comments [...]
--- OUTSIDE RECORDS SUMMARY | 2025-07-17 13:15 | XMS_ITS | Clinical Summary ---
Author Organization [facility] Address [address] [place] [address] Phone Care Team Providers Care Photo Tech Name Role Phone Deila Davila MD Primary Care Provider [phone] Allergies Active Allergy Reactions Criticality Noted Date [...] 10:30 AM EDT Office Visit Orthopedic Surgery [facility] [address] [place] [address] Donna Barraza MD Left wrist pain (Primary Dx) 05/16/2025 11:00 AM EDT - 05/16/2025 11:59 PM EDT Hospital Encounter [facility] [address] [place] [address] Discharge Disposition: Home or Self Care 05/15/2025 11:00 AM EDT - 05/15/2025 11:59 PM EDT Hospital Encounter [facility] [address] [place] [phone] Discharge Disposition: Home or Self Care 05/14/2025 9:18 AM EDT - 05/14/2025 11:59 PM EDT Hospital Encounter [facility] [address] [place] [phone] Discharge Disposition: Home or Self Care from Last 3 Months Surgical History Surgery Date Site/Laterality Comments SHOULDER SURGERY Left PROCEDURE: HISTORICAL SHOULDER SURGERY NECK SURGERY PROCEDURE: HISTORICAL NECK SURGERY CARPAL TUNNEL RELEASE Left x2 TRIGGER FINGER RELEASE Left Medical History Medical History Date Comments Essential hypertension DX:Essent ial hypertension Hyperlipidemia DX:Hyperlipidemi a COPD (chronic obstructive pu lmonary disease) ([facility] V24, [facility] V28) 06/30/2023 DX:COPD (chronic o bstructive pulmonary disease) ([facility]) Depression 06/30/2023 DX:Depression Social History [...] AM EDT Office Visit Orthopedic Surgery - [place] [address] [place] [address] Donna Barraza MD [facility] [place] [address] Health Maintenance Due Date Last [...] Routine 05/16/2025 3:06 PM EDT Seizure disorder ([facility] V24, [facility] V28) CONTINUOUS EEG Routine 05/15/2025 11:44 AM EDT Seizure disorder (CMS/HCC V24, CMS/HCC V28) CONTINUOUS EEG Routine 05/14/2025 12:01 PM EDT Seizure disorder (CMS/HCC V24, CMS/[facility] V28) from Last 3 Months [...] original result were not included. Neuro[facility] [address] [place] [id number] Ambulatory Electroencephalogram Report Date of service: 05/16/25 Patient Name: Morteza Rogers Date of : 1960 Age: 65 y.o. Gender: male Procedure Order: Continuous EEG Ordering Provider: Martin Hardy MD Reason for Exam: Order Questions Answers Type of monitoring Unmonitored With video? No Diagnosis listed on Order: Seizure disorder ([facility] V24, [facility] V28) This is a recurrent [...] result were not included. [facility] [address] [place] [address] Ambulatory Electroencephalogram Report Date of service: 05/14/25 Patient Name: Morteza Rogers Date of : 1960 Age: 65 y.o. Gender: male Procedure Order: Continuous EEG Ordering Provider: Martin Hardy MD Reason for Exam: Order Questions Answers Type of monitoring Unmonitored With video? No Diagnosis listed on Order: Seizure disorder ([facility] V24, [facility] V28) Procedure Performed: 48-hour ambulatory [...] from Last 3 Months Insurance [address] [place] [address] [facility] [employer] Care Teams Photo Tech Relationship Specialty Start Date End Date Delia Davila MD [facility] [address] [place], [place] PCP - General Internal Medicine 04/03/21
== END 2025-07-17 11:19 | disposition home or self-care (01) ==
PROVIDERS: PCP Internal Medicine; Visit Provider Hospitalist
DX: J44.9 Chronic obstructive pulmonary disease, unspecified (principal); G47.33 Obstructive sleep apnea (adult) (pediatric); Z99.89 Dependence on other enabling machines and devices; R91.8 Other nonspecific abnormal finding of lung field; R06.00 Dyspnea, unspecified
CPT/HCPCS: 99214

== ENCOUNTER → 2025-07-17 10:38 | Outpatient (BNVA) | payer OTHER, SELFPAY | PROVIDERS: PCP Internal Medicine; Visit Provider Hospitalist | DX: J44.89 Other specified chronic obstructive pulmonary disease (principal); G47.33 Obstructive sleep apnea (adult) (pediatric); R91.8 Other nonspecific abnormal finding of lung field; R06.00 Dyspnea, unspecified; R55 Syncope and collapse; Z99.89 Dependence on other enabling machines and devices | CPT/HCPCS: 99212 ==

== ENCOUNTER 2025-08-15 08:54 | Outpatient (REF) | payer OTHER, SELFPAY ==
--- OUTSIDE RECORDS SUMMARY | 2025-08-15 09:40 | XMS_ITS | Clinical Summary ---
Author Organization [email or web address] [facility] Address [address] [facility] [address] [place] [address] Care Team Providers Care Pediatric Immunologist Name Role Phone Unavailable Primary Care Provider Unavailabl e Encounters Date Type Department Care Team Description 08/13/2025 Travel 06/06/2025 Travel from Last 3 Months Immunizations Immunization Administration Dates Next Due Influenza, Injectable, MDCK, preservative free 1 Social History Tobacco Use Types Packs/Day Years Used Date Smoking Tobacco: Never Assessed Comments Unknown Sex and Gender Information Value Date Recorded Sex Assigned at Unknown 06/06/2025 3:36 PM EDT Legal Sex Male 10:44 AM EDT Gender Identity Choose not to disclose 3:37 PM EDT Sexual Orientation Don't know 06/06/2025 3: 37 PM EDT Plan of Treatment Health Maintenance Due Date Last Done Comments [...] Vaccines (1 of 2) 2011 COVID-19 Vaccine (1 - 2023-2 5 season) 2025 RSV Patients and Pa tients Aged 60 years or older (1 - 1-dose 75+ series) 2036 Influenza Vaccine Completed 08/13/2025 HIB Vaccines Aged Out No longer eligi [...]
--- OUTSIDE RECORDS SUMMARY | 2025-08-15 09:40 | XMS_ITS | Encounter Summary ---
Author Organization [employer] [facility] Address [address] [facility] [address] [place] [address] Care Team Providers Care Electrical And Instrument Engineer Name Role Phone Unavailable Primary Care Provider Unavailabl e Encounter Details Date Type Department Care Team (Latest Contact Info) Description 08/13/2025 Travel Social History Tobacco Use Types Packs/Day Years Used Date Smoking Tobacco: Never Assessed Comments Unknown Sex and Gender Information Value Date Recorded Sex Assigned at Unknown 06/06/2025 3:36 PM EDT Legal Sex Male 10:44 AM EDT Gender Identity Choose not to disclose 3:37 PM EDT Sexual Orientation Don't know 06/06/2025 3: 37 PM EDT documented as of this encounter Plan of Treatment Not on file documented as of this encounter Visit Diagnoses Not on filedocumented in this encounter
--- OUTSIDE RECORDS SUMMARY | 2025-08-15 09:40 | XMS_ITS | Clinical Summary ---
Author Organization [facility] Address [address] [place] [address] Phone Care Team Providers Care Trout Farmer Name Role Phone Delia Davila MD Primary Care Provider [phone] Allergies Active Allergy Reactions Criticality Noted Date [...] 10:30 AM EDT Office Visit Orthopedic Surgery [facility] [address] [place] [address] Donna Barraza MD Left wrist pain (Primary Dx) 05/16/2025 11:00 AM EDT - 05/16/2025 11:59 PM EDT Hospital Encounter [facility] [address] [place] [address] Discharge Disposition: Home or Self Care 05/15/2025 11:00 AM EDT - 05/15/2025 11:59 PM EDT Hospital Encounter [facility] [address] [place] [address] Discharge Disposition: Home or Self Care from Last 3 Months Surgical History Surgery Date Site/Laterality Comments SHOULDER SURGERY Left PROCEDURE: HISTORICAL SHOULDER SURGERY NECK SURGERY PROCEDURE: HISTORICAL NECK SURGERY CARPAL TUNNEL RELEASE Left x2 TRIGGER FINGER RELEASE Left Medical History Medical History Date Comments Essential hypertension DX:Essent ial hypertension Hyperlipidemia DX:Hyperlipidemi a COPD (chronic obstructive pu lmonary disease) ([facility] V24, [facility] V28) 06/30/2023 DX:COPD (chronic o bstructive pulmonary disease) ([facility]) Depression 06/30/2023 DX:Depression Social History Tobacco [...] Care Team (Late st Contact Info) Description 08/15/2025 2:45 PM EDT Appointment [facility] CT Scan [address] [place] [phone] Health Maintenance Due Date Last Done Comments Colorectal Cancer Screening: Colonoscopy 1960 RSV Immunization Adult Patients (1 - Risk 50-74 years 1-dose series) 2011 Zoster Vaccines (2 of 2) 07/03/2022 05/08/2022 Cholesterol Screening (Lipid Panel) 10/02/2022 HIV Screening 10/02/2022 Hepatitis C Screening 10/02/2022 Social Influencers of Health Screening 10/02/2022 Hypertension/CHF/CAD Annual BMP Blood Test 12/07/2023 Depression Screening 10/24/2024 COVID-19 Vaccine (2 - season) 2025 07/30/2023 Influenza Vaccine (#1) 2025 , 07/20/2023, 08/19/2022, Additional history exists DTaP,Tdap,and Td [...] Routine 05/16/2025 3:06 PM EDT Seizure disorder (CMS/HCC V24, CMS/[facility] V28) CONTINUOUS EEG Routine 05/15/2025 11:44 AM EDT Seizure disorder ([facility] V24, [facility] V28) from Last 3 Months Results * [...] original result were not included. [facility] [address] [place] [id number] Ambulatory Electroencephalogram Report Date of service: 05/16/25 Patient Name: Morteza Rogers Date of : 1960 Age: 65 y.o. Gender: male Procedure Order: Continuous EEG Ordering Provider: Martin Hardy MD Reason for Exam: Order Questions Answers Type of monitoring Unmonitored With video? No Diagnosis listed on Order: Seizure disorder ([facility] V24, [facility] V28) This is a recurrent day study. [...] with patient not reporting any significant events Martin Hardy MD NEUROLOGY ORDERABLES Final Result from Last 3 Months Insurance [employer] Care Teams Trout Farmer Relationship Specialty Start Date End Date Delia Davila MD [address] [place], [place] PCP - General Internal Medicine 04/03/21
[2025-08-15 10:11] LABS: Alanine Aminotransferase 20 U/L (0-40); Albumin Level 4.3 g/dL (3.5-5.0); Alkaline Phosphatase 65 U/L (39-117); Anion Gap 9 (12-20); Aspartate Amino Transferase 26 U/L (5-37); Blood Urea Nitrogen 9 mg/dL (9-16); Calcium 8.9 mg/dL (8.4-10.2); Carbon Dioxide 31 mmol/L (22-29); Chloride 98 mmol/L (96-108); Estimated Glomerular Filt Rate > 60; Potassium 4.4 mmol/L (3.3-5.1); Sodium 134 mmol/L (135-145); Total Protein 6.9 g/dL (6.5-8.0)
== END 2025-08-15 08:55 | disposition home or self-care (01) ==
LOC: HO.LAB 08:54
PROVIDERS: PCP Internal Medicine; Visit Provider Internal Medicine
DX: Z00.01 Encounter for general adult medical examination with abnormal findings (principal); F32.4 Major depressive disorder, single episode, in partial remission; G63 Polyneuropathy in diseases classified elsewhere; M54.2 Cervicalgia
CPT/HCPCS: 36415; 80053